=== PATIENT | male | born 1940 | race Caucasian/White ===

== ENCOUNTER 2017-07-07 14:40 | Emergency (ER) | payer OTHER ==
[~2017-07-07 14:40] MED LIST: CHOL50006; FENO54TA PO; HYDR12.57 PO; LOVA40TA PO; METO100T PO; MULT1TAB84 PO; NOVO7030P2 SQ; PROBCAP11; RAMI10CA PO; SITA50 PO; SPIR25TA PO; WARF4TAB51 PO; ZINC50TA PO
[2017-07-07 14:55] VITALS: BP 124/62; PULSE 75; RESP 20; TEMP 99.6; O2SAT 97
[2017-07-07] MEDS ORDERED: ACETAMINOPHEN 325 MG TAB PO ONE (15:00)
[2017-07-07] MEDS ORDERED: METF500T PO (15:15)
[2017-07-07] MEDS ORDERED: GABA100C4 PO (15:15)
[2017-07-07] MEDS ORDERED: HYDR-3288 PO (15:15)
--- NOTE | 2017-07-07 15:24 | PD ---
HPI Chief Complaint: Fall Time Seen by Provider: 14:42 Travel History International Travel<30 days: No Contact w/Intl Traveler<30days: No Traveled to known affect area: No History of Present Illness HPI Patient is a 77 year old male who comes in after a fall today. He says he was sitting in a rolling chair when he fell asleep and woke up on the floor. He called the fire department to help him up and refused transport at that time. He says he started to have pain to his knee, hip and head, so he called again. He denies chest pain or SOB. He says he fell asleep and denies passing out. He has history of chronic pain issues. Severity is mild to moderate. PFSH Past Medical History Hx Anticoagulant Therapy: Yes Arthritis: Yes Blood Disorders: No Heart Rhythm Problems: Yes (AFIB) Cancer: No Cardiac Catheterization: Yes Cardiovascular Problems: Yes High Cholesterol: Yes Chemotherapy: No Chest Pain: No Congestive Heart Failure: No Coronary Artery Disease: Yes Diabetes: Yes Patient Takes Glucophage: Yes Diminished Hearing: No Endocrine: Yes Genitourinary: Yes Hepatitis: No Hiatal Hernia: No Hypertension: Yes Immune Disorder: No Implanted Vascular Access Dvce: Yes Musculoskeletal: Yes Neurologic: No Psychiatric: No Reproductive: No Respiratory: No Radiation Therapy: No Thyroid Disease: No Tetanus Vaccination: < 5 Years Influenza Vaccination: Yes Past Surgical History AICD: No Arteriovenous Shunt: No Body Medical Devices: CERVICAL SPINE INSTRUMENTATION Cardiac Surgery: Yes (quad by-pass 2001) Eye Surgery: Yes (pauline cataracts) Insulin Pump: No Joint Replacement: Yes (RIGHT KNEE) Neurologic Surgery: Yes (CERVICAL SPINE FUSION 10/14/13, L3-L5 02/03/14) Pacemaker: No Other Surgery: Yes Social History Alcohol Use: No Tobacco Use: Yes (2 PPD) Substance Use: No Allergies-Medications (Allergen,Severity, Reaction): Coded Allergies: penicillin G (Unverified Allergy, Severe, Rash, 10/03/16) PT STATES UNKNOWN REACTION insulin detemir (Unverified Allergy, Intermediate, LIPS AND THROAT SWELLS , 10/03/16) insulin glargine (Unverified Allergy, Intermediate, LIPS AND THROAT SWELLS , 10/03/16) *MDRO Multi-Drug Resistant Organism (Unverified Allergy, Unknown, 05/09/16) C.diff 09/2013 Uncoded Allergies: CITRUS (Adverse Reaction, Intermediate, SEVERE UPSET STOMACH, 01/22/14) Reported Meds & Prescriptions Reported Meds & Active Scripts Active Reported [place] (Hydrocodone-Acetaminophen) 7.5-325 mg Tab 1 Tab PO Q6H PRN Gabapentin 100 Mg Cap 100 Mg PO TID Metformin (Metformin HCl) 500 Mg Tab 500 Mg PO DAILY With a meal Probiotic (Probiotic Product) 1 Cap Cap Lovastatin 40 Mg Tab 40 Mg PO DAILY Fenofibrate 54 Mg Tab 54 Mg PO DAILY Warfarin 2 Mg Tab 2 Mg PO DAILY Vitamin D (Cholecalciferol) 5,000 Unit Tab Zinc 50 Mg Tab 50 Mg PO DAILY Spironolactone 25 Mg Tab 25 Mg PO DAILY Metoprolol Tartrate 100 Mg Tab 100 Mg PO BID Ramipril 10 Mg Cap 10 Mg PO BID Novolin 70-30 Inj (Insulin Human Isoph/Insulin Regular) 1,000 Unit/10 Ml Vial 20 Units SQ BID Review of Systems Except as stated in HPI: all other systems reviewed are Neg General / Constitutional: No: Fever, Chills HENT: Positive: Headaches, No: Lightheadedness Cardiovascular: No: Chest Pain or Discomfort Respiratory: No: Shortness of Breath Musculoskeletal: Positive: Pain, No: Edema Skin: No Rash, No Change in Pigmentation Neurologic: No: Weakness, Dizziness, Syncope Physical Exam Narrative GENERAL: Awake and alert, in no acute distress. SKIN: Focused skin assessment warm/dry. Legs are bandaged and wrapped by wound care. HEAD: Atraumatic. Normocephalic. EYES: Pupils equal and round. No scleral icterus. EOMI. ENT: No nasal bleeding or discharge. Mucous membranes pink and moist. NECK: Trachea midline. No JVD. No cervical spine tenderness. CARDIOVASCULAR: Regular rate and rhythm. No murmur appreciated. RESPIRATORY: No accessory muscle use. Clear to auscultation. Breath sounds equal bilaterally. GASTROINTESTINAL: Abdomen soft, non-tender, nondistended. MUSCULOSKELETAL: No obvious deformities. No clubbing. No cyanosis. No edema. Tender to palpation of the right knee, pain with movement of the right knee. Tender to palpation of the right hip. NEUROLOGICAL: Awake and alert. No obvious cranial nerve deficits. Motor grossly within normal limits. Normal speech. PSYCHIATRIC: Appropriate mood and affect; insight and judgment normal. Data Data Last Documented VS Vital Signs Date Time Temp Pulse Resp B/P (MAP) Pulse Ox O2 Delivery O2 Flow Rate FiO2 07/07/17 14:55 99.6 75 20 124/62 (82) 97 Orders Orders Iv Access Insert/Monitor (07/07/17 14:54) Complete Blood Count With Diff (07/07/17 14:54) Comprehensive Metabolic Panel (07/07/17 14:54) Creatine Kinase (Cpk) (07/07/17 14:54) Hip, Uni(Ap&Lat) W Ap Pelvis (07/07/17 ) Knee, Complete (4vws) (07/07/17 ) Foot, Complete (Ero0ucx) (07/07/17 ) Ct Brain W/O Iv Contrast(Rout) (07/07/17 ) Ct Facial Bones W/O Iv Cont (07/07/17 ) Ct Cerv Spine W/O Contrast (07/07/17 ) Acetaminophen (Tylenol) (07/07/17 15:00) Act Partial Throm Time (Ptt) (07/07/17 16:31) Prothrombin Time / Inr (Pt) (07/07/17 16:31) Labs Laboratory Tests Test 07/07/17 16:15 07/07/17 16:50 White Blood Count 12.9 TH/MM3 Red Blood Count 3.52 MIL/MM3 Hemoglobin 11.7 GM/DL Hematocrit 33.9 % Mean Corpuscular Volume 96.2 FL Mean Corpuscular Hemoglobin 33.2 PG Mean Corpuscular Hemoglobin Concent 34.5 % Red Cell Distribution Width 14.0 % Platelet Count 209 TH/MM3 Mean Platelet Volume 9.3 FL Neutrophils (%) (Auto) 74.5 % Lymphocytes (%) (Auto) 12.7 % Monocytes (%) (Auto) 10.9 % Eosinophils (%) (Auto) 0.2 % Basophils (%) (Auto) 1.7 % Neutrophils # (Auto) 9.7 TH/MM3 Lymphocytes # (Auto) 1.6 TH/MM3 Monocytes # (Auto) 1.4 TH/MM3 Eosinophils # (Auto) 0.0 TH/MM3 Basophils # (Auto) 0.2 TH/MM3 CBC Comment DIFF FINAL Differential Comment Blood Urea Nitrogen 28 MG/DL Creatinine 1.40 MG/DL Random Glucose 269 MG/DL Total Protein 7.0 GM/DL Albumin 3.0 GM/DL Calcium Level 9.2 MG/DL Alkaline Phosphatase 56 U/L Aspartate Amino Transf (AST/SGOT) 33 U/L Alanine Aminotransferase (ALT/SGPT) 19 U/L Total Bilirubin 1.0 MG/DL Sodium Level 134 MEQ/L Potassium Level 4.4 MEQ/L Chloride Level 104 MEQ/L Carbon Dioxide Level 22.7 MEQ/L Anion Gap 7 MEQ/L Estimat Glomerular Filtration Rate 49 ML/MIN Total Creatine Kinase 260 U/L Prothrombin Time 18.3 SEC Prothromb Time International Ratio 1.8 RATIO Activated Partial Thromboplast Time 33.1 SEC [place] Medical Decision Making Medical Screen Exam Complete: Yes Emergency Medical Condition: Yes Medical Record Reviewed: Yes Differential Diagnosis Knee fracture versus knee sprain versus hip fracture versus heal fracture versus electrolyte abnormality Narrative Course Patient is a 77-year-old male who comes in after he fell out of a chair today. He has pain to his right knee, heel, hip. X-rays performed of the knee, heel, hip show no acute abnormalities. CT head, facial bones, C-spine performed show no acute abnormalities. Last [address] 07/07/17 0000 Signed Impressions: Service Date/Time: Friday, July 07, 2017 15:34 - CONCLUSION: 1. No acute facial fracture. 2. Minimal bilateral maxillary sinus mucosal disease. Francisco Tran MD Knee X-Ray 07/07/17 0000 Signed Impressions: Service Date/Time: Friday, July 07, 2017 15:00 - CONCLUSION: 1. Right knee arthroplasty without acute fracture or hardware failure. 2. Moderate suprapatellar joint effusion. Francisco Tran MD Hip and Pelvis X-Ray 07/07/17 0000 Signed Impressions: Service Date/Time: Friday, July 07, 2017 15:00 - CONCLUSION: 1. No acute fracture or dislocation. Francisco Tran MD Head CT 07/07/17 0000 Signed Impressions: Service Date/Time: Friday, July 07, 2017 15:34 - CONCLUSION: 1. No acute intracranial abnormality. 2. 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 Francisco Tran MD Foot X-Ray 07/07/17 0000 Signed Impressions: Service Date/Time: Friday, July 07, 2017 15:00 - CONCLUSION: 1. No acute fracture or dislocation. Francisco Tran MD Cervical Spine CT 07/07/17 0000 Signed Impressions: Service Date/Time: Friday, July 07, 2017 15:34 - CONCLUSION: 1. No acute fracture. 2. Minimal anterolisthesis of C3 on C4 likely due to the degenerative facet arthrosis. May obtain flexion and extension views if there is clinical concern regarding ligamentous instability. 3. Post surgical features of anterior plate and interdiscal fusion at C5-6. 4. Advanced multilevel degenerative spondylosis of the cervical spine. Francisco Tran MD Labs show no acute abnormalities. Patient asked to take his gabapentin from home. He will be discharged home to follow-up with his doctors. Advised return as needed for any worsening symptoms. Diagnosis Primary Impression: Fall Qualified Codes: W19.XXXA - Unspecified fall, initial encounter Patient Instructions: Fall Prevention (ED), General Instructions Additional Instructions: Take your medications as prescribed. Follow-up with your doctors. Return to the ED as needed for any worsening symptoms. Disposition: 01 DISCHARGE HOME Condition: Stable Altagracia Ha MD July 07, 2017 15:24
--- NOTE | 2017-07-07 15:46 | RADRPT ---
EXAM DATE/TIME: 07/07/2017 15:00 [facility] COMPARISON: No previous studies available for comparison. INDICATIONS : Pain due to fall. MEDICAL HISTORY : Diabetes mellitus type II. Hypertension Hypercholesterolemia. A-fib SURGICAL HISTORY : CABG. Total knee replacement, right. Lumbar fusion. Cervical fusion. ENCOUNTER: Initial ACUITY: 1 day PAIN SCORE: 6/10 LOCATION: Right knee FINDINGS: There is a total knee arthroplasty in place. Hardware appears intact. Osseous structures are intact w ithout acute bony fracture. There is a suprapatellar joint effusion. Extensive absence chronic calcif ications of the femoral and popliteal arteries. Soft tissues are otherwise unremarkable. CONCLUSION: 1. Right knee arthroplasty without acute fracture or hardware failure. 2. Moderate suprapatellar joint effusion. Francisco Tran MD on July 07, 2017 at 15:43 Board Certified Radiologist. This report was verified electronically.
--- NOTE | 2017-07-07 15:48 | RADRPT ---
EXAM DATE/TIME: 07/07/2017 15:00 [facility] COMPARISON: No previous studies available for comparison. INDICATIONS : Pain due to fall. MEDICAL HISTORY : Hypertension. Hypercholesterolemia. A-fib. Diabetes type 2. SURGICAL HISTORY : CABG. Total knee replacement, right. Lumbar fusion. Cervical fusion. ENCOUNTER: Initial ACUITY: 1 day PAIN SCORE: 6/10 LOCATION: Right pelvis hip, anterior and lateral. FINDINGS: Examination of the right hip was performed with AP Pelvis. The primary and secondary trabecular trish chel[place] of the femoral neck is intact. 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 Ext ensive vascular calcifications. The acetabulum is grossly intact. Fusion hardware in the lower lumbar spine at L4-S1. CONCLUSION: 1. No acute fracture or dislocation. Francisco Tran MD on July 07, 2017 at 15:45 Board Certified Radiologist. This report was verified electronically.
--- NOTE | 2017-07-07 15:48 | RADRPT ---
EXAM DATE/TIME: 07/07/2017 15:00 [facility] COMPARISON: No previous studies available for comparison. INDICATIONS : Pain due to fall. MEDICAL HISTORY : Hypertension. Hypercholesterolemia. A-fib. Diabetes type 2. SURGICAL HISTORY : CABG. Total knee replacement, right. Lumbar fusion. Cervical fusion. ENCOUNTER: Initial ACUITY: 1 day PAIN SCORE: 5/10 LOCATION: Right foot, heel FINDINGS: Three view examination of the right foot demonstrates no soft tissue swelling, dislocation, or fractu re. The tarsal bones appear intact. The interphalangeal and metatarsophalangeal joints are intact. The calcaneus is intact. CONCLUSION: 1. No acute fracture or dislocation. Francisco Trna MD on July 07, 2017 at 15:46 Board Certified Radiologist. This report was verified electronically.
--- NOTE | 2017-07-07 16:25 | RADRPT ---
EXAM DATE/TIME: 07/07/2017 15:34 [facility] COMPARISON: CT BRAIN W/O CONTRAST, February 13, 2014, 16:24. INDICATIONS : Trauma, fall from chair today. RADIATION DOSE: 64.65 CTDIvol (mGy) MEDICAL HISTORY : Hypertension. SURGICAL HISTORY : Fusion, cervical. CABG ENCOUNTER: Initial ACUITY: 1 day PAIN SCALE: 5/10 LOCATION: Bilateral head TECHNIQUE: Multiple contiguous axial images were obtained of the head. Using automated exposure control and adj ustment of the mA and/or kV according to patient size, radiation dose was kept as low as reasonably a chievable to obtain optimal diagnostic quality images. DICOM format image data is available electro nically for review and comparison. FINDINGS: CEREBRUM: Moderate diffuse cerebral volume loss. Encephalomalacic defect in the right posterior temporal occipi alisia lobe convexities. The ventricles are normal for age. No evidence of midline shift, mass lesion, hemorrhage or acute infarction. No extra-axial fluid collections are seen. POSTERIOR FOSSA: The cerebellum and brainstem are intact. The 4th ventricle is midline. The cerebellopontine angle i s unremarkable. EXTRACRANIAL: The visualized portion of the orbits is intact. Minimal mucoperiosteal thickening in the inferior max illary sinuses. SKULL: The calvaria is intact. No evidence of skull fracture. CONCLUSION: 1. No acute intracranial abnormality. 2. 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 Francisco Tran MD on July 07, 2017 at 16:17 Board Certified Radiologist. This report was verified electronically.
[2017-07-07 16:27] LABS: AUTOMATED NEUTROPHIL # 9.7 TH/MM3 (1.8-7.7); BASOPHIL # 0.2 TH/MM3 (0-0.2); BASOPHIL % 1.7 % (0.0-2.0); EOSINOPHIL % 0.2 % (0.0-4.0); HEMATOCRIT 33.9 % (39.0-51.0); HEMOGLOBIN 11.7 GM/DL (13.0-17.0); LYMPH % 12.7 % (9.0-44.0); LYMPHOCYTE # 1.6 TH/MM3 (1.0-4.8); MEAN CELL VOLUME 96.2 FL (80.0-100.0); MEAN CORPUSCULAR HEMOGLOBIN 33.2 PG (27.0-34.0); MEAN CORPUSCULAR HGB CONC 34.5 % (32.0-36.0); MEAN PLATELET VOLUME 9.3 FL (7.0-11.0); MONO % 10.9 % (0.0-8.0); MONOCYTE # 1.4 TH/MM3 (0-0.9); NEUT % 74.5 % (16.0-70.0); PLATELET COUNT 209 TH/MM3 (150-450); RED BLOOD COUNT 3.52 MIL/MM3 (4.50-5.90); WHITE BLOOD COUNT 12.9 TH/MM3 (4.0-11.0)
--- NOTE | 2017-07-07 16:32 | RADRPT ---
EXAM DATE/TIME: 07/07/2017 15:34 [facility] COMPARISON: No previous studies available for comparison. INDICATIONS : Trauma, fall from chair today. RADIATION DOSE: 25.84 CTDIvol (mGy) MEDICAL HISTORY : Hypertension. SURGICAL HISTORY : Fusion, cervical. CABG ENCOUNTER: Initial ACUITY: 1 day PAIN SCORE: 4/10 LOCATION: Bilateral facial TECHNIQUE: Volumetric scanning of the facial bones was performed. Using automated exposure control and adjustme nt of the mA and/or kV according to patient size, radiation dose was kept as low as reasonably achiev able to obtain optimal diagnostic quality images. DICOM format image data is available electronicall y for review and comparison. FINDINGS: ORBITS: The orbital and infraorbital osseous structures are intact. The retroconal structures have a normal configuration. No radiopaque foreign bodies are seen. NASAL BONE: The nasal bone and maxillary spine are intact ZYGOMATIC ARCHES: Symmetric without evidence of fracture. SINUSES: Minimal mucoperiosteal thickening of the inferior maxillary sinuses bilaterally. The maxillary, ethmo id and frontal sinuses are intact. No air-fluid levels seen. NASAL CAVITY: The nasal septum is intact and midline. The lacrimal ducts are intact. SOFT TISSUES: No radiopaque foreign bodies seen. No soft-tissue swelling is seen. INTRACRANIAL: No intracranial air seen. CRIBIFORM PLATE: Grossly intact. CONCLUSION: 1. No acute facial fracture. 2. Minimal bilateral maxillary sinus mucosal disease. Francisco Tran MD on July 07, 2017 at 16:28 Board Certified Radiologist. This report was verified electronically.
[2017-07-07 16:36] LABS: CHLORIDE 104 MEQ/L (98-107); SODIUM (NA) 134 MEQ/L (136-145)
--- NOTE | 2017-07-07 16:38 | RADRPT ---
EXAM DATE/TIME: 07/07/2017 15:34 [facility] COMPARISON: No previous studies available for comparison. INDICATIONS : Trauma, fall from chair today. RADIATION DOSE: 26.22 CTDIvol (mGy) MEDICAL HISTORY : Hypertension. SURGICAL HISTORY : CABG Fusion, cervical. ENCOUNTER: Initial ACUITY: 1 day PAIN SCALE: 7/10 LOCATION: Bilateral neck TECHNIQUE: Volumetric scanning of the cervical spine was performed. Multiplanar reconstructions in the sagittal, coronal and oblique axial planes were performed. Using automated exposure control and adjustment o f the mA and/or kV according to patient size, radiation dose was kept as low as reasonably achievable to obtain optimal diagnostic quality images. DICOM format image data is available electronically f or review and comparison. FINDINGS: Postsurgical features of anterior plate and screw and intradiscal fusion at C5-6. Advanced multilevel degenerative spondylosis with significant disc space narrowing and osteophyte formation most promine ntly at C3-4, C6-7 and C7-T1. Prominent multilevel facet arthropathy. Minimal, 2 mm, anterolisthesis of C3 on C4. Sagittal images otherwise maintained. Vertebral body heights are maintained. Osseous str uctures are intact without evidence for acute bony fracture. Dens is intact. There is a normal C1-2 r elationship. Facets are normally aligned. There is no significant prevertebral soft tissue hematoma. No significant cervical adenopathy or gross mass. The thyroid appears unremarkable. Visualized lung a pices are clear without pneumothorax. CONCLUSION: 1. No acute fracture. 2. Minimal anterolisthesis of C3 on C4 likely due to the degenerative facet arthrosis. May obtain fle xion and extension views if there is clinical concern regarding ligamentous instability. 3. Post surgical features of anterior plate and interdiscal fusion at C5-6. 4. Advanced multilevel degenerative spondylosis of the cervical spine. Francisco Tran MD on July 07, 2017 at 16:33 Board Certified Radiologist. This report was verified electronically.
[2017-07-07 16:40] LABS: BICARBONATE 22.7 MEQ/L (21.0-32.0); BLOOD UREA NITROGEN 28 MG/DL (7-18); CALCIUM 9.2 MG/DL (8.5-10.1); GLUCOSE,RANDOM 269 MG/DL (74-106)
[2017-07-07 16:43] LABS: ALT (GPT) 19 U/L (12-78); AST (GOT) 33 U/L (15-37); GLOMERULAR FILTRATION RATE 49 ML/MIN (>89)
[2017-07-07 16:46] LABS: ALKALINE PHOSPHATASE 56 U/L (45-117)
[2017-07-07 17:17] LABS: INTERNATIONAL NORMALIZED RATIO 1.8 RATIO; PROTHROMBIN TIME - PATIENT 18.3 SEC (9.8-11.6)
== END 2017-07-07 18:05 | disposition home or self-care (01) ==
LOC: PHED 14:40
DX: M25.551 Pain in right hip (principal); M25.561 Pain in right knee; E78.00 Pure hypercholesterolemia, unspecified; I10 Essential (primary) hypertension; E11.9 Type 2 diabetes mellitus without complications
CPT/HCPCS: 70450; 70486; 72125; 73502; 73564; 73630; 80053; 82550; 85025; 85610; 85730

== ENCOUNTER 2017-07-08 11:19 | Inpatient (IN) | payer OTHER, MEDICARE ==
[2017-07-08] VITALS (8 sets, daily range): BP systolic 118–158; BP diastolic 66–95; PULSE 92–105; RESP 18–22; TEMP 97.4–99.6; O2SAT 95–97
[~2017-07-08] VITALS: Ht 180.3 cm; Wt 106.5 kg
[~2017-07-08 11:19] MED LIST changes: +GABA100C4 PO; +HYDR-3288 PO; -HYDR12.57 PO; +METF500T PO; -MULT1TAB84 PO; -SITA50 PO
--- NOTE | 2017-07-08 11:47 | PD ---
HPI Chief Complaint: Fall Time Seen by Provider: 11:23 Travel History International Travel<30 days: No Contact w/Intl Traveler<30days: No Traveled to known affect area: No History of Present Illness HPI Patient is a 77-year-old male who presents the emergency room for evaluation of gait instability with right-sided knee pain.. Patient was seen in the emergency room last night after he fell face forward out of a swivel chair and landed on his right knee. Patient reports that this is his second fall in the past week as he accidently fell earlier in the week from his swivel chair, he thinks that he may have fallen asleep in his chair and fell forward in his sleep. patient had full workup including laboratory studies, INR was 1.8 as he is on Coumadin for history of atrial fibrillation. Patient had a CAT scan of his head, neck, x-rays of his foot, right knee as well as right hip with pelvis -studies were only significant for effusion to the right knee. Patient was sent home via [facility] last night, reports that he was placed back into a swivel chair and has been unable to ambulate or care for himself or even take himself out of the swivel chair since last night. Patient reports that he was concerned as his right knee continues to hurt him. 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 Patient reports that at baseline, he does ambulate with a walker, reports that pain is so severe to his right knee, he is unable to ambulate. Reports that his PCP is working on getting him a walker with a seat on it, but at this time, he can't even help himself to the restroom because "if it go to defecate, I won't be able to get up." Reports that he had been using his swivel chair to get around his home last night and slept in the swivel chair overnight. PFSH Past Medical History Hx Anticoagulant Therapy: Yes Arthritis: Yes Blood Disorders: No Heart Rhythm Problems: Yes (AFIB) Cancer: No Cardiac Catheterization: Yes Cardiovascular Problems: Yes High Cholesterol: Yes Chemotherapy: No Chest Pain: No Congestive Heart Failure: No Coronary Artery Disease: Yes Diabetes: Yes Patient Takes Glucophage: Yes Diminished Hearing: No Endocrine: Yes Genitourinary: Yes Hepatitis: No Hiatal Hernia: No Hypertension: Yes Immune Disorder: No Implanted Vascular Access Dvce: Yes Musculoskeletal: Yes Neurologic: No Psychiatric: No Reproductive: No Respiratory: No Radiation Therapy: No Thyroid Disease: No Influenza Vaccination: No ?: Not Past Surgical History AICD: No Arteriovenous Shunt: No Body Medical Devices: CERVICAL SPINE INSTRUMENTATION Cardiac Surgery: Yes (quad by-pass 2001) Eye Surgery: Yes (pauline cataracts) Insulin Pump: No Joint Replacement: Yes (RIGHT KNEE) Neurologic Surgery: Yes (CERVICAL SPINE FUSION 10/14/13, L3-L5 02/03/14) Pacemaker: No Other Surgery: Yes Social History Alcohol Use: No Tobacco Use: Yes (02/20 PPD) Substance Use: No Allergies-Medications (Allergen,Severity, Reaction): Coded Allergies: penicillin G (Verified Allergy, Severe, Rash, 07/08/17) PT STATES UNKNOWN REACTION insulin detemir (Verified Allergy, Intermediate, LIPS AND THROAT SWELLS, ) insulin glargine (Verified Allergy, Intermediate, LIPS AND THROAT SWELLS, 07/08/17) *MDRO Multi-Drug Resistant Organism (Verified Allergy, Unknown, 07/08/17) C.diff 09/2013 Uncoded Allergies: CITRUS (Adverse Reaction, Intermediate, SEVERE UPSET STOMACH, 01/22/14) Reported Meds & Prescriptions Reported Meds & Active Scripts Active Reported [place] (Hydrocodone-Acetaminophen) 7.5-325 mg Tab 1 Tab PO Q6H PRN Gabapentin 100 Mg Cap 100 Mg PO TID Metformin (Metformin HCl) 500 Mg Tab 500 Mg PO DAILY With a meal Lovastatin 40 Mg Tab 40 Mg PO DAILY Fenofibrate 54 Mg Tab 54 Mg PO DAILY Warfarin 2 Mg Tab 2 Mg PO DAILY Spironolactone 25 Mg Tab 25 Mg PO DAILY Metoprolol Tartrate 100 Mg Tab 100 Mg PO BID Ramipril 10 Mg Cap 10 Mg PO BID Novolin 70-30 Inj (Insulin Human Isoph/Insulin Regular) 1,000 Unit/10 Ml Vial 20 Units SQ BID Review of Systems General / Constitutional: No: Fever Eyes: No: Visual changes HENT: No: Headaches Cardiovascular: No: Chest Pain or Discomfort Respiratory: No: Shortness of Breath Gastrointestinal: No: Abdominal Pain Genitourinary: No: Dysuria Musculoskeletal: Positive: Limited ROM (Right knee), Pain (Right knee) Skin: No Rash Neurologic: No: Weakness Psychiatric: No: Depression Endocrine: No: Polydipsia Hematologic/Lymphatic: No: Easy Bruising Physical Exam Narrative GENERAL: Moderate distress SKIN: Focused skin assessment warm/dry. HEAD: Atraumatic. Normocephalic. EYES: Pupils equal and round. No scleral icterus. No injection or drainage. ENT: No nasal bleeding or discharge. Mucous membranes pink and moist. NECK: Trachea midline. No JVD. CARDIOVASCULAR: Regular rate and rhythm. No murmur appreciated. RESPIRATORY: No accessory muscle use. Clear to auscultation. Breath sounds equal bilaterally. GASTROINTESTINAL: Abdomen soft, non-tender, nondistended. Hepatic and splenic margins not palpable. MUSCULOSKELETAL: No obvious deformities. No clubbing. No cyanosis. Right lower extremity: Patient with bruising and edema surrounding right knee, patient with pain with slight passive range of motion of knee, patient is unable to actively range of motion his right knee. There is no obvious fractures, pulses intact NEUROLOGICAL: Awake and alert. No obvious cranial nerve deficits. Motor grossly within normal limits. Normal speech. PSYCHIATRIC: Appropriate mood and affect; insight and judgment normal. Data Data Last Documented VS Vital Signs Date Time Temp Pulse Resp B/P (MAP) Pulse Ox O2 Delivery O2 Flow Rate FiO2 07/08/17 13:00 100 18 141/75 (97) 95 Room Air 07/08/17 11:30 99.6 Orders Orders Knee, Complete (4vws) (07/08/17 ) Basic Metabolic Panel (Bmp) (07/08/17 11:49) Complete Blood Count With Diff (07/08/17 11:49) Prothrombin Time / Inr (Pt) (07/08/17 11:49) Act Partial Throm Time (Ptt) (07/08/17 11:49) Iv Access Insert/Monitor (07/08/17 11:49) Ecg Monitoring (07/08/17 11:49) Sodium Chloride 0.9% Flush (Ns Flush) (07/08/17 12:00) Consult Pt Eval & Treat (07/08/17 12:11) Labs Laboratory Tests Test 07/08/17 12:35 White Blood Count 13.2 TH/MM3 Red Blood Count 3.77 MIL/MM3 Hemoglobin 12.1 GM/DL Hematocrit 36.3 % Mean Corpuscular Volume 96.4 FL Mean Corpuscular Hemoglobin 32.0 PG Mean Corpuscular Hemoglobin Concent 33.2 % Red Cell Distribution Width 13.4 % Platelet Count 194 TH/MM3 Mean Platelet Volume 9.1 FL Neutrophils (%) (Auto) 72.5 % Lymphocytes (%) (Auto) 12.1 % Monocytes (%) (Auto) 12.1 % Eosinophils (%) (Auto) 0.1 % Basophils (%) (Auto) 3.2 % Neutrophils # (Auto) 9.6 TH/MM3 Lymphocytes # (Auto) 1.6 TH/MM3 Monocytes # (Auto) 1.6 TH/MM3 Eosinophils # (Auto) 0.0 TH/MM3 Basophils # (Auto) 0.4 TH/MM3 CBC Comment DIFF FINAL Differential Comment Prothrombin Time 14.8 SEC Prothromb Time International Ratio 1.5 RATIO Activated Partial Thromboplast Time 38.5 SEC Calcium Level 9.1 MG/DL Sodium Level 131 MEQ/L Potassium Level 4.1 MEQ/L Chloride Level 100 MEQ/L Carbon Dioxide Level 20.7 MEQ/L Anion Gap 10 MEQ/L MDM Medical Decision Making Medical Screen Exam Complete: Yes Emergency Medical Condition: Yes Medical Record Reviewed: Yes Interpretation(s) Vital Signs Date Time Temp Pulse Resp B/P (MAP) Pulse Ox O2 Delivery O2 Flow Rate FiO2 07/08/17 11:39 95 Room Air 07/08/17 11:30 99.6 97 18 143/95 (111) 95 Differential Diagnosis Gait instability, knee effusion Narrative Course Patient is a 77 year old male who presents to the ER with c/o of gait instability. Patient is unable to ambulate or care for himself at home. He is a fall risk and does not have family or friends to care for himself. Patient currently ambulates with a walker, patient is able to ambulate with a walker at this time due to severe pain and swelling to his right knee Case management was called to help with patient's case for a safe disposition of patient. During the course of the patients emergency department visit, the patients history, examination, and differential diagnosis were reviewed with the patient. The patient was placed on a marine services technician with oximetry and frequent blood pressure monitoring. The patient had an IV access obtained and blood work sent for analysis. Case reviewed with case management, patient is an unsafe discharge, request that patient be placed in observation status at this time for PT eval. PT consult was placed Case reviewed with Dr. Munguia who accepts patient to service Diagnosis Primary Impression: Gait instability Additional Impression: Knee effusion, right Gloria Pool DO July 08, 2017 11:47
[2017-07-08] MEDS ORDERED: SODIUM CHLORIDE 0.9% FLUSH 10 ML FLUSH IV FLUSH PRN ×2 (12:00→13:15)
[2017-07-08 12:44] LABS: AUTOMATED NEUTROPHIL # 9.6 TH/MM3 (1.8-7.7); BASOPHIL # 0.4 TH/MM3 (0-0.2); BASOPHIL % 3.2 % (0.0-2.0); EOSINOPHIL % 0.1 % (0.0-4.0); HEMATOCRIT 36.3 % (39.0-51.0); HEMOGLOBIN 12.1 GM/DL (13.0-17.0); LYMPH % 12.1 % (9.0-44.0); LYMPHOCYTE # 1.6 TH/MM3 (1.0-4.8); MEAN CELL VOLUME 96.4 FL (80.0-100.0); MEAN CORPUSCULAR HGB CONC 33.2 % (32.0-36.0); MEAN PLATELET VOLUME 9.1 FL (7.0-11.0); MONO % 12.1 % (0.0-8.0); MONOCYTE # 1.6 TH/MM3 (0-0.9); NEUT % 72.5 % (16.0-70.0); PLATELET COUNT 194 TH/MM3 (150-450); RED BLOOD COUNT 3.77 MIL/MM3 (4.50-5.90); RED CELL DISTRIBUTION WIDTH 13.4 % (11.6-17.2); WHITE BLOOD COUNT 13.2 TH/MM3 (4.0-11.0)
[2017-07-08 12:55] LABS: CALCIUM 9.1 MG/DL (8.5-10.1)
[2017-07-08 12:56] LABS: BICARBONATE 20.7 MEQ/L (21.0-32.0)
[2017-07-08 12:59] LABS: INTERNATIONAL NORMALIZED RATIO 1.5 RATIO; PROTHROMBIN TIME - PATIENT 14.8 SEC (9.8-11.6)
--- NOTE | 2017-07-08 13:05 | RADRPT ---
EXAM DATE/TIME: 07/08/2017 12:39 [facility] COMPARISON: KNEE RIGHT COMPLETE (4VWS), July 07, 2017, 15:00. INDICATIONS : Right knee pain due from fall MEDICAL HISTORY : Diabetes mellitus type II. Hypertension Hypercholesterolemia. a fib SURGICAL HISTORY : CABG. Total knee replacement, right. ENCOUNTER: Initial ACUITY: 2 weeks PAIN SCORE: 7/10 LOCATION: Right knee FINDINGS: Total knee arthroplasty with stable alignment and intact hardware. No fracture seen. There is diste ntion of the suprapatellar bursa, more prominent than on yesterday's examination, now measuring up to 3.6 cm in AP dimension (previously measured 2.4 cm). Prominent vascular calcification from the dist al thigh to calf. CONCLUSION: 1. No fracture seen. Intact hardware. 2. Increasing size joint effusion when compared to yesterday's exam. Alvin Boland MD on July 08, 2017 at 13:01 Board Certified Radiologist. This report was verified electronically.
[2017-07-08] MEDS ORDERED: LACTATED RINGER'S 1000 ML INJ 1,000 ML IV SCH (13:07)
[2017-07-08] MEDS ORDERED: ONDANSETRON ODT 4 MG TAB SL PRN (13:15)
[2017-07-08] MEDS ORDERED: NALOXONE HCL 0.4 MG/ML AMP IV PUSH PRN (13:15)
[2017-07-08] MEDS ORDERED: ONDANSETRON HCL 4 MG/2 ML VIAL IVP PRN (13:15)
[2017-07-08] MEDS ORDERED: ACETAMINOPHEN 325 MG TAB PO PRN (13:15)
[2017-07-08 13:31] LABS: CREATININE 1.6 MG/DL (0.60-1.30)
--- NOTE | 2017-07-08 13:42 | HHI.HP ---
[facility] Non-Staff Admission Diagnosis Gait instability Diagnoses: Chief Complaint: Fall Travel History International Travel<30 Days: No Contact w/Intl Traveler <30 Da: No Traveled to Known Affected Are: No History of Present Illness Patient seen in follow-up for recurrent falls with increased joint pain in the right knee. 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 Normally lives independently but does use a walker or durable medical assistive device for ambulation. He has had trouble getting around especially since the rain started this past couple weeks as his knee has become more swollen and painful. He has a significant effusion on his right knee. Patient does take warfarin for atrial fibrillation however his INR is only 1.5. Patient says the pain is not controlled with gabapentin which he takes at home. He does not take pain medication because of his fear of interaction with his multiple medications. Patient also has chronic kidney disease does not take anti-inflammatories. Patient denies any chest pain or shortness of breath. He has not been dizzy or lightheaded unless his sugar becomes abnormal and this is infrequent. Patient follows up with his primary care doctor regularly and follows up with his ski top trimmer at the [facility]. This time the patient has significant effusion with elevated blood sugar and elevated white cell count. The knee does not appear to be grossly inflamed however the infusion according to images and documented ER encounters over the last 48 hours appears to have gotten worse. Patient will warrant for further evaluation by orthopedics as he cannot ambulate and the pain is severe. Review of Systems Constitutional: DENIES: Diaphoretic episodes, Fatigue, Fever, Weight gain, Weight loss, Chills, Dizziness, Change in appetite, Night Sweats Endocrine: DENIES: Heat/cold intolerance, Polydipsia, Polyuria, Polyphagia Eyes: DENIES: Blurred vision, Diplopia, Eye inflammation, Eye pain, Vision loss , Photosensitivity, Double Vision Ears, nose, mouth, throat: DENIES: Tinnitus, Hearing loss, Vertigo, Nasal discharge, Oral lesions, Throat pain, Hoarseness, Ear Pain, Running Nose, Epistaxis, Sinus Pain, Toothache, Odynophagia Respiratory: DENIES: Apneas, Cough, Snoring, Wheezing, Hemoptysis, Sputum production, Shortness of breath Cardiovascular: DENIES: Chest pain, Palpitations, Syncope, Dyspnea on Exertion , PND, Lower Extremity Edema, Orthopnea, Claudication Gastrointestinal: DENIES: Abdominal pain, Black stools, Bloody stools, Constipation, Diarrhea, Nausea, Vomiting, Difficulty Swallowing, Anorexia Genitourinary: DENIES: Sexual dysfunction, Urinary frequency, Urinary incontinence, Urgency, Hematuria, Dysuria, Nocturia, Penile Discharge, Testicular Pain, Testicular Swelling Musculoskeletal: COMPLAINS OF: Joint pain, Joint Swelling, Back pain, DENIES: Muscle aches, Stiffness, Neck pain Integumentary: DENIES: Abnormal pigmentation, Nail changes, Pruritus, Rash Hematologic/lymphatic: DENIES: Bruising, Lymphadenopathy Immunologic/allergic: DENIES: Eczema, Urticaria Neurologic: DENIES: Abnormal gait, Headache, Localized weakness, Paresthesias, Seizures, Speech Problems, Tremor, Poor Balance Psychiatric: DENIES: Anxiety, Confusion, Mood changes, Depression, Hallucinations, Agitation, Suicidal Ideation, Homicidal Ideation, Delusions Except as stated in HPI: all other systems reviewed are Neg Past Family Social History Past Medical History Diabetes mellitus Hypertension Chronic arthritis and degenerative joint disease Tobacco dependency Atrial fibrillation on warfarin Hyperlipidemia Past Surgical History Cervical spine surgery Quadruple bypass Cataracts Right knee previous surgery Reported Medications Reviewed in the EMR Allergies: Coded Allergies: penicillin G (Verified Allergy, Severe, Rash, 07/08/17) PT STATES UNKNOWN REACTION insulin detemir (Verified Allergy, Intermediate, LIPS AND THROAT SWELLS, ) insulin glargine (Verified Allergy, Intermediate, LIPS AND THROAT SWELLS, 07/08/17) *MDRO Multi-Drug Resistant Organism (Verified Allergy, Unknown, 07/08/17) C.diff 09/2013 Uncoded Allergies: CITRUS (Adverse Reaction, Intermediate, SEVERE UPSET STOMACH, 01/22/14) Active Ordered Medications Reviewed in the EMR Family History Mother at 88 from cardiac disease, father at 44 from cardiac disease Social History Patient still smokes at least a pack a day for the last 50 years Denies alcohol and lives independently Physical Exam Vital Signs Vital Signs Date Time Temp Pulse Resp B/P (MAP) Pulse Ox O2 Delivery O2 Flow Rate FiO2 07/08/17 13:00 100 18 141/75 (97) 95 Room Air 07/08/17 11:39 95 Room Air 07/08/17 11:30 99.6 97 18 143/95 (111) 95 Physical Exam GENERAL: This is a elderly gentleman who is alert and complaining of knee and hip pain SKIN: No rashes, ecchymoses or lower extremity abrasions and skin lesions which are in various stages of healing. Cool and dry. HEAD: Atraumatic. Normocephalic. No temporal or scalp tenderness. EYES: Pupils equal round and reactive. Extraocular motions intact. No scleral icterus. No injection or drainage. ENT: Nose without bleeding, purulent drainage or septal hematoma. Throat without erythema, tonsillar hypertrophy or exudate. Uvula midline. Airway patent. NECK: Trachea midline. No JVD or lymphadenopathy. Supple, nontender, no meningeal signs. CARDIOVASCULAR: Atrial fibrillation with regular rate RESPIRATORY: Clear to auscultation. Breath sounds equal bilaterally. No wheezes , rales, or rhonchi. GASTROINTESTINAL: Abdomen soft, non-tender, nondistended. No hepato-splenomegaly , or palpable masses. No guarding. MUSCULOSKELETAL: Right knee has a significant effusion and is tender and edematous with decreased range of motion and decreased extension and flexion of the knee. Bilateral lower extremities have significant wounds which are dressed , hip is tender to palpation but full extension and relatively good range of motion. Other extremities without clubbing, cyanosis, or edema. No joint tenderness, effusion, or edema noted. No calf tenderness. Negative Homans sign bilaterally. NEUROLOGICAL: Awake and alert. Cranial nerves II through XII intact. Motor and sensory grossly within normal limits. Five out of 5 muscle strength in all muscle groups. Normal speech. Laboratory Laboratory Tests Test 07/08/17 12:35 White Blood Count 13.2 Red Blood Count 3.77 Hemoglobin 12.1 Hematocrit 36.3 Mean Corpuscular Volume 96.4 Mean Corpuscular Hemoglobin 32.0 Mean Corpuscular Hemoglobin Concent 33.2 Red Cell Distribution Width 13.4 Platelet Count 194 Mean Platelet Volume 9.1 Neutrophils (%) (Auto) 72.5 Lymphocytes (%) (Auto) 12.1 Monocytes (%) (Auto) 12.1 Eosinophils (%) (Auto) 0.1 Basophils (%) (Auto) 3.2 Neutrophils # (Auto) 9.6 Lymphocytes # (Auto) 1.6 Monocytes # (Auto) 1.6 Eosinophils # (Auto) 0.0 Basophils # (Auto) 0.4 CBC Comment DIFF FINAL Differential Comment Prothrombin Time 14.8 Prothromb Time International Ratio 1.5 Activated Partial Thromboplast Time 38.5 Blood Urea Nitrogen 30 Creatinine 1.60 Random Glucose 437 Calcium Level 9.1 Sodium Level 131 Potassium Level 4.1 Chloride Level 100 Carbon Dioxide Level 20.7 Anion Gap 10 Estimat Glomerular Filtration Rate 42 Result Diagram: 07/08/17 1235 07/08/17 1235 Imaging X-ray right knee has significantly increased joint effusion Septic Shock Reassessment Septic shock perfusion: reassessment completed Caprini VTE Risk Assessment Caprini VTE Risk Assessment: Mod/High Risk (score >= 2) VTE Pharm Contraindication: Coagulopathy,INR elevated Caprini Risk Assessment Model Point Value = 1 Point Value = 2 Point Value = 3 Point Value = 5 Age 41-60 Minor surgery BMI > 25 kg/m2 Swollen legs Varicose veins or History of unexplained or recurrent spontaneous Oral contraceptives or hormone replacement Sepsis (< 1 month) Serious lung disease, including pneumonia (< 1 month) Abnormal pulmonary function Acute myocardial infarction Congestive heart failure (< 1 month) History of inflammatory bowel disease Medical patient at bed rest Age 61-74 Arthroscopic surgery Major open surgery (> 45 min) Laparoscopic surgery (> 45 min) Malignancy Confined to bed (> 72 hours) Immobilizing plaster cast Central venous access Age >= 75 History of VTE Family history of VTE Factor V Leiden Prothrombin [id number] Lupus anticoagulant Anticardiolipin antibodies Elevated serum homocysteine Heparin-induced thrombocytopenia Other congenital or acquired thrombophilia Stroke (< 1 month) Elective arthroplasty Hip, pelvis, or leg fracture Acute spinal cord injury (< 1 month) Prophylaxis Regimen Total Risk Factor Score Risk Level Prophylaxis Regimen 0-1 Low Early ambulation 2 Moderate Order ONE of the following: *Sequential Compression Device (SCD) *Heparin 5000 units SQ BID 3-4 Higher Order ONE of the following medications: *Heparin 5000 units SQ TID *Enoxaparin/Lovenox 40 mg SQ daily (WT < 150 kg, CrCl > 30 mL/min) *Enoxaparin/Lovenox 30 mg SQ daily (WT < 150 kg, CrCl > 10-29 mL/min) *Enoxaparin/Lovenox 30 mg SQ BID (WT < 150 kg, CrCl > 30 mL/min) AND/OR *Sequential Compression Device (SCD) 5 or more Highest Order ONE of the following medications: *Heparin 5000 units SQ TID (Preferred with Epidurals) *Enoxaparin/Lovenox 40 mg SQ daily (WT < 150 kg, CrCl > 30 mL/min) *Enoxaparin/Lovenox 30 mg SQ daily (WT < 150 kg, CrCl > 10-29 mL/min) *Enoxaparin/Lovenox 30 mg SQ BID (WT < 150 kg, CrCl > 30 mL/min) AND *Sequential Compression Device (SCD) Assessment and Plan Problem List: (1) Skin abnormality ICD Code: L98.9 - Disorder of the skin and subcutaneous tissue, unspecified Plan: Patient with home wound care and history of venous stasis with lymphedema Continue with wound care and management Resume home healthcare services when appropriate (2) Knee effusion, right ICD Code: M25.461 - Effusion, right knee Status: Acute Plan: Continue Tylenol as needed, avoid anti-inflammatories as patient has chronic kidney disease We will try Ultram p.o. Patient is on Coumadin but his INR is 1.5. We will hold his warfarin for now ( diagnosis A. fib) Orthotic consult for possible further evaluation of a joint effusion Patient has mild leukocytosis with no evidence of cellulitis or inflammation related to infection on the joint. This appears to be a severe nonseptic joint effusion but we will need further evaluation (3) Gait instability ICD Code: R26.81 - Unsteadiness on feet Status: Acute Plan: Likely due to joint pain and right knee effusion Patient will benefit from further orthopedic evaluation Continue rehab efforts as tolerated (4) Diabetes mellitus ICD Code: E11.9 - Diabetes mellitus Status: Acute Plan: Continue with diabetic management with home insulin regimen Accu-Cheks and sliding scale ADA diet (5) Atrial fibrillation ICD Code: I48.91 - Atrial fibrillation Status: Acute Plan: rate controlled, on warfarin which is held for possible aspiration telemetry (6) Hyponatremia ICD Code: E87.1 - Hypo-osmolality and hyponatremia Plan: Patient is significantly hyperglycemic with a blood sugar 437 We will continue to correct his blood sugar and follow-up his electrolytes Avoid fluid overload and follow clinically (7) Anemia ICD Code: D64.9 - Anemia, unspecified (8) CKD (chronic kidney disease) ICD Code: N18.9 - Chronic kidney disease, unspecified Plan: Avoid nephrotoxins Follow-up blood sugar closely to avoid hypoglycemia Code Status full code Discussed Condition With Patient, ER MD Castro,Carolyn Molina MD July 08, 2017 13:42
[2017-07-08] MEDS ORDERED: ACETAMINOPHEN 500 MG CPLT PO ONE (13:45)
[2017-07-08] MEDS ORDERED: GLUCAGON 1 MG/ML VIAL OTHER PRN (14:00)
[2017-07-08] MEDS ORDERED: DEXTROSE 50% IN WATER 50 ML VIAL(D50) IV PUSH PRN (14:00)
[2017-07-08] MEDS: SODIUM CHLOR 0.9% 1000 ML INJ 1,000 ML IV SCH (15:21)
[2017-07-08] MEDS: traMADol HCL 50 MG TAB PO PRN (15:28)
--- NOTE | 2017-07-08 15:44 | RADRPT ---
EXAM DATE/TIME: 07/08/2017 15:00 [facility] COMPARISON: No previous studies available for comparison. INDICATIONS : Right knee pain. RADIATION DOSE: 14.90 CTDIvol (mGy) MEDICAL HISTORY : Cardiovascular disease. Hypertension. Renal disease. SURGICAL HISTORY : CABG Right knee surgery. ENCOUNTER: Initial ACUITY: 1 day PAIN SCALE: 6/10 LOCATION: Right knee TECHNIQUE: Volumetric scanning of the knee was performed. Using automated exposure control and adjustment of th e mA and/or kV according to patient size, radiation dose was kept as low as reasonably achievable to obtain optimal diagnostic quality images. DICOM format image data is available electronically for re view and comparison. FINDINGS: BONES: There is a total right knee arthroplasty in place. Hardware appears grossly intact. Beam hardening ar tifact significantly limits evaluation of the osseous structures. No evidence of fracture. Patella is intact. Alignment is within normal limits. JOINTS: Moderate-sized intermediate density suprapatellar joint effusion. SOFT TISSUES: Muscles, tendons and neurovascular structures are grossly unremarkable. Prominent vascular calcificat ions. No evidence of mass, organized fluid collection, or foreign body. CONCLUSION: 1. Right total knee arthroplasty in place which limits overall evaluation for subtle fractures. 2. No evidence for acute bony fracture. 3. Moderate size suprapatellar joint effusion. Francisco Tran MD on July 08, 2017 at 15:34 Board Certified Radiologist. This report was verified electronically.
[2017-07-08] MEDS: INSULIN ASPART SUPPLEMENTAL SCALE SQ SCH ×2 (16:57→20:40)
[2017-07-08] MEDS: GABAPENTIN 100 MG CAP PO SCH (16:58)
[2017-07-08] MEDS: INSULIN HUMAN NPH/R 70/30 1,000 UNITS/10 ML VIAL SQ SCH (17:56)
[2017-07-08] MEDS: SODIUM CHLORIDE 0.9% FLUSH 10 ML FLUSH IV FLUSH SCH (20:40)
[2017-07-08] MEDS: RAMIPRIL 5 MG CAP PO SCH (20:43)
[2017-07-08] MEDS: METOPROLOL TARTRATE 100 MG TAB PO SCH (20:44)
[2017-07-08] MEDS ORDERED: INSULIN HUMAN NPH/R 70/30 1,000 UNITS/10 ML VIAL SQ SCH (21:00)
[2017-07-09] VITALS (8 sets, daily range): BP systolic 133–153; BP diastolic 62–91; PULSE 81–93; RESP 20–22; TEMP 97.5–98.8; O2SAT 96–97
[2017-07-09] MEDS: traMADol HCL 50 MG TAB PO PRN ×3 (02:32→21:30)
[2017-07-09] MEDS: SODIUM CHLOR 0.9% 1000 ML INJ 1,000 ML IV SCH ×2 (06:33→22:45)
[2017-07-09 06:43] LABS: AUTOMATED NEUTROPHIL # 8.4 TH/MM3 (1.8-7.7); BASOPHIL % 0.3 % (0.0-2.0); EOSINOPHIL % 0.4 % (0.0-4.0); HEMATOCRIT 33.1 % (39.0-51.0); HEMOGLOBIN 11.1 GM/DL (13.0-17.0); LYMPH % 15.8 % (9.0-44.0); LYMPHOCYTE # 1.8 TH/MM3 (1.0-4.8); MEAN CELL VOLUME 95.4 FL (80.0-100.0); MEAN CORPUSCULAR HEMOGLOBIN 31.8 PG (27.0-34.0); MEAN CORPUSCULAR HGB CONC 33.4 % (32.0-36.0); MONO % 10.9 % (0.0-8.0); MONOCYTE # 1.2 TH/MM3 (0-0.9); NEUT % 72.6 % (16.0-70.0); PLATELET COUNT 189 TH/MM3 (150-450); RED BLOOD COUNT 3.47 MIL/MM3 (4.50-5.90); RED CELL DISTRIBUTION WIDTH 13.3 % (11.6-17.2); WHITE BLOOD COUNT 11.4 TH/MM3 (4.0-11.0)
[2017-07-09 06:58] LABS: CALCIUM 8.5 MG/DL (8.5-10.1)
[2017-07-09 06:59] LABS: INTERNATIONAL NORMALIZED RATIO 1.3 RATIO; PROTHROMBIN TIME - PATIENT 13.2 SEC (9.8-11.6)
[2017-07-09 07:20] LABS: CREATININE 1.2 MG/DL (0.60-1.30)
[2017-07-09] MEDS: INSULIN ASPART SUPPLEMENTAL SCALE SQ SCH ×4 (08:55→21:29)
[2017-07-09] MEDS: SPIRONOLACTONE 25 MG TAB PO SCH (09:00)
[2017-07-09] MEDS: GABAPENTIN 100 MG CAP PO SCH ×3 (09:27→16:57)
[2017-07-09] MEDS: RAMIPRIL 5 MG CAP PO SCH ×2 (09:27→21:25)
[2017-07-09] MEDS: FENOFIBRATE 48 MG TAB PO SCH (09:27)
[2017-07-09] MEDS: INSULIN HUMAN NPH/R 70/30 1,000 UNITS/10 ML VIAL SQ SCH ×2 (09:27→21:29)
[2017-07-09] MEDS: METOPROLOL TARTRATE 100 MG TAB PO SCH ×2 (09:27→21:25)
[2017-07-09] MEDS: PRAVASTATIN SOD 40 MG TAB PO SCH (09:27)
[2017-07-09] MEDS: SODIUM CHLORIDE 0.9% FLUSH 10 ML FLUSH IV FLUSH SCH ×2 (09:27→21:00)
--- NOTE | 2017-07-09 10:47 | PD.RAD ---
Post Procedure Progress Note Pre Procedure Diagnosis: (1) Knee effusion, right Post Procedure Diagnosis: (1) Knee effusion, right Procedure Date: July 09, 2017 Supervising Radiologist: Mata Schneider Proceduralist/Assist: RT Yunior(R), RT Alexander(R) Anesthesia: Local Plan of Activity Patient to Unit: Nursing Unit Patient Condition: Good See PACS Report for procedural detail/treatment Drainage Procedure Procedure 1 Imaging Guidance: Ultrasound Side: Right Procedure Type: Aspiration (Knee) Procedure: Placement [place]: 4 (micropuncture) Drainage: Suction Fluid Removal (CCs): 85 Fluid Description: Cloudy, Yellow Mata Schneider MD July 09, 2017 10:47
--- NOTE | 2017-07-09 11:27 | HHI.PR ---
Subjective Remarks Patient seen and evaluated today in follow-up for generalized weakness with right knee effusion. Status post arthrocentesis of 85 mL. Fluid sent for culture Objective Vitals Vital Signs Date Time Temp Pulse Resp B/P (MAP) Pulse Ox O2 Delivery O2 Flow Rate FiO2 07/09/17 08:04 97.9 93 20 133/75 (94) 96 07/09/17 04:00 98.8 88 20 142/65 (90) 96 07/09/17 00:00 97.6 88 22 144/62 (89) 97 07/08/17 20:00 97.4 92 22 149/66 (93) 96 07/08/17 20:00 96 07/08/17 17:19 18 07/08/17 16:50 19 07/08/17 16:47 97.9 105 20 158/83 (108) 97 07/08/17 16:24 97 07/08/17 15:04 07/08/17 14:15 103 18 118/83 (95) 96 Room Air 07/08/17 13:00 100 18 141/75 (97) 95 Room Air 07/08/17 11:39 95 Room Air 07/08/17 11:30 99.6 97 18 143/95 (111) 95 I/O 07/08/17 07/08/17 07/08/17 07/09/17 07/09/17 07/09/17 07:00 15:00 23:00 07:00 15:00 23:00 Intake Total 600 ml 900 ml Output Total 400 ml 500 ml Balance 200 ml 400 ml Intake Oral 600 ml IV Total 900 ml Output Urine Total 400 ml 500 ml # Voids 1 3 # Bowel Movements 0 Result Diagram: 07/09/17 0538 07/09/17 0538 Other Results Last Impressions Lower Extremity CT 07/08/17 0000 Signed Impressions: Service Date/Time: Saturday, July 08, 2017 15:00 - CONCLUSION: 1. Right total knee arthroplasty in place which limits overall evaluation for subtle fractures. 2. No evidence for acute bony fracture. 3. Moderate size suprapatellar joint effusion. Francisco Tran MD Knee X-Ray 07/08/17 0000 Signed Impressions: Service Date/Time: Saturday, July 08, 2017 12:39 - CONCLUSION: 1. No fracture seen. Intact hardware. 2. Increasing size joint effusion when compared to yesterday's exam. Alvin Boland MD Imaging Last Impressions Lower Extremity CT 07/08/17 0000 Signed Impressions: Service Date/Time: Saturday, July 08, 2017 15:00 - CONCLUSION: 1. Right total knee arthroplasty in place which limits overall evaluation for subtle fractures. 2. No evidence for acute bony fracture. 3. Moderate size suprapatellar joint effusion. Francisco Tran MD Knee X-Ray 07/08/17 0000 Signed Impressions: Service Date/Time: Saturday, July 08, 2017 12:39 - CONCLUSION: 1. No fracture seen. Intact hardware. 2. Increasing size joint effusion when compared to yesterday's exam. Alvin Boland MD Objective Remarks GENERAL: This is a well-nourished, well-developed patient, in no apparent distress. CARDIOVASCULAR: Regular rate and rhythm without murmurs, gallops, or rubs. RESPIRATORY: Clear to auscultation. Breath sounds equal bilaterally. No wheezes , rales, or rhonchi. GASTROINTESTINAL: Abdomen soft, non-tender, nondistended. Normal active bowel sounds MUSCULOSKELETAL: Right knee swollen with effusion prior to procedure n extremities without clubbing, cyanosis, or edema. NEURO: Alert & Oriented x4 to person, place, time, situation. Moves all ext x4 but is extremely weak Procedures Right knee arthrocentesis, 85 mL A/P Problem List: (1) Skin abnormality ICD Code: L98.9 - Disorder of the skin and subcutaneous tissue, unspecified Plan: Patient with home wound care and history of venous stasis with lymphedema Continue with wound care and management Resume home healthcare services when appropriate (2) Knee effusion, right ICD Code: M25.461 - Effusion, right knee Status: Acute Plan: Status post arthrocentesis per IR Continue Tylenol as needed, avoid anti-inflammatories as patient has chronic kidney disease We will try Ultram p.o. Patient is on Coumadin but his INR is 1.3. Resume warfarin (diagnosis A. fib) (3) Gait instability ICD Code: R26.81 - Unsteadiness on feet Status: Acute Plan: Likely due to joint pain and right knee effusion Patient Continue rehab efforts as tolerated (4) Diabetes mellitus ICD Code: E11.9 - Diabetes mellitus Status: Acute Plan: Continue with diabetic management with home insulin regimen Accu-Cheks and sliding scale ADA diet (5) Atrial fibrillation ICD Code: I48.91 - Atrial fibrillation Status: Acute Plan: rate controlled, resume warfarin, rate controlled (6) Hyponatremia ICD Code: E87.1 - Hypo-osmolality and hyponatremia Plan: Resolved with blood sugar correction (7) CKD (chronic kidney disease) ICD Code: N18.9 - Chronic kidney disease, unspecified Plan: Avoid nephrotoxins Acute kidney injury is improved Discharge Planning Evaluate for rehab Carolyn Castro MD July 09, 2017 11:26
--- NOTE | 2017-07-09 12:29 | RADRPT ---
EXAM DATE/TIME: 07/09/2017 10:16 [facility] COMPARISON: No previous studies available for comparison. INDICATIONS : Patient with right knee effusion in need of aspiration. MEDICAL HISTORY : HTN, HLD, A-fib, Diabetes, Chronic arthritis and degenerative joint disease, C-Diff, CAD, GERD SURGICAL HISTORY : Cervical spine surgery, Quadruple bypass, Right knee replacement ENCOUNTER: Initial ACUITY: 1 month PAIN SCORE: 9/10 LOCATION: Right Knee FLUORO TIME: IMAGE SERIES: 3 DEVICE(S): 21 gauge needle was placed into the right knee joint. RESPONSE: Pre procedure pain level was 9/10 Post procedure pain level was 7/10 FLUID: Total volume of 85 cc of cloudy yellow fluid was removed. Fluid specimen was submitted to the lab for evaluation. PROCEDURE : 1. Fluoroscopically guided right knee aspiration. The risks, benefits and alternatives to the procedure were explained and verbal and written consent w as obtained. The site was prepped in sterile fashion. Full sterile technique was used, including ca p, mask, sterile gloves and gown and a large sterile sheet. Hand hygiene and 2% chlorhexidine and/or betadine/alcohol prep was utilized per protocol for cutaneous antisepsis. The skin and subcutaneous tissues were infiltrated with local anesthetic solution. Under direct sonographic visualization, a 21 gauge micropuncture needle was advanced into the suprapa tellar fossa. The 018 wire was advanced through the needle. Over the wire, a 3-4 dilator was placed. The 4 Irish dilator was advanced off of the wire and into the suprapatellar fluid collection. Aspira tion was then performed as detailed above. The patient tolerated the procedure well and there were no complications. CONCLUSION: Uncomplicated aspiration as above. Mata Schneider MD on July 09, 2017 at 12:25 Board Certified Radiologist. This report was verified electronically.
--- NOTE | 2017-07-09 14:44 | PD.WCN.NOT ---
Wound Consult Description: Received consult from Doctor Castro for Bilateral legs and feet. Communicated with: FRED Muro KEL and Doctor Castro Recommendation: 1.Please cleanse BLE with soap and water and pat dry. Apply lotion to bilateral lower legs and feet With gauze wrap changes as needed. Wrap with rolled gauze and secure with tape and stockinette per patient's request. 2. Please cleanse partial thickness wounds to dorsal aspect of R great toe, R second toe, R third toe, and wound to plantar aspect of L second toe with wound cleanser and pat dry. 3. Apply oil emulsion gauze in single layer just over open wounds and secure gauze and tape. Change every other day or as needed for saturation and dislodgement. 4. Please order heel raiser boots or float bilateral heels off mattress for offloading of pressure heels. Additional Information: Patient seen on [facility] third floor medical / surgical unit for evaluation of wound management of bilateral legs and feet. Patient reports having home health care [facility], FRED Hernandez, who comes out and changes dressings on his legs twice a week. Removed dressings in place to reveal intact skin to bilateral lower legs. Skin to bilateral lower legs presents with scales and hemosiderin staining. Shallow closing wounds are noted to the dorsal aspect of R great toe, R second toe, R third toe, and plantar aspect of L second toe . Largest of these wounds measures ~1.5cm x ~1cm x ~<0.1. All present with 100% pink tissue. Cleansed Bilateral lower legs with soap and water and pat dry. Lotion was then applied. Cleansed wounds on toes with wound cleanser and pat dry. Applied oil emulsion gauze over shallow partial thickness wounds to dorsal toe wounds on R foot, secured with rolled gauze and tape. Small adhesive bandage was applied to L second toe wound. Dressing was not disturbed on R knee. Doctor Schneider wrote nursing orders for wound care with R knee. Romy Ann [facility] July 09, 2017 14:44
[2017-07-09 15:04] LABS: WBC, SYNOVIAL FLUID 96000 /MM3 (0-200)
[2017-07-09 15:48] LABS: HEMOGLOBIN A1C 8.8 % (4.3-6.0)
[2017-07-09] MEDS ORDERED: WARFARIN SOD 2 MG TAB PO SCH (16:00)
[2017-07-10] VITALS (8 sets, daily range): BP systolic 108–176; BP diastolic 59–90; PULSE 77–90; RESP 18–20; TEMP 96.8–99.7; O2SAT 93–97
[2017-07-10] MEDS: traMADol HCL 50 MG TAB PO PRN ×3 (05:46→17:18)
[2017-07-10] MEDS: INSULIN ASPART SUPPLEMENTAL SCALE SQ SCH ×4 (08:00→21:00)
[2017-07-10] MEDS: RAMIPRIL 5 MG CAP PO SCH ×2 (08:59→23:00)
[2017-07-10] MEDS: METOPROLOL TARTRATE 100 MG TAB PO SCH ×2 (08:59→23:01)
[2017-07-10] MEDS: FENOFIBRATE 48 MG TAB PO SCH (08:59)
[2017-07-10] MEDS: GABAPENTIN 100 MG CAP PO SCH ×3 (08:59→17:18)
[2017-07-10] MEDS: SODIUM CHLORIDE 0.9% FLUSH 10 ML FLUSH IV FLUSH SCH ×2 (08:59→21:00)
[2017-07-10] MEDS: PRAVASTATIN SOD 40 MG TAB PO SCH (08:59)
[2017-07-10] MEDS: SPIRONOLACTONE 25 MG TAB PO SCH (08:59)
[2017-07-10] MEDS: INSULIN HUMAN NPH/R 70/30 1,000 UNITS/10 ML VIAL SQ SCH ×2 (08:59→21:00)
[2017-07-10 10:47] LABS: INTERNATIONAL NORMALIZED RATIO 1.3 RATIO
[2017-07-10] MEDS ORDERED: DOXYCYCLINE HYCLATE 100 MG TAB PO SCH (11:45)
--- NOTE | 2017-07-10 11:49 | HHI.PR ---
Subjective Remarks Patient seen today in follow-up for right knee septic joint. Antibiotic started. Patient says he is better and swelling is better however cultures are pending and there is quite a bit leukocytosis in this patient's synovial fluid. Surgical consult appreciated likely for surgical intervention in a.m. Objective Vitals Vital Signs Date Time Temp Pulse Resp B/P (MAP) Pulse Ox O2 Delivery O2 Flow Rate FiO2 07/10/17 08:00 99.1 90 18 174/88 (116) 96 07/10/17 07:11 78 07/10/17 04:17 96.8 77 18 154/88 (110) 93 07/10/17 00:34 99.5 78 20 108/59 (75) 97 07/09/17 20:35 98.3 88 20 153/91 (111) 96 07/09/17 20:10 81 07/09/17 15:54 97.5 91 20 140/78 (98) 97 I/O 07/09/17 07/09/17 07/09/17 07/10/17 07/10/17 07/10/17 07:00 15:00 23:00 07:00 15:00 23:00 Intake Total 900 ml 1680 ml 489 ml Output Total 500 ml 700 ml 300 ml Balance 400 ml 980 ml 189 ml Intake Oral 680 ml IV Total 900 ml 1000 ml 489 ml Output Urine Total 500 ml 700 ml 300 ml # Voids 3 # Bowel Movements 0 Result Diagram: 07/09/17 0538 07/09/17 0538 Objective Remarks GENERAL: This is a well-nourished, well-developed patient, in no apparent distress. CARDIOVASCULAR: Regular rate and rhythm without murmurs, gallops, or rubs. RESPIRATORY: Clear to auscultation. Breath sounds equal bilaterally. No wheezes , rales, or rhonchi. GASTROINTESTINAL: Abdomen soft, non-tender, nondistended. Normal active bowel sounds MUSCULOSKELETAL: Right knee swollen with effusion prior to procedure n extremities without clubbing, cyanosis, or edema. NEURO: Alert & Oriented x4 to person, place, time, situation. Moves all ext x4 but is extremely weak Procedures Right knee arthrocentesis, 85 mL A/P Problem List: (1) Skin abnormality ICD Code: L98.9 - Disorder of the skin and subcutaneous tissue, unspecified Plan: Patient with home wound care and history of venous stasis patient with lower extremity intact skin with some evidence of hemosiderin. Shallow healing wounds on the dorsal side of the right and left feet Continue with wound care and management Resume home healthcare services when appropriate (2) Knee effusion, right ICD Code: M25.461 - Effusion, right knee Status: Acute Plan: Status post arthrocentesis per IR, 85 mL with 96,000 white blood cells, likely septic joint Continue azithromycin and doxycycline (pcn allergy) blood cultures pending ID consult pending Continue Tylenol as needed, avoid anti-inflammatories as patient has chronic kidney disease Ultram as needed Patient is on Coumadin but his INR is 1.3. Held due to surgical plans in am (3) Gait instability ICD Code: R26.81 - Unsteadiness on feet Status: Acute Plan: Likely due to joint pain and right knee effusion Patient Continue rehab efforts as tolerated post surgical (4) Diabetes mellitus ICD Code: E11.9 - Diabetes mellitus Status: Acute Plan: Continue with diabetic management with home insulin regimen Accu-Cheks and sliding scale ADA diet (5) Atrial fibrillation ICD Code: I48.91 - Atrial fibrillation Status: Acute Plan: rate controlled, warfarin held perioperatively (6) Hyponatremia ICD Code: E87.1 - Hypo-osmolality and hyponatremia Plan: Resolved with blood sugar correction (7) CKD (chronic kidney disease) ICD Code: N18.9 - Chronic kidney disease, unspecified Plan: Avoid nephrotoxins Acute kidney injury is improved Discharge Planning Evaluate for inpatient rehab post surgical Carolyn Castro MD July 10, 2017 11:49
[2017-07-10] MEDS ORDERED: AZTREONAM INJ 1,000 MG in SODIUM CHLORIDE 0.9% INJ 100 ML IV SCH (12:00)
--- NOTE | 2017-07-10 15:04 | PD.CONS ---
History of Present Illness Service Infectious disease Consult Requested By Dr Johnny Cerrato Reason for Consult Evaluate patient with infected right total knee arthroplasty Primary Care Physician Non-Staff Diagnoses: History of Present Illness Patient seen and examined. Records reviewed. Patient is a 77-year-old male, presented to the hospital for evaluation of pain and swelling in his right knee. He apparently has had the swelling for at least 4 weeks. Has been progressively worsening, with increasing pain, that he was having difficulty with ambulation. He had fallen a couple times at home. He lives alone at home, and normally uses a walker to ambulate. He denies any fever or chills. Denies any respiratory complaints, GI or any urinary complaints. Patient states that due to his diabetes, he gets wounds in his lower extremity and gets scrapes very easily. He denies any previous history of skin infection. He denies any syncopal episode. On presentation, he had an elevated WBC. Evaluation of the knee shows evidence of effusion. Arthrocentesis of the right knee joint was done, and he has significantly elevated WBC, and culture is currently growing staph aureus. He has had some low-grade temps here in the hospital. Orthopedic has seen the patient, and plans to do surgery in the morning. Patient denies having any problem with his knee postoperatively. Infectious disease consultation has been requested to evaluate patient. Review of Systems Constitutional: DENIES: Fever, Chills, Night Sweats Eyes: DENIES: Eye pain Ears, nose, mouth, throat: DENIES: Nasal discharge, Oral lesions, Throat pain, Ear Pain, Running Nose Respiratory: DENIES: Cough, Shortness of breath Cardiovascular: DENIES: Chest pain, Palpitations, Syncope, Lower Extremity Edema Gastrointestinal: DENIES: Abdominal pain, Diarrhea, Nausea, Vomiting, Difficulty Swallowing Genitourinary: DENIES: Dysuria Musculoskeletal: COMPLAINS OF: Joint pain, Joint Swelling Integumentary: DENIES: Pruritus, Rash Hematologic/lymphatic: DENIES: Lymphadenopathy Neurologic: DENIES: Localized weakness Psychiatric: DENIES: Hallucinations Past Family Social History Allergies: Coded Allergies: penicillin G (Verified Allergy, Severe, Rash, 07/08/17) PT STATES UNKNOWN REACTION insulin detemir (Verified Allergy, Intermediate, LIPS AND THROAT SWELLS, ) insulin glargine (Verified Allergy, Intermediate, LIPS AND THROAT SWELLS, 07/08/17) *MDRO Multi-Drug Resistant Organism (Verified Allergy, Unknown, 07/08/17) C.diff 09/2013 Uncoded Allergies: CITRUS (Adverse Reaction, Intermediate, SEVERE UPSET STOMACH, 01/22/14) Past Medical History Diabetes mellitus Hypertension Chronic arthritis and degenerative joint disease Tobacco dependency Atrial fibrillation on warfarin Hyperlipidemia Past Surgical History Cervical spine surgery Lumbar spine surgery Quadruple bypass Cataracts Right knee previous surgery Active Ordered Medications Current Medications Medications (Trade) Dose Ordered Sig/Jake Route Start Time Stop Time Status Last Admin (NS Flush) 2 ml UNSCH PRN IV FLUSH 07/08/17 13:15 (NS Flush) 2 ml BID IV FLUSH 07/08/17 21:00 07/10/17 08:59 (Tylenol) 650 mg Q4H PRN PO 07/08/17 13:15 (Narcan Inj) 0.4 mg UNSCH PRN IV PUSH 07/08/17 13:15 (Zofran Odt) 4 mg Q6H PRN SL 07/08/17 13:15 (Neurontin) 100 mg TID PO 07/08/17 18:00 07/10/17 12:08 (Pravachol) 40 mg DAILY PO 07/09/17 09:00 07/10/17 08:59 (Lopressor) 100 mg BID PO 07/08/17 21:00 07/10/17 08:59 (Aldactone) 25 mg DAILY PO 07/09/17 09:00 07/10/17 08:59 (Tricor) 48 mg DAILY PO 07/09/17 09:00 07/10/17 08:59 (Altace) 10 mg BID PO 07/08/17 21:00 07/10/17 08:59 (D50w (Vial) Inj) 50 ml UNSCH PRN IV PUSH 07/08/17 14:00 (Glucagon Inj) 1 mg UNSCH PRN OTHER 07/08/17 14:00 (NovoLOG SUPPLEMENTAL SCALE) 1 ACHS SLIDING SCALE SQ 07/08/17 17:00 07/10/17 12:06 Sodium Chloride 1,000 ml @ 60 mls/hr [id number] IV 07/08/17 15:15 07/10/17 15:14 07/09/17 22:45 (NovoLIN 70/30 INJ) 20 units BID SQ 07/08/17 18:00 07/10/17 08:59 (Ultram) 50 mg Q6H PRN PO 07/10/17 11:45 07/10/17 12:07 Aztreonam 1000 mg/ Sodium Chloride 100 ml @ 200 mls/hr Q12H IV 07/10/17 12:00 07/10/17 12:08 (Vibratab) 100 mg BID PO 07/10/17 11:45 07/10/17 12:07 (Tylenol) 650 mg HS PO 07/10/17 21:00 Family History Not contributory Social History Patient still smokes at least a pack a day for the last 50 years Denies alcohol No illicit drug use and lives independently Physical Exam Vital Signs Vital Signs Date Time Temp Pulse Resp B/P (MAP) Pulse Ox O2 Delivery O2 Flow Rate FiO2 07/10/17 12:00 99.7 83 18 176/90 (118) 96 07/10/17 08:00 99.1 90 18 174/88 (116) 96 07/10/17 07:11 78 07/10/17 04:17 96.8 77 18 154/88 (110) 93 07/10/17 00:34 99.5 78 20 108/59 (75) 97 07/09/17 20:35 98.3 88 20 153/91 (111) 96 07/09/17 20:10 81 07/09/17 15:54 97.5 91 20 140/78 (98) 97 Physical Exam GENERAL: Patient is a well-nourished, well-developed male, awake and alert, not in respiratory distress. SKIN: Warm and dry. No generalized rash, no ecchymoses and no evidence of embolic lesions. HEAD: Atraumatic. Normocephalic. No temporal wasting, or tenderness. EYES: [place] conjunctiva. No petechia or hemorrhage. Pupils equal, round and reactive to light. Extraocular movements full and intact. No scleral icterus. No injection or drainage. EARS, NOSE AND THROAT: Nose without bleeding or purulent nasal discharge. No sinus tenderness. Dry oral mucosa. No oral lesions noted. NECK: Trachea midline. Supple and not tender, no meningeal signs CARDIOVASCULAR: Regular rate and rhythm. No murmurs, rubs or gallops heard RESPIRATORY: Clear to auscultation. Breath sounds equal bilaterally. No rales , wheezing or rhonchi ABDOMEN: Soft, non-tender, nondistended. Bowel sounds present and normoactive. No guarding. No rebound. No organomegaly. EXTREMITIES: No clubbing, cyanosis. R knee: swelling of knee, with decreased ROM. Multiple superficial wounds R foot and one on L foot, no evidence of infection. No calf tenderness. Well perfused and warm. NEUROLOGICAL: Awake and alert. Cranial nerves grossly intact. Motor grossly within normal limits. PSYCHIATRIC: Normal affect, calm and cooperative. LINE: No evidence of infection Laboratory Laboratory Tests Test 07/10/17 10:00 Prothrombin Time 13.0 Prothromb Time International Ratio 1.3 Date/Time Source Procedure Growth Status 07/10/17 13:10 Blood Peripheral Aerobic Blood Culture Pending Received 07/10/17 13:10 Blood Peripheral Anaerobic Blood Culture Pending Received 07/09/17 10:37 Fluid Synovial Fluid Gram Stain - Final Resulted 07/09/17 10:37 Body Fluid Culture - Preliminary Staphylococcus Aureus Resulted Result Diagram: 07/09/17 0538 07/09/17 0538 Imaging RADIOLOGY STUDIES/FILMS REVIEWED Last Impressions Aspiration 07/09/17 0000 Signed Impressions: Service Date/Time: Sunday, July 09, 2017 10:16 - CONCLUSION: Uncomplicated aspiration as above. Mata Schneider MD Lower Extremity CT 07/08/17 0000 Signed Impressions: Service Date/Time: Saturday, July 08, 2017 15:00 - CONCLUSION: 1. Right total knee arthroplasty in place which limits overall evaluation for subtle fractures. 2. No evidence for acute bony fracture. 3. Moderate size suprapatellar joint effusion. Francisco Tran MD Knee X-Ray 07/08/17 0000 Signed Impressions: Service Date/Time: Saturday, July 08, 2017 12:39 - CONCLUSION: 1. No fracture seen. Intact hardware. 2. Increasing size joint effusion when compared to yesterday's exam. Alivn Boland MD Assessment and Plan Assessment and Plan IMPRESSION Infection RTKA, C/S Staph aureus Renal insufficiency Allergy to PCN - rash, has tolerated Cephalosporins in the past RECOMMENDATION Get baseline ESR, CRP and LFT IV Ancef IV vanco If not MRSA, stop Vanco Follow C/S OR plans per orthopedic tomorrow Monitor progress I will follow along with you Thank you for this consultation Dimayuga,Piper G MD July 10, 2017 15:04
[2017-07-10 15:54] LABS: ALBUMIN 2.2 GM/DL (3.4-5.0); C-REACTIVE PROTEIN 17.9 MG/DL (0.00-0.30); DIRECT BILIRUBIN ADULT 1.4 MG/DL (0.0-0.2); INDIRECT BILIRUBIN 0.5 MG/DL (0.0-0.8); TOTAL BILIRUBIN ADULT 1.9 MG/DL (0.2-1.0); TOTAL PROTEIN 6.4 GM/DL (6.4-8.2)
[2017-07-10] MEDS: ceFAZolin 2 GM PREMIX 50 ML IV SCH ×2 (16:15→23:00)
[2017-07-10] MEDS ORDERED: VANCOMYCIN INJ 1,500 MG in SODIUM CHLORID 0.9% 500 ML INJ 500 ML IV ONE (17:00)
--- NOTE | 2017-07-10 19:56 | MB ---
cc: Maurice Cerrato MD DATE: 07/10/2017 HISTORY OF PRESENT ILLNESS: Anson Hsieh is a 77-year-old insulin-dependent diabetic male who is admitted for right knee pain, swelling and instability. Mr. Hsieh complains of worsening pain in his right knee over several months, but became more unstable and swollen over the last several weeks. He complained of multiple falls. He presented to [facility] on 07/08/2017. The patient has a history of being on Coumadin and was originally thought that he probably had a hemarthrosis on his knee. Patient was found to have an elevated white blood cell count on admission of 13,000. His Coumadin was placed on hold and his INR went down from 1.5 to 1.3 and a knee aspirate was performed on 07/09/2017 by the interventional radiologist and this showed a marked purulent aspirate of approximately 80 mL, which showed a 960,000 white blood cells. The culture is now growing out Staph aureus with sensitivities pending. He is on appropriate antibiotics. He has specifically denied fevers, chills or systemic signs of infection, although he does state that he is feeling somewhat better that his knee was drained. PAST MEDICAL HISTORY: Rather complex. He has a history of insulin-dependent diabetes, hypertension, coronary artery disease, degenerative disc disease, atrial fibrillation for which he is on Coumadin, hyperlipidemia. He uses tobacco. PAST SURGICAL HISTORY: Significant for right total knee replacement 06/2012 (5 years ago). He has had prior cardiac quadruple bypass, he has had cataract surgery, cervical spine surgery. MEDICATIONS: His current and his home medications are reviewed. ALLERGIES: THE PATIENT REPORTS ALLERGY TO PENICILLIN AND INSULIN DETEMIR AND INSULIN GLARGINE AND HE HAS A HISTORY OF CLOSTRIDIUM DIFFICILE COLITIS. SOCIAL HISTORY: He smokes. He denies alcohol or drug use. He is from his who lives out of town. PHYSICAL EXAMINATION: NEUROLOGIC, MUSCULOSKELETAL: The patient is alert, oriented, appropriate, has a good understanding of his condition. He has some generalized muscle wasting noted in his hands. He has mild to moderate effusion of the right knee and any movement of the knee causes discomfort. There is no erythema. There is some mild increased warmth. His calves are soft. His Antonio's sign is negative for pain in the calf, but he does have discomfort in his feet when he moves his feet. He has dressings in place from his mid leg, covering his feet on both legs. Wound care nurse notes are reviewed and he has small healing wounds with good granulation tissues on multiple toes on his right foot and one toe on his left foot. He has good capillary refill on his toes. IMAGING: X-ray of the knee is reviewed, which shows well fixated total knee replacement. CT scan of the knee is reviewed from 07/08, no evidence of fracture. Large effusion noted. Total knee replacement in place. Extensor mechanism appears to be intact. 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 MEDICAL DECISION MAKING: His condition was discussed. The options of treatment were discussed. The generally accepted recommendation for this given situation is irrigation, debridement, removal of the knee prosthesis and placement of antibiotic spacer prosthesis, with the tentative plan of performing a reimplantation revision total knee arthroplasty in the future. There is the theoretical option of suppressive antibiotics and this is rarely used, but only when the patient is very sick otherwise or in hospice type situations. He has been seen by infectious disease, who is in agreement with the plan as just outlined above. I discussed at length with the patient the recommendation and he is in agreement that he needs this, but he also feels that he needs some time to psychologically prepare himself and also he wants to make multiple phone calls to his loved ones, including his and other friends and family before undergoing the surgery because he knows he has multiple medical problems and he takes this very seriously. He appears to be stabilizing and his white blood cell has actually gone down and as long as he is on the antibiotics to wait a day or 2 is reasonable. I explained to him the surgical technique and the tentative plan of reimplantation in the future and how we do a frozen section and that is not a guarantee that we will be able to eradicate the infection and that we cannot always do a reimplantation in the future and he understands that. He understands with any surgery there is a risk of further infection, nerve damage, blood vessel damage, fracture, failure of the planned surgery and need for revision surgery, possibility of anesthetic complications, medical complications and unforeseen possible complications. All of his questions were answered. He wished to press on with surgery. Informed consent was obtained. I explained to him also that I have an advance registered nurse practitioner who works with me as well and that nurse practitioner will be helping me with taking care of him and making appropriate decisions in his care and helping to round on him periodically in the hospital and on followup visits. All of his questions were answered. MD RUBY Strickland/DAV , 06:35 PM , 07:54 PM
[2017-07-10] MEDS: ACETAMINOPHEN 325 MG TAB PO SCH (23:00)
[2017-07-11] VITALS (11 sets, daily range): BP systolic 142–174; BP diastolic 76–86; PULSE 68–100; RESP 17–18; TEMP 97.4–98.5; O2SAT 95–97
[2017-07-11] MEDS ORDERED: SODIUM CHLORID 0.9% 500 ML IV PRN (05:30)
[2017-07-11] MEDS ORDERED: CHLORHEXIDINE GLUCONATE 2 % 1 PACK (2 CLOTHS) TOPICAL PRN (05:30)
[2017-07-11] MEDS ORDERED: POVIDONE IODINE 5% (ANTISEPSIS KIT) 4 APPLICATIONS EACH NARE PRN (05:30)
[2017-07-11] MEDS ORDERED: LACTATED RINGER'S 1000 ML IV PRN (05:30)
[2017-07-11 07:46] LABS: AUTOMATED NEUTROPHIL # 6.8 TH/MM3 (1.8-7.7); BASOPHIL % 0.4 % (0.0-2.0); EOSINOPHIL % 0.4 % (0.0-4.0); HEMATOCRIT 33.7 % (39.0-51.0); HEMOGLOBIN 11.3 GM/DL (13.0-17.0); LYMPH % 16.6 % (9.0-44.0); LYMPHOCYTE # 1.6 TH/MM3 (1.0-4.8); MEAN CELL VOLUME 97.7 FL (80.0-100.0); MEAN CORPUSCULAR HEMOGLOBIN 32.6 PG (27.0-34.0); MEAN CORPUSCULAR HGB CONC 33.4 % (32.0-36.0); MEAN PLATELET VOLUME 9.1 FL (7.0-11.0); MONO % 13.8 % (0.0-8.0); MONOCYTE # 1.4 TH/MM3 (0-0.9); NEUT % 68.8 % (16.0-70.0); PLATELET COUNT 225 TH/MM3 (150-450); RED BLOOD COUNT 3.45 MIL/MM3 (4.50-5.90); RED CELL DISTRIBUTION WIDTH 13.7 % (11.6-17.2); WHITE BLOOD COUNT 9.9 TH/MM3 (4.0-11.0)
[2017-07-11] MEDS: ceFAZolin 2 GM PREMIX 50 ML IV SCH ×2 (08:00→17:13)
[2017-07-11] MEDS: INSULIN ASPART SUPPLEMENTAL SCALE SQ SCH ×4 (08:00→21:00)
[2017-07-11 08:17] LABS: BICARBONATE 20.3 MEQ/L (21.0-32.0); CALCIUM 8.1 MG/DL (8.5-10.1); CREATININE 1.15 MG/DL (0.60-1.30)
--- NOTE | 2017-07-11 08:29 | HHI.PR ---
Subjective Remarks in no acute distress. has moderate pain to the right knee. no fever. complaining of left shoulder pain. awaiting surgical intervention today. Objective Vitals Vital Signs Date Time Temp Pulse Resp B/P (MAP) Pulse Ox O2 Delivery O2 Flow Rate FiO2 07/11/17 04:07 74 07/11/17 04:00 97.4 80 18 147/76 (99) 95 07/11/17 00:45 73 07/11/17 00:00 Room Air 07/11/17 00:00 98.5 90 17 174/85 (114) 97 07/10/17 21:00 Room Air 07/10/17 20:53 84 07/10/17 20:00 98.4 82 18 163/84 (110) 94 07/10/17 18:18 18 07/10/17 16:00 99.1 90 18 165/84 (111) 95 07/10/17 12:00 99.7 83 18 176/90 (118) 96 I/O 07/10/17 07/10/17 07/10/17 07/11/17 07/11/17 07/11/17 07:00 15:00 23:00 07:00 15:00 23:00 Intake Total 489 ml 100 ml 1751 ml 240 ml Output Total 300 ml 600 ml 150 ml Balance 189 ml 100 ml 1151 ml 90 ml Intake Oral 940 ml 240 ml IV Total 489 ml 100 ml 811 ml Output Urine Total 300 ml 600 ml 150 ml # Voids 4 # Bowel Movements 2 1 Result Diagram: 07/11/17 0430 07/11/17 0430 Imaging Last Impressions Aspiration 07/09/17 0000 Signed Impressions: Service Date/Time: Sunday, July 09, 2017 10:16 - CONCLUSION: Uncomplicated aspiration as above. Mata Schneider MD Lower Extremity CT 07/08/17 0000 Signed Impressions: Service Date/Time: Saturday, July 08, 2017 15:00 - CONCLUSION: 1. Right total knee arthroplasty in place which limits overall evaluation for subtle fractures. 2. No evidence for acute bony fracture. 3. Moderate size suprapatellar joint effusion. Francisco Tran MD Knee X-Ray 07/08/17 0000 Signed Impressions: Service Date/Time: Saturday, July 08, 2017 12:39 - CONCLUSION: 1. No fracture seen. Intact hardware. 2. Increasing size joint effusion when compared to yesterday's exam. Alvin Boland MD Objective Remarks GENERAL: This is a well-nourished, well-developed patient, in no apparent distress. CARDIOVASCULAR: Regular rate and regular rhythm without murmurs, gallops, or rubs. RESPIRATORY: Clear to auscultation. Breath sounds equal bilaterally. No wheezes , rales, or rhonchi. GASTROINTESTINAL: Abdomen soft, non-tender, nondistended. Normal, active bowel sounds MUSCULOSKELETAL: right knee covered with clean dressing. NEURO: Alert & Oriented x4 to person, place, time, situation. Moves all ext x4 Procedures Right knee arthrocentesis, 85 mL Medications and IVs Inpatient Medications Acetaminophen (Tylenol) 650 mg HS PO Last administered on 07/10/17at 23:00; Start 07/10/17 at 21:00 Aztreonam 1000 mg/ Sodium Chloride 100 ml @ 200 mls/hr Q12H IV Last administered on 07/10/17at 12:08; Start 07/10/17 at 12:00; Stop 07/10/17 at 15:31 ; Status DC Cefazolin Sodium/ Dextrose 50 ml @ 100 mls/hr Q8H IV Last administered on 07/10at 23:00; Start 07/10/17 at 16:00 Chlorhexidine Gluconate (Chlorhexidine 2% Cloth) 3 pack SORTER LAUNDRY ARTICLES PRN TOPICAL SEE LABEL COMMENTS; Start 07/11/17 at 05:30; Stop 07/14/17 at 05:29 Dextrose (D50w (Vial) Inj) 50 ml UNSCH PRN IV PUSH HYPOGLYCEMIA-SEE COMMENTS; Start 07/08/17 at 14:00 Doxycycline Hyclate (Vibratab) 100 mg BID PO Last administered on 07/10/17at 12: 07; Start 07/10/17 at 11:45; Stop 07/10/17 at 15:31; Status DC Fenofibrate (Tricor) 48 mg DAILY PO Last administered on 07/10/17at 08:59; Start 07/09/17 at 09:00 Gabapentin (Neurontin) 100 mg TID PO Last administered on 07/10/17at 17:18; Start 07/08/17 at 18:00 Glucagon (Glucagon Inj) 1 mg UNSCH PRN OTHER HYPOGLYCEMIA-SEE COMMENTS; Start 07/08/17 at 14:00 Insulin Aspart (NovoLOG SUPPLEMENTAL SCALE) 1 ACHS SLIDING SCALE SQ Last administered on 07/10/17at 21:00; Start 07/08/17 at 17:00 Insulin Human Isoph/Insulin Regular (NovoLIN 70/30 INJ) 20 units BID SQ Last administered on 07/10/17at 21:00; Start 07/08/17 at 18:00 Lactated Ringer's 1,000 ml @ 30 mls/hr Q24H PRN IV SEE LABEL COMMENTS; Start at 05:30; Stop 07/14/17 at 05:29 Metoprolol Tartrate (Lopressor) 100 mg BID PO Last administered on 07/10/17at 23 :01; Start 07/08/17 at 21:00 Naloxone HCl (Narcan Inj) 0.4 mg UNSCH PRN IV PUSH SEE LABEL COMMENTS; Start at 13:15 Ondansetron HCl (Zofran Odt) 4 mg Q6H PRN SL NAUSEA OR VOMITING; Start at 13:15 Povidone Iodine (Betadine 5% Antisepsis Kit) 1 applic SORTER LAUNDRY ARTICLES PRN EACH NARE SEE LABEL COMMENTS; Start 07/11/17 at 05:30; Stop 07/14/17 at 05:29 Pravastatin Sodium (Pravachol) 40 mg DAILY PO Last administered on 07/10/17at 08 :59; Start 07/09/17 at 09:00 Ramipril (Altace) 10 mg BID PO Last administered on 07/10/17at 23:00; Start at 21:00 Sodium Chloride 500 ml @ 30 mls/hr [id number] PRN IV SEE LABEL COMMENTS; Start at 05:30; Stop 07/14/17 at 05:29 Sodium Chloride (NS Flush) 2 ml BID IV FLUSH Last administered on 07/10/17at 21: 00; Start 07/08/17 at 21:00 Spironolactone (Aldactone) 25 mg DAILY PO Last administered on 07/10/17at 08:59 ; Start 07/09/17 at 09:00 Tramadol HCl (Ultram) 50 mg Q6H PRN PO knee pain 1-10 Last administered on 07/10at 17:18; Start 07/10/17 at 11:45 Vancomycin HCl 1500 mg/Sodium Chloride 515 ml @ 257.5 mls/ hr ONCE ONCE IV Last administered on 07/10/17at 17:12; Start 07/10/17 at 17:00; Stop 07/10/17 at 18:59; Status DC Warfarin Sodium (Coumadin) 2 mg DAILY@1600 PO ; Start 07/09/17 at 16:00; Stop at 16:00; Status DC A/P Problem List: (1) Skin abnormality ICD Code: L98.9 - Disorder of the skin and subcutaneous tissue, unspecified (2) Knee effusion, right ICD Code: M25.461 - Effusion, right knee Status: Acute (3) Gait instability ICD Code: R26.81 - Unsteadiness on feet Status: Acute (4) Diabetes mellitus ICD Code: E11.9 - Diabetes mellitus Status: Acute (5) Atrial fibrillation ICD Code: I48.91 - Atrial fibrillation Status: Acute (6) Hyponatremia ICD Code: E87.1 - Hypo-osmolality and hyponatremia (7) CKD (chronic kidney disease) ICD Code: N18.9 - Chronic kidney disease, unspecified Assessment and Plan A/P Knee effusion, right Status post arthrocentesis per IR, 85 mL with 96,000 white blood cells, likely septic joint Continue Ancef plan for I/D of the right knee today. continue with pain control ID and ortho following. Skin abnormality Patient with home wound care and history of venous stasis patient with lower extremity intact skin with some evidence of hemosiderin. Shallow healing wounds on the dorsal side of the right and left feet Continue with wound care and management Resume home healthcare services when appropriate Gait instability Likely due to joint pain and right knee effusion Patient Continue rehab efforts as tolerated post surgical Diabetes mellitus Continue with diabetic management with home insulin regimen Accu-Cheks and sliding scale ADA diet Atrial fibrillation rate controlled, warfarin held perioperatively Hyponatremia Resolved with blood sugar correction CKD (chronic kidney disease) Avoid nephrotoxins Acute kidney injury is improved left shoulder pain; check XR Discharge Planning for surgical intervention today. Contreras Mccauley MD July 11, 2017 08:29
[2017-07-11] MEDS: SODIUM CHLORIDE 0.9% FLUSH 10 ML FLUSH IV FLUSH SCH (09:00)
[2017-07-11] MEDS: METOPROLOL TARTRATE 100 MG TAB PO SCH (09:29)
[2017-07-11] MEDS: SPIRONOLACTONE 25 MG TAB PO SCH (09:29)
[2017-07-11] MEDS: RAMIPRIL 5 MG CAP PO SCH (09:29)
[2017-07-11] MEDS: FENOFIBRATE 48 MG TAB PO SCH (09:30)
[2017-07-11] MEDS: PRAVASTATIN SOD 40 MG TAB PO SCH (09:30)
[2017-07-11] MEDS: GABAPENTIN 100 MG CAP PO SCH ×3 (09:30→17:13)
--- NOTE | 2017-07-11 11:05 | HHI.IDPN ---
Subjective Subjective Remarks Patient is a 77-year-old male, presented to the hospital for evaluation of pain and swelling in his right knee. He apparently has had the swelling for at least 4 weeks. Has been progressively worsening, with increasing pain, that he was having difficulty with ambulation. He had fallen a couple times at home. He lives alone at home, and normally uses a walker to ambulate. He denies any fever or chills. Denies any respiratory complaints, GI or any urinary complaints. Patient states that due to his diabetes, he gets wounds in his lower extremity and gets scrapes very easily. He denies any previous history of skin infection. He denies any syncopal episode. On presentation, he had an elevated WBC. Evaluation of the knee shows evidence of effusion. Arthrocentesis of the right knee joint was done, and he has significantly elevated WBC, and culture is currently growing staph aureus. He has had some low-grade temps here in the hospital. Orthopedic has seen the patient, and plans to do surgery in the morning. Patient denies having any problem with his knee postoperatively. Infectious disease consultation has been requested to evaluate patient. Notes reviewed Temps ok OR plans for today ESR 80 CRP 17 LFT elevated No rash or itching D/W RN Antibiotics Ancef Current Medications Medications (Trade) Dose Ordered Sig/Jake Route Start Time Stop Time Status Last Admin (NS Flush) 2 ml UNSCH PRN IV FLUSH 07/08/17 13:15 (NS Flush) 2 ml BID IV FLUSH 07/08/17 21:00 07/11/17 09:00 (Tylenol) 650 mg Q4H PRN PO 07/08/17 13:15 (Narcan Inj) 0.4 mg UNSCH PRN IV PUSH 07/08/17 13:15 (Zofran Odt) 4 mg Q6H PRN SL 07/08/17 13:15 (Neurontin) 100 mg TID PO 07/08/17 18:00 07/11/17 09:30 (Pravachol) 40 mg DAILY PO 07/09/17 09:00 07/11/17 09:30 (Lopressor) 100 mg BID PO 07/08/17 21:00 07/11/17 09:29 (Aldactone) 25 mg DAILY PO 07/09/17 09:00 07/11/17 09:29 (Tricor) 48 mg DAILY PO 07/09/17 09:00 07/11/17 09:30 (Altace) 10 mg BID PO 07/08/17 21:00 07/11/17 09:29 (D50w (Vial) Inj) 50 ml UNSCH PRN IV PUSH 07/08/17 14:00 (Glucagon Inj) 1 mg UNSCH PRN OTHER 07/08/17 14:00 (NovoLOG SUPPLEMENTAL SCALE) 1 ACHS SLIDING SCALE SQ 07/08/17 17:00 07/10/17 21:00 (NovoLIN 70/30 INJ) 20 units BID SQ 07/08/17 18:00 Future Hold 07/10/17 21:00 (Ultram) 50 mg Q6H PRN PO 07/10/17 11:45 07/10/17 17:18 (Tylenol) 650 mg HS PO 07/10/17 21:00 07/10/17 23:00 Cefazolin Sodium/ Dextrose 50 ml @ 100 mls/hr Q8H IV 07/10/17 16:00 07/11/17 08:00 Lactated Ringer's 1,000 ml @ 30 mls/hr Q24H PRN IV 07/11/17 05:30 07/14/17 05:29 Sodium Chloride 500 ml @ 30 mls/hr [id number] PRN IV 07/11/17 05:30 07/14/17 05:29 (Betadine 5% Antisepsis Kit) 1 applic [employer] PRN EACH NARE 07/11/17 05:30 07/14/17 05:29 (Chlorhexidine 2% Cloth) 3 pack [employer] PRN TOPICAL 07/11/17 05:30 07/14/17 05:29 Lines No evidence of infection Past Medical History Diabetes mellitus Hypertension Chronic arthritis and degenerative joint disease Tobacco dependency Atrial fibrillation on warfarin Hyperlipidemia Past Surgical History Cervical spine surgery Lumbar spine surgery Quadruple bypass Cataracts Right knee previous surgery Allergies: Coded Allergies: penicillin G (Verified Allergy, Severe, Rash, 07/08/17) PT STATES UNKNOWN REACTION insulin detemir (Verified Allergy, Intermediate, LIPS AND THROAT SWELLS, ) insulin glargine (Verified Allergy, Intermediate, LIPS AND THROAT SWELLS, 07/08/17) *MDRO Multi-Drug Resistant Organism (Verified Allergy, Unknown, 07/08/17) C.diff 09/2013 Uncoded Allergies: CITRUS (Adverse Reaction, Intermediate, SEVERE UPSET STOMACH, 01/22/14) Objective . Vital Signs Date Time Temp Pulse Resp B/P (MAP) Pulse Ox O2 Delivery O2 Flow Rate FiO2 07/11/17 08:04 98.0 72 18 155/82 (106) 96 07/11/17 04:07 74 07/11/17 04:00 97.4 80 18 147/76 (99) 95 07/11/17 00:45 73 07/11/17 00:00 Room Air 07/11/17 00:00 98.5 90 17 174/85 (114) 97 07/10/17 21:00 Room Air 07/10/17 20:53 84 07/10/17 20:00 98.4 82 18 163/84 (110) 94 07/10/17 18:18 18 07/10/17 16:00 99.1 90 18 165/84 (111) 95 07/10/17 12:00 99.7 83 18 176/90 (118) 96 . Laboratory Tests Test 07/10/17 13:10 07/11/17 04:30 Erythrocyte Sedimentation Rate 80 mm/hr White Blood Count 9.9 TH/MM3 Red Blood Count 3.45 MIL/MM3 Hemoglobin 11.3 GM/DL Hematocrit 33.7 % Mean Corpuscular Volume 97.7 FL Mean Corpuscular Hemoglobin 32.6 PG Mean Corpuscular Hemoglobin Concent 33.4 % Red Cell Distribution Width 13.7 % Platelet Count 225 TH/MM3 Mean Platelet Volume 9.1 FL Neutrophils (%) (Auto) 68.8 % Lymphocytes (%) (Auto) 16.6 % Monocytes (%) (Auto) 13.8 % Eosinophils (%) (Auto) 0.4 % Basophils (%) (Auto) 0.4 % Neutrophils # (Auto) 6.8 TH/MM3 Lymphocytes # (Auto) 1.6 TH/MM3 Monocytes # (Auto) 1.4 TH/MM3 Eosinophils # (Auto) 0.0 TH/MM3 Basophils # (Auto) 0.0 TH/MM3 CBC Comment DIFF FINAL Differential Comment Laboratory Tests Test 07/10/17 13:10 07/11/17 04:30 Total Bilirubin 1.9 MG/DL Direct Bilirubin 1.4 MG/DL Indirect Bilirubin 0.5 MG/DL Aspartate Amino Transf (AST/SGOT) 145 U/L Alanine Aminotransferase (ALT/SGPT) 98 U/L Alkaline Phosphatase 128 U/L C-Reactive Protein 17.90 MG/DL Total Protein 6.4 GM/DL Albumin 2.2 GM/DL Blood Urea Nitrogen 25 MG/DL Creatinine 1.15 MG/DL Random Glucose 150 MG/DL Calcium Level 8.1 MG/DL Sodium Level 138 MEQ/L Potassium Level 3.6 MEQ/L Chloride Level 105 MEQ/L Carbon Dioxide Level 20.3 MEQ/L Anion Gap 13 MEQ/L Estimat Glomerular Filtration Rate 62 ML/MIN Microbiology Date/Time Source Procedure Growth Status 07/10/17 13:10 Blood Peripheral Aerobic Blood Culture Pending Received 07/10/17 13:10 Blood Peripheral Anaerobic Blood Culture Pending Received 07/10/17 13:00 Blood Peripheral Aerobic Blood Culture Pending Received 07/10/17 13:00 Blood Peripheral Anaerobic Blood Culture Pending Received 07/09/17 10:37 Fluid Synovial Fluid Gram Stain - Final Complete 07/09/17 10:37 Body Fluid Culture - Final Staphylococcus Aureus Complete Imaging Last Impressions Aspiration 07/09/17 0000 Signed Impressions: Service Date/Time: Sunday, July 09, 2017 10:16 - CONCLUSION: Uncomplicated aspiration as above. Mata Schneider MD Lower Extremity CT 07/08/17 0000 Signed Impressions: Service Date/Time: Saturday, July 08, 2017 15:00 - CONCLUSION: 1. Right total knee arthroplasty in place which limits overall evaluation for subtle fractures. 2. No evidence for acute bony fracture. 3. Moderate size suprapatellar joint effusion. Francisco Tran MD Knee X-Ray 07/08/17 0000 Signed Impressions: Service Date/Time: Saturday, July 08, 2017 12:39 - CONCLUSION: 1. No fracture seen. Intact hardware. 2. Increasing size joint effusion when compared to yesterday's exam. Alvin Boland MD Physical Exam GENERAL: awake and alert, not in respiratory distress. SKIN: Warm and dry. No generalized rash, no ecchymoses and no evidence of embolic lesions. HEAD: Atraumatic. Normocephalic. No temporal wasting, or tenderness. EYES: [place] conjunctiva. No petechia or hemorrhage. Pupils equal, round and reactive to light. Extraocular movements full and intact. No scleral icterus. No injection or drainage. EARS, NOSE AND THROAT: Nose without bleeding or purulent nasal discharge. No sinus tenderness. Dry oral mucosa. No oral lesions noted. NECK: Trachea midline. Supple and not tender, no meningeal signs CARDIOVASCULAR: Regular rate and rhythm. No murmurs, rubs or gallops heard RESPIRATORY: Clear to auscultation. Breath sounds equal bilaterally. No rales , wheezing or rhonchi ABDOMEN: Soft, non-tender, nondistended. Bowel sounds present and normoactive. No guarding. No rebound. No organomegaly. EXTREMITIES: No clubbing, cyanosis. R knee: swelling of knee, with decreased ROM. Multiple superficial wounds R foot and one on L foot, no evidence of infection. No calf tenderness. Well perfused and warm. NEUROLOGICAL: Awake and alert. Cranial nerves grossly intact. Motor grossly within normal limits. PSYCHIATRIC: Normal affect, calm and cooperative. LINE: No evidence of infection Assessment & Plan Remarks IMPRESSION Infection RTKA, C/S Staph aureus, MSSA Renal insufficiency Allergy to PCN - rash, has tolerated Cephalosporins in the past RECOMMENDATION Continue IV Ancef No need for further Vanco dosing Follow C/S OR plans per orthopedic today Monitor progress D/W Piper Garcia MD July 11, 2017 11:05
[2017-07-11] MEDS ORDERED: PHENYLEPH/NS 1000 MCG/10 ML SYR IV ONE (12:00)
[2017-07-11] MEDS ORDERED: NEOSTIGMINE 5 MG/5 ML SYRINGE IV PUSH ONE (12:00)
[2017-07-11] MEDS ORDERED: LIDOCAINE HCL 1% PF 5 ML SYRINGE OTHER ONE (12:00)
[2017-07-11] MEDS ORDERED: DEXAMETHASONE SOD PHOS 4 MG/ML VIAL IV ONE (12:00)
[2017-07-11] MEDS ORDERED: GLYCOPYRROLATE 1 MG/5 ML SYRINGE IV PUSH ONE (12:00)
[2017-07-11] MEDS ORDERED: ROCURONIUM INJ 50 MG/5 ML SYRINGE IV PUSH ONE (12:00)
[2017-07-11] MEDS ORDERED: ONDANSETRON HCL 4 MG/2 ML VIAL IV PUSH ONE (12:00)
[2017-07-11] MEDS ORDERED: PROPOFOL 200 MG/20 ML AMP IV ONE (12:00)
[2017-07-11] MEDS: traMADol HCL 50 MG TAB PO PRN (13:33)
--- NOTE | 2017-07-11 15:51 | RADRPT ---
EXAM DATE: 07/11/2017 3:46 PM EDT AGE/SEX: 77 years / Male INDICATIONS: Left shoulder pain with no known injury. CLINICAL DATA: This is the patient's initial encounter. Patient reports that signs and symptoms have been present for 4 - 6 days and indicates a pain score of 8/10. MEDICAL/SURGICAL HISTORY: None. None. COMPARISON: No prior [facility] exams available for comparison. FINDINGS: Bony structures are intact and in normal alignment. Joints are intact without dislocation or signifi cant arthropathy. There are mild degenerative changes at the AC joint. Osseous density is normal. S oft tissues are unremarkable. No radiopaque foreign bodies seen. CONCLUSION: Unremarkable exam for patient's age. Electronically signed by: Dharmesh Dixon MD 07/11/2017 3:49 PM EDT
[2017-07-11] MEDS ORDERED: ACETAMINOPHEN 1000 MG/100 ML 0 ML IV ONE (19:50)
[2017-07-11] MEDS ORDERED: GENTAMICIN SULFATE 80 MG/2 ML VIAL ONE (19:58)
[2017-07-11] MEDS ORDERED: LACTULOSE SYRUP 20 GM/30 ML CUP PO PRN (20:45)
[2017-07-11] MEDS ORDERED: Post-op Orders (for Pharmacy) XX ONE (20:45)
[2017-07-11] MEDS ORDERED: oxyCODONE/ACETAMINOPHEN 5 MG/325 MG TAB PO PRN (20:45)
[2017-07-11] MEDS ORDERED: MORPHINE SULFATE 30 MG/30 ML PCA IV SCH (20:45)
[2017-07-11] MEDS ORDERED: BISACODYL 10 MG SUPP RECTAL PRN (20:45)
[2017-07-11] MEDS ORDERED: diphenhydrAMINE HCL 25 MG CAP PO PRN (20:45)
[2017-07-11] MEDS ORDERED: SENNOSIDES 8.6 MG TAB PO PRN (20:45)
[2017-07-11] MEDS ORDERED: MAGNESIUM HYDROXIDE SUSP 30 ML CUP PO PRN (20:45)
[2017-07-11] MEDS ORDERED: NALOXONE HCL 0.4 MG/ML AMP IV PUSH PRN (20:45)
[2017-07-11] MEDS: DOCUSATE SODIUM 50 MG/SENNA 8.6 MG TAB PO SCH (21:00)
[2017-07-11] MEDS ORDERED: VANCOMYCIN HCL 1000 MG VIAL ONE ×3 (21:35→22:10)
[2017-07-11] MEDS ORDERED: SUGAMMADEX SODIUM 200 MG/2 ML VIAL IV PUSH ONE (22:45)
[2017-07-11 22:53] LABS: AUTOMATED NEUTROPHIL # 7.4 TH/MM3 (1.8-7.7); BASOPHIL % 0.3 % (0.0-2.0); EOSINOPHIL % 0.3 % (0.0-4.0); HEMATOCRIT 32.8 % (39.0-51.0); HEMOGLOBIN 10.9 GM/DL (13.0-17.0); LYMPH % 19.5 % (9.0-44.0); LYMPHOCYTE # 2.1 TH/MM3 (1.0-4.8); MEAN CELL VOLUME 97.2 FL (80.0-100.0); MEAN CORPUSCULAR HEMOGLOBIN 32.3 PG (27.0-34.0); MEAN CORPUSCULAR HGB CONC 33.2 % (32.0-36.0); MEAN PLATELET VOLUME 8.5 FL (7.0-11.0); MONO % 12.4 % (0.0-8.0); MONOCYTE # 1.3 TH/MM3 (0-0.9); NEUT % 67.5 % (16.0-70.0); PLATELET COUNT 263 TH/MM3 (150-450); RED BLOOD COUNT 3.37 MIL/MM3 (4.50-5.90); RED CELL DISTRIBUTION WIDTH 13.8 % (11.6-17.2); WHITE BLOOD COUNT 10.9 TH/MM3 (4.0-11.0)
[2017-07-11] MEDS ORDERED: DO NOT ADM ANY ANTICOAGULANT DRUGS PRN (23:00)
[2017-07-11] MEDS ORDERED: MORPHINE SULFATE 4 MG/ML INJ ONE (23:04)
--- NOTE | 2017-07-11 23:47 | MP ---
cc: Maurice Cerraot MD DATE OF OPERATION: 07/11/2017 DATE OF PROCEDURE: 07/11/2017 . PREOPERATIVE DIAGNOSIS: Infected right total knee arthroplasty. POSTOPERATIVE DIAGNOSIS: Infected right total knee arthroplasty. PROCEDURE PERFORMED: Right knee irrigation, debridement and removal of right total knee arthroplasty, including femoral, tibial and patellar component and placement of antibiotic prosthesis ANESTHESIA: General. SURGEON: Maurice Cerrato MD. RN FLOAT: First assistants supplied by the hospital. SPECIMEN: Total knee arthroplasty discarded. Routine culture sent. IMPLANTS: Remedy antibiotic, large tibial and femoral components with antibiotic bone cement. DRAINS: None. COMPLICATIONS: NONE KNOWN. INDICATIONS FOR PROCEDURE: Anson Hsieh is a 77-year-old male who underwent a right total knee arthroplasty in June 2012. He had a well functioning knee until recently, when he began having symptoms and then he began having giving-way episodes. Also, his history is that he is diabetic and he has had some sores on both of his feet. The patient was on Coumadin and admitted to the hospital with an effusion and it was initially thought that this may represent a hemarthrosis and aspiration of the knee did reveal an infectious process and this grew out Staphylococcus aureus. The current recommendation is to proceed with removal of total knee arthroplasty and placement of antibiotic spacer prosthesis. The risks, benefits and alternatives were thoroughly discussed in detail. Informed consent was obtained. DESCRIPTION OF PROCEDURE: The patient was brought to the operating room and placed under general anesthetic. The right lower extremity was prepped and draped in the usual sterile fashion. IV antibiotics. He has already been on a regimen of antibiotics. The timeout was completed. The limb was elevated and exsanguinated to the high calf and then the tourniquet inflated to 300 and we proceeded through the original anterior knee incision and then proceeded with a medial parapatellar approach. We addressed the patella with delaminating the polyethylene from its bone cement and then we used the oscillating saw to remove the bone cement and then we used drills to remove the peg holes and the bone cement from there and then we thoroughly irrigated, inspected and all the bone cement had been removed from the patella. Attention was then drawn to the femur and proceeded with the use of flexible osteotomes and loosened the component and then used the slap hammer and a bone tamp and we were able to remove the prosthesis with very good bone preservation. We proceeded with antibiotic irrigation throughout the femur and removed all the residual cement, including the prior peg holes and these were drilled out and all bone cement was obtained and removed. Also, there was soft tissue, hypertrophic scar tissue and synovium which was excised in the suprapatellar pouch, medial and lateral gutter and posterior aspect of the knee. We then proceeded with delaminating the bone cement from the tibial component and then using a bone tamp to remove this. Then, attention was drawn to making a finishing cut below the bone cement and then sequentially removing all of the bone cement from within the canal. We thoroughly irrigated out copious amounts of irrigation. We then trialed with the Remedy antibiotic prosthesis and it was a large size and we were able to have good range of motion with this in place and we thoroughly irrigated this out once again. We mixed our bone cement. We actually had a bone cement batch that set up very quickly and we had to discard that batch and we had a second batch, it was 2 batches of cement. This was antibiotic cement and we also added vancomycin to it. A total of 2 grams of vancomycin for each pack of cement. A total of 4 grams of vancomycin and we probably used about 2/3 of the cement, and then, at the edge of the prosthesis, ultimately we probably use about 60% of the cement, so probably just over 2 grams of vancomycin into the bone cement that we used. So, we placed in the Remedy prosthesis and glued it into place and this allowed for the knee to have good range of motion and reasonable ligamentous stability. We let down the tourniquet at 1 hour and we had good hemostasis. We then proceeded to close with antibiotic sutures and then ultimately sandra on the skin. Xeroform applied, sterile dressing applied. Knee immobilizer applied. The patient was wrapped from the foot to the thigh. The patient was awoken and returned to the recovery room in stable condition. MD RUBY Strickland/DAV , 10:54 PM , 11:46 PM RAI
[2017-07-12] VITALS (9 sets, daily range): BP systolic 105–144; BP diastolic 58–69; PULSE 68–85; RESP 18–20; TEMP 97.8–98.5; O2SAT 94–97
[2017-07-12] MEDS: ceFAZolin 2 GM PREMIX 50 ML IV SCH ×3 (00:40→17:17)
[2017-07-12] MEDS: ACETAMINOPHEN 325 MG TAB PO SCH ×2 (00:48→22:15)
[2017-07-12] MEDS: SODIUM CHLORIDE 0.9% FLUSH 10 ML FLUSH IV FLUSH SCH ×3 (00:48→22:17)
[2017-07-12] MEDS: METOPROLOL TARTRATE 100 MG TAB PO SCH ×3 (00:48→22:16)
[2017-07-12] MEDS: RAMIPRIL 5 MG CAP PO SCH ×3 (00:48→22:16)
[2017-07-12] MEDS: INSULIN HUMAN NPH/R 70/30 1,000 UNITS/10 ML VIAL SQ SCH ×3 (01:04→22:35)
[2017-07-12] MEDS: PCA - TOTAL MG MORPHINE DELIVERED PER SHIFT SCH ×3 (06:00→22:19)
--- NOTE | 2017-07-12 07:44 | PD.ORT.PN ---
Subjective Subjective Remarks Patient comfortable Objective Vitals Vital Signs Date Time Temp Pulse Resp B/P (MAP) Pulse Ox O2 Delivery O2 Flow Rate FiO2 07/12/17 04:00 98.1 81 20 142/69 (93) 97 07/12/17 00:00 98.1 84 20 144/68 (93) 94 07/11/17 23:30 Nasal Cannula 2.00 07/11/17 23:30 98.1 86 21 129/62 (84) 94 Nasal Cannula 2 07/11/17 23:15 83 18 127/60 (82) 95 Nasal Cannula 3 07/11/17 23:00 98.1 83 22 136/59 (84) 96 Nasal Cannula 3 07/11/17 21:07 12 07/11/17 20:00 98.4 90 18 161/86 (111) 96 07/11/17 18:13 98.1 77 18 169/84 (112) 97 07/11/17 16:00 98 07/11/17 14:33 18 07/11/17 12:04 98.0 79 18 142/86 (104) 95 07/11/17 12:00 100 07/11/17 08:04 98.0 72 18 155/82 (106) 96 07/11/17 08:00 Room Air 07/11/17 08:00 68 I/O 07/11/17 07/11/17 07/11/17 07/12/17 07/12/17 07/12/17 07:00 15:00 23:00 07:00 15:00 23:00 Intake Total 240 ml 1500 ml 240 ml Output Total 150 ml 400 ml 0 ml Balance 90 ml 1100 ml 240 ml Intake Oral 240 ml 240 ml Other 1500 ml Output Urine Total 150 ml 0 ml Estimated Blood Loss 400 ml # Voids 4 # Bowel Movements 1 3 Result Diagram: 07/11/170 07/11/17 0430 Objective Remarks Right knee dressing in place knee immobilizer in place able to flex/ ext ankle/toes healing small wounds on multiple toes negative Antonio's Assessment & Plan Problem List: (1) Infection of total right knee replacement ICD Codes: T84.53XA - Infection and inflammatory reaction due to internal right knee prosthesis, initial encounter Status: Acute Qualifiers: Qualified Codes: T84.53XD - Infection and inflammatory reaction due to internal right knee prosthesis, subsequent encounter Plan: Status post Removal Total Knee Arthroplasty POD #1 Resume Coumadin IV antibiotics per ID OK to use ultram while on BOX STAPLER D/C BOX STAPLER Sunday Physical therapy - Weight bearing as tolerated with knee brace He will nee PICC line He probably will need to go to SNF next week Monitor Maurice Cerrato MD July 12, 2017 07:44
--- NOTE | 2017-07-12 08:47 | HHI.IDPN ---
Subjective Subjective Remarks Patient is a 77-year-old male, presented to the hospital for evaluation of pain and swelling in his right knee. He apparently has had the swelling for at least 4 weeks. Has been progressively worsening, with increasing pain, that he was having difficulty with ambulation. He had fallen a couple times at home. He lives alone at home, and normally uses a walker to ambulate. He denies any fever or chills. Denies any respiratory complaints, GI or any urinary complaints. Patient states that due to his diabetes, he gets wounds in his lower extremity and gets scrapes very easily. He denies any previous history of skin infection. He denies any syncopal episode. On presentation, he had an elevated WBC. Evaluation of the knee shows evidence of effusion. Arthrocentesis of the right knee joint was done, and he has significantly elevated WBC, and culture is currently growing staph aureus. He has had some low-grade temps here in the hospital. Orthopedic has seen the patient, and plans to do surgery in the morning. Patient denies having any problem with his knee postoperatively. Infectious disease consultation has been requested to evaluate patient. Notes reviewed Temps ok Pain under control S/P removal RTKA Has one BC (+) GPC ESR 80 CRP 17 LFT elevated No rash or itching Antibiotics Ancef Current Medications Medications (Trade) Dose Ordered Sig/Jake Route Start Time Stop Time Status Last Admin (NS Flush) 2 ml UNSCH PRN IV FLUSH 07/08/17 13:15 (NS Flush) 2 ml BID IV FLUSH 07/08/17 21:00 07/12/17 00:48 (Tylenol) 650 mg Q4H PRN PO 07/08/17 13:15 (Narcan Inj) 0.4 mg UNSCH PRN IV PUSH 07/08/17 13:15 (Zofran Odt) 4 mg Q6H PRN SL 07/08/17 13:15 (Neurontin) 100 mg TID PO 07/08/17 18:00 07/11/17 17:13 (Pravachol) 40 mg DAILY PO 07/09/17 09:00 07/11/17 09:30 (Lopressor) 100 mg BID PO 07/08/17 21:00 07/12/17 00:48 (Aldactone) 25 mg DAILY PO 07/09/17 09:00 07/11/17 09:29 (Tricor) 48 mg DAILY PO 07/09/17 09:00 07/11/17 09:30 (Altace) 10 mg BID PO 07/08/17 21:00 07/12/17 00:48 (D50w (Vial) Inj) 50 ml UNSCH PRN IV PUSH 07/08/17 14:00 (Glucagon Inj) 1 mg UNSCH PRN OTHER 07/08/17 14:00 (NovoLOG SUPPLEMENTAL SCALE) 1 ACHS SLIDING SCALE SQ 07/08/17 17:00 07/10/17 21:00 (NovoLIN 70/30 INJ) 20 units BID SQ 07/08/17 18:00 Future hold 07/12/17 01:04 (Ultram) 50 mg Q6H PRN PO 07/10/17 11:45 07/11/17 13:33 (Tylenol) 650 mg HS PO 07/10/17 21:00 07/12/17 00:48 Cefazolin Sodium/ Dextrose 50 ml @ 100 mls/hr Q8H IV 07/10/17 16:00 07/12/17 00:40 Lactated Ringer's 1,000 ml @ 30 mls/hr Q24H PRN IV 07/11/17 05:30 07/14/17 05:29 Sodium Chloride 500 ml @ 30 mls/hr [id number] PRN IV 07/11/17 05:30 07/14/17 05:29 (Betadine 5% Antisepsis Kit) 1 applic CATEGORY ANALYST PRN EACH NARE 07/11/17 05:30 07/14/17 05:29 (Chlorhexidine 2% Cloth) 3 pack CATEGORY ANALYST PRN TOPICAL 07/11/17 05:30 07/14/17 05:29 (Percocet 5-325 Mg) 1 tab Q4H PRN PO 07/11/17 20:45 (Benadryl) 25 mg Q6H PRN PO 07/11/17 20:45 (Lulu-Colace) 1 tab BID PO 07/11/17 21:00 (Milk Of Magnesia Liq) 30 ml Q12H PRN PO 07/11/17 20:45 (Senokot) 17.2 mg Q12H PRN PO 07/11/17 20:45 (Dulcolax Supp) 10 mg DAILY PRN RECTAL 5/23/18 20:45 (Lactulose Liq) 30 ml DAILY PRN PO 07/11/17 20:45 (Narcan Inj) 0.4 mg UNSCH PRN IV PUSH 07/11/17 20:45 (Morphine 1 Mg/ ml FURNACE OPERATOR AND TENDER) 30 mg UNSCH IV 07/11/17 20:45 07/11/17 21:07 FURNACE OPERATOR AND TENDER Dosage Infused (Pha) 1 Q8HR .XX 07/11/17 22:00 ([facility] Nursing Information) ALL NURSING DEPARTME... UNSCH PRN .XX 07/11/17 23:00 07/12/17 22:59 Lines No evidence of infection Past Medical History Diabetes mellitus Hypertension Chronic arthritis and degenerative joint disease Tobacco dependency Atrial fibrillation on warfarin Hyperlipidemia Past Surgical History Cervical spine surgery Lumbar spine surgery Quadruple bypass Cataracts Right knee previous surgery Allergies: Coded Allergies: penicillin G (Verified Allergy, Severe, Rash, 07/08/17) PT STATES UNKNOWN REACTION insulin detemir (Verified Allergy, Intermediate, LIPS AND THROAT SWELLS, ) insulin glargine (Verified Allergy, Intermediate, LIPS AND THROAT SWELLS, 07/08/17) *MDRO Multi-Drug Resistant Organism (Verified Allergy, Unknown, 07/08/17) C.diff 09/2013 Uncoded Allergies: CITRUS (Adverse Reaction, Intermediate, SEVERE UPSET STOMACH, 01/22/14) Objective . Vital Signs Date Time Temp Pulse Resp B/P (MAP) Pulse Ox O2 Delivery O2 Flow Rate FiO2 07/12/17 04:00 98.1 81 20 142/69 (93) 97 07/12/17 00:00 98.1 84 20 144/68 (93) 94 07/11/17 23:30 Nasal Cannula 2.00 07/11/17 23:30 98.1 86 21 129/62 (84) 94 Nasal Cannula 2 07/11/17 23:15 83 18 127/60 (82) 95 Nasal Cannula 3 07/11/17 23:00 98.1 83 22 136/59 (84) 96 Nasal Cannula 3 07/11/17 21:07 12 07/11/17 20:00 98.4 90 18 161/86 (111) 96 07/11/17 18:13 98.1 77 18 169/84 (112) 97 07/11/17 16:00 98 07/11/17 14:33 18 07/11/17 12:04 98.0 79 18 142/86 (104) 95 07/11/17 12:00 100 . Laboratory Tests Test 07/10/17 13:10 07/11/17 04:30 07/11/17 22:30 Erythrocyte Sedimentation Rate 80 mm/hr White Blood Count 9.9 TH/MM3 10.9 TH/MM3 Red Blood Count 3.45 MIL/MM3 3.37 MIL/MM3 Hemoglobin 11.3 GM/DL 10.9 GM/DL Hematocrit 33.7 % 32.8 % Mean Corpuscular Volume 97.7 FL 97.2 FL Mean Corpuscular Hemoglobin 32.6 PG 32.3 PG Mean Corpuscular Hemoglobin Concent 33.4 % 33.2 % Red Cell Distribution Width 13.7 % 13.8 % Platelet Count 225 TH/MM3 263 TH/MM3 Mean Platelet Volume 9.1 FL 8.5 FL Neutrophils (%) (Auto) 68.8 % 67.5 % Lymphocytes (%) (Auto) 16.6 % 19.5 % Monocytes (%) (Auto) 13.8 % 12.4 % Eosinophils (%) (Auto) 0.4 % 0.3 % Basophils (%) (Auto) 0.4 % 0.3 % Neutrophils # (Auto) 6.8 TH/MM3 7.4 TH/MM3 Lymphocytes # (Auto) 1.6 TH/MM3 2.1 TH/MM3 Monocytes # (Auto) 1.4 TH/MM3 1.3 TH/MM3 Eosinophils # (Auto) 0.0 TH/MM3 0.0 TH/MM3 Basophils # (Auto) 0.0 TH/MM3 0.0 TH/MM3 CBC Comment DIFF FINAL DIFF FINAL Differential Comment Laboratory Tests Test 07/10/17 13:10 07/11/17 04:30 Total Bilirubin 1.9 MG/DL Direct Bilirubin 1.4 MG/DL Indirect Bilirubin 0.5 MG/DL Aspartate Amino Transf (AST/SGOT) 145 U/L Alanine Aminotransferase (ALT/SGPT) 98 U/L Alkaline Phosphatase 128 U/L C-Reactive Protein 17.90 MG/DL Total Protein 6.4 GM/DL Albumin 2.2 GM/DL Blood Urea Nitrogen 25 MG/DL Creatinine 1.15 MG/DL Random Glucose 150 MG/DL Calcium Level 8.1 MG/DL Sodium Level 138 MEQ/L Potassium Level 3.6 MEQ/L Chloride Level 105 MEQ/L Carbon Dioxide Level 20.3 MEQ/L Anion Gap 13 MEQ/L Estimat Glomerular Filtration Rate 62 ML/MIN Microbiology Date/Time Source Procedure Growth Status 07/10/17 13:10 Blood Peripheral Aerobic Blood Culture - Preliminary Gram Positive Cocci Resulted 07/10/17 13:10 Blood Peripheral Anaerobic Blood Culture - Preliminary NO GROWTH IN 1 DAY Resulted 07/10/17 13:00 Blood Peripheral Aerobic Blood Culture - Preliminary NO GROWTH IN 1 DAY Resulted 07/10/17 13:00 Blood Peripheral Anaerobic Blood Culture - Preliminary NO GROWTH IN 1 DAY Resulted 07/09/17 10:37 Fluid Synovial Fluid Gram Stain - Final Complete 07/09/17 10:37 Body Fluid Culture - Final Staphylococcus Aureus Complete 07/11/17 21:05 Wound Knee Gram Stain Pending Received 07/11/17 21:05 Wound Knee Wound Culture Pending Received Imaging Last Impressions Aspiration 07/09/17 0000 Signed Impressions: Service Date/Time: Sunday, July 09, 2017 10:16 - CONCLUSION: Uncomplicated aspiration as above. Mata Schneider MD Lower Extremity CT 07/08/17 0000 Signed Impressions: Service Date/Time: Saturday, July 08, 2017 15:00 - CONCLUSION: 1. Right total knee arthroplasty in place which limits overall evaluation for subtle fractures. 2. No evidence for acute bony fracture. 3. Moderate size suprapatellar joint effusion. Francisco Tran MD Knee X-Ray 07/08/17 0000 Signed Impressions: Service Date/Time: Saturday, July 08, 2017 12:39 - CONCLUSION: 1. No fracture seen. Intact hardware. 2. Increasing size joint effusion when compared to yesterday's exam. Alvin Boland MD Physical Exam GENERAL: awake and alert, not in respiratory distress. SKIN: Warm and dry. No generalized rash, no ecchymoses and no evidence of embolic lesions. HEAD: Atraumatic. Normocephalic. No temporal wasting, or tenderness. EYES: [place] conjunctiva. No petechia or hemorrhage. Pupils equal, round and reactive to light. Extraocular movements full and intact. No scleral icterus. No injection or drainage. EARS, NOSE AND THROAT: Nose without bleeding or purulent nasal discharge. No sinus tenderness. Dry oral mucosa. No oral lesions noted. NECK: Trachea midline. Supple and not tender, no meningeal signs CARDIOVASCULAR: Regular rate and rhythm. No murmurs, rubs or gallops heard RESPIRATORY: Clear to auscultation. Breath sounds equal bilaterally. No rales , wheezing or rhonchi ABDOMEN: Soft, non-tender, nondistended. Bowel sounds present and normoactive. No guarding. No rebound. No organomegaly. EXTREMITIES: No clubbing, cyanosis. Has dry dressing RLE, has immobilizer. Multiple superficial wounds R foot and one on L foot, no evidence of infection. No calf tenderness. Well perfused and warm. NEUROLOGICAL: Non-focal PSYCHIATRIC: Normal affect, calm and cooperative. LINE: No evidence of infection Assessment & Plan Remarks IMPRESSION Infection RTKA, C/S Staph aureus, MSSA Renal insufficiency Allergy to PCN - rash, has tolerated Cephalosporins in the past One (+) BC GPC RECOMMENDATION Continue IV Ancef Follow C/S Monitor progress Will need at least 6 weeks IV Abx He seems receptive to rehab placement Explained plan to patient Piper Dacosta MD July 12, 2017 08:47
[2017-07-12] MEDS: FENOFIBRATE 48 MG TAB PO SCH (09:00)
[2017-07-12] MEDS: SPIRONOLACTONE 25 MG TAB PO SCH (10:08)
[2017-07-12] MEDS: GABAPENTIN 100 MG CAP PO SCH ×3 (10:08→17:17)
[2017-07-12] MEDS: PRAVASTATIN SOD 40 MG TAB PO SCH (10:08)
[2017-07-12] MEDS: INSULIN ASPART SUPPLEMENTAL SCALE SQ SCH ×4 (10:08→22:18)
[2017-07-12] MEDS: DOCUSATE SODIUM 50 MG/SENNA 8.6 MG TAB PO SCH ×2 (10:08→21:00)
--- NOTE | 2017-07-12 11:58 | HHI.PR ---
Subjective Remarks in no acute distress. pain seems to be fairly controlled- afebrile. Objective Vitals Vital Signs Date Time Temp Pulse Resp B/P (MAP) Pulse Ox O2 Delivery O2 Flow Rate FiO2 07/12/17 08:01 97.8 79 18 134/63 (86) 96 07/12/17 08:00 78 07/12/17 06:00 18 07/12/17 04:00 98.1 81 20 142/69 (93) 97 07/12/17 00:00 98.1 84 20 144/68 (93) 94 07/11/17 23:30 Nasal Cannula 2.00 07/11/17 23:30 98.1 86 21 129/62 (84) 94 Nasal Cannula 2 07/11/17 23:15 83 18 127/60 (82) 95 Nasal Cannula 3 07/11/17 23:00 98.1 83 22 136/59 (84) 96 Nasal Cannula 3 07/11/17 21:07 12 07/11/17 20:00 98.4 90 18 161/86 (111) 96 07/11/17 18:13 98.1 77 18 169/84 (112) 97 07/11/17 16:00 98 07/11/17 14:33 18 07/11/17 12:04 98.0 79 18 142/86 (104) 95 07/11/17 12:00 100 I/O 07/11/17 07/11/17 07/11/17 07/12/17 07/12/17 07/12/17 07:00 15:00 23:00 07:00 15:00 23:00 Intake Total 240 ml 1500 ml 240 ml Output Total 150 ml 400 ml 0 ml Balance 90 ml 1100 ml 240 ml Intake Oral 240 ml 240 ml Other 1500 ml Output Urine Total 150 ml 0 ml Estimated Blood Loss 400 ml # Voids 4 # Bowel Movements 1 3 Result Diagram: 07/11/17 2230 07/11/17 0430 Imaging Last Impressions Shoulder X-Ray 07/11/17 0000 Signed Impressions: CONCLUSION: Unremarkable exam for patient's age. Aspiration 07/09/17 0000 Signed Impressions: Service Date/Time: Sunday, July 09, 2017 10:16 - CONCLUSION: Uncomplicated aspiration as above. Mata Schneider MD Lower Extremity CT 07/08/17 0000 Signed Impressions: Service Date/Time: Saturday, July 08, 2017 15:00 - CONCLUSION: 1. Right total knee arthroplasty in place which limits overall evaluation for subtle fractures. 2. No evidence for acute bony fracture. 3. Moderate size suprapatellar joint effusion. Francisco Tran MD Knee X-Ray 07/08/17 0000 Signed Impressions: Service Date/Time: Saturday, July 08, 2017 12:39 - CONCLUSION: 1. No fracture seen. Intact hardware. 2. Increasing size joint effusion when compared to yesterday's exam. Alvin Boland MD Objective Remarks GENERAL: This is a well-nourished, well-developed patient, in no apparent distress. CARDIOVASCULAR: Regular rate and regular rhythm without murmurs, gallops, or rubs. RESPIRATORY: Clear to auscultation. Breath sounds equal bilaterally. No wheezes , rales, or rhonchi. GASTROINTESTINAL: Abdomen soft, non-tender, nondistended. Normal, active bowel sounds MUSCULOSKELETAL: right knee covered with clean dressing. NEURO: Alert & Oriented x4 to person, place, time, situation. Moves all ext x4 Procedures Right knee arthrocentesis, 85 mL Medications and IVs Inpatient Medications Acetaminophen (Tylenol) 650 mg HS PO Last administered on 07/12/17at 00:48; Start 07/10/17 at 21:00 Aztreonam 1000 mg/ Sodium Chloride 100 ml @ 200 mls/hr Q12H IV Last administered on 07/10/17at 12:08; Start 07/10/17 at 12:00; Stop 07/10/17 at 15:31 ; Status DC Bisacodyl (Dulcolax Supp) 10 mg DAILY PRN RECTAL SEVERE CONSITIPATION; Start at 20:45 Cefazolin Sodium/ Dextrose 50 ml @ 100 mls/hr Q8H IV Last administered on 07/12at 10:07; Start 07/10/17 at 16:00 Chlorhexidine Gluconate (Chlorhexidine 2% Cloth) 3 pack SPEECH LANGUAGE PATHOLOGIST TRAVEL PRN TOPICAL SEE LABEL COMMENTS; Start 07/11/17 at 05:30; Stop 07/14/17 at 05:29 Dextrose (D50w (Vial) Inj) 50 ml UNSCH PRN IV PUSH HYPOGLYCEMIA-SEE COMMENTS; Start 07/08/17 at 14:00 Diphenhydramine HCl (Benadryl) 25 mg Q6H PRN PO ITCHING; Start 07/11/17 at 20: 45 Doxycycline Hyclate (Vibratab) 100 mg BID PO Last administered on 07/10/17at 12: 07; Start 07/10/17 at 11:45; Stop 07/10/17 at 15:31; Status DC Fenofibrate (Tricor) 48 mg DAILY PO Last administered on 07/11/17at 09:30; Start 07/09/17 at 09:00 Gabapentin (Neurontin) 100 mg TID PO Last administered on 07/12/17at 10:08; Start 07/08/17 at 18:00 Glucagon (Glucagon Inj) 1 mg UNSCH PRN OTHER HYPOGLYCEMIA-SEE COMMENTS; Start 07/08/17 at 14:00 Insulin Aspart (NovoLOG SUPPLEMENTAL SCALE) 1 ACHS SLIDING SCALE SQ Last administered on 07/12/17at 10:08; Start 07/08/17 at 17:00 Insulin Human Isoph/Insulin Regular (NovoLIN 70/30 INJ) 20 units BID SQ Last administered on 07/12/17at 10:09; Start 07/08/17 at 18:00; Status Future hold Lactated Ringer's 1,000 ml @ 30 mls/hr Q24H PRN IV SEE LABEL COMMENTS; Start at 05:30; Stop 07/14/17 at 05:29 Lactulose (Lactulose Liq) 30 ml DAILY PRN PO SEVERE CONSITIPATION; Start at 20:45 Magnesium Hydroxide (Milk Of Magnesia Liq) 30 ml Q12H PRN PO Mild constipation ; Start 07/11/17 at 20:45 Metoprolol Tartrate (Lopressor) 100 mg BID PO Last administered on 07/12/17at 10 :08; Start 07/08/17 at 21:00 Miscellaneous Information ([facility] Nursing Information) ALL NURSING DEPARTME... UNSCH PRN .XX SEE LABEL COMMENTS; Start 07/11/17 at 23:00; Stop 07/12/17 at 22: 59 Miscellaneous Information ([facility] Post-op Orders (for Pharmacy)) STAT ONCE XX ; Start 07/11/17 at 20:45; Stop 07/11/17 at 21:02; Status DC Morphine Sulfate (Morphine 1 Mg/ ml BPM ANALYST) 30 mg UNSCH IV Last administered on at 21:07; Start 07/11/17 at 20:45 Naloxone HCl (Narcan Inj) 0.4 mg UNSCH PRN IV PUSH RESPIRATORY RATE LESS THAN 10; Start 07/11/17 at 20:45 Ondansetron HCl (Zofran Odt) 4 mg Q6H PRN SL NAUSEA OR VOMITING; Start at 13:15 Oxycodone/ Acetaminophen (Percocet 5-325 Mg) 1 tab Q4H PRN PO PAIN LESS THAN 5 ON SCALE; Start 07/11/17 at 20:45 Patient Medication Teaching (Coumadin Booklet) 1 ONCE ONCE XX ; Start 07/11/17 at 16:00; Stop 07/11/17 at 21:02; Status DC BPM ANALYST Dosage Infused (Pha) 1 Q8HR .XX Last administered on 07/12/17at 06:00; Start 07/11/17 at 22:00 Povidone Iodine (Betadine 5% Antisepsis Kit) 1 applic SPEECH LANGUAGE PATHOLOGIST TRAVEL PRN EACH NARE SEE LABEL COMMENTS; Start 07/11/17 at 05:30; Stop 07/14/17 at 05:29 Pravastatin Sodium (Pravachol) 40 mg DAILY PO Last administered on 07/12/17at 10 :08; Start 07/09/17 at 09:00 Ramipril (Altace) 10 mg BID PO Last administered on 07/12/17at 10:08; Start at 21:00 Senna/Docusate Sodium (Lulu-Colace) 1 tab BID PO Last administered on at 10:08; Start 07/11/17 at 21:00 Sennosides (Senokot) 17.2 mg Q12H PRN PO Moderate constipation; Start 07/11/17 at 20:45 Sodium Chloride 500 ml @ 30 mls/hr [id number] PRN IV SEE LABEL COMMENTS; Start at 05:30; Stop 07/14/17 at 05:29 Sodium Chloride (NS Flush) 2 ml BID IV FLUSH Last administered on 07/12/17at 10: 09; Start 07/08/17 at 21:00 Spironolactone (Aldactone) 25 mg DAILY PO Last administered on 07/12/17at 10:08 ; Start 07/09/17 at 09:00 Tramadol HCl (Ultram) 50 mg Q6H PRN PO knee pain 1-10 Last administered on 07/11at 13:33; Start 07/10/17 at 11:45 Vancomycin HCl 1500 mg/Sodium Chloride 515 ml @ 257.5 mls/ hr ONCE ONCE IV Last administered on 07/10/17at 17:12; Start 07/10/17 at 17:00; Stop 07/10/17 at 18:59; Status DC Warfarin Sodium (Coumadin) 2 mg DAILY@1600 PO ; Start 07/09/17 at 16:00; Stop at 16:00; Status DC A/P Problem List: (1) Skin abnormality ICD Code: L98.9 - Disorder of the skin and subcutaneous tissue, unspecified (2) Knee effusion, right ICD Code: M25.461 - Effusion, right knee Status: Acute (3) Gait instability ICD Code: R26.81 - Unsteadiness on feet Status: Acute (4) Diabetes mellitus ICD Code: E11.9 - Diabetes mellitus Status: Acute (5) Atrial fibrillation ICD Code: I48.91 - Atrial fibrillation Status: Acute (6) Hyponatremia ICD Code: E87.1 - Hypo-osmolality and hyponatremia (7) CKD (chronic kidney disease) ICD Code: N18.9 - Chronic kidney disease, unspecified Assessment and Plan A/P Knee effusion, right Status post arthrocentesis per IR, 85 mL with 96,000 white blood cells, likely septic joint s/p Right knee irrigation, debridement and removal of right total knee / arthroplasty, including femoral, tibial and patellar component and placement of antibiotic prosthesis Continue Ancef continue with pain control ID and ortho following. Skin abnormality Patient with home wound care and history of venous stasis patient with lower extremity intact skin with some evidence of hemosiderin. Shallow healing wounds on the dorsal side of the right and left feet Continue with wound care and management Resume home healthcare services when appropriate Gait instability Likely due to joint pain and right knee effusion Patient Continue rehab efforts as tolerated post surgical Diabetes mellitus Continue with diabetic management with home insulin regimen Accu-Cheks and sliding scale ADA diet Atrial fibrillation rate controlled, warfarin will be resumed- will consult pharmacy for coumadin dosing. Hyponatremia Resolved with blood sugar correction CKD (chronic kidney disease) Avoid nephrotoxins Acute kidney injury is improved left shoulder pain; XR with no fracture; continue pain control. DVT prophylaxis; resumed coumadin. Discharge Planning for surgical intervention today. Contreras Mccauley MD July 12, 2017 11:58
[2017-07-12] MEDS: traMADol HCL 50 MG TAB PO PRN (17:20)
[2017-07-13] VITALS (10 sets, daily range): BP systolic 100–157; BP diastolic 67–88; PULSE 74–97; RESP 18–20; TEMP 97.5–98.3; O2SAT 95–99
[2017-07-13] MEDS: ceFAZolin 2 GM PREMIX 50 ML IV SCH ×4 (00:41→23:45)
[2017-07-13] MEDS: traMADol HCL 50 MG TAB PO PRN ×3 (00:42→21:42)
[2017-07-13] MEDS: PCA - TOTAL MG MORPHINE DELIVERED PER SHIFT SCH ×3 (05:08→22:00)
--- NOTE | 2017-07-13 07:04 | PD.ORT.PN ---
Subjective Subjective Remarks Patient comfortable Objective Vitals Vital Signs Date Time Temp Pulse Resp B/P (MAP) Pulse Ox O2 Delivery O2 Flow Rate FiO2 07/13/17 05:08 18 07/13/17 04:00 98.0 74 20 134/71 (92) 97 07/13/17 00:00 83 07/13/17 00:00 97.5 79 20 122/68 (86) 96 07/12/17 22:19 18 07/12/17 20:00 79 07/12/17 20:00 Room Air 07/12/17 20:00 98.5 77 20 128/60 (82) 97 07/12/17 16:08 98.3 81 18 105/58 (74) 96 07/12/17 16:00 68 07/12/17 14:45 24 07/12/17 12:01 97.8 82 18 112/58 (76) 96 07/12/17 12:00 85 07/12/17 08:01 97.8 79 18 134/63 (86) 96 07/12/17 08:00 78 I/O 07/12/17 07/12/17 07/12/17 07/13/17 07/13/17 07/13/17 07:00 15:00 23:00 07:00 15:00 23:00 Intake Total 290 ml 720 ml 50 ml Output Total 0 ml 200 ml 225 ml Balance 290 ml 520 ml -175 ml Intake Oral 240 ml 720 ml IV Total 50 ml 50 ml Output Urine Total 0 ml 200 ml 225 ml # Bowel Movements 3 1 Result Diagram: 07/11/17 2230 07/11/17 0430 Objective Remarks Right knee dressing in place knee immobilizer in place able to flex/ ext ankle/toes healing small wounds on multiple toes negative Antonio's Assessment & Plan Problem List: (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 Ok to begin knee range of motion Daily dressing changes He will need PICC line He probably will need to go to SNF when arrangements made Monitor Maurice Cerrato MD July 13, 2017 07:04
[2017-07-13] MEDS: INSULIN ASPART SUPPLEMENTAL SCALE SQ SCH ×4 (08:00→22:36)
--- NOTE | 2017-07-13 08:18 | HHI.PR ---
Subjective Remarks in no acute distress. pain is controlled. no fever. no new complaints. Objective Vitals Vital Signs Date Time Temp Pulse Resp B/P (MAP) Pulse Ox O2 Delivery O2 Flow Rate FiO2 07/13/17 05:08 18 07/13/17 04:00 98.0 74 20 134/71 (92) 97 07/13/17 00:00 83 07/13/17 00:00 97.5 79 20 122/68 (86) 96 07/12/17 22:19 18 07/12/17 20:00 79 07/12/17 20:00 Room Air 07/12/17 20:00 98.5 77 20 128/60 (82) 97 07/12/17 16:08 98.3 81 18 105/58 (74) 96 07/12/17 16:00 68 07/12/17 14:45 24 07/12/17 12:01 97.8 82 18 112/58 (76) 96 07/12/17 12:00 85 I/O 07/12/17 07/12/17 07/12/17 07/13/17 07/13/17 07/13/17 07:00 15:00 23:00 07:00 15:00 23:00 Intake Total 290 ml 720 ml 50 ml Output Total 0 ml 200 ml 225 ml Balance 290 ml 520 ml -175 ml Intake Oral 240 ml 720 ml IV Total 50 ml 50 ml Output Urine Total 0 ml 200 ml 225 ml # Bowel Movements 3 1 Result Diagram: 07/11/17 2230 07/11/17 0430 Imaging Last Impressions Shoulder X-Ray 07/11/17 0000 Signed Impressions: CONCLUSION: Unremarkable exam for patient's age. Aspiration 07/09/17 0000 Signed Impressions: Service Date/Time: Sunday, July 09, 2017 10:16 - CONCLUSION: Uncomplicated aspiration as above. Mata Schneider MD Lower Extremity CT 07/08/17 0000 Signed Impressions: Service Date/Time: Saturday, July 08, 2017 15:00 - CONCLUSION: 1. Right total knee arthroplasty in place which limits overall evaluation for subtle fractures. 2. No evidence for acute bony fracture. 3. Moderate size suprapatellar joint effusion. Francisco Tran MD Knee X-Ray 07/08/17 0000 Signed Impressions: Service Date/Time: Saturday, July 08, 2017 12:39 - CONCLUSION: 1. No fracture seen. Intact hardware. 2. Increasing size joint effusion when compared to yesterday's exam. Alvin Boland MD Objective Remarks GENERAL: This is a well-nourished, well-developed patient, in no apparent distress. CARDIOVASCULAR: Regular rate and regular rhythm without murmurs, gallops, or rubs. RESPIRATORY: Clear to auscultation. Breath sounds equal bilaterally. No wheezes , rales, or rhonchi. GASTROINTESTINAL: Abdomen soft, non-tender, nondistended. Normal, active bowel sounds MUSCULOSKELETAL: right knee covered with clean dressing. NEURO: Alert & Oriented x4 to person, place, time, situation. Moves all ext x4 Procedures Right knee arthrocentesis, 85 mL Medications and IVs Inpatient Medications Acetaminophen (Tylenol) 650 mg HS PO Last administered on 07/12/17at 22:15; Start 07/10/17 at 21:00 Aztreonam 1000 mg/ Sodium Chloride 100 ml @ 200 mls/hr Q12H IV Last administered on 07/10/17at 12:08; Start 07/10/17 at 12:00; Stop 07/10/17 at 15:31 ; Status DC Bisacodyl (Dulcolax Supp) 10 mg DAILY PRN RECTAL SEVERE CONSITIPATION; Start at 20:45 Cefazolin Sodium/ Dextrose 50 ml @ 100 mls/hr Q8H IV Last administered on 07/13at 00:41; Start 07/10/17 at 16:00 Chlorhexidine Gluconate (Chlorhexidine 2% Cloth) [address] RECORDING MONITOR PRN TOPICAL SEE LABEL COMMENTS; Start 07/11/17 at 05:30; Stop 07/14/17 at 05:29 Dextrose (D50w (Vial) Inj) 50 ml UNSCH PRN IV PUSH HYPOGLYCEMIA-SEE COMMENTS; Start 07/08/17 at 14:00 Diphenhydramine HCl (Benadryl) 25 mg Q6H PRN PO ITCHING; Start 07/11/17 at 20: 45 Doxycycline Hyclate (Vibratab) 100 mg BID PO Last administered on 07/10/17at 12: 07; Start 07/10/17 at 11:45; Stop 07/10/17 at 15:31; Status DC Fenofibrate (Tricor) 48 mg DAILY PO Last administered on 07/12/17at 09:00; Start 07/09/17 at 09:00 Gabapentin (Neurontin) 100 mg TID PO Last administered on 07/12/17at 17:17; Start 07/08/17 at 18:00 Glucagon (Glucagon Inj) 1 mg UNSCH PRN OTHER HYPOGLYCEMIA-SEE COMMENTS; Start 07/08/17 at 14:00 Insulin Aspart (NovoLOG SUPPLEMENTAL SCALE) 1 ACHS SLIDING SCALE SQ Last administered on 07/12/17at 22:18; Start 07/08/17 at 17:00 Insulin Human Isoph/Insulin Regular (NovoLIN 70/30 INJ) 20 units BID SQ Last administered on 07/12/17at 22:35; Start 07/08/17 at 18:00; Status Future hold Lactated Ringer's 1,000 ml @ 30 mls/hr Q24H PRN IV SEE LABEL COMMENTS; Start at 05:30; Stop 07/14/17 at 05:29 Lactulose (Lactulose Liq) 30 ml DAILY PRN PO SEVERE CONSITIPATION; Start at 20:45 Magnesium Hydroxide (Milk Of Magnesia Liq) 30 ml Q12H PRN PO Mild constipation ; Start 07/11/17 at 20:45 Metoprolol Tartrate (Lopressor) 100 mg BID PO Last administered on 07/12/17at 22 :16; Start 07/08/17 at 21:00 Miscellaneous Information ([facility] Nursing Information) ALL NURSING DEPARTME... UNSCH PRN .XX SEE LABEL COMMENTS; Start 07/11/17 at 23:00; Stop 07/12/17 at 22: 59; Status DC Miscellaneous Information ([facility] Post-op Orders (for Pharmacy)) STAT ONCE XX ; Start 07/11/17 at 20:45; Stop 07/11/17 at 21:02; Status DC Morphine Sulfate (Morphine 1 Mg/ ml FIELD COIL WINDER) 30 mg UNSCH IV Last administered on at 21:07; Start 07/11/17 at 20:45 Naloxone HCl (Narcan Inj) 0.4 mg UNSCH PRN IV PUSH RESPIRATORY RATE LESS THAN 10; Start 07/11/17 at 20:45 Ondansetron HCl (Zofran Odt) 4 mg Q6H PRN SL NAUSEA OR VOMITING; Start at 13:15 Oxycodone/ Acetaminophen (Percocet 5-325 Mg) 1 tab Q4H PRN PO PAIN LESS THAN 5 ON SCALE; Start 07/11/17 at 20:45 Patient Medication Teaching (Coumadin Booklet) 1 ONCE ONCE XX ; Start 07/11/17 at 16:00; Stop 07/11/17 at 21:02; Status DC FIELD COIL WINDER Dosage Infused (Pha) 1 Q8HR .XX Last administered on 07/12/17at 22:19; Start 07/11/17 at 22:00 Pharmacy Profile Note 0 ml @ 0 mls/hr UNSCH OTHER ; Start 07/12/17 at 12:00 Povidone Iodine (Betadine 5% Antisepsis Kit) [address] RECORDING MONITOR PRN EACH NARE SEE LABEL COMMENTS; Start 07/11/17 at 05:30; Stop 07/14/17 at 05:29 Pravastatin Sodium (Pravachol) 40 mg DAILY PO Last administered on 07/12/17at 10 :08; Start 07/09/17 at 09:00 Ramipril (Altace) 10 mg BID PO Last administered on 07/12/17at 22:16; Start at 21:00 Senna/Docusate Sodium (Lulu-Colace) 1 tab BID PO Last administered on at 10:08; Start 07/11/17 at 21:00 Sennosides (Senokot) 17.2 mg Q12H PRN PO Moderate constipation; Start 07/11/17 at 20:45 Sodium Chloride 500 ml @ 30 mls/hr [id number] PRN IV SEE LABEL COMMENTS; Start at 05:30; Stop 07/14/17 at 05:29 Sodium Chloride (NS Flush) 2 ml BID IV FLUSH Last administered on 07/12/17at 22: 17; Start 07/08/17 at 21:00 Spironolactone (Aldactone) 25 mg DAILY PO Last administered on 07/12/17at 10:08 ; Start 07/09/17 at 09:00 Tramadol HCl (Ultram) 50 mg Q6H PRN PO knee pain 1-10 Last administered on 07/13at 00:42; Start 07/10/17 at 11:45 Vancomycin HCl 1500 mg/Sodium Chloride 515 ml @ 257.5 mls/ hr ONCE ONCE IV Last administered on 07/10/17at 17:12; Start 07/10/17 at 17:00; Stop 07/10/17 at 18:59; Status DC Warfarin Sodium (Coumadin) 2 mg DAILY@1600 PO ; Start 07/09/17 at 16:00; Stop at 16:00; Status DC A/P Problem List: (1) Skin abnormality ICD Code: L98.9 - Disorder of the skin and subcutaneous tissue, unspecified (2) Knee effusion, right ICD Code: M25.461 - Effusion, right knee Status: Acute (3) Gait instability ICD Code: R26.81 - Unsteadiness on feet Status: Acute (4) Diabetes mellitus ICD Code: E11.9 - Diabetes mellitus Status: Acute (5) Atrial fibrillation ICD Code: I48.91 - Atrial fibrillation Status: Acute (6) Hyponatremia ICD Code: E87.1 - Hypo-osmolality and hyponatremia (7) CKD (chronic kidney disease) ICD Code: N18.9 - Chronic kidney disease, unspecified Assessment and Plan A/P right knee septic arthritis Status post arthrocentesis per IR, 85 mL with 96,000 white blood cells, likely septic joint s/p Right knee irrigation, debridement and removal of right total knee / arthroplasty, including femoral, tibial and patellar component and placement of antibiotic prosthesis fluid culture with MSSA and one bottle of BC with staph aureus Continue Ancef continue with pain control ID and ortho following. Skin abnormality Patient with home wound care and history of venous stasis patient with lower extremity intact skin with some evidence of hemosiderin. Shallow healing wounds on the dorsal side of the right and left feet Continue with wound care and management Resume home healthcare services when appropriate Gait instability Likely due to joint pain and right knee effusion Patient Continue rehab efforts as tolerated post surgical Diabetes mellitus Continue with diabetic management with home insulin regimen Accu-Cheks and sliding scale ADA diet Atrial fibrillation rate controlled, warfarin will be resumed- consulted pharmacy for coumadin dosing. Hyponatremia Resolved with blood sugar correction CKD (chronic kidney disease) Avoid nephrotoxins Acute kidney injury is improved left shoulder pain; XR with no fracture; continue pain control. DVT prophylaxis; resumed coumadin. Discharge Planning dc planning to SNF- likely next week- when cleared by ID and ortho. Contreras Mccauley MD July 13, 2017 08:18
[2017-07-13] MEDS: SODIUM CHLORIDE 0.9% FLUSH 10 ML FLUSH IV FLUSH SCH ×2 (09:00→21:42)
[2017-07-13] MEDS: METOPROLOL TARTRATE 100 MG TAB PO SCH ×2 (09:49→21:41)
[2017-07-13] MEDS: FENOFIBRATE 48 MG TAB PO SCH (09:49)
[2017-07-13] MEDS: SPIRONOLACTONE 25 MG TAB PO SCH (09:49)
[2017-07-13] MEDS: PRAVASTATIN SOD 40 MG TAB PO SCH (09:49)
[2017-07-13] MEDS: GABAPENTIN 100 MG CAP PO SCH ×3 (09:49→17:02)
[2017-07-13] MEDS: RAMIPRIL 5 MG CAP PO SCH ×2 (09:49→21:41)
[2017-07-13] MEDS: DOCUSATE SODIUM 50 MG/SENNA 8.6 MG TAB PO SCH ×2 (09:49→21:41)
[2017-07-13] MEDS: INSULIN HUMAN NPH/R 70/30 1,000 UNITS/10 ML VIAL SQ SCH ×2 (09:51→21:43)
[2017-07-13 10:08] LABS: AUTOMATED NEUTROPHIL # 8.3 TH/MM3 (1.8-7.7); BASOPHIL % 0.2 % (0.0-2.0); EOSINOPHIL # 0.1 TH/MM3 (0-0.4); EOSINOPHIL % 0.5 % (0.0-4.0); HEMATOCRIT 32.2 % (39.0-51.0); HEMOGLOBIN 10.5 GM/DL (13.0-17.0); LYMPH % 18.3 % (9.0-44.0); LYMPHOCYTE # 2.2 TH/MM3 (1.0-4.8); MEAN CELL VOLUME 97.5 FL (80.0-100.0); MEAN CORPUSCULAR HEMOGLOBIN 31.8 PG (27.0-34.0); MEAN CORPUSCULAR HGB CONC 32.6 % (32.0-36.0); MEAN PLATELET VOLUME 8.5 FL (7.0-11.0); MONO % 12.4 % (0.0-8.0); MONOCYTE # 1.5 TH/MM3 (0-0.9); NEUT % 68.6 % (16.0-70.0); PLATELET COUNT 335 TH/MM3 (150-450); RED BLOOD COUNT 3.31 MIL/MM3 (4.50-5.90); WHITE BLOOD COUNT 12.2 TH/MM3 (4.0-11.0)
[2017-07-13 10:14] LABS: INTERNATIONAL NORMALIZED RATIO 1.2 RATIO; PROTHROMBIN TIME - PATIENT 12.2 SEC (9.8-11.6)
[2017-07-13 10:45] LABS: ALBUMIN 1.8 GM/DL (3.4-5.0); ALKALINE PHOSPHATASE 108 U/L (45-117); ALT (GPT) 45 U/L (12-78); AST (GOT) 141 U/L (15-37); BICARBONATE 21.2 MEQ/L (21.0-32.0); BLOOD UREA NITROGEN 50 MG/DL (7-18); CALCIUM 8.4 MG/DL (8.5-10.1); CHLORIDE 107 MEQ/L (98-107); GLOMERULAR FILTRATION RATE 49 ML/MIN (>89); GLUCOSE,RANDOM 68 MG/DL (74-106); SODIUM (NA) 140 MEQ/L (136-145); TOTAL BILIRUBIN ADULT 0.8 MG/DL (0.2-1.0)
--- NOTE | 2017-07-13 11:00 | HHI.IDPN ---
Subjective Subjective Remarks Patient is a 77-year-old male, presented to the hospital for evaluation of pain and swelling in his right knee. He apparently has had the swelling for at least 4 weeks. Has been progressively worsening, with increasing pain, that he was having difficulty with ambulation. He had fallen a couple times at home. He lives alone at home, and normally uses a walker to ambulate. He denies any fever or chills. Denies any respiratory complaints, GI or any urinary complaints. Patient states that due to his diabetes, he gets wounds in his lower extremity and gets scrapes very easily. He denies any previous history of skin infection. He denies any syncopal episode. On presentation, he had an elevated WBC. Evaluation of the knee shows evidence of effusion. Arthrocentesis of the right knee joint was done, and he has significantly elevated WBC, and culture is currently growing staph aureus. He has had some low-grade temps here in the hospital. Orthopedic has seen the patient, and plans to do surgery in the morning. Patient denies having any problem with his knee postoperatively. Infectious disease consultation has been requested to evaluate patient. Notes reviewed Temps ok Pain under control S/P removal RTKA Has one BC (+) MSSA ESR 80 CRP 17 LFT elevated No rash or itching Antibiotics Ancef Current Medications Medications (Trade) Dose Ordered Sig/Jake Route Start Time Stop Time Status Last Admin (NS Flush) 2 ml UNSCH PRN IV FLUSH 07/08/17 13:15 (NS Flush) 2 ml BID IV FLUSH 07/08/17 21:00 07/13/17 09:00 (Tylenol) 650 mg Q4H PRN PO 07/08/17 13:15 (Narcan Inj) 0.4 mg UNSCH PRN IV PUSH 07/08/17 13:15 (Zofran Odt) 4 mg Q6H PRN SL 07/08/17 13:15 (Neurontin) 100 mg TID PO 07/08/17 18:00 07/13/17 09:49 (Pravachol) 40 mg DAILY PO 07/09/17 09:00 07/13/17 09:49 (Lopressor) 100 mg BID PO 07/08/17 21:00 07/13/17 09:49 (Aldactone) 25 mg DAILY PO 5/21/18 09:00 07/13/17 09:49 (Tricor) 48 mg DAILY PO 07/09/17 09:00 07/13/17 09:49 (Altace) 10 mg BID PO 07/08/17 21:00 07/13/17 09:49 (D50w (Vial) Inj) 50 ml UNSCH PRN IV PUSH 07/08/17 14:00 (Glucagon Inj) 1 mg UNSCH PRN OTHER 07/08/17 14:00 (NovoLOG SUPPLEMENTAL SCALE) 1 ACHS SLIDING SCALE SQ 07/08/17 17:00 07/12/17 22:18 (NovoLIN 70/30 INJ) 20 units BID SQ 07/08/17 18:00 Future hold 07/13/17 09:51 (Ultram) 50 mg Q6H PRN PO 07/10/17 11:45 07/13/17 00:42 (Tylenol) 650 mg HS PO 07/10/17 21:00 07/12/17 22:15 Cefazolin Sodium/ Dextrose 50 ml @ 100 mls/hr Q8H IV 07/10/17 16:00 07/13/17 08:00 Lactated Ringer's 1,000 ml @ 30 mls/hr Q24H PRN IV 07/11/17 05:30 07/14/17 05:29 Sodium Chloride 500 ml @ 30 mls/hr [id number] PRN IV 07/11/17 05:30 07/14/17 05:29 (Betadine 5% Antisepsis Kit) 1 applic BOX NAILER PRN EACH NARE 07/11/17 05:30 07/14/17 05:29 (Chlorhexidine 2% Cloth) 3 pack BOX NAILER PRN TOPICAL 07/11/17 05:30 07/14/17 05:29 (Percocet 5-325 Mg) 1 tab Q4H PRN PO 07/11/17 20:45 (Benadryl) 25 mg Q6H PRN PO 07/11/17 20:45 (Lulu-Colace) 1 tab BID PO 07/11/17 21:00 07/13/17 09:49 (Milk Of Magnesia Liq) 30 ml Q12H PRN PO 07/11/17 20:45 (Senokot) 17.2 mg Q12H PRN PO 07/11/17 20:45 (Dulcolax Supp) 10 mg DAILY PRN RECTAL 07/11/17 20:45 (Lactulose Liq) 30 ml DAILY PRN PO 07/11/17 20:45 (Narcan Inj) 0.4 mg UNSCH PRN IV PUSH 07/11/17 20:45 (Morphine 1 Mg/ ml TWISTING OPERATOR) 30 mg UNSCH IV 07/11/17 20:45 07/11/17 21:07 TWISTING OPERATOR Dosage Infused (Pha) 1 Q8HR .XX 07/11/17 22:00 07/12/17 22:19 Pharmacy Profile Note 0 ml @ 0 mls/hr UNSCH OTHER 07/12/17 12:00 (Coumadin) 5 mg DAILY@1600 PO 07/13/17 16:00 Lines No evidence of infection Past Medical History Diabetes mellitus Hypertension Chronic arthritis and degenerative joint disease Tobacco dependency Atrial fibrillation on warfarin Hyperlipidemia Past Surgical History Cervical spine surgery Lumbar spine surgery Quadruple bypass Cataracts Right knee previous surgery Allergies: Coded Allergies: penicillin G (Verified Allergy, Severe, Rash, 07/08/17) PT STATES UNKNOWN REACTION insulin detemir (Verified Allergy, Intermediate, LIPS AND THROAT SWELLS, ) insulin glargine (Verified Allergy, Intermediate, LIPS AND THROAT SWELLS, 07/08/17) *MDRO Multi-Drug Resistant Organism (Verified Allergy, Unknown, 07/08/17) C.diff 09/2013 Uncoded Allergies: CITRUS (Adverse Reaction, Intermediate, SEVERE UPSET STOMACH, 01/22/14) Objective . Vital Signs Date Time Temp Pulse Resp B/P (MAP) Pulse Ox O2 Delivery O2 Flow Rate FiO2 07/13/17 08:01 98.1 75 18 134/67 (89) 98 07/13/17 05:08 18 07/13/17 04:00 98.0 74 20 134/71 (92) 97 07/13/17 00:00 83 07/13/17 00:00 97.5 79 20 122/68 (86) 96 07/12/17 22:19 18 07/12/17 20:00 79 07/12/17 20:00 Room Air 07/12/17 20:00 98.5 77 20 128/60 (82) 97 07/12/17 16:08 98.3 81 18 105/58 (74) 96 07/12/17 16:00 68 07/12/17 14:45 24 07/12/17 12:01 97.8 82 18 112/58 (76) 96 07/12/17 12:00 85 . Laboratory Tests Test 07/11/17 22:30 07/13/17 08:20 White Blood Count 10.9 TH/MM3 12.2 TH/MM3 Red Blood Count 3.37 MIL/MM3 3.31 MIL/MM3 Hemoglobin 10.9 GM/DL 10.5 GM/DL Hematocrit 32.8 % 32.2 % Mean Corpuscular Volume 97.2 FL 97.5 FL Mean Corpuscular Hemoglobin 32.3 PG 31.8 PG Mean Corpuscular Hemoglobin Concent 33.2 % 32.6 % Red Cell Distribution Width 13.8 % 14.0 % Platelet Count 263 TH/MM3 335 TH/MM3 Mean Platelet Volume 8.5 FL 8.5 FL Neutrophils (%) (Auto) 67.5 % 68.6 % Lymphocytes (%) (Auto) 19.5 % 18.3 % Monocytes (%) (Auto) 12.4 % 12.4 % Eosinophils (%) (Auto) 0.3 % 0.5 % Basophils (%) (Auto) 0.3 % 0.2 % Neutrophils # (Auto) 7.4 TH/MM3 8.3 TH/MM3 Lymphocytes # (Auto) 2.1 TH/MM3 2.2 TH/MM3 Monocytes # (Auto) 1.3 TH/MM3 1.5 TH/MM3 Eosinophils # (Auto) 0.0 TH/MM3 0.1 TH/MM3 Basophils # (Auto) 0.0 TH/MM3 0.0 TH/MM3 CBC Comment DIFF FINAL DIFF FINAL Differential Comment Laboratory Tests Test 07/13/17 08:20 Blood Urea Nitrogen 50 MG/DL Creatinine 1.40 MG/DL Random Glucose 68 MG/DL Total Protein 6.0 GM/DL Albumin 1.8 GM/DL Calcium Level 8.4 MG/DL Alkaline Phosphatase 108 U/L Aspartate Amino Transf (AST/SGOT) 141 U/L Alanine Aminotransferase (ALT/SGPT) 45 U/L Total Bilirubin 0.8 MG/DL Sodium Level 140 MEQ/L Potassium Level 3.5 MEQ/L Chloride Level 107 MEQ/L Carbon Dioxide Level 21.2 MEQ/L Anion Gap 12 MEQ/L Estimat Glomerular Filtration Rate 49 ML/MIN Microbiology Date/Time Source Procedure Growth Status 07/10/17 13:10 Blood Peripheral Aerobic Blood Culture - Final Staphylococcus Aureus Resulted 07/10/17 13:10 Blood Peripheral Anaerobic Blood Culture - Preliminary NO GROWTH IN 2 DAYS Resulted 07/10/17 13:00 Blood Peripheral Aerobic Blood Culture - Preliminary NO GROWTH IN 2 DAYS Resulted 07/10/17 13:00 Blood Peripheral Anaerobic Blood Culture - Preliminary NO GROWTH IN 2 DAYS Resulted 07/11/17 21:05 Wound Knee Gram Stain - Final Resulted 07/11/17 21:05 Wound Knee Wound Culture - Preliminary No growth. Resulted Imaging Last Impressions Aspiration 07/09/17 0000 Signed Impressions: Service Date/Time: Sunday, July 09, 2017 10:16 - CONCLUSION: Uncomplicated aspiration as above. Mata Schneider MD Lower Extremity CT 07/08/17 0000 Signed Impressions: Service Date/Time: Saturday, July 08, 2017 15:00 - CONCLUSION: 1. Right total knee arthroplasty in place which limits overall evaluation for subtle fractures. 2. No evidence for acute bony fracture. 3. Moderate size suprapatellar joint effusion. Francisco Tran MD Knee X-Ray 07/08/17 0000 Signed Impressions: Service Date/Time: Saturday, July 08, 2017 12:39 - CONCLUSION: 1. No fracture seen. Intact hardware. 2. Increasing size joint effusion when compared to yesterday's exam. Alvin Boland MD Physical Exam GENERAL: awake and alert, not in respiratory distress. SKIN: Warm and dry. No generalized rash, no ecchymoses and no evidence of embolic lesions. HEAD: Atraumatic. Normocephalic. No temporal wasting, or tenderness. EYES: [place] conjunctiva. No petechia or hemorrhage. Pupils equal, round and reactive to light. Extraocular movements full and intact. No scleral icterus. No injection or drainage. EARS, NOSE AND THROAT: Nose without bleeding or purulent nasal discharge. No sinus tenderness. Dry oral mucosa. No oral lesions noted. NECK: Trachea midline. Supple and not tender, no meningeal signs CARDIOVASCULAR: Regular rate and rhythm. No murmurs, rubs or gallops heard RESPIRATORY: Clear to auscultation. Breath sounds equal bilaterally. No rales , wheezing or rhonchi ABDOMEN: Soft, non-tender, nondistended. Bowel sounds present and normoactive. No guarding. No rebound. No organomegaly. EXTREMITIES: No clubbing, cyanosis. Has dry dressing RLE, has immobilizer. Multiple superficial wounds R foot and one on L foot, no evidence of infection. No calf tenderness. Well perfused and warm. NEUROLOGICAL: Non-focal PSYCHIATRIC: Normal affect, calm and cooperative. LINE: No evidence of infection Assessment & Plan Remarks IMPRESSION Infection RTKA, C/S Staph aureus, MSSA MSSA bacteremia due to knee infection Renal insufficiency, improving Allergy to PCN - rash, has tolerated Cephalosporins in the past One (+) BC GPC RECOMMENDATION Continue IV Ancef Follow C/S Monitor progress Will need at least 6 weeks IV Abx SNF placement When close to D/C, will order PICC Piper Dacosta MD July 13, 2017 11:00
[2017-07-13] MEDS: WARFARIN SOD 5 MG TAB PO SCH (16:00)
[2017-07-13] MEDS: ACETAMINOPHEN 325 MG TAB PO SCH (21:43)
[2017-07-14] VITALS (7 sets, daily range): BP systolic 124–157; BP diastolic 76–91; PULSE 71–89; RESP 17–22; TEMP 97.8–98.4; O2SAT 95–98
[2017-07-14] MEDS: PCA - TOTAL MG MORPHINE DELIVERED PER SHIFT SCH ×3 (06:00→21:03)
[2017-07-14 07:49] LABS: INTERNATIONAL NORMALIZED RATIO 1.3 RATIO
[2017-07-14] MEDS: INSULIN ASPART SUPPLEMENTAL SCALE SQ SCH ×4 (08:00→21:03)
--- NOTE | 2017-07-14 08:34 | PD.ORT.PN ---
Subjective Subjective Remarks complaining of left shoulder pain, stiffness and weakness for 10-14 days, patient states Dr. Cerrato looked at his x-rays of shoulder and recommends non- operative care, patient has no complaints of right knee pain Objective Vitals Vital Signs Date Time Temp Pulse Resp B/P (MAP) Pulse Ox O2 Delivery O2 Flow Rate FiO2 07/14/17 04:00 98.4 79 20 149/76 (100) 97 07/14/17 04:00 71 07/14/17 04:00 Room Air 07/14/17 01:08 97.8 73 22 157/77 (103) 98 07/14/17 00:00 Room Air 07/14/17 00:00 80 07/13/17 21:30 Room Air 07/13/17 21:08 98.3 88 20 157/88 (111) 97 07/13/17 20:00 85 07/13/17 16:01 97.8 83 18 129/68 (88) 99 07/13/17 16:00 80 07/13/17 12:12 97.7 97 18 100/71 (81) 95 07/13/17 12:00 90 I/O 07/13/17 07/13/17 07/13/17 07/14/17 07/14/17 07/14/17 07:00 15:00 23:00 07:00 15:00 23:00 Intake Total 50 ml 480 ml Output Total 225 ml 150 ml Balance -175 ml 330 ml Intake Oral 480 ml IV Total 50 ml Output Urine Total 225 ml 150 ml # Bowel Movements 0 Result Diagram: 07/13/17 0820 07/13/17 0820 Other Results Laboratory Tests Test 07/14/17 07:00 Prothromb Time International Ratio 1.3 RATIO Prothrombin Time 13.0 SEC (9.8-11.6) Objective Remarks Right knee dressing in place knee immobilizer in place able to flex/ ext ankle/toes healing small wounds on multiple toes negative Antonio's Left shoulder, restricted ROM Assessment & Plan Problem List: (1) Infection of total right knee replacement ICD Codes: T84.53XA - Infection and inflammatory reaction due to internal right knee prosthesis, initial encounter Status: Acute Qualifiers: Qualified Codes: T84.53XD - Infection and inflammatory reaction due to internal right knee prosthesis, subsequent encounter Plan: Status post Removal Total Knee Arthroplasty POD #3 Resume Coumadin IV antibiotics per ID OK to use ultram Physical therapy - Weight bearing as tolerated with knee brace. Ok to begin knee range of motion Daily dressing changes He will need PICC line He probably will need to go to SNF when arrangements made orthopedically stable Tawanda Mendez MD July 14, 2017 08:34
[2017-07-14] MEDS: SODIUM CHLORIDE 0.9% FLUSH 10 ML FLUSH IV FLUSH SCH ×2 (09:00→20:16)
--- NOTE | 2017-07-14 09:02 | HHI.PR ---
Subjective Remarks in no acute distress. pain is fairly controlled. no fever. had a BM this morning. Objective Vitals Vital Signs Date Time Temp Pulse Resp B/P (MAP) Pulse Ox O2 Delivery O2 Flow Rate FiO2 07/14/17 04:00 98.4 79 20 149/76 (100) 97 07/14/17 04:00 71 07/14/17 04:00 Room Air 07/14/17 01:08 97.8 73 22 157/77 (103) 98 07/14/17 00:00 Room Air 07/14/17 00:00 80 07/13/17 21:30 Room Air 07/13/17 21:08 98.3 88 20 157/88 (111) 97 07/13/17 20:00 85 07/13/17 16:01 97.8 83 18 129/68 (88) 99 07/13/17 16:00 80 07/13/17 12:12 97.7 97 18 100/71 (81) 95 07/13/17 12:00 90 I/O 07/13/17 07/13/17 07/13/17 07/14/17 07/14/17 07/14/17 07:00 15:00 23:00 07:00 15:00 23:00 Intake Total 50 ml 480 ml Output Total 225 ml 150 ml Balance -175 ml 330 ml Intake Oral 480 ml IV Total 50 ml Output Urine Total 225 ml 150 ml # Bowel Movements 0 Result Diagram: 07/13/17 0820 07/13/17 0820 Imaging Last Impressions Shoulder X-Ray 07/11/17 0000 Signed Impressions: CONCLUSION: Unremarkable exam for patient's age. Aspiration 07/09/17 0000 Signed Impressions: Service Date/Time: Sunday, July 09, 2017 10:16 - CONCLUSION: Uncomplicated aspiration as above. Mata Schneider MD Lower Extremity CT 07/08/17 0000 Signed Impressions: Service Date/Time: Saturday, July 08, 2017 15:00 - CONCLUSION: 1. Right total knee arthroplasty in place which limits overall evaluation for subtle fractures. 2. No evidence for acute bony fracture. 3. Moderate size suprapatellar joint effusion. Francisco Tran MD Knee X-Ray 07/08/17 0000 Signed Impressions: Service Date/Time: Saturday, July 08, 2017 12:39 - CONCLUSION: 1. No fracture seen. Intact hardware. 2. Increasing size joint effusion when compared to yesterday's exam. Alvin Boland MD Objective Remarks GENERAL: This is a well-nourished, well-developed patient, in no apparent distress. CARDIOVASCULAR: Regular rate and regular rhythm without murmurs, gallops, or rubs. RESPIRATORY: Clear to auscultation. Breath sounds equal bilaterally. No wheezes , rales, or rhonchi. GASTROINTESTINAL: Abdomen soft, non-tender, nondistended. Normal, active bowel sounds MUSCULOSKELETAL: right knee covered with clean dressing. NEURO: Alert & Oriented x4 to person, place, time, situation. Moves all ext x4 Procedures Right knee arthrocentesis, 85 mL Medications and IVs Inpatient Medications Acetaminophen (Tylenol) 650 mg HS PO Last administered on 07/13/17at 21:43; Start 07/10/17 at 21:00 Aztreonam 1000 mg/ Sodium Chloride 100 ml @ 200 mls/hr Q12H IV Last administered on 07/10/17at 12:08; Start 07/10/17 at 12:00; Stop 07/10/17 at 15:31 ; Status DC Bisacodyl (Dulcolax Supp) 10 mg DAILY PRN RECTAL SEVERE CONSITIPATION; Start at 20:45 Cefazolin Sodium/ Dextrose 50 ml @ 100 mls/hr Q8H IV Last administered on 07/13at 23:45; Start 07/10/17 at 16:00 Chlorhexidine Gluconate (Chlorhexidine 2% Cloth) 3 pack GASOLINE CATALYST OPERATOR PRN TOPICAL SEE LABEL COMMENTS; Start 07/11/17 at 05:30; Stop 07/14/17 at 05:29; Status DC Dextrose (D50w (Vial) Inj) 50 ml UNSCH PRN IV PUSH HYPOGLYCEMIA-SEE COMMENTS; Start 07/08/17 at 14:00 Diphenhydramine HCl (Benadryl) 25 mg Q6H PRN PO ITCHING; Start 07/11/17 at 20: 45 Doxycycline Hyclate (Vibratab) 100 mg BID PO Last administered on 07/10/17at 12: 07; Start 07/10/17 at 11:45; Stop 07/10/17 at 15:31; Status DC Fenofibrate (Tricor) 48 mg DAILY PO Last administered on 07/13/17at 09:49; Start 07/09/17 at 09:00 Gabapentin (Neurontin) 100 mg TID PO Last administered on 07/13/17at 17:02; Start 07/08/17 at 18:00 Glucagon (Glucagon Inj) 1 mg UNSCH PRN OTHER HYPOGLYCEMIA-SEE COMMENTS; Start 07/08/17 at 14:00 Insulin Aspart (NovoLOG SUPPLEMENTAL SCALE) 1 ACHS SLIDING SCALE SQ Last administered on 07/13/17at 22:36; Start 07/08/17 at 17:00 Insulin Human Isoph/Insulin Regular (NovoLIN 70/30 INJ) 20 units BID SQ Last administered on 07/13/17at 21:43; Start 07/08/17 at 18:00; Status Future hold Lactated Ringer's 1,000 ml @ 30 mls/hr Q24H PRN IV SEE LABEL COMMENTS; Start at 05:30; Stop 07/14/17 at 05:29; Status DC Lactulose (Lactulose Liq) 30 ml DAILY PRN PO SEVERE CONSITIPATION; Start at 20:45 Magnesium Hydroxide (Milk Of Magnesia Liq) 30 ml Q12H PRN PO Mild constipation ; Start 07/11/17 at 20:45 Metoprolol Tartrate (Lopressor) 100 mg BID PO Last administered on 07/13/17at 21 :41; Start 07/08/17 at 21:00 Miscellaneous Information ([facility] Nursing Information) ALL NURSING DEPARTME... UNSCH PRN .XX SEE LABEL COMMENTS; Start 07/11/17 at 23:00; Stop 07/12/17 at 22: 59; Status DC Miscellaneous Information ([facility] Post-op Orders (for Pharmacy)) STAT ONCE XX ; Start 07/11/17 at 20:45; Stop 07/11/17 at 21:02; Status DC Morphine Sulfate (Morphine 1 Mg/ ml MOBILITY MANAGER) 30 mg UNSCH IV Last administered on at 21:07; Start 07/11/17 at 20:45 Naloxone HCl (Narcan Inj) 0.4 mg UNSCH PRN IV PUSH RESPIRATORY RATE LESS THAN 10; Start 07/11/17 at 20:45 Ondansetron HCl (Zofran Odt) 4 mg Q6H PRN SL NAUSEA OR VOMITING; Start at 13:15 Oxycodone/ Acetaminophen (Percocet 5-325 Mg) 1 tab Q4H PRN PO PAIN LESS THAN 5 ON SCALE; Start 07/11/17 at 20:45 Patient Medication Teaching (Coumadin Booklet) 1 ONCE ONCE XX ; Start 07/11/17 at 16:00; Stop 07/11/17 at 21:02; Status DC MOBILITY MANAGER Dosage Infused (Pha) 1 Q8HR .XX Last administered on 07/12/17at 22:19; Start 07/11/17 at 22:00 Pharmacy Profile Note 0 ml @ 0 mls/hr UNSCH OTHER ; Start 07/12/17 at 12:00 Povidone Iodine (Betadine 5% Antisepsis Kit) 1 applic GASOLINE CATALYST OPERATOR PRN EACH NARE SEE LABEL COMMENTS; Start 07/11/17 at 05:30; Stop 07/14/17 at 05:29; Status DC Pravastatin Sodium (Pravachol) 40 mg DAILY PO Last administered on 07/13/17at 09 :49; Start 07/09/17 at 09:00 Ramipril (Altace) 10 mg BID PO Last administered on 07/13/17 21:41; Start at 21:00 Senna/Docusate Sodium (Lulu-Colace) 1 tab BID PO Last administered on at 21:41; Start 07/11/17 at 21:00 Sennosides (Senokot) 17.2 mg Q12H PRN PO Moderate constipation; Start 07/11/17 at 20:45 Sodium Chloride 500 ml @ 30 mls/hr [id number] PRN IV SEE LABEL COMMENTS; Start at 05:30; Stop 07/14/17 at 05:29; Status DC Sodium Chloride (NS Flush) 2 ml BID IV FLUSH Last administered on 07/13/17at 21: 42; Start 07/08/17 at 21:00 Spironolactone (Aldactone) 25 mg DAILY PO Last administered on 07/13/17 09:49 ; Start 07/09/17 at 09:00 Tramadol HCl (Ultram) 50 mg Q6H PRN PO knee pain 1-10 Last administered on 5/25 /18at 21:42; Start 07/10/17 at 11:45 Vancomycin HCl 1500 mg/Sodium Chloride 515 ml @ 257.5 mls/ hr ONCE ONCE IV Last administered on 07/10/17at 17:12; Start 07/10/17 at 17:00; Stop 07/10/17 at 18:59; Status DC Warfarin Sodium (Coumadin) 5 mg DAILY@1600 PO Last administered on 07/13/17at 16 :00; Start 07/13/17 at 16:00 A/P Problem List: (1) Skin abnormality ICD Code: L98.9 - Disorder of the skin and subcutaneous tissue, unspecified (2) Knee effusion, right ICD Code: M25.461 - Effusion, right knee Status: Acute (3) Gait instability ICD Code: R26.81 - Unsteadiness on feet Status: Acute (4) Diabetes mellitus ICD Code: E11.9 - Diabetes mellitus Status: Acute (5) Atrial fibrillation ICD Code: I48.91 - Atrial fibrillation Status: Acute (6) Hyponatremia ICD Code: E87.1 - Hypo-osmolality and hyponatremia (7) CKD (chronic kidney disease) ICD Code: N18.9 - Chronic kidney disease, unspecified Assessment and Plan A/P right knee septic arthritis Status post arthrocentesis per IR, 85 mL with 96,000 white blood cells, likely septic joint s/p Right knee irrigation, debridement and removal of right total knee / arthroplasty, including femoral, tibial and patellar component and placement of antibiotic prosthesis fluid culture with MSSA and one bottle of BC with staph aureus Continue Ancef continue with pain control ID and ortho following. Skin abnormality Patient with home wound care and history of venous stasis patient with lower extremity intact skin with some evidence of hemosiderin. Shallow healing wounds on the dorsal side of the right and left feet Continue with wound care and management Resume home healthcare services when appropriate Gait instability Likely due to joint pain and right knee effusion Patient Continue rehab efforts as tolerated post surgical Diabetes mellitus Continue with diabetic management with home insulin regimen Accu-Cheks and sliding scale ADA diet Atrial fibrillation rate controlled, warfarin resumed- consulted pharmacy for coumadin dosing. Hyponatremia Resolved with blood sugar correction CKD (chronic kidney disease) Avoid nephrotoxins Acute kidney injury is improved left shoulder pain; XR with no fracture; continue pain control. DVT prophylaxis; resumed coumadin. Discharge Planning dc planning to SNF- likely early this week- when cleared by ID and ortho. Contreras Mccauley MD July 14, 2017 09:02
[2017-07-14] MEDS: ceFAZolin 2 GM PREMIX 50 ML IV SCH ×2 (10:03→17:08)
[2017-07-14] MEDS: RAMIPRIL 5 MG CAP PO SCH ×2 (10:04→21:01)
[2017-07-14] MEDS: traMADol HCL 50 MG TAB PO PRN ×2 (10:04→21:01)
[2017-07-14] MEDS: DOCUSATE SODIUM 50 MG/SENNA 8.6 MG TAB PO SCH ×2 (10:05→20:02)
[2017-07-14] MEDS: SPIRONOLACTONE 25 MG TAB PO SCH (10:05)
[2017-07-14] MEDS: METOPROLOL TARTRATE 100 MG TAB PO SCH ×2 (10:05→20:01)
[2017-07-14] MEDS: GABAPENTIN 100 MG CAP PO SCH ×3 (10:05→17:07)
[2017-07-14] MEDS: PRAVASTATIN SOD 40 MG TAB PO SCH (10:05)
[2017-07-14] MEDS: INSULIN HUMAN NPH/R 70/30 1,000 UNITS/10 ML VIAL SQ SCH ×2 (10:49→21:02)
[2017-07-14] MEDS: FENOFIBRATE 48 MG TAB PO SCH (11:57)
[2017-07-14] MEDS: WARFARIN SOD 5 MG TAB PO SCH (17:07)
[2017-07-14] MEDS: ACETAMINOPHEN 325 MG TAB PO SCH (20:01)
[2017-07-15] VITALS (8 sets, daily range): BP systolic 148–178; BP diastolic 84–91; PULSE 73–94; RESP 17–18; TEMP 97.6–98.9; O2SAT 95–99
[2017-07-15] MEDS: PCA - TOTAL MG MORPHINE DELIVERED PER SHIFT SCH ×3 (03:38→22:00)
[2017-07-15] MEDS: ceFAZolin 2 GM PREMIX 50 ML IV SCH ×3 (07:37→17:05)
[2017-07-15] MEDS: SPIRONOLACTONE 25 MG TAB PO SCH (07:37)
[2017-07-15] MEDS: METOPROLOL TARTRATE 100 MG TAB PO SCH ×2 (07:38→20:08)
[2017-07-15] MEDS: DOCUSATE SODIUM 50 MG/SENNA 8.6 MG TAB PO SCH ×2 (07:38→20:08)
[2017-07-15] MEDS: PRAVASTATIN SOD 40 MG TAB PO SCH (07:38)
[2017-07-15] MEDS: FENOFIBRATE 48 MG TAB PO SCH (07:38)
[2017-07-15] MEDS: SODIUM CHLORIDE 0.9% FLUSH 10 ML FLUSH IV FLUSH SCH ×2 (07:38→20:08)
[2017-07-15] MEDS: RAMIPRIL 5 MG CAP PO SCH ×2 (07:38→20:08)
[2017-07-15] MEDS: GABAPENTIN 100 MG CAP PO SCH ×3 (07:38→17:06)
[2017-07-15 07:52] LABS: INTERNATIONAL NORMALIZED RATIO 1.9 RATIO; PROTHROMBIN TIME - PATIENT 19.1 SEC (9.8-11.6)
[2017-07-15] MEDS: INSULIN ASPART SUPPLEMENTAL SCALE SQ SCH ×4 (08:00→20:09)
[2017-07-15] MEDS: traMADol HCL 50 MG TAB PO PRN ×2 (08:17→16:47)
--- NOTE | 2017-07-15 09:01 | HHI.PR ---
Subjective Remarks in no acute distress. pain is fairly controlled. no fever. complaining of dysuria. Objective Vitals Vital Signs Date Time Temp Pulse Resp B/P (MAP) Pulse Ox O2 Delivery O2 Flow Rate FiO2 07/15/17 08:43 98.0 80 18 178/84 (115) 98 07/15/17 04:00 73 07/15/17 04:00 97.6 82 17 149/91 (110) 96 07/15/17 03:29 Room Air 07/15/17 00:08 Room Air 07/15/17 00:00 73 07/15/17 00:00 98.9 89 18 148/89 (108) 95 07/14/17 20:00 77 07/14/17 20:00 97.8 88 17 156/83 (107) 97 07/14/17 16:00 98.4 86 17 147/91 (109) 96 07/14/17 16:00 83 07/14/17 12:00 79 07/14/17 12:00 97.8 89 17 124/77 (93) 95 I/O 07/14/17 07/14/17 07/14/17 07/15/17 07/15/17 07/15/17 07:00 15:00 23:00 07:00 15:00 23:00 Intake Total 1500 ml 720 ml Output Total 1350 ml Balance 1500 ml -630 ml Intake Oral 1500 ml 720 ml Output Urine Total 1350 ml # Bowel Movements 1 Result Diagram: 07/13/17 0820 07/13/17 0820 Imaging Last Impressions Shoulder X-Ray 07/11/17 0000 Signed Impressions: CONCLUSION: Unremarkable exam for patient's age. Aspiration 07/09/17 0000 Signed Impressions: Service Date/Time: Sunday, July 09, 2017 10:16 - CONCLUSION: Uncomplicated aspiration as above. Mata Schneider MD Lower Extremity CT 07/08/17 0000 Signed Impressions: Service Date/Time: Saturday, July 08, 2017 15:00 - CONCLUSION: 1. Right total knee arthroplasty in place which limits overall evaluation for subtle fractures. 2. No evidence for acute bony fracture. 3. Moderate size suprapatellar joint effusion. Francisco Tran MD Knee X-Ray 07/08/17 0000 Signed Impressions: Service Date/Time: Saturday, July 08, 2017 12:39 - CONCLUSION: 1. No fracture seen. Intact hardware. 2. Increasing size joint effusion when compared to yesterday's exam. Alvin Boland MD Objective Remarks GENERAL: This is a well-nourished, well-developed patient, in no apparent distress. CARDIOVASCULAR: Regular rate and regular rhythm without murmurs, gallops, or rubs. RESPIRATORY: Clear to auscultation. Breath sounds equal bilaterally. No wheezes , rales, or rhonchi. GASTROINTESTINAL: Abdomen soft, non-tender, nondistended. Normal, active bowel sounds MUSCULOSKELETAL: right knee covered with clean dressing. NEURO: Alert & Oriented x4 to person, place, time, situation. Moves all ext x4 Procedures Right knee arthrocentesis, 85 mL Medications and IVs Inpatient Medications Acetaminophen (Tylenol) 650 mg HS PO Last administered on 07/14/17at 20:01; Start 07/10/17 at 21:00 Aztreonam 1000 mg/ Sodium Chloride 100 ml @ 200 mls/hr Q12H IV Last administered on 07/10/17at 12:08; Start 07/10/17 at 12:00; Stop 07/10/17 at 15:31 ; Status DC Bisacodyl (Dulcolax Supp) 10 mg DAILY PRN RECTAL SEVERE CONSITIPATION; Start at 20:45 Cefazolin Sodium/ Dextrose 50 ml @ 100 mls/hr Q8H IV Last administered on 07/15at 07:37; Start 07/10/17 at 16:00 Chlorhexidine Gluconate (Chlorhexidine 2% Cloth) 3 pack CONE TRUCKER PRN TOPICAL SEE LABEL COMMENTS; Start 07/11/17 at 05:30; Stop 07/14/17 at 05:29; Status DC Dextrose (D50w (Vial) Inj) 50 ml UNSCH PRN IV PUSH HYPOGLYCEMIA-SEE COMMENTS; Start 07/08/17 at 14:00 Diphenhydramine HCl (Benadryl) 25 mg Q6H PRN PO ITCHING; Start 07/11/17 at 20: 45 Doxycycline Hyclate (Vibratab) 100 mg BID PO Last administered on 07/10/17at 12: 07; Start 07/10/17 at 11:45; Stop 07/10/17 at 15:31; Status DC Fenofibrate (Tricor) 48 mg DAILY PO Last administered on 07/15/17at 07:38; Start 07/09/17 at 09:00 Gabapentin (Neurontin) 100 mg TID PO Last administered on 07/15/17at 07:38; Start 07/08/17 at 18:00 Glucagon (Glucagon Inj) 1 mg UNSCH PRN OTHER HYPOGLYCEMIA-SEE COMMENTS; Start 07/08/17 at 14:00 Insulin Aspart (NovoLOG SUPPLEMENTAL SCALE) 1 ACHS SLIDING SCALE SQ Last administered on 07/14/17at 21:03; Start 07/08/17 at 17:00 Insulin Human Isoph/Insulin Regular (NovoLIN 70/30 INJ) 20 units BID SQ Last administered on 07/14/17at 21:02; Start 07/08/17 at 18:00; Status Future hold Lactated Ringer's 1,000 ml @ 30 mls/hr Q24H PRN IV SEE LABEL COMMENTS; Start at 05:30; Stop 07/14/17 at 05:29; Status DC Lactulose (Lactulose Liq) 30 ml DAILY PRN PO SEVERE CONSITIPATION; Start at 20:45 Magnesium Hydroxide (Milk Of Magnesia Liq) 30 ml Q12H PRN PO Mild constipation ; Start 07/11/17 at 20:45 Metoprolol Tartrate (Lopressor) 100 mg BID PO Last administered on 07/15/17at 07 :38; Start 07/08/17 at 21:00 Miscellaneous Information ([facility] Nursing Information) ALL NURSING DEPARTME... UNSCH PRN .XX SEE LABEL COMMENTS; Start 07/11/17 at 23:00; Stop 07/12/17 at 22: 59; Status DC Miscellaneous Information ([facility] Post-op Orders (for Pharmacy)) STAT ONCE XX ; Start 07/11/17 at 20:45; Stop 07/11/17 at 21:02; Status DC Morphine Sulfate (Morphine 1 Mg/ ml TIMBER MANAGEMENT PROFESSOR) 30 mg UNSCH IV Last administered on at 21:07; Start 07/11/17 at 20:45 Naloxone HCl (Narcan Inj) 0.4 mg UNSCH PRN IV PUSH RESPIRATORY RATE LESS THAN 10; Start 07/11/17 at 20:45 Ondansetron HCl (Zofran Odt) 4 mg Q6H PRN SL NAUSEA OR VOMITING; Start at 13:15 Oxycodone/ Acetaminophen (Percocet 5-325 Mg) 1 tab Q4H PRN PO PAIN LESS THAN 5 ON SCALE; Start 07/11/17 at 20:45 Patient Medication Teaching (Coumadin Booklet) 1 ONCE ONCE XX ; Start 07/11/17 at 16:00; Stop 07/11/17 at 21:02; Status DC TIMBER MANAGEMENT PROFESSOR Dosage Infused (Pha) 1 Q8HR .XX Last administered on 07/12/17at 22:19; Start 07/11/17 at 22:00 Pharmacy Profile Note 0 ml @ 0 mls/hr UNSCH OTHER ; Start 07/12/17 at 12:00 Povidone Iodine (Betadine 5% Antisepsis Kit) 1 applic CONE TRUCKER PRN EACH NARE SEE LABEL COMMENTS; Start 07/11/17 at 05:30; Stop 07/14/17 at 05:29; Status DC Pravastatin Sodium (Pravachol) 40 mg DAILY PO Last administered on 07/15/17 07 :38; Start 07/09/17 at 09:00 Ramipril (Altace) 10 mg BID PO Last administered on 07/15/17at 07:38; Start at 21:00 Senna/Docusate Sodium (Lulu-Colace) 1 tab BID PO Last administered on at 07:38; Start 07/11/17 at 21:00 Sennosides (Senokot) 17.2 mg Q12H PRN PO Moderate constipation; Start 07/11/17 at 20:45 Sodium Chloride 500 ml @ 30 mls/hr [id number] PRN IV SEE LABEL COMMENTS; Start at 05:30; Stop 07/14/17 at 05:29; Status DC Sodium Chloride (NS Flush) 2 ml BID IV FLUSH Last administered on 07/15/17at 07: 38; Start 07/08/17 at 21:00 Spironolactone (Aldactone) 25 mg DAILY PO Last administered on 07/15/17at 07:37 ; Start 07/09/17 at 09:00 Tramadol HCl (Ultram) 50 mg Q6H PRN PO knee pain 1-10 Last administered on 5/27 /18at 08:17; Start 07/10/17 at 11:45 Vancomycin HCl 1500 mg/Sodium Chloride 515 ml @ 257.5 mls/ hr ONCE ONCE IV Last administered on 07/10/17at 17:12; Start 07/10/17 at 17:00; Stop 07/10/17 at 18:59; Status DC Warfarin Sodium (Coumadin) 5 mg DAILY@1600 PO Last administered on 07/14/17at 17 :07; Start 07/13/17 at 16:00 A/P Problem List: (1) Skin abnormality ICD Code: L98.9 - Disorder of the skin and subcutaneous tissue, unspecified (2) Knee effusion, right ICD Code: M25.461 - Effusion, right knee Status: Acute (3) Gait instability ICD Code: R26.81 - Unsteadiness on feet Status: Acute (4) Diabetes mellitus ICD Code: E11.9 - Diabetes mellitus Status: Acute (5) Atrial fibrillation ICD Code: I48.91 - Atrial fibrillation Status: Acute (6) Hyponatremia ICD Code: E87.1 - Hypo-osmolality and hyponatremia (7) CKD (chronic kidney disease) ICD Code: N18.9 - Chronic kidney disease, unspecified Assessment and Plan A/P right knee septic arthritis Status post arthrocentesis per IR, 85 mL with 96,000 white blood cells, likely septic joint s/p Right knee irrigation, debridement and removal of right total knee / arthroplasty, including femoral, tibial and patellar component and placement of antibiotic prosthesis fluid culture with MSSA and one bottle of BC with staph aureus Continue Ancef continue with pain control ID and ortho following. Skin abnormality Patient with home wound care and history of venous stasis patient with lower extremity intact skin with some evidence of hemosiderin. Shallow healing wounds on the dorsal side of the right and left feet Continue with wound care and management Resume home healthcare services when appropriate Gait instability Likely due to joint pain and right knee effusion Patient Continue rehab efforts as tolerated post surgical Diabetes mellitus Continue with diabetic management with home insulin regimen Accu-Cheks and sliding scale ADA diet Atrial fibrillation rate controlled, warfarin resumed- consulted pharmacy for coumadin dosing. Hyponatremia Resolved with blood sugar correction CKD (chronic kidney disease) Avoid nephrotoxins Acute kidney injury is improved left shoulder pain; XR with no fracture; continue pain control. dysuria- check UA DVT prophylaxis; resumed coumadin. Discharge Planning dc planning to SNF- likely early this week- when cleared by ID and ortho. Contreras Mccauley MD July 15, 2017 09:01
[2017-07-15] MEDS: INSULIN HUMAN NPH/R 70/30 1,000 UNITS/10 ML VIAL SQ SCH ×2 (10:35→23:00)
[2017-07-15] MEDS ORDERED: WARFARIN SOD 2.5 MG TAB PO ONE (16:00)
[2017-07-15] MEDS: ACETAMINOPHEN 325 MG TAB PO SCH (20:08)
[2017-07-16] VITALS (7 sets, daily range): BP systolic 128–177; BP diastolic 70–96; PULSE 70–85; RESP 16–18; TEMP 97.2–97.8; O2SAT 92–100
[2017-07-16] MEDS: PCA - TOTAL MG MORPHINE DELIVERED PER SHIFT SCH ×2 (04:24→13:05)
[2017-07-16 07:09] LABS: BILIRUBIN, URINE NEG (NEG); BLOOD, URINE TRACE (NEG); GLUCOSE,URINE NEG (NEG); KETONE, URINE NEG (NEG); NITRITE,URINE NEG (NEG); PH, URINE 5.5 (5.0-8.5); URINE COLOR YELLOW (YELLW/STRAW); URINE LEUKOCYTE ESTERASE TRACE (NEG)
[2017-07-16] MEDS: GABAPENTIN 100 MG CAP PO SCH ×3 (08:02→16:44)
[2017-07-16] MEDS: ceFAZolin 2 GM PREMIX 50 ML IV SCH ×3 (08:02→15:52)
[2017-07-16] MEDS: DOCUSATE SODIUM 50 MG/SENNA 8.6 MG TAB PO SCH (08:03)
[2017-07-16] MEDS: FENOFIBRATE 48 MG TAB PO SCH (08:03)
[2017-07-16] MEDS: PRAVASTATIN SOD 40 MG TAB PO SCH (08:03)
[2017-07-16] MEDS: RAMIPRIL 5 MG CAP PO SCH (08:04)
[2017-07-16] MEDS: SPIRONOLACTONE 25 MG TAB PO SCH (08:04)
[2017-07-16] MEDS: METOPROLOL TARTRATE 100 MG TAB PO SCH (08:04)
[2017-07-16] MEDS: SODIUM CHLORIDE 0.9% FLUSH 10 ML FLUSH IV FLUSH SCH (08:05)
[2017-07-16] MEDS: INSULIN HUMAN NPH/R 70/30 1,000 UNITS/10 ML VIAL SQ SCH (08:05)
[2017-07-16] MEDS: INSULIN ASPART SUPPLEMENTAL SCALE SQ SCH ×3 (08:05→16:46)
[2017-07-16 09:11] LABS: INTERNATIONAL NORMALIZED RATIO 2.5 RATIO; PROTHROMBIN TIME - PATIENT 25.2 SEC (9.8-11.6)
--- NOTE | 2017-07-16 10:12 | HHI.IDPN ---
Subjective Subjective Remarks Patient is a 77-year-old male, presented to the hospital for evaluation of pain and swelling in his right knee. He apparently has had the swelling for at least 4 weeks. Has been progressively worsening, with increasing pain, that he was having difficulty with ambulation. He had fallen a couple times at home. He lives alone at home, and normally uses a walker to ambulate. He denies any fever or chills. Denies any respiratory complaints, GI or any urinary complaints. Patient states that due to his diabetes, he gets wounds in his lower extremity and gets scrapes very easily. He denies any previous history of skin infection. He denies any syncopal episode. On presentation, he had an elevated WBC. Evaluation of the knee shows evidence of effusion. Arthrocentesis of the right knee joint was done, and he has significantly elevated WBC, and culture is currently growing staph aureus. He has had some low-grade temps here in the hospital. Orthopedic has seen the patient, and plans to do surgery in the morning. Patient denies having any problem with his knee postoperatively. Infectious disease consultation has been requested to evaluate patient. Notes reviewed Temps ok Pain under control S/P removal RTKA Has one BC (+) MSSA ESR 80 CRP 17 LFT improving No rash or itching No diarrhea Antibiotics Ancef Current Medications Medications (Trade) Dose Ordered Sig/Jake Route Start Time Stop Time Status Last Admin (NS Flush) 2 ml UNSCH PRN IV FLUSH 07/08/17 13:15 (NS Flush) 2 ml BID IV FLUSH 07/08/17 21:00 07/16/17 08:05 (Tylenol) 650 mg Q4H PRN PO 07/08/17 13:15 (Narcan Inj) 0.4 mg UNSCH PRN IV PUSH 07/08/17 13:15 (Zofran Odt) 4 mg Q6H PRN SL 07/08/17 13:15 (Neurontin) 100 mg TID PO 07/08/17 18:00 07/16/17 08:02 (Pravachol) 40 mg DAILY PO 07/09/17 09:00 07/16/17 08:03 (Lopressor) 100 mg BID PO 07/08/17 21:00 07/16/17 08:04 (Aldactone) 25 mg DAILY PO 07/09/17 09:00 07/16/17 08:04 (Tricor) 48 mg DAILY PO 07/09/17 09:00 07/16/17 08:03 (Altace) 10 mg BID PO 07/08/17 21:00 07/16/17 08:04 (D50w (Vial) Inj) 50 ml UNSCH PRN IV PUSH 07/08/17 14:00 (Glucagon Inj) 1 mg UNSCH PRN OTHER 07/08/17 14:00 (NovoLOG SUPPLEMENTAL SCALE) 1 ACHS SLIDING SCALE SQ 07/08/17 17:00 07/16/17 08:05 (NovoLIN 70/30 INJ) 20 units BID SQ 07/08/17 18:00 Future hold 07/16/17 08:05 (Ultram) 50 mg Q6H PRN PO 07/10/17 11:45 07/15/17 16:47 (Tylenol) 650 mg HS PO 07/10/17 21:00 07/15/17 20:08 Cefazolin Sodium/ Dextrose 50 ml @ 100 mls/hr Q8H IV 07/10/17 16:00 07/16/17 08:02 (Percocet 5-325 Mg) 1 tab Q4H PRN PO 07/11/17 20:45 (Benadryl) 25 mg Q6H PRN PO 07/11/17 20:45 (Lulu-Colace) 1 tab BID PO 07/11/17 21:00 07/16/17 08:03 (Milk Of Magnesia Liq) 30 ml Q12H PRN PO 07/11/17 20:45 (Senokot) 17.2 mg Q12H PRN PO 07/11/17 20:45 (Dulcolax Supp) 10 mg DAILY PRN RECTAL 07/11/17 20:45 (Lactulose Liq) 30 ml DAILY PRN PO 07/11/17 20:45 (Narcan Inj) 0.4 mg UNSCH PRN IV PUSH 07/11/17 20:45 (Morphine 1 Mg/ ml WASHER ENGINEER HELPER) 30 mg UNSCH IV 07/11/17 20:45 07/11/17 21:07 WASHER ENGINEER HELPER Dosage Infused (Pha) 1 Q8HR .XX 07/11/17 22:00 07/12/17 22:19 Pharmacy Profile Note 0 ml @ 0 mls/hr UNSCH OTHER 07/12/17 12:00 Lines No evidence of infection Past Medical History Diabetes mellitus Hypertension Chronic arthritis and degenerative joint disease Tobacco dependency Atrial fibrillation on warfarin Hyperlipidemia Past Surgical History Cervical spine surgery Lumbar spine surgery Quadruple bypass Cataracts Right knee previous surgery Allergies: Coded Allergies: insulin detemir (Verified Allergy, Intermediate, LIPS AND THROAT SWELLS, ) insulin glargine (Verified Allergy, Intermediate, LIPS AND THROAT SWELLS, 07/08/17) *MDRO Multi-Drug Resistant Organism (Verified Allergy, Unknown, 07/08/17) C.diff 09/2013 penicillin G (Verified Allergy, Unknown, Rash, 07/16/17) PT STATES UNKNOWN REACTION Uncoded Allergies: CITRUS (Adverse Reaction, Intermediate, SEVERE UPSET STOMACH, 01/22/14) Objective . Vital Signs Date Time Temp Pulse Resp B/P (MAP) Pulse Ox O2 Delivery O2 Flow Rate FiO2 07/16/17 09:41 Room Air 07/16/17 05:59 76 07/16/17 04:59 97.6 80 18 142/77 (98) 92 07/16/17 00:13 97.2 70 16 128/70 (89) 07/16/17 00:00 70 07/15/17 16:54 98.2 80 18 173/90 (117) 99 07/15/17 16:00 94 07/15/17 13:00 98.2 79 18 150/86 (107) 98 07/15/17 12:00 74 Imaging Last Impressions Aspiration 07/09/17 0000 Signed Impressions: Service Date/Time: Sunday, July 09, 2017 10:16 - CONCLUSION: Uncomplicated aspiration as above. Mata Schneider MD Lower Extremity CT 07/08/17 0000 Signed Impressions: Service Date/Time: Saturday, July 08, 2017 15:00 - CONCLUSION: 1. Right total knee arthroplasty in place which limits overall evaluation for subtle fractures. 2. No evidence for acute bony fracture. 3. Moderate size suprapatellar joint effusion. Francisco Tran MD Knee X-Ray 07/08/17 0000 Signed Impressions: Service Date/Time: Saturday, July 08, 2017 12:39 - CONCLUSION: 1. No fracture seen. Intact hardware. 2. Increasing size joint effusion when compared to yesterday's exam. Alvin Boland MD Physical Exam GENERAL: awake and alert, not in respiratory distress. SKIN: Warm and dry. No generalized rash, no ecchymoses and no evidence of embolic lesions. HEAD: Atraumatic. Normocephalic. No temporal wasting, or tenderness. EYES: [place] conjunctiva. No petechia or hemorrhage. Pupils equal, round and reactive to light. Extraocular movements full and intact. No scleral icterus. No injection or drainage. EARS, NOSE AND THROAT: Nose without bleeding or purulent nasal discharge. No sinus tenderness. Dry oral mucosa. No oral lesions noted. NECK: Trachea midline. Supple and not tender, no meningeal signs CARDIOVASCULAR: Regular rate and rhythm. No murmurs, rubs or gallops heard RESPIRATORY: Clear to auscultation. Breath sounds equal bilaterally. No rales , wheezing or rhonchi ABDOMEN: Soft, non-tender, nondistended. Bowel sounds present and normoactive. No guarding. No rebound. No organomegaly. EXTREMITIES: No clubbing, cyanosis. Has dry dressing RLE, has immobilizer. Multiple superficial wounds R foot and one on L foot, no evidence of infection. No calf tenderness. Well perfused and warm. NEUROLOGICAL: Non-focal PSYCHIATRIC: Normal affect, calm and cooperative. LINE: No evidence of infection Assessment & Plan Remarks IMPRESSION Infection RTKA, C/S Staph aureus, MSSA MSSA bacteremia due to knee infection Renal insufficiency, improving Allergy to PCN - rash, has tolerated Cephalosporins in the past One (+) BC GPC RECOMMENDATION Continue IV Ancef Will need at least 6 weeks IV Abx - anticipate end date August 21 Labs weekly while on IV Abx: CBC, creat, LFT SNF placement Abx infusion form filled out PICC OK to D/C once arrangements made with SNF Explained plan to the patient Piper Dacosta MD July 16, 2017 10:12
--- NOTE | 2017-07-16 10:15 | HHI.FF ---
cc: Elaina Grove MD Infusion Therapy Location of Infusion Therapy: [facility] Infusion Therapy Order Patient Information Patient Weight 106.5 kg Diagnosis: Diagnosis MSSA infection RTKA Coded Allergies: insulin detemir (Verified Allergy, Intermediate, LIPS AND THROAT SWELLS, ) insulin glargine (Verified Allergy, Intermediate, LIPS AND THROAT SWELLS, 07/08/17) *MDRO Multi-Drug Resistant Organism (Verified Allergy, Unknown, 07/08/17) C.diff 09/2013 penicillin G (Verified Allergy, Unknown, Rash, 07/16/17) PT STATES UNKNOWN REACTION Uncoded Allergies: CITRUS (Adverse Reaction, Intermediate, SEVERE UPSET STOMACH, 01/22/14) Administer Medication Cefazolin 2 grams IV q 8 hours Stop Treatment: Aug 21, 2017 Additional Information Venous access: PICC Line Additional Instructions [x] Peripheral flush and dressing changes per protocol [x] Implanted port and central railway traction line worker: * Implanted port: 10 ml Normal Saline followed by 5 ml Heparin 100 units/ml Heparin flush after each use and monthly to maintain. [] May leave port accessed during therapy. [] May leave peripheral site accessed for duration of therapy. [x] If patient has SOB or respiratory distress, check oxygen saturation. If less than 90% or clinical signs of respiratory distress, administer oxygen at 2 L/min. via nasal cannula and notify physician. [x] Anaphylaxis/Reaction orders: * Stop infusion. * Keep IV line open with saline flush. * Notify physician. * Monitor vital signs every 15 minutes until symptoms resolve. * Check Oxygen saturation; Oxygen at 2 L/min. via nasal cannula if less than 90% or clinical signs of respiratory distress. * Administer diphenhydramine (Benadryl) 25 mg IV STAT, (unless patient has received as pre-med). May repeat once, if necessary. * Solu-Cortef 250 mg IVP over 30-60 seconds, use 100 mg vials for each dissolution. * Epinephrine (1mg/1 ml) 0.3 mg subcutaneously or IVP now with any signs of respiratory distress. * Check with physician for new additional pre-med orders if patient is re- challenged or re-treated. [x] May remove PICC line when treatment complete, after confirming with Physician. [x] If the patient is admitted to the hospital, the ED, or transferred via [facility] , complete transfer form including medication reconciliation order sheet. Laboratory Tests Weekly Labs: CBC w/diff, Creatinine, LFT's (Hepatic function test) (Labs every Sunday - copy to nh, and to Dr Elaina Grove) Additional Information Please have patient follow-up with Dr Elaina Grove (Infectious Disease) in 3 weeks Piper Dacosta MD July 16, 2017 10:15
--- NOTE | 2017-07-16 11:00 | HHI.PR ---
Subjective Remarks in no distress. pain is controlled. no fever. no new complaints. Objective Vitals Vital Signs Date Time Temp Pulse Resp B/P (MAP) Pulse Ox O2 Delivery O2 Flow Rate FiO2 07/16/17 09:41 Room Air 07/16/17 05:59 76 07/16/17 04:59 97.6 80 18 142/77 (98) 92 07/16/17 00:13 97.2 70 16 128/70 (89) 07/16/17 00:00 70 07/15/17 16:54 98.2 80 18 173/90 (117) 99 07/15/17 16:00 94 07/15/17 13:00 98.2 79 18 150/86 (107) 98 07/15/17 12:00 74 I/O 07/15/17 07/15/17 07/15/17 07/16/17 07/16/17 07/16/17 07:00 15:00 23:00 07:00 15:00 23:00 Intake Total 720 ml 480 ml Output Total 1350 ml 500 ml 400 ml Balance -630 ml -20 ml -400 ml Intake Oral 720 ml 480 ml Output Urine Total 1350 ml 500 ml 400 ml # Bowel Movements 2 Result Diagram: 07/13/17 0820 07/13/17 0820 Imaging Last Impressions Shoulder X-Ray 07/11/17 0000 Signed Impressions: CONCLUSION: Unremarkable exam for patient's age. Aspiration 07/09/17 0000 Signed Impressions: Service Date/Time: Sunday, July 09, 2017 10:16 - CONCLUSION: Uncomplicated aspiration as above. Mata Schneider MD Lower Extremity CT 07/08/17 0000 Signed Impressions: Service Date/Time: Saturday, July 08, 2017 15:00 - CONCLUSION: 1. Right total knee arthroplasty in place which limits overall evaluation for subtle fractures. 2. No evidence for acute bony fracture. 3. Moderate size suprapatellar joint effusion. Francisco Tran MD Knee X-Ray 07/08/17 0000 Signed Impressions: Service Date/Time: Saturday, July 08, 2017 12:39 - CONCLUSION: 1. No fracture seen. Intact hardware. 2. Increasing size joint effusion when compared to yesterday's exam. Alvin Boland MD Objective Remarks GENERAL: This is a well-nourished, well-developed patient, in no apparent distress. CARDIOVASCULAR: Regular rate and regular rhythm without murmurs, gallops, or rubs. RESPIRATORY: Clear to auscultation. Breath sounds equal bilaterally. No wheezes , rales, or rhonchi. GASTROINTESTINAL: Abdomen soft, non-tender, nondistended. Normal, active bowel sounds MUSCULOSKELETAL: right knee covered with clean dressing. NEURO: Alert & Oriented x4 to person, place, time, situation. Moves all ext x4 Procedures Right knee arthrocentesis, 85 mL Medications and IVs Inpatient Medications Acetaminophen (Tylenol) 650 mg HS PO Last administered on 07/15/17at 20:08; Start 07/10/17 at 21:00 Aztreonam 1000 mg/ Sodium Chloride 100 ml @ 200 mls/hr Q12H IV Last administered on 07/10/17at 12:08; Start 07/10/17 at 12:00; Stop 07/10/17 at 15:31 ; Status DC Bisacodyl (Dulcolax Supp) 10 mg DAILY PRN RECTAL SEVERE CONSITIPATION; Start at 20:45 Cefazolin Sodium/ Dextrose 50 ml @ 100 mls/hr Q8H IV Last administered on 07/16at 08:02; Start 07/10/17 at 16:00 Chlorhexidine Gluconate (Chlorhexidine 2% Cloth) 3 pack EXCELSIOR MACHINE OPERATOR PRN TOPICAL SEE LABEL COMMENTS; Start 07/11/17 at 05:30; Stop 07/14/17 at 05:29; Status DC Dextrose (D50w (Vial) Inj) 50 ml UNSCH PRN IV PUSH HYPOGLYCEMIA-SEE COMMENTS; Start 07/08/17 at 14:00 Diphenhydramine HCl (Benadryl) 25 mg Q6H PRN PO ITCHING; Start 07/11/17 at 20: 45 Doxycycline Hyclate (Vibratab) 100 mg BID PO Last administered on 07/10/17at 12: 07; Start 07/10/17 at 11:45; Stop 07/10/17 at 15:31; Status DC Fenofibrate (Tricor) 48 mg DAILY PO Last administered on 07/16/17at 08:03; Start 07/09/17 at 09:00 Gabapentin (Neurontin) 100 mg TID PO Last administered on 07/16/17at 08:02; Start 07/08/17 at 18:00 Glucagon (Glucagon Inj) 1 mg UNSCH PRN OTHER HYPOGLYCEMIA-SEE COMMENTS; Start 07/08/17 at 14:00 Insulin Aspart (NovoLOG SUPPLEMENTAL SCALE) 1 ACHS SLIDING SCALE SQ Last administered on 07/16/17at 08:05; Start 07/08/17 at 17:00 Insulin Human Isoph/Insulin Regular (NovoLIN 70/30 INJ) 20 units BID SQ Last administered on 07/16/17at 08:05; Start 07/08/17 at 18:00; Status Future hold Lactated Ringer's 1,000 ml @ 30 mls/hr Q24H PRN IV SEE LABEL COMMENTS; Start at 05:30; Stop 07/14/17 at 05:29; Status DC Lactulose (Lactulose Liq) 30 ml DAILY PRN PO SEVERE CONSITIPATION; Start at 20:45 Magnesium Hydroxide (Milk Of Magnesia Liq) 30 ml Q12H PRN PO Mild constipation ; Start 07/11/17 at 20:45 Metoprolol Tartrate (Lopressor) 100 mg BID PO Last administered on 07/16/17at 08 :04; Start 07/08/17 at 21:00 Miscellaneous Information ([facility] [place] Nursing Information) ALL NURSING DEPARTME... UNSCH PRN .XX SEE LABEL COMMENTS; Start 07/11/17 at 23:00; Stop 07/12/17 at 22: 59; Status DC Miscellaneous Information ([facility] [place] Post-op Orders (for Pharmacy)) STAT ONCE XX ; Start 07/11/17 at 20:45; Stop 07/11/17 at 21:02; Status DC Morphine Sulfate (Morphine 1 Mg/ ml AUDIO VIDEO REPAIRER) 30 mg UNSCH IV Last administered on at 21:07; Start 07/11/17 at 20:45 Naloxone HCl (Narcan Inj) 0.4 mg UNSCH PRN IV PUSH RESPIRATORY RATE LESS THAN 10; Start 07/11/17 at 20:45 Ondansetron HCl (Zofran Odt) 4 mg Q6H PRN SL NAUSEA OR VOMITING; Start at 13:15 Oxycodone/ Acetaminophen (Percocet 5-325 Mg) 1 tab Q4H PRN PO PAIN LESS THAN 5 ON SCALE; Start 07/11/17 at 20:45 Patient Medication Teaching (Coumadin Booklet) 1 ONCE ONCE XX ; Start 07/11/17 at 16:00; Stop 07/11/17 at 21:02; Status DC AUDIO VIDEO REPAIRER Dosage Infused (Pha) 1 Q8HR .XX Last administered on 07/12/17at 22:19; Start 07/11/17 at 22:00 Pharmacy Profile Note 0 ml @ 0 mls/hr UNSCH OTHER ; Start 07/12/17 at 12:00 Povidone Iodine (Betadine 5% Antisepsis Kit) 1 applic EXCELSIOR MACHINE OPERATOR PRN EACH NARE SEE LABEL COMMENTS; Start 07/11/17 at 05:30; Stop 07/14/17 at 05:29; Status DC Pravastatin Sodium (Pravachol) 40 mg DAILY PO Last administered on 07/16/17at 08 :03; Start 07/09/17 at 09:00 Ramipril (Altace) 10 mg BID PO Last administered on 07/16/17at 08:04; Start at 21:00 Senna/Docusate Sodium (Lulu-Colace) 1 tab BID PO Last administered on at 08:03; Start 07/11/17 at 21:00 Sennosides (Senokot) 17.2 mg Q12H PRN PO Moderate constipation; Start 07/11/17 at 20:45 Sodium Chloride 500 ml @ 30 mls/hr [id number] PRN IV SEE LABEL COMMENTS; Start at 05:30; Stop 07/14/17 at 05:29; Status DC Sodium Chloride (NS Flush) 2 ml BID IV FLUSH Last administered on 07/16/17at 08: 05; Start 07/08/17 at 21:00 Spironolactone (Aldactone) 25 mg DAILY PO Last administered on 07/16/17at 08:04 ; Start 07/09/17 at 09:00 Tramadol HCl (Ultram) 50 mg Q6H PRN PO knee pain 1-10 Last administered on 07/15at 16:47; Start 07/10/17 at 11:45 Vancomycin HCl 1500 mg/Sodium Chloride 515 ml @ 257.5 mls/ hr ONCE ONCE IV Last administered on 07/10/17at 17:12; Start 07/10/17 at 17:00; Stop 07/10/17 at 18:59; Status DC Warfarin Sodium (Coumadin) 2.5 mg ONCE ONCE PO Last administered on 07/15/17at 17:06; Start 07/15/17 at 16:00; Stop 07/15/17 at 16:01; Status DC A/P Problem List: (1) Skin abnormality ICD Code: L98.9 - Disorder of the skin and subcutaneous tissue, unspecified (2) Knee effusion, right ICD Code: M25.461 - Effusion, right knee Status: Acute (3) Gait instability ICD Code: R26.81 - Unsteadiness on feet Status: Acute (4) Diabetes mellitus ICD Code: E11.9 - Diabetes mellitus Status: Acute (5) Atrial fibrillation ICD Code: I48.91 - Atrial fibrillation Status: Acute (6) Hyponatremia ICD Code: E87.1 - Hypo-osmolality and hyponatremia (7) CKD (chronic kidney disease) ICD Code: N18.9 - Chronic kidney disease, unspecified Assessment and Plan A/P right knee septic arthritis Status post arthrocentesis per IR, 85 mL with 96,000 white blood cells, likely septic joint s/p Right knee irrigation, debridement and removal of right total knee / arthroplasty, including femoral, tibial and patellar component and placement of antibiotic prosthesis fluid culture with MSSA and one bottle of BC with MSSA Continue Ancef continue with pain control ID and ortho following. Skin abnormality Patient with home wound care and history of venous stasis patient with lower extremity intact skin with some evidence of hemosiderin. Shallow healing wounds on the dorsal side of the right and left feet Continue with wound care and management Resume home healthcare services when appropriate Gait instability Likely due to joint pain and right knee effusion Patient Continue rehab efforts as tolerated post surgical Diabetes mellitus Continue with diabetic management with home insulin regimen Accu-Cheks and sliding scale ADA diet Atrial fibrillation rate controlled, warfarin resumed- INR is therapeutic- consulted pharmacy for coumadin dosing. Hyponatremia Resolved with blood sugar correction CKD (chronic kidney disease) Avoid nephrotoxins Acute kidney injury is improved elevated LFT's- improved- will hold statin for now. left shoulder pain; XR with no fracture; continue pain control. dysuria- resolved- UA not impressive. DVT prophylaxis; resumed coumadin. Discharge Planning dc planning to SNF within the next 24 hrs- if cleared by ortho -and PICC line is in place. see med list. f/u; pcp and ortho. d/w the patient and the RN. time spent 35 min. Contreras Mccauley MD July 16, 2017 11:00
[2017-07-16] MEDS ORDERED: HYDR-3288 PO (11:01)
--- NOTE | 2017-07-16 11:03 | HHI.DS ---
Discharge Summary Admission Date July 10, 2017 at 11:40 Discharge Date: July 16, 2017 Admitting Diagnosis Gait instability (1) Skin abnormality ICD Code: L98.9 - Disorder of the skin and subcutaneous tissue, unspecified Diagnosis: Secondary (2) Knee effusion, right ICD Code: M25.461 - Effusion, right knee Diagnosis: Principal Status: Acute (3) Gait instability ICD Code: R26.81 - Unsteadiness on feet Diagnosis: Principal Status: Acute (4) Diabetes mellitus ICD Code: E11.9 - Diabetes mellitus Diagnosis: Secondary Status: Acute (5) Atrial fibrillation ICD Code: I48.91 - Atrial fibrillation Diagnosis: Secondary Status: Acute (6) CKD (chronic kidney disease) ICD Code: N18.9 - Chronic kidney disease, unspecified Diagnosis: Secondary Procedures Right knee arthrocentesis, 85 mL Brief History - From Admission Patient seen in follow-up for recurrent falls with increased joint pain in the right knee. 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 Normally lives independently but does use a walker or durable medical assistive device for ambulation. He has had trouble getting around especially since the rain started this past couple weeks as his knee has become more swollen and painful. He has a significant effusion on his right knee. Patient does take warfarin for atrial fibrillation however his INR is only 1.5. Patient says the pain is not controlled with gabapentin which he takes at home. He does not take pain medication because of his fear of interaction with his multiple medications. Patient also has chronic kidney disease does not take anti-inflammatories. Patient denies any chest pain or shortness of breath. He has not been dizzy or lightheaded unless his sugar becomes abnormal and this is infrequent. Patient follows up with his primary care doctor regularly and follows up with his brick handler at the [facility]. This time the patient has significant effusion with elevated blood sugar and elevated white cell count. The knee does not appear to be grossly inflamed however the infusion according to images and documented ER encounters over the last 48 hours appears to have gotten worse. Patient will warrant for further evaluation by orthopedics as he cannot ambulate and the pain is severe. CBC/BMP: 07/13/17 0820 07/13/17 0820 Significant Findings Laboratory Tests Test 07/14/17 07:00 07/15/17 06:45 07/16/17 06:00 07/16/17 08:47 Prothrombin Time 13.0 SEC (9.8-11.6) 19.1 SEC (9.8-11.6) 25.2 SEC (9.8-11.6) Urine Occult Blood TRACE (NEG) Urine Leukocyte Esterase TRACE (NEG) Urine RBC 4 /hpf (0-3) Imaging Last Impressions Shoulder X-Ray 07/11/17 0000 Signed Impressions: CONCLUSION: Unremarkable exam for patient's age. Aspiration 07/09/17 0000 Signed Impressions: Service Date/Time: Sunday, July 09, 2017 10:16 - CONCLUSION: Uncomplicated aspiration as above. Mata Schneider MD Lower Extremity CT 07/08/17 0000 Signed Impressions: Service Date/Time: Saturday, July 08, 2017 15:00 - CONCLUSION: 1. Right total knee arthroplasty in place which limits overall evaluation for subtle fractures. 2. No evidence for acute bony fracture. 3. Moderate size suprapatellar joint effusion. Francisco Tran MD Knee X-Ray 07/08/17 0000 Signed Impressions: Service Date/Time: Saturday, July 08, 2017 12:39 - CONCLUSION: 1. No fracture seen. Intact hardware. 2. Increasing size joint effusion when compared to yesterday's exam. Alvin Boland MD PE at Discharge GENERAL: This is a well-nourished, well-developed patient, in no apparent distress. CARDIOVASCULAR: Regular rate and regular rhythm without murmurs, gallops, or rubs. RESPIRATORY: Clear to auscultation. Breath sounds equal bilaterally. No wheezes , rales, or rhonchi. GASTROINTESTINAL: Abdomen soft, non-tender, nondistended. Normal, active bowel sounds MUSCULOSKELETAL: right knee covered with clean dressing. NEURO: Alert & Oriented x4 to person, place, time, situation. Moves all ext x4 Hospital Course right knee septic arthritis Status post arthrocentesis per IR, 85 mL with 96,000 white blood cells, likely septic joint s/p Right knee irrigation, debridement and removal of right total knee / arthroplasty, including femoral, tibial and patellar component and placement of antibiotic prosthesis fluid culture with MSSA and one bottle of BC with MSSA Continue Ancef continue with pain control ID and ortho following. Skin abnormality Patient with home wound care and history of venous stasis patient with lower extremity intact skin with some evidence of hemosiderin. Shallow healing wounds on the dorsal side of the right and left feet Continue with wound care and management Resume home healthcare services when appropriate Gait instability Likely due to joint pain and right knee effusion Patient Continue rehab efforts as tolerated post surgical Diabetes mellitus Continue with diabetic management with home insulin regimen Accu-Cheks and sliding scale ADA diet Atrial fibrillation rate controlled, warfarin resumed- INR is therapeutic- consulted pharmacy for coumadin dosing. Hyponatremia Resolved with blood sugar correction CKD (chronic kidney disease) Avoid nephrotoxins Acute kidney injury is improved elevated LFT's- improved- will hold statin for now. left shoulder pain; XR with no fracture; continue pain control. dysuria- resolved- UA not impressive. Pt Condition on Discharge: Stable Discharge Disposition: Discharge to SNF Discharge Time: > 30 minutes Discharge Instructions DIET: Follow Instructions for: Heart Healthy Diet, Diabetic Diet Activities you can perform: Weight Bearing as Contreras Zaragoza MD July 16, 2017 11:02
[2017-07-16] MEDS ORDERED: SODIUM CHLORIDE 0.9% FLUSH 10 ML FLUSH IV FLUSH PRN (13:00)
--- NOTE | 2017-07-16 13:13 | RADRPT ---
EXAM DATE: 07/16/2017 1:10 PM EDT AGE/SEX: 77 years / Male INDICATIONS: PICC line insertion. CLINICAL DATA: This is the patient's initial encounter. Patient reports that signs and symptoms have been present for 1 day and indicates a pain score of 0/10. MEDICAL/SURGICAL HISTORY: Cardiovascular disease. Hypertension. Renal disease. CABG. COMPARISON: No prior [place] exams available for comparison. FINDINGS: A single AP view of the chest demonstrates the lungs to be symmetrically aerated without evidence of mass, infiltrate or effusion. Status post CABG. The cardiomediastinal contours are unremarkable. Oss eous structures are intact. CONCLUSION: No acute cardiopulmonary disease Electronically signed by: Asif Suarez MD 07/16/2017 1:12 PM EDT
[2017-07-17] MEDS ORDERED: SODIUM CHLORIDE 0.9% FLUSH 10 ML FLUSH IV FLUSH SCH (09:00)
== END 2017-07-16 18:19 | DRG 464 ==
LOC: PHED 11:19 → PHEDA 13:13 → PH3B 15:13 → OBSVTOIN 07-10 11:40 → N04B 07-10 19:15
PROVIDERS: ADMIT Internal Medicine; ATTEND Internal Medicine
PROC: 0S9C3ZX Drainage of Right Knee Joint, Percutaneous Approach, Diagnostic (ICD-10-PCS; 2017-07-09)
PROC: 0SHC08Z Insertion of Spacer into Right Knee Joint, Open Approach (ICD-10-PCS; 2017-07-11)
PROC: 0SPC0JZ Removal of Synthetic Substitute from Right Knee Joint, Open Approach (ICD-10-PCS; principal; 2017-07-11 20:24)
PROC: 02HV33Z Insertion of Infusion Device into Superior Vena Cava, Percutaneous Approach (ICD-10-PCS; 2017-07-16)
DX: T84.53XA Infection and inflammatory reaction due to internal right knee prosthesis, initial encounter (principal); E87.1 Hypo-osmolality and hyponatremia; N17.9 Acute kidney failure, unspecified; M00.9 Pyogenic arthritis, unspecified; R78.81 Bacteremia; E11.22 Type 2 diabetes mellitus with diabetic chronic kidney disease; B95.61 Methicillin susceptible Staphylococcus aureus infection as the cause of diseases classified elsewhere; E11.65 Type 2 diabetes mellitus with hyperglycemia; I48.91 Unspecified atrial fibrillation; R26.81 Unsteadiness on feet; Y83.1 Surgical operation with implant of artificial internal device as the cause of abnormal reaction of the patient, or of later complication, without mention of misadventure at the time of the procedure; G89.29 Other chronic pain; M25.551 Pain in right hip; R29.6 Repeated falls; D64.9 Anemia, unspecified; E78.5 Hyperlipidemia, unspecified; F17.210 Nicotine dependence, cigarettes, uncomplicated; I12.9 Hypertensive chronic kidney disease with stage 1 through stage 4 chronic kidney disease, or unspecified chronic kidney disease; I25.10 Atherosclerotic heart disease of native coronary artery without angina pectoris; I87.8 Other specified disorders of veins; N18.9 Chronic kidney disease, unspecified; M19.90 Unspecified osteoarthritis, unspecified site; M25.461 Effusion, right knee; M25.512 Pain in left shoulder; R30.0 Dysuria; R79.89 Other specified abnormal findings of blood chemistry; Z95.1 Presence of aortocoronary bypass graft; Z79.01 Long term (current) use of anticoagulants; Z91.81 History of falling; Z79.4 Long term (current) use of insulin; Z88.0 Allergy status to penicillin
CPT/HCPCS: 20610; 36569; 71045; 73030; 73564; 73700; 76937; 77002; 80048; 80053; 80076; 80202; 81001; 82947; 82948; 83036; 85025; 85610; 85652; 85730; 86140; 86403; 87040; 87070; 87147; 87186; 87205; 89051; C1713; C1776; G8987-GO; G8987-GP; G8988-GO; G8988-GP; J0131; J0690; J1100; J1580; J1815; J2270; J2370; J2405; J2710; J3010; J3370; J7030; J7040; J7120; L1830

== ENCOUNTER 2017-07-18 18:32 | Inpatient (IN) | payer OTHER, MEDICARE ==
[~2017-07-18 18:32] MED LIST changes: -CHOL50006; -LOVA40TA PO; -PROBCAP11; -ZINC50TA PO
[2017-07-18 18:41] VITALS: BP 104/61; PULSE 78; RESP 16; TEMP 98.1; O2SAT 95
[2017-07-18] MEDS ORDERED: SODIUM CHLOR 0.9% 1000 ML INJ 1,000 ML IV SCH (18:45)
--- NOTE | 2017-07-18 18:55 | PD ---
HPI Chief Complaint: Altered Mental Status Time Seen by Provider: 18:36 Travel History International Travel<30 days: No Contact w/Intl Traveler<30days: No Traveled to known affect area: No History of Present Illness HPI This 77-year-old male was transferred from [facility] because of altered mental status. He has a history of diabetes. He was recently admitted to the hospital with swelling in his knee. He was found to have sepsis and a right knee arthroplasty. On July 11 he had removal of the arthroplasty. He has been at a fdc receiving intravenous antibiotics. Apparently tonight he became confused. He is unable to give much history. He denies pain. He is talking. PFSH Past Medical History Hx Anticoagulant Therapy: Yes Arthritis: Yes Blood Disorders: No Heart Rhythm Problems: Yes (AFIB) Cancer: No Cardiac Catheterization: Yes Cardiovascular Problems: Yes High Cholesterol: Yes Chemotherapy: No Chest Pain: No Congestive Heart Failure: No Coronary Artery Disease: Yes Diabetes: Yes Diminished Hearing: No Endocrine: Yes Genitourinary: Yes Hepatitis: No Hiatal Hernia: No Hypertension: Yes Immune Disorder: No Implanted Vascular Access Dvce: Yes Musculoskeletal: Yes Neurologic: No Psychiatric: No Reproductive: No Respiratory: No Radiation Therapy: No Thyroid Disease: No ?: Not Past Surgical History AICD: No Arteriovenous Shunt: No Body Medical Devices: CERVICAL SPINE INSTRUMENTATION Cardiac Surgery: Yes (quad by-pass 2001) Eye Surgery: Yes (pauline cataracts) Insulin Pump: No Joint Replacement: Yes (RIGHT KNEE) Neurologic Surgery: Yes (CERVICAL SPINE FUSION 10/14/13, L3-L5 02/03/14) Pacemaker: No Other Surgery: Yes Social History Alcohol Use: No Tobacco Use: Yes (2 PPD) Substance Use: No Allergies-Medications (Allergen,Severity, Reaction): Coded Allergies: insulin detemir (Verified Allergy, Intermediate, LIPS AND THROAT SWELLS, ) insulin glargine (Verified Allergy, Intermediate, LIPS AND THROAT SWELLS, 07/08/17) *MDRO Multi-Drug Resistant Organism (Verified Allergy, Unknown, 07/08/17) C.diff 09/2013 penicillin G (Verified Allergy, Unknown, Rash, 07/16/17) PT STATES UNKNOWN REACTION Uncoded Allergies: CITRUS (Adverse Reaction, Intermediate, SEVERE UPSET STOMACH, 01/22/14) Reported Meds & Prescriptions Reported Meds & Active Scripts Active [place] (Hydrocodone-Acetaminophen) 7.5-325 mg Tab 1 Tab PO Q6H PRN Reported Cefazolin Inj (Cefazolin Sodium/Dextrose) 1 Gm/50 Ml Bagp 1 Gm IV Q8H Gabapentin 100 Mg Cap 100 Mg PO TID Metformin (Metformin HCl) 500 Mg Tab 500 Mg PO DAILY With a meal Fenofibrate 54 Mg Tab 54 Mg PO DAILY Warfarin 2 Mg Tab 2 Mg PO DAILY Spironolactone 25 Mg Tab 25 Mg PO DAILY Metoprolol Tartrate 100 Mg Tab 100 Mg PO BID Ramipril 10 Mg Cap 10 Mg PO BID Novolin 70-30 Inj (Insulin Human Isoph/Insulin Regular) 1,000 Unit/10 Ml Vial 20 Units SQ BID Review of Systems ROS Limitations: Altered Mental Status Physical Exam Narrative GENERAL: Well-developed male. Blood pressure is 104/60 SKIN: Focused skin assessment warm/dry. HEAD: Atraumatic. Normocephalic. EYES: Pupils equal and round. No scleral icterus. No injection or drainage. ENT: No nasal bleeding or discharge. Mucous membranes pink and moist. NECK: Trachea midline. No JVD. CARDIOVASCULAR: Regular rate and rhythm. No murmur appreciated. RESPIRATORY: No accessory muscle use. Clear to auscultation. Breath sounds equal bilaterally. GASTROINTESTINAL: Abdomen soft, there is a lower abdominal fullness which may be a distended bladder MUSCULOSKELETAL: No obvious deformities. No clubbing. No cyanosis. No edema. The surgical wound over the right knee. The wound appears clear without evidence of infection. There is cyanosis of both distal feet NEUROLOGICAL: Patient is awake. He does not answer questions appropriately. His speech is clear. He is not oriented. He does follow some commands. His global marketing specialist are equal. He does not move either leg. Data Data Last Documented VS Vital Signs Date Time Temp Pulse Resp B/P (MAP) Pulse Ox O2 Delivery O2 Flow Rate FiO2 07/18/17 19:46 63 16 121/63 (82) 100 Room Air 07/18/17 18:41 98.1 Orders Orders Electrocardiogram (07/18/17 18:39) Complete Blood Count With Diff (07/18/17 18:39) Comprehensive Metabolic Panel (07/18/17 18:39) Prothrombin Time / Inr (Pt) (07/18/17 18:39) Act Partial Throm Time (Ptt) (07/18/17 18:39) Blood Culture (07/18/17 18:39) Urinalysis - C+S If Indicated (07/18/17 18:39) Magnesium (Mg) (07/18/17 18:39) Chest, Single Ap (07/18/17 18:39) Ct Brain W/O Iv Contrast(Rout) (07/18/17 18:39) Urinary Catheter Insert/Apply (07/18/17 18:39) Sodium Chlor 0.9% 1000 Ml Inj (Ns 1000 M (07/18/17 18:45) Sodium Chlor 0.9% 1000 Ml Inj (Ns 1000 M (07/18/17 19:00) Admit Order (Ed Use Only) (07/18/17 ) Vital Signs (Adult) Q4H (07/18/17 20:25) Activity Bed Rest (07/18/17 20:25) Notify Dr: Other (07/18/17 20:25) Labs Laboratory Tests Test 07/18/17 19:00 07/18/17 19:44 White Blood Count 11.7 TH/MM3 Red Blood Count 3.18 MIL/MM3 Hemoglobin 9.9 GM/DL Hematocrit 30.8 % Mean Corpuscular Volume 96.7 FL Mean Corpuscular Hemoglobin 31.2 PG Mean Corpuscular Hemoglobin Concent 32.2 % Red Cell Distribution Width 13.9 % Platelet Count 492 TH/MM3 Mean Platelet Volume 7.6 FL Neutrophils (%) (Auto) 71.3 % Lymphocytes (%) (Auto) 20.2 % Monocytes (%) (Auto) 7.4 % Eosinophils (%) (Auto) 0.8 % Basophils (%) (Auto) 0.3 % Neutrophils # (Auto) 8.3 TH/MM3 Lymphocytes # (Auto) 2.4 TH/MM3 Monocytes # (Auto) 0.9 TH/MM3 Eosinophils # (Auto) 0.1 TH/MM3 Basophils # (Auto) 0.0 TH/MM3 CBC Comment DIFF FINAL Differential Comment Prothrombin Time 22.0 SEC Prothromb Time International Ratio 2.2 RATIO Activated Partial Thromboplast Time 35.6 SEC Blood Urea Nitrogen 57 MG/DL Creatinine 1.80 MG/DL Random Glucose 188 MG/DL Total Protein 6.0 GM/DL Albumin 1.9 GM/DL Calcium Level 8.1 MG/DL Magnesium Level 1.7 MG/DL Alkaline Phosphatase 109 U/L Aspartate Amino Transf (AST/SGOT) 35 U/L Alanine Aminotransferase (ALT/SGPT) 15 U/L Total Bilirubin 0.3 MG/DL Sodium Level 138 MEQ/L Potassium Level 3.9 MEQ/L Chloride Level 106 MEQ/L Carbon Dioxide Level 22.0 MEQ/L Anion Gap 10 MEQ/L Estimat Glomerular Filtration Rate 37 ML/MIN Urine Color YELLOW Urine Turbidity CLEAR Urine pH 5.5 Urine Specific [place] 1.015 Urine Protein NEG mg/dL Urine Glucose (UA) NEG mg/dL Urine Ketones NEG mg/dL Urine Occult Blood NEG Urine Nitrite NEG Urine Bilirubin NEG Urine Urobilinogen 0.2 MG/DL Urine Leukocyte Esterase TRACE Urine RBC 0-3 /hpf Urine WBC 3-5 /hpf Urine Bacteria NONE /hpf Urine Hyaline Casts 0-2 /lpf Microscopic Urinalysis Comment CULT NOT INDICATED MDM Medical Decision Making Medical Screen Exam Complete: Yes Emergency Medical Condition: Yes Medical Record Reviewed: Yes Differential Diagnosis Differential includes sepsis, electrolyte imbalance, CVA Narrative Course Patient is on Coumadin. He has had recent major surgery. He has a history of diabetes and chronic renal insufficiency. He has multiple comorbidities and the symptoms are certainly not typical of a stroke. Workup has been ordered Diagnosis Primary Impression: Altered mental status Admitting Information Admitting Physician Requests: Admit Mani Moore MD July 18, 2017 18:55
[2017-07-18] MEDS ORDERED: SODIUM CHLOR 0.9% 1000 ML INJ 1,000 ML IV ONE (19:00)
[2017-07-18 19:23] LABS: AUTOMATED NEUTROPHIL # 8.3 TH/MM3 (1.8-7.7); BASOPHIL % 0.3 % (0.0-2.0); EOSINOPHIL # 0.1 TH/MM3 (0-0.4); EOSINOPHIL % 0.8 % (0.0-4.0); HEMATOCRIT 30.8 % (39.0-51.0); HEMOGLOBIN 9.9 GM/DL (13.0-17.0); LYMPH % 20.2 % (9.0-44.0); LYMPHOCYTE # 2.4 TH/MM3 (1.0-4.8); MEAN CELL VOLUME 96.7 FL (80.0-100.0); MEAN CORPUSCULAR HEMOGLOBIN 31.2 PG (27.0-34.0); MEAN CORPUSCULAR HGB CONC 32.2 % (32.0-36.0); MEAN PLATELET VOLUME 7.6 FL (7.0-11.0); MONO % 7.4 % (0.0-8.0); MONOCYTE # 0.9 TH/MM3 (0-0.9); NEUT % 71.3 % (16.0-70.0); PLATELET COUNT 492 TH/MM3 (150-450); RED BLOOD COUNT 3.18 MIL/MM3 (4.50-5.90); RED CELL DISTRIBUTION WIDTH 13.9 % (11.6-17.2); WHITE BLOOD COUNT 11.7 TH/MM3 (4.0-11.0)
[2017-07-18 19:32] LABS: CHLORIDE 106 MEQ/L (98-107); SODIUM (NA) 138 MEQ/L (136-145)
--- NOTE | 2017-07-18 19:34 | RADRPT ---
EXAM DATE: 07/18/2017 7:30 PM EDT AGE/SEX: 77 years / Male INDICATIONS: Cough for 24 hours CLINICAL DATA: This is the patient's initial encounter. Patient reports that signs and symptoms have been present for 1 day and indicates a pain score of Nonresponsive. MEDICAL/SURGICAL HISTORY: . Cardiovascular disease. Hypertension. Renal disease CABG. COMPARISON: [facility], CHEST SINGLE AP, 07/16/2017. . FINDINGS: Stable right PICC line. No new focal pleural or parenchymal opacities. Postsurgical features of prior median sternotomy. Cardiomediastinal contours are stable. Remainder of the exam is unchanged. CONCLUSION: 1. No acute abnormality or significant interval change. Electronically signed by: Francisco Tran MD 07/18/2017 7:32 PM EDT
[2017-07-18 19:35] LABS: ALBUMIN 1.9 GM/DL (3.4-5.0); BLOOD UREA NITROGEN 57 MG/DL (7-18); CALCIUM 8.1 MG/DL (8.5-10.1); GLUCOSE,RANDOM 188 MG/DL (74-106); MAGNESIUM 1.7 MG/DL (1.5-2.5)
[2017-07-18 19:37] LABS: INTERNATIONAL NORMALIZED RATIO 2.2 RATIO
[2017-07-18 19:38] LABS: ALT (GPT) 15 U/L (12-78); AST (GOT) 35 U/L (15-37); GLOMERULAR FILTRATION RATE 37 ML/MIN (>89)
[2017-07-18 19:40] LABS: TOTAL BILIRUBIN ADULT 0.3 MG/DL (0.2-1.0)
--- NOTE | 2017-07-18 19:40 | RADRPT ---
EXAM DATE: 07/18/2017 7:28 PM EDT AGE/SEX: 77 years / Male INDICATIONS: Altered mental status, confusion, slurred speech. CLINICAL DATA: This is the patient's initial encounter. Patient reports that signs and symptoms have been present for 1 day and indicates a pain score of 0/10. MEDICAL/SURGICAL HISTORY: Hypertension. None. RADIATION DOSE: 58.38 CTDI (mGy) COMPARISON: [facility], CT BRAIN W/O CONTRAST, 07/07/2017. . TECHNIQUE: CT of the head without contrast. Using automated exposure control and adjustment of the mA and/or kV according to patient size, radiation dose was kept as low as reasonably achievable to ob tain optimal diagnostic quality images. FINDINGS: Cerebrum: The ventricles are normal for age. There is stable bilateral cortical atrophy. 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 No evidence of midline shift, mass lesi on, hemorrhage or acute infarction. No extraaxial fluid collections are seen. Posterior Fossa: The cerebellum and brainstem are intact. The 4th ventricle is midline. The cerebe llopontine angle is unremarkable. Extracranial: The visualized portion of the orbits is intact. Skull: The calvaria is intact. No evidence of skull fracture. No significant changes compared to the recent prior study. CONCLUSION: 1. No acute intracranial hemorrhage. 2. 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 3. Stable bilateral cortical atrophy. Electronically signed by: Dharmesh Dixon MD 07/18/2017 7:39 PM EDT
[2017-07-18 19:41] LABS: ALKALINE PHOSPHATASE 109 U/L (45-117)
[2017-07-18 19:46] VITALS: BP 121/63; PULSE 63; RESP 16; O2SAT 100
[2017-07-18 19:51] LABS: BILIRUBIN, URINE NEG (NEG); BLOOD, URINE NEG (NEG); GLUCOSE,URINE NEG (NEG); KETONE, URINE NEG (NEG); NITRITE,URINE NEG (NEG); PH, URINE 5.5 (5.0-8.5); URINE COLOR YELLOW (YELLW/STRAW); URINE LEUKOCYTE ESTERASE TRACE (NEG)
[2017-07-18 19:58] LABS: HYALINE CAST, URINE 0-2 /lpf (RARE); RBC, URINE 0-3 /hpf (0-3)
--- NOTE | 2017-07-18 20:14 | PD ---
Physical Exam Date Seen by Provider: July 18, 2017 Narrative Care was assumed at 7 PM. This patient was initially seen by Dr. Ring because of acute mental status changes. This patient's pertinent recent history is that he was hospitalized from 07/10-07/16 with a septic prosthetic right knee. The prosthesis has been removed. Cultures were positive for MSSA sensitive to cephalosporins. He is currently being treated with Ancef. He was living independently prior to his admission on 07/10. He was discharged on 07/16 to a group home facility. They noticed altered mental status this afternoon and sent him to the emergency department for further evaluation. 1 of the nurses here is familiar with the patient from his recent admission. She reports that the patient's mental status is markedly different today than previously. The patient is unable to provide any meaningful history. Data Data Last Documented VS Vital Signs Date Time Temp Pulse Resp B/P (MAP) Pulse Ox O2 Delivery O2 Flow Rate FiO2 07/18/17 19:46 63 16 121/63 (82) 100 Room Air 07/18/17 18:41 98.1 Orders Orders Electrocardiogram (07/18/17 18:39) Complete Blood Count With Diff (07/18/17 18:39) Comprehensive Metabolic Panel (07/18/17 18:39) Prothrombin Time / Inr (Pt) (07/18/17 18:39) Act Partial Throm Time (Ptt) (07/18/17 18:39) Blood Culture (07/18/17 18:39) Urinalysis - C+S If Indicated (07/18/17 18:39) Magnesium (Mg) (07/18/17 18:39) Chest, Single Ap (07/18/17 18:39) Ct Brain W/O Iv Contrast(Rout) (07/18/17 18:39) Urinary Catheter Insert/Apply (07/18/17 18:39) Sodium Chlor 0.9% 1000 Ml Inj (Ns 1000 M (07/18/17 18:45) Sodium Chlor 0.9% 1000 Ml Inj (Ns 1000 M (07/18/17 19:00) Admit Order (Ed Use Only) (07/18/17 ) Vital Signs (Adult) Q4H (07/18/17 20:25) Diet Heart Healthy (07/19/17 Breakfast) Activity Bed Rest (07/18/17 20:25) Notify Dr: Other (07/18/17 20:25) Labs Laboratory Tests Test 07/18/17 19:00 07/18/17 19:44 White Blood Count 11.7 TH/MM3 Red Blood Count 3.18 MIL/MM3 Hemoglobin 9.9 GM/DL Hematocrit 30.8 % Mean Corpuscular Volume 96.7 FL Mean Corpuscular Hemoglobin 31.2 PG Mean Corpuscular Hemoglobin Concent 32.2 % Red Cell Distribution Width 13.9 % Platelet Count 492 TH/MM3 Mean Platelet Volume 7.6 FL Neutrophils (%) (Auto) 71.3 % Lymphocytes (%) (Auto) 20.2 % Monocytes (%) (Auto) 7.4 % Eosinophils (%) (Auto) 0.8 % Basophils (%) (Auto) 0.3 % Neutrophils # (Auto) 8.3 TH/MM3 Lymphocytes # (Auto) 2.4 TH/MM3 Monocytes # (Auto) 0.9 TH/MM3 Eosinophils # (Auto) 0.1 TH/MM3 Basophils # (Auto) 0.0 TH/MM3 CBC Comment DIFF FINAL Differential Comment Prothrombin Time 22.0 SEC Prothromb Time International Ratio 2.2 RATIO Activated Partial Thromboplast Time 35.6 SEC Blood Urea Nitrogen 57 MG/DL Creatinine 1.80 MG/DL Random Glucose 188 MG/DL Total Protein 6.0 GM/DL Albumin 1.9 GM/DL Calcium Level 8.1 MG/DL Magnesium Level 1.7 MG/DL Alkaline Phosphatase 109 U/L Aspartate Amino Transf (AST/SGOT) 35 U/L Alanine Aminotransferase (ALT/SGPT) 15 U/L Total Bilirubin 0.3 MG/DL Sodium Level 138 MEQ/L Potassium Level 3.9 MEQ/L Chloride Level 106 MEQ/L Carbon Dioxide Level 22.0 MEQ/L Anion Gap 10 MEQ/L Estimat Glomerular Filtration Rate 37 ML/MIN Urine Color YELLOW Urine Turbidity CLEAR Urine pH 5.5 Urine Specific [place] 1.015 Urine Protein NEG mg/dL Urine Glucose (UA) NEG mg/dL Urine Ketones NEG mg/dL Urine Occult Blood NEG Urine Nitrite NEG Urine Bilirubin NEG Urine Urobilinogen 0.2 MG/DL Urine Leukocyte Esterase TRACE Urine RBC 0-3 /hpf Urine WBC 3-5 /hpf Urine Bacteria NONE /hpf Urine Hyaline Casts 0-2 /lpf Microscopic Urinalysis Comment CULT NOT INDICATED [facility] Medical Record Reviewed: Yes (PMH of DM, HTN, CAD s/p CABG, AF on Coumadin, venous stasis changes of BLE and, most recently, septic prosthetic R knee s/p removal of hardware and now on IV Ancef.) Supervised Visit with [facility]: No Interpretation(s) EKG shows atrial fibrillation with a controlled rate of 65. He also has a right bundle branch block. These EKG findings are chronic. Narrative Course Septic workup along with a CT of the brain was ordered by Dr. Ring and have been completed. CBC & BMP Diagram 07/18/17 19:00 Total Protein 6.0 L, Albumin 1.9 L, Calcium Level 8.1 L, Magnesium Level 1.7, Alkaline Phosphatase 109, Aspartate Amino Transf (AST/SGOT) 35, Alanine Aminotransferase (ALT/SGPT) 15, Total Bilirubin 0.3 His renal function is a bit worse than recently. His best creatinine during his admission was 1.15. His H&H and white blood count are stable. He is on Coumadin because of atrial fibrillation. His INR tonight is 2.3. A Govea catheter was placed. He has drained more than a liter of urine. However, his urine is not infected. Physician Communication Physician Communication Evita for Dr. Ceja. Patient will be placed in OBS. Diagnosis Primary Impression: Altered mental status Qualified Codes: R41.0 - Disorientation, unspecified Additional Impressions: Acute on chronic renal failure Qualified Codes: N17.9 - Acute kidney failure, unspecified; N18.2 - Chronic kidney disease, stage 2 (mild) Acute urinary retention Admitting Information Admitting Physician Requests: Observation Condition: Stable Johana Reyes MD July 18, 2017 20:14
[2017-07-18 20:27] VITALS: BP 133/69; PULSE 74; RESP 15; O2SAT 100
[2017-07-18] MEDS ORDERED: NALOXONE HCL 0.4 MG/ML AMP IV PUSH PRN (20:30)
[2017-07-18] MEDS ORDERED: DEXTROSE 50% IN WATER 50 ML VIAL(D50) IV PUSH PRN (20:30)
[2017-07-18] MEDS ORDERED: ONDANSETRON HCL 4 MG/2 ML VIAL IVP PRN (20:30)
[2017-07-18] MEDS ORDERED: GLUCAGON 1 MG/ML VIAL OTHER PRN (20:30)
[2017-07-18] MEDS ORDERED: CEFA1SOL IV (20:39)
[2017-07-18 21:00] VITALS: PULSE 75
[2017-07-18] MEDS: INSULIN ASPART SUPPLEMENTAL SCALE SQ SCH (21:00)
[2017-07-18 21:12] VITALS: BP 158/75; PULSE 79; RESP 20; TEMP 96; O2SAT 97
[2017-07-18] MEDS: SODIUM CHLOR 0.9% 1000 ML INJ 1,000 ML IV SCH (23:41)
[2017-07-18] MEDS: ceFAZolin 2 GM PREMIX 50 ML IV SCH (23:41)
[2017-07-18] MEDS: SODIUM CHLORIDE 0.9% FLUSH 10 ML FLUSH IV FLUSH SCH (23:42)
[2017-07-19] VITALS: BP 152/65; PULSE 77; RESP 20; TEMP 96; O2SAT 97
[2017-07-19 04:00] VITALS: BP 139/75; PULSE 85; RESP 20; TEMP 96.9; O2SAT 99
[2017-07-19] MEDS: ceFAZolin 2 GM PREMIX 50 ML IV SCH ×3 (05:45→21:47)
[2017-07-19 06:59] LABS: AUTOMATED NEUTROPHIL # 7.5 TH/MM3 (1.8-7.7); BASOPHIL % 0.1 % (0.0-2.0); EOSINOPHIL # 0.1 TH/MM3 (0-0.4); EOSINOPHIL % 0.7 % (0.0-4.0); HEMATOCRIT 25.8 % (39.0-51.0); LYMPHOCYTE # 2.2 TH/MM3 (1.0-4.8); MEAN CELL VOLUME 96.8 FL (80.0-100.0); MEAN CORPUSCULAR HEMOGLOBIN 33.6 PG (27.0-34.0); MEAN CORPUSCULAR HGB CONC 34.8 % (32.0-36.0); MEAN PLATELET VOLUME 7.9 FL (7.0-11.0); MONOCYTE # 0.8 TH/MM3 (0-0.9); NEUT % 70.2 % (16.0-70.0); PLATELET COUNT 440 TH/MM3 (150-450); RED BLOOD COUNT 2.67 MIL/MM3 (4.50-5.90); RED CELL DISTRIBUTION WIDTH 14.2 % (11.6-17.2); WHITE BLOOD COUNT 10.6 TH/MM3 (4.0-11.0)
[2017-07-19 07:02] LABS: CALCIUM 7.8 MG/DL (8.5-10.1)
[2017-07-19 07:09] LABS: CREATININE 1.3 MG/DL (0.60-1.30)
[2017-07-19 08:00] VITALS: BP 111/54; PULSE 61; RESP 20; TEMP 97.2; O2SAT 98
[2017-07-19] MEDS: FENOFIBRATE 48 MG TAB PO SCH (09:00)
[2017-07-19] MEDS: METOPROLOL TARTRATE 100 MG TAB PO SCH ×2 (09:10→21:47)
[2017-07-19] MEDS: GABAPENTIN 100 MG CAP PO SCH ×3 (09:10→16:41)
[2017-07-19] MEDS: SPIRONOLACTONE 25 MG TAB PO SCH (09:10)
[2017-07-19] MEDS: INSULIN ASPART SUPPLEMENTAL SCALE SQ SCH ×4 (09:11→21:00)
[2017-07-19] MEDS: RAMIPRIL 5 MG CAP PO SCH ×2 (09:11→21:48)
[2017-07-19] MEDS: SODIUM CHLORIDE 0.9% FLUSH 10 ML FLUSH IV FLUSH SCH ×2 (09:11→19:49)
[2017-07-19] MEDS: SODIUM CHLOR 0.9% 1000 ML INJ 1,000 ML IV SCH ×2 (09:17→17:00)
--- NOTE | 2017-07-19 09:18 | RADRPT ---
EXAM DATE: 07/19/2017 9:14 AM EDT AGE/SEX: 77 years / Male INDICATIONS: Transient ischemic attack. CLINICAL DATA: This is the patient's initial encounter. Patient reports that signs and symptoms have been present for > 1 year and indicates a pain score of 1/10. MEDICAL/SURGICAL HISTORY: Hypercholesterolemia. Hypertension. Dentures. Coronary artery diseas e. Anticoagulant therapy. Atrial fibrillation. C-diff. Arthritis. Renal disease. Diabetes. CABG. Marlon ateral cataract surgery. Cervical spine fusion. Cardiac catheterization. Right knee replacement. COMPARISON: No prior [facility] exams available for comparison. [facility], CTA CAROTID A RTERIES 2009-12-22 [facility], CTA CAROTID ARTERIES, 07/03/2014. VELOCITY PARAMETERS: ICA/CCA Ratio: Right 1.9 , Left 1.4 ICA: Right 99.7 cm/sec, Left 113.5 cm/sec CCA: Right 51.6 cm/sec, Left 80.1 cm/sec ECA: Right 270.6 cm/sec, Left 75.8 cm/sec Vertebral: Right 70.7 cm/sec antegrade, Left 70.7 cm/sec antegrade FINDINGS: Right Carotid: No significant stenosis is visualized. Moderate amount of plaque. The waveforms are w ithin normal limits. Left Carotid: No significant stenosis is visualized. Moderate amount of plaque. The waveforms are wi thin normal limits. Other: None. CONCLUSION: 1. Right Internal Carotid Artery: Approximate 40-50% stenosis. 2. Left Internal Carotid Artery: No hemodynamic significant stenosis. Electronically signed by: Asif Suarez MD 07/19/2017 9:16 AM EDT
--- NOTE | 2017-07-19 09:23 | HHI.HP ---
[facility] Non-Staff Admission Diagnosis AMS Diagnoses: (1) Altered mental status Chief Complaint: Altered mental status Travel History International Travel<30 Days: No Contact w/Intl Traveler <30 Da: No Traveled to Known Affected Are: No History of Present Illness Written by Altagracia Lewis, acting as scribe for Dr. Lieberman on 07/19/17 at 09:22. This is a 77-year-old male patient with a known medical history of atrial fibrillation on anticoagulation, hyperlipidemia, diabetes, CAD and hypertension who presented to the ED with altered mental status. He was recently admitted on July 10, 2017 to the hospital for septic knee, underwent right knee irrigation, debridement and removal of right total knee arthroplasty with placement of antibiotic prosthesis. He was discharged to SNF and placed on IV antibiotics Ceftin with projected end date for August 21, 2017. Supposedly patient became quite confused last evening which is abnormal from his baseline. At the time of assessment patient is unable to provide any history. Speech is garbled and expressive aphasia is noted, not making sense of his words. Patient is able to follow all commands with no unilateral weakness in upper or lower extremities. No facial droop noted on exam. A head CT was done and negative for any acute finding. A stat MRI/MRA was ordered, neuro checks, and neurology consulted to rule out CVA. Leukocytosis improved overnight. UA negative. Blood cultures pending. Review of Systems ROS Limitations: Clinical Condition, Altered Mental Status, Poor Historian Except as stated in HPI: all other systems reviewed are Neg Past Family Social History Past Medical History Atrial fibrillation on Coumadin Arthritis History of CAD Hyperlipidemia Diabetes Hypertension Past Surgical History Bilateral cataracts Right knee replacement Cervical spinal fusion 2013 CABG with quadruple bypass 2001 Reported Medications Active [place] (Hydrocodone-Acetaminophen) 7.5-325 mg Tab 1 Tab PO Q6H PRN Reported Cefazolin Inj (Cefazolin Sodium/Dextrose) 1 Gm/50 Ml Bagp 1 Gm IV Q8H Gabapentin 100 Mg Cap 100 Mg PO TID Metformin (Metformin HCl) 500 Mg Tab 500 Mg PO DAILY With a meal Fenofibrate 54 Mg Tab 54 Mg PO DAILY Warfarin 2 Mg Tab 2 Mg PO DAILY Spironolactone 25 Mg Tab 25 Mg PO DAILY Metoprolol Tartrate 100 Mg Tab 100 Mg PO BID Ramipril 10 Mg Cap 10 Mg PO BID Novolin 70-30 Inj (Insulin Human Isoph/Insulin Regular) 1,000 Unit/10 Ml Vial 20 Units SQ BID Allergies: Coded Allergies: insulin detemir (Verified Allergy, Intermediate, LIPS AND THROAT SWELLS, ) insulin glargine (Verified Allergy, Intermediate, LIPS AND THROAT SWELLS, 07/08/17) *MDRO Multi-Drug Resistant Organism (Verified Allergy, Unknown, 07/08/17) C.diff 09/2013 penicillin G (Verified Allergy, Unknown, Rash, 07/16/17) PT STATES UNKNOWN REACTION Uncoded Allergies: CITRUS (Adverse Reaction, Intermediate, SEVERE UPSET STOMACH, 01/22/14) Active Ordered Medications Current Medications Medications (Trade) Dose Ordered Sig/Jake Route Start Time Stop Time Status Last Admin Cefazolin Sodium/ Dextrose 50 ml @ 100 mls/hr Q8H IV 07/18/17 21:00 07/19/17 05:45 Sodium Chloride 1,000 ml @ 100 mls/hr Q10H IV 07/18/17 21:00 07/19/17 09:17 (NS Flush) 2 ml UNSCH PRN IV FLUSH 07/18/17 20:30 (NS Flush) 2 ml BID IV FLUSH 07/18/17 21:00 07/19/17 09:11 (Zofran Inj) 4 mg Q6H PRN IVP 07/18/17 20:30 (Narcan Inj) 0.4 mg UNSCH PRN IV PUSH 07/18/17 20:30 (D50w (Vial) Inj) 50 ml UNSCH PRN IV PUSH 07/18/17 20:30 (Glucagon Inj) 1 mg UNSCH PRN OTHER 07/18/17 20:30 (NovoLOG SUPPLEMENTAL SCALE) 1 ACHS SLIDING SCALE SQ 07/18/17 21:00 07/19/17 09:11 (Neurontin) 100 mg TID PO 07/19/17 09:00 07/19/17 09:10 (Lopressor) 100 mg BID PO 07/19/17 09:00 07/19/17 09:10 (Aldactone) 25 mg DAILY PO 07/19/17 09:00 07/19/17 09:10 (Coumadin) 2 mg DAILY@1600 PO 07/19/17 16:00 (Tricor) 48 mg DAILY PO 07/19/17 09:00 (Altace) 10 mg BID PO 07/19/17 09:00 07/19/17 09:11 Family History Mother at 88 from cardiac disease, father at 44 from cardiac disease Social History Unable to obtain. Physical Exam Vital Signs Vital Signs Date Time Temp Pulse Resp B/P (MAP) Pulse Ox O2 Delivery O2 Flow Rate FiO2 07/19/17 08:00 97.2 61 20 111/54 (73) 98 07/19/17 04:00 96.9 85 20 139/75 (96) 99 07/19/17 00:00 96.0 77 20 152/65 (94) 97 07/18/17 21:25 07/18/17 21:12 96.0 79 20 158/75 (102) 97 07/18/17 21:00 75 07/18/17 20:27 74 15 133/69 (90) 100 Room Air 07/18/17 19:46 63 16 121/63 (82) 100 Room Air 07/18/17 18:41 98.1 78 16 104/61 (75) 95 Physical Exam GENERAL: Well-developed, well-nourished patient confused, garbled speech, expressive aphasic. SKIN: Warm and dry. No rash. HEAD: Normocephalic. Atraumatic. No facial droop. EYES: Pupils equal and round. No scleral icterus. No injection or drainage. ENT: No nasal bleeding or discharge. Mucous membranes pink and moist. NECK: Supple. Trachea midline. CARDIOVASCULAR: Regular rate and rhythm. S1, S2 noted. No murmur appreciated. RESPIRATORY: No accessory muscle use. Clear to auscultation. Breath sounds equal bilaterally. GASTROINTESTINAL: Abdomen soft, non-tender, nondistended. Normoactive bowel sounds x4. MUSCULOSKELETAL: No obvious deformities. Extremities without edema. Bilateral lower extremity with hemosiderin. Skin intact. Right knee surgical incision with sandra present, no erythema, no swelling. Bandage intact and clean. Right leg brace in place. NEUROLOGICAL: Awake and alert, confused. No obvious cranial nerve deficits. Motor grossly within normal limits. 5/5 muscle strength in bilateral upper and lower extremities. No weakness noted. Laboratory Laboratory Tests Test 07/18/17 19:00 07/18/17 19:44 07/19/17 05:50 07/19/17 05:55 White Blood Count 11.7 10.6 Red Blood Count 3.18 2.67 Hemoglobin 9.9 9.0 Hematocrit 30.8 25.8 Mean Corpuscular Volume 96.7 96.8 Mean Corpuscular Hemoglobin 31.2 33.6 Mean Corpuscular Hemoglobin Concent 32.2 34.8 Red Cell Distribution Width 13.9 14.2 Platelet Count 492 440 Mean Platelet Volume 7.6 7.9 Neutrophils (%) (Auto) 71.3 70.2 Lymphocytes (%) (Auto) 20.2 21.0 Monocytes (%) (Auto) 7.4 8.0 Eosinophils (%) (Auto) 0.8 0.7 Basophils (%) (Auto) 0.3 0.1 Neutrophils # (Auto) 8.3 7.5 Lymphocytes # (Auto) 2.4 2.2 Monocytes # (Auto) 0.9 0.8 Eosinophils # (Auto) 0.1 0.1 Basophils # (Auto) 0.0 0.0 CBC Comment DIFF FINAL DIFF FINAL Differential Comment Prothrombin Time 22.0 Prothromb Time International Ratio 2.2 Activated Partial Thromboplast Time 35.6 Blood Urea Nitrogen 57 46 Creatinine 1.80 1.30 Random Glucose 188 151 Total Protein 6.0 Albumin 1.9 Calcium Level 8.1 7.8 Magnesium Level 1.7 Alkaline Phosphatase 109 Aspartate Amino Transf (AST/SGOT) 35 Alanine Aminotransferase (ALT/SGPT) 15 Total Bilirubin 0.3 Sodium Level 138 141 Potassium Level 3.9 3.8 Chloride Level 106 110 Carbon Dioxide Level 22.0 23.0 Anion Gap 10 8 Estimat Glomerular Filtration Rate 37 53 Urine Color YELLOW Urine Turbidity CLEAR Urine pH 5.5 Urine Specific [place] 1.015 Urine Protein NEG Urine Glucose (UA) NEG Urine Ketones NEG Urine Occult Blood NEG Urine Nitrite NEG Urine Bilirubin NEG Urine Urobilinogen 0.2 Urine Leukocyte Esterase TRACE Urine RBC 0-3 Urine WBC 3-5 Urine Bacteria NONE Urine Hyaline Casts 0-2 Microscopic Urinalysis Comment CULT NOT INDICATED Thyroid Stimulating Hormone 3rd Gen 1.260 Date/Time Source Procedure Growth Status 07/18/17 19:05 Blood Peripheral Aerobic Blood Culture Pending Received 07/18/17 19:05 Blood Peripheral Anaerobic Blood Culture Pending Received Result Diagram: 07/19/17 0550 07/19/17 0550 Imaging Last Impressions Carotid Artery Ultrasound 07/19/17 0000 Signed Impressions: CONCLUSION: 1. Right Internal Carotid Artery: Approximate 40-50% stenosis. 2. Left Internal Carotid Artery: No hemodynamic significant stenosis. Head CT 07/18/171838 Signed Impressions: CONCLUSION: 1. No acute intracranial hemorrhage. 2. 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 3. Stable bilateral cortical atrophy. Chest X-Ray 07/18/171838 Signed Impressions: CONCLUSION: 1. No acute abnormality or significant interval change. Septic Shock Reassessment Septic shock perfusion: reassessment completed Caprini VTE Risk Assessment Caprini VTE Risk Assessment: Mod/High Risk (score >= 2) Caprini Risk Assessment Model Point Value = 1 Point Value = 2 Point Value = 3 Point Value = 5 Age 41-60 Minor surgery BMI > 25 kg/m2 Swollen legs Varicose veins or History of unexplained or recurrent spontaneous Oral contraceptives or hormone replacement Sepsis (< 1 month) Serious lung disease, including pneumonia (< 1 month) Abnormal pulmonary function Acute myocardial infarction Congestive heart failure (< 1 month) History of inflammatory bowel disease Medical patient at bed rest Age 61-74 Arthroscopic surgery Major open surgery (> 45 min) Laparoscopic surgery (> 45 min) Malignancy Confined to bed (> 72 hours) Immobilizing plaster cast Central venous access Age >= 75 History of VTE Family history of VTE Factor V Leiden Prothrombin [id number] Lupus anticoagulant Anticardiolipin antibodies Elevated serum homocysteine Heparin-induced thrombocytopenia Other congenital or acquired thrombophilia Stroke (< 1 month) Elective arthroplasty Hip, pelvis, or leg fracture Acute spinal cord injury (< 1 month) Prophylaxis Regimen Total Risk Factor Score Risk Level Prophylaxis Regimen 0-1 Low Early ambulation 2 Moderate Order ONE of the following: *Sequential Compression Device (SCD) *Heparin 5000 units SQ BID 3-4 Higher Order ONE of the following medications: *Heparin 5000 units SQ TID *Enoxaparin/Lovenox 40 mg SQ daily (WT < 150 kg, CrCl > 30 mL/min) *Enoxaparin/Lovenox 30 mg SQ daily (WT < 150 kg, CrCl > 10-29 mL/min) *Enoxaparin/Lovenox 30 mg SQ BID (WT < 150 kg, CrCl > 30 mL/min) AND/OR *Sequential Compression Device (SCD) 5 or more Highest Order ONE of the following medications: *Heparin 5000 units SQ TID (Preferred with Epidurals) *Enoxaparin/Lovenox 40 mg SQ daily (WT < 150 kg, CrCl > 30 mL/min) *Enoxaparin/Lovenox 30 mg SQ daily (WT < 150 kg, CrCl > 10-29 mL/min) *Enoxaparin/Lovenox 30 mg SQ BID (WT < 150 kg, CrCl > 30 mL/min) AND *Sequential Compression Device (SCD) Assessment and Plan Assessment and Plan This is a 77-year-old male patient with a known medical history of atrial fibrillation on anticoagulation, hyperlipidemia, diabetes, CAD and hypertension who presented to the ED with altered mental status. He was recently admitted on July 10, 2017 to the hospital for septic knee, underwent right knee irrigation, debridement and removal of right total knee arthroplasty with placement of antibiotic prosthesis. He was discharged to SNF and placed on IV antibiotics Ceftin with projected end date for August 21, 2017. TIA/CVA rule out with presence of altered mental status and expressive aphasia - Head CT was negative for any acute findings. No hemorrhage. Showing previous infarct. - Carotid ultrasound obtained showing right internal carotid artery stenosis 40- 50%. Left carotid with no stenosis found. - Echocardiogram ordered and pending. Follow. - TSH, folate and thiamine pending. - PT, OT and speech consulted and awaiting recommendations. - Continue neuro checks. - Patient is high risk for fall, room close to nurses station. Bed alarm. Status post right knee irrigation, debridement and removal of right total knee / arthroplasty and placement of antibiotic prosthesis secondary to right knee septic arthritis on 07/11/2017. - At the time found to have MSSA and anaerobic bottle as well as wound culture. Synovial fluid. - Patient was seen by infectious disease during last admission was placed on Ancef IV with projected end date for August 21, 2017. Will continue. -Monitor for infection. Type II diabetes mellitus - Accu-Cheks before meals at bedtime, sliding scale, cover as needed. History of atrial fibrillation on Coumadin - Rate controlled, continue Coumadin. INR therapeutic. Continue to monitor. - Consulted pharmacy for Coumadin dosing. Acute on chronic kidney disease - Creatinine 1.8 on presentation. Improved to 1.3 overnight. - Ensure hydration, gently hydrate. - Avoid nephrotoxins DVT prophylaxis: SCDs. This note was transcribed by jacob Lewis. I, Dr. Asif Lieberman personally performed the history, physical exam, and medical decision making; and confirmed the accuracy of the information in the transcribed note. Authenticated by Dr. Asif Lieberman on 07/19/17 at 09:22. Code Status Full code Problem Qualifiers (1) Altered mental status: Qualified Codes: R41.0 - Disorientation, unspecified Altagracia Lewis July 19, 2017 09:23 Asif Lieberman MD July 19, 2017 09:24
[2017-07-19 10:40] LABS: FOLATE 19.3 NG/ML (3.1-17.5)
--- NOTE | 2017-07-19 11:50 | RADRPT ---
EXAM DATE: 07/19/2017 11:02 AM EDT AGE/SEX: 77 years / Male INDICATIONS: CVA. CLINICAL DATA: This is the patient's initial encounter. Patient reports that signs and symptoms have been present for 1 day and indicates a pain score of 0/10. MEDICAL/SURGICAL HISTORY: . Unknown. CABG. COMPARISON: [facility], MRI BRAIN W/O CONTRAST, 07/19/2017. . TECHNIQUE: 3D [id number] MRA was performed. Source images, multiplanar STS MIP, and 3D volum e MIP reconstructions were reviewed. FINDINGS: The examination is of limited diagnostic quality due to motion artifact. This patient has known acute cortical infarct on the left and old infarct on the right. Both distal internal carotid arteries are patent. The visualized portion of anterior and middle cerebral circulation is patent bilaterally. I do not se e evidence of a large or central vessel occlusion. The distal branches are simply not well visualized . The right vertebral is diminutive in size. The left vertebral is patent. The basilar is patent. The p osterior cerebrals are patent. CONCLUSION: 1. The exam is limited due to motion artifact. 2. The patient has known cortical infarct. No large or central vessel occlusion is evident. 3. 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 Electronically signed by: Karthikeyan Gao MD 07/19/2017 11:49 AM EDT
[2017-07-19 12:00] VITALS: BP 130/63; PULSE 71; RESP 19; TEMP 98.9; O2SAT 97
--- NOTE | 2017-07-19 12:51 | RADRPT ---
EXAM DATE: 07/19/2017 11:04 AM EDT AGE/SEX: 77 years / Male INDICATIONS: CVA. CLINICAL DATA: This is the patient's initial encounter. Patient reports that signs and symptoms have been present for 1 day and indicates a pain score of 0/10. MEDICAL/SURGICAL HISTORY: . Unknown. CABG. COMPARISON: No prior exams available for comparison. TECHNIQUE: Multiplanar, multisequence examination of the brain was performed without contrast. FINDINGS: There is an infarct centered in the left parietal lobe measuring up to 8.5 cm in diameter. Infarct ex tends into the insular cortex and indicates temporal and occipital region. No acute right hemispheric infarct. There is a remote infarct in the medial right occipital lobe. On the gradient echo images t here is some subtle low signal in the area of infarct probably representing some minimal petechial he morrhage. There are some underlying mild white matter ischemic changes. Mucosal thickening in the mastoid air c ells. CONCLUSION: 1. 8.5 cm acute infarct in the posterior aspect of the left hemisphere probably with associated mini mal petechial hemorrhage as above. There is some localized sulcal effacement. No midline shift. 2. Remote infarct right occipital lobe. Electronically signed by: Dominik De Jesus MD 07/19/2017 12:49 PM EDT
--- NOTE | 2017-07-19 14:24 | RADRPT ---
EXAM DATE: 07/19/2017 2:17 PM EDT AGE/SEX: 77 years / Male INDICATIONS: Left shoulder pain, no known injury. CLINICAL DATA: This is the patient's subsequent encounter. Patient reports that signs and symptoms h ave been present for 4 - 6 days and indicates a pain score of 9/10. MEDICAL/SURGICAL HISTORY: . Cardiovascular disease. Hypertension. Renal disease CABG. COMPARISON: No prior [facility] exams available for comparison. FINDINGS: Views of left breast obtained. Prominent degenerative changes. No fracture or dislocation. Soft tissu es are intact. CONCLUSION: Degenerative changes without fracture Electronically signed by: Asif Suarez MD 07/19/2017 2:23 PM EDT
--- NOTE | 2017-07-19 14:53 | EKG ---
Date Performed: 07/18/2017 Time Performed: 19:45:04 PTAGE: 77 years EKG: ATRIAL FIBRILLATION RIGHT BUNDLE BRANCH BLOCK ST DEPRESSION, CONSIDER SUBENDOCARDIAL INJURY ABNORMAL ECG Since the PREVIOUS TRACING , no significant change noted PREVIOUS TRACIN02/03/2014 06.42 DOCTOR: Rodolfo Tierney Interpretating Date/Time 07/19/2017 14:48:36
[2017-07-19 15:59] VITALS: BP 147/67; PULSE 68; RESP 19; TEMP 98.1; O2SAT 99
[2017-07-19] MEDS ORDERED: WARFARIN SOD 2 MG TAB PO SCH (16:00)
[2017-07-19 18:53] LABS: CHOLESTEROL/ HDL RATIO 3.68 RATIO; HDL CHOLESTEROL 20.9 MG/DL (40.0-60.0)
[2017-07-19 20:00] VITALS: BP 134/63; PULSE 75; RESP 22; TEMP 97.6; O2SAT 99
[2017-07-20] VITALS (8 sets, daily range): BP systolic 121–150; BP diastolic 57–97; PULSE 66–87; RESP 16–22; TEMP 96.7–98.4; O2SAT 98–100
[2017-07-20] MEDS: ceFAZolin 2 GM PREMIX 50 ML IV SCH ×3 (04:54→20:54)
[2017-07-20] MEDS ORDERED: SODIUM CHLORIDE 0.9% FLUSH 10 ML FLUSH IV FLUSH PRN (07:45)
[2017-07-20] MEDS ORDERED: DEXTROSE 50% IN WATER 50 ML VIAL(D50) IV PUSH PRN (07:45)
[2017-07-20] MEDS ORDERED: GLUCAGON 1 MG/ML VIAL OTHER PRN (07:45)
[2017-07-20 07:58] LABS: INTERNATIONAL NORMALIZED RATIO 2.6 RATIO; PROTHROMBIN TIME - PATIENT 26.7 SEC (9.8-11.6)
--- NOTE | 2017-07-20 08:08 | MB ---
cc: Maurice August MD, PhD DATE: 07/20/2017 REASON FOR CONSULTATION: Alteration in mental status, possible CVA. HISTORY OF PRESENT ILLNESS: Mr. Hsieh is a pleasant 77-year-old man who has atrial fibrillation, hyperlipidemia, diabetes, coronary artery disease, and hypertension, who came to the ED with acute alteration in mental status. The patient became confused the evening before admission. This came on acutely and this is definitely an abnormality from baseline. He was found to have an expressive type of aphasia, not making sense with his speech. He had no focal motor deficits. No facial droop. PAST MEDICAL AND SURGICAL HISTORY: The patient has a history of atrial fibrillation. He has been on Coumadin. He has arthritis, coronary artery disease, hyperlipidemia, diabetes, hypertension, cataract surgery, right knee replacement, cervical spine fusion in 2013, CABG in 2001. MEDICATIONS AT HOME: [place] as needed for pain, gabapentin, metformin, fenofibrate, Coumadin 2 mg daily, spironolactone 25 mg daily, metoprolol 100 mg b.i.d., ramipril 10 mg b.i.d., Novolin insulin. ALLERGIES: INSULIN DETEMIR, INSULIN GLARGINE, PENICILLIN. NEUROLOGIC EXAMINATION: VITAL SIGNS: Blood pressure 128/69, pulse is 83, respiratory rate is 22, temperature 98.4 degrees Fahrenheit. HIGHER CORTICAL FUNCTION: The patient is alert. His speech is fluent, but he makes numerous paraphasic errors. He is unable to name simple objects. He cannot follow commands except the most simple commands such as closing the eyes, which are midline commands. When I ask him to point to the window with his left arm, he is unable to comprehend that. He cannot repeat simple phrases. There is no neglect. CRANIAL NERVES: Intact. There is no facial asymmetry. Pupils reactive and equal. Extraocular movements are intact. MOTOR EXAM: Because of his comprehension deficit somewhat difficult to fully evaluate, but I do not detect any gross motor or focal motor abnormalities. He does relate pain in the left arm, which makes cooperation with the exam there difficult. Reflexes 2+ symmetric. Babinski's equivocal bilaterally. IMAGING STUDIES: CT brain: Stable old infarct right occipital lobe, bilateral cortical atrophy. MRI brain shows an area of acute infarction in the left posterior parietal area with minimal petechial hemorrhage as well as an old right occipital lobe stroke. Carotid ultrasound: 40-50% stenosis of the right internal carotid artery. No significant stenosis on the left. MRA brain: There is some motion artifact. No large vessel occlusion identified. LABORATORY DATA: White count 10,600; hemoglobin is 9; hematocrit 25.8%; platelet count 440,000. Sodium is 141, potassium 3.8, chloride 110, CO2 of 23, BUN is 46, creatinine 1.3, GFR is 53, glucose 151, calcium 7.8. Triglycerides 132, cholesterol 77, LDL is 30, HDL is 20.9. INR yesterday 2.2, PT 22, APTT 35.6. Urinalysis: pH is 5.5, specific gravity 1.015. EKG shows atrial fibrillation with a right bundle branch block, ST depression. IMPRESSION: The patient has evidence of a Wernicke aphasia on his examination, which correlates exactly with the MRI finding of a left posterior parietal distribution stroke. RECOMMENDATION: Agree with holding Coumadin because of the small petechial hemorrhage and the stroke. Would recommend repeating brain CT tomorrow. If there is no evidence of gross hemorrhage on the brain CT tomorrow, I would recommend restarting his Coumadin at his previous dose to maintain his INR. Also, would add low-dose aspirin 81 mg daily. Would recommend also echocardiogram. I also recommended physical therapy and speech therapy consultation. Maurice August MD, PhD AKI/SANJEEV , 07:43 AM , 08:07 AM
[2017-07-20] MEDS: FENOFIBRATE 48 MG TAB PO SCH (08:30)
[2017-07-20] MEDS: SPIRONOLACTONE 25 MG TAB PO SCH (08:31)
[2017-07-20] MEDS: RAMIPRIL 5 MG CAP PO SCH ×2 (08:31→20:54)
[2017-07-20] MEDS: GABAPENTIN 100 MG CAP PO SCH ×3 (08:31→17:00)
[2017-07-20] MEDS: INSULIN ASPART SUPPLEMENTAL SCALE SQ SCH ×4 (08:34→20:57)
[2017-07-20] MEDS: SODIUM CHLORIDE 0.9% FLUSH 10 ML FLUSH IV FLUSH SCH ×2 (08:35→20:54)
[2017-07-20] MEDS ORDERED: SODIUM CHLORIDE 0.9% FLUSH 10 ML FLUSH IV FLUSH SCH (09:00)
--- NOTE | 2017-07-20 09:41 | HHI.PR ---
Subjective Remarks Follow-up left posterior parietal CVA July 20, 2017 -patient seen and examined, positive for expressive aphasia. Vitals stable. Patient was seen by neurology this morning. Objective Vitals Vital Signs Date Time Temp Pulse Resp B/P (MAP) Pulse Ox O2 Delivery O2 Flow Rate FiO2 07/20/17 08:00 97.2 82 16 121/57 (78) 98 07/20/17 04:00 98.4 83 22 128/69 (88) 98 07/20/17 00:00 96.7 66 22 150/90 (110) 99 07/19/17 20:00 97.6 75 22 134/63 (86) 99 07/19/17 20:00 75 07/19/17 15:59 98.1 68 19 147/67 (93) 99 07/19/17 12:00 98.9 71 19 130/63 (85) 97 I/O 07/19/17 07/19/17 07/19/17 07/20/17 07/20/17 07/20/17 07:00 15:00 23:00 07:00 15:00 23:00 Intake Total 700 ml 0 ml 650 ml 1957 ml Output Total 800 ml 500 ml Balance 700 ml -800 ml 150 ml 1957 ml Intake Oral 0 ml 600 ml IV Total 700 ml 50 ml 1957 ml Output Urine Total 800 ml 500 ml # Voids 2 2 # Bowel Movements 0 0 Result Diagram: 07/19/17 0550 07/19/17 0550 Imaging Last Impressions Shoulder X-Ray 07/19/17 0000 Signed Impressions: CONCLUSION: Degenerative changes without fracture Head Magnetic Resonance Angiography 07/19/17 0000 Signed Impressions: CONCLUSION: 1. The exam is limited due to motion artifact. 2. The patient has known cortical infarct. No large or central vessel occlusio n is evident. 3. 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 Carotid Artery Ultrasound 07/19/17 Signed Impressions: CONCLUSION: 1. Right Internal Carotid Artery: Approximate 40-50% stenosis. 2. Left Internal Carotid Artery: No hemodynamic significant stenosis. Brain MRI 07/19/17 Signed Impressions: CONCLUSION: 1. 8.5 cm acute infarct in the posterior aspect of the left hemisphere probabl y with associated minimal petechial hemorrhage as above. There is some localize d sulcal effacement. No midline shift. 2. Remote infarct right occipital lobe. Head CT 07/18/171838 Signed Impressions: CONCLUSION: 1. No acute intracranial hemorrhage. 2. 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 3. Stable bilateral cortical atrophy. Chest X-Ray 07/18/171838 Signed Impressions: CONCLUSION: 1. No acute abnormality or significant interval change. Objective Remarks GENERAL: NAD with aphasia SKIN: Warm and dry. HEAD: Normocephalic. EYES: No scleral icterus. No injection or drainage. NECK: Supple, trachea midline. No JVD or lymphadenopathy. CARDIOVASCULAR: Regular rate and rhythm without murmurs, gallops, or rubs. RESPIRATORY: Breath sounds equal bilaterally. No accessory muscle use. GASTROINTESTINAL: Abdomen soft, non-tender, nondistended. MUSCULOSKELETAL: No cyanosis, or edema. Brace on RLE; frozen Left shoulder BACK: Nontender without obvious deformity. No CVA tenderness. A/P Problem List: (1) CVA (cerebral vascular accident) ICD Code: I63.9 - Cerebral infarction, unspecified (2) Petechial hemorrhage ICD Code: R23.3 - Spontaneous ecchymoses (3) Altered mental status ICD Code: R41.82 - Altered mental status, unspecified Status: Acute Assessment and Plan 77-year-old man with CVA/left hemisphere stroke - Head CT was negative for any acute findings. No hemorrhage. Showing previous infarct. - Carotid ultrasound obtained showing right internal carotid artery stenosis 40- 50%. Left carotid with no stenosis found. - Echocardiogram ordered and pending. Follow. -Brain MRI with evidence of left hemispheric stroke -Appreciate input from neurology -Repeat brain MRI July 21, 2017 and if no petechia, can restart patient Coumadin - PT, OT and speech to treat and eval - Continue aspirin, neuro checks. -Continue with permissive hypertension Status post right knee irrigation, debridement and removal of right total knee / arthroplasty and placement of antibiotic prosthesis secondary to right knee septic arthritis on 07/11/2017. - At the time found to have MSSA and anaerobic bottle as well as wound culture. Synovial fluid. - Patient was seen by infectious disease during last admission was placed on Ancef IV with projected end date for August 21, 2017. Continue. -Monitor for infection. Type II diabetes mellitus - Accu-Cheks before meals at bedtime, sliding scale, cover as needed. History of atrial fibrillation on Coumadin - Rate controlled -Coumadin currently on hold until repeat brain MRI obtained July 22, 2027 Acute on chronic kidney disease -Renal indices improving with gentle IV fluid hydration - Avoid nephrotoxins DVT prophylaxis: SCDs. Coumadin on hold. Problem Qualifiers (1) Altered mental status: Qualified Codes: R41.0 - Disorientation, unspecified Asif Lieberman MD Jul 20, 2017 09:41
[2017-07-20] MEDS: SODIUM CHLOR 0.9% 1000 ML INJ 1,000 ML IV SCH ×2 (11:50)
--- NOTE | 2017-07-20 12:14 | ECHRPT ---
Indication: CVA/TIA CONCLUSIONS Normal left ventricular size. Mild concentric left ventricular hypertrophy. The left ventricular systolic function is grossly normal on limited imaging. The left atrial size is gozn-bw-pvrswltsqd dilated. The right atrial size is saot-bg-jjlpffjnff dilated. Knqav-cs-brnp mitral valve regurgitation. Mild mitral annular calcification. Aortic valve sclerosis is present. There is trace tricuspid valve regurgitation. The estimated pulmonary arterial pressure is 46 mmHg. The left ventricular systolic function is normal with an estimated ejection fraction in the range of 55-60%. BP: 128 / 69 HR: 83 Rhythm: Sinus MEASUREMENTS (Male / Female) Normal Values Technical Quality:Very technically difficult study 2D ECHO LV Diastolic Diameter PLAX 5.4 cm 4.2 - 5.9 / 3.9 - 5.3 cm LV Systolic Diameter PLAX 3.6 cm IVS Diastolic Thickness 1.1 cm 0.6 - 1.0 / 0.6 - 0.9 cm LVPW Diastolic Thickness 1.1 cm 0.6 - 1.0 / 0.6 - 0.9 cm LV Relative Wall Thickness 0.4 RV Internal Dim ED PLAX 2.8 cm LVOT Diameter 2.4 cm Aortic Root Diameter 3.4 cm LA Systolic Diameter LX 4.9 cm 3.0 - 4.0 / 2.7 - 3.8 cm M-MODE AV Cusp Separation MM 2.0 cm DOPPLER AV Peak Velocity 107.0 cm/s AV Peak Gradient 4.6 mmHg AV Mean Gradient 2.5 mmHg AV Velocity Time Integral 18.8 cm LVOT Peak Velocity 40.1 cm/s LVOT Peak Gradient 0.6 mmHg LVOT Velocity Time Integral 7.5 cm AV Area Cont Eq vti 1.8 cm AV Area Cont Eq pk 1.7 cm Mitral E Point Velocity 62.0 cm/s LV E' Lateral Velocity 15.2 cm/s Mitral E to LV E' Lateral Ratio 4.1 LV E' Septal Velocity 5.9 cm/s Mitral E to LV E' Septal Ratio 10.4 TR Peak Velocity 300.0 cm/s TR Peak Gradient 36.0 mmHg Right Atrial Pressure 10.0 mmHg Pulmonary Artery Systolic Pressu 46.0 mmHg Right Ventricular Systolic Press 46.0 mmHg PV Peak Velocity 66.7 cm/s PV Peak Gradient 1.8 mmHg FINDINGS LEFT VENTRICLE Normal left ventricular size. Mild concentric left ventricular hypertrophy. The left ventricular systolic function is grossly normal on limited imaging. The left ventricular systolic function is normal with an estimated ejection fraction in the range of 55-60%. RIGHT VENTRICLE Normal right ventricular size and systolic function. LEFT ATRIUM The left atrial size is irmb-bn-mrstqnachx dilated. RIGHT ATRIUM The right atrial size is ahqj-xw-uuaukaabqz dilated. ATRIAL SEPTUM The interatrial septum not well visualized. AORTA The aortic root and proximal ascending aorta are normal in size on limited imaging. MITRAL VALVE Aearo-gk-xove mitral valve regurgitation. Mild mitral annular calcification. AORTIC VALVE Aortic valve sclerosis is present. TRICUSPID VALVE There is trace tricuspid valve regurgitation. The estimated pulmonary arterial pressure is 46 mmHg. PULMONARY VALVE No pulmonary valve regurgitation or stenosis. VESSELS The inferior vena cava was not well visualized. PERICARDIUM No pericardial effusion. Rudolph Francis MD, FACC (Electronically Signed) Final Date:20 July 2017 12:13
[2017-07-21] VITALS (10 sets, daily range): BP systolic 147–187; BP diastolic 70–87; PULSE 82–102; RESP 19–22; TEMP 97–100.4; O2SAT 95–99
[2017-07-21] MEDS ORDERED: MELATONIN 5 MG TAB PO ONE (00:45)
[2017-07-21] MEDS: ceFAZolin 2 GM PREMIX 50 ML IV SCH ×3 (05:03→20:19)
[2017-07-21 05:43] LABS: CALCIUM 7.7 MG/DL (8.5-10.1); INTERNATIONAL NORMALIZED RATIO 2.2 RATIO; PROTHROMBIN TIME - PATIENT 22.3 SEC (9.8-11.6)
[2017-07-21 05:44] LABS: BICARBONATE 22.4 MEQ/L (21.0-32.0); MAGNESIUM 1.3 MG/DL (1.5-2.5)
[2017-07-21] MEDS: INSULIN ASPART SUPPLEMENTAL SCALE SQ SCH ×4 (08:00→20:20)
[2017-07-21] MEDS: RAMIPRIL 5 MG CAP PO SCH ×2 (08:06→20:19)
[2017-07-21] MEDS: FENOFIBRATE 48 MG TAB PO SCH (08:06)
[2017-07-21] MEDS: SPIRONOLACTONE 25 MG TAB PO SCH (08:07)
[2017-07-21] MEDS: GABAPENTIN 100 MG CAP PO SCH ×3 (08:07→17:13)
[2017-07-21] MEDS: SODIUM CHLORIDE 0.9% FLUSH 10 ML FLUSH IV FLUSH SCH ×2 (08:08→20:20)
--- NOTE | 2017-07-21 10:22 | RADRPT ---
EXAM DATE: 07/21/2017 10:16 AM EDT AGE/SEX: 77 years / Male INDICATIONS: Altered mental status. CLINICAL DATA: This is the patient's initial encounter. Patient reports that signs and symptoms have been present for 1 day and indicates a pain score of Nonresponsive. MEDICAL/SURGICAL HISTORY: Hypertension. Diabetes. CABG. Fusion, cervical. RADIATION DOSE: 62.24 CTDI (mGy) COMPARISON: [facility], CT BRAIN W/O CONTRAST, 07/18/2017. [facility], CT BRAIN W/O CONTRAST, 07/07/2017. [facility] , MRA BRAIN W/O CONTRAST, 07/19/2017. [facility], MRI BRAIN W/O CONTRAST, 07/19/2017. . TECHNIQUE: CT of the head without contrast. Using automated exposure control and adjustment of the mA and/or kV according to patient size, radiation dose was kept as low as reasonably achievable to ob tain optimal diagnostic quality images. FINDINGS: Cerebrum: There is significant motion artifact identified on the exam especially within the posterio r fossa. There is a new large area of wedge shaped decreased attenuation involving the angel and white matter of the left temporal lobe and extending superiorly into the parietal lobe. Findings are consi stent with evolving subacute infarct. There is an area of old encephalomalacia involving the right oc cipital lobe. There is no evidence of midline shift. No intraparenchymal hemorrhage. Posterior Fossa: The cerebellum and brainstem are intact. The 4th ventricle is midline. The cerebe llopontine angle is unremarkable. Extracranial: The visualized portion of the orbits is intact. Skull: The calvaria is intact. No evidence of skull fracture. CONCLUSION: 1. Evolving subacute large infarct involving the left parietal and temporal lobe new from prior exam of July 18, 2017. No evidence of midline shift or significant mass effect. No evidence of hemorrhage. Electronically signed by: Margarita García MD 07/21/2017 10:20 AM EDT
--- NOTE | 2017-07-21 11:58 | HHI.PR ---
Subjective Remarks Patient seen and evaluated in follow-up for acute infarct . Still confused with expressive aphasia. Heart rate in the 100s appears to be sinus tachycardia on telemetry CT today shows an evolving CVA Objective Vitals Vital Signs Date Time Temp Pulse Resp B/P (MAP) Pulse Ox O2 Delivery O2 Flow Rate FiO2 07/21/17 09:00 98.5 100 20 161/86 (111) 98 07/21/17 08:00 88 07/21/17 04:00 97.4 98 22 169/77 (107) 99 07/21/17 00:13 90 07/21/17 00:00 97.0 89 22 150/70 (96) 95 07/20/17 20:02 98 21 07/20/17 20:00 97.1 87 22 148/97 (114) 100 07/20/17 19:45 86 07/20/17 18:00 98.4 76 18 138/64 (88) 99 07/20/17 12:00 98.2 78 18 144/67 (92) 99 I/O 07/20/17 07/20/17 07/20/17 07/21/17 07/21/17 07/21/17 07:00 15:00 23:00 07:00 15:00 23:00 Intake Total 1957 ml 1663 ml 303 ml Balance 1957 ml 1663 ml 303 ml Intake Oral 600 ml IV Total 1957 ml 1063 ml 303 ml # Voids 2 1 2 # Bowel Movements 0 1 Result Diagram: 07/19/17 0550 07/21/17 0505 Imaging Last Impressions Head CT 07/21/17 1000 Signed Impressions: CONCLUSION: 1. Evolving subacute large infarct involving the left parietal and temporal lo be new from prior exam of July 18, 2017. No evidence of midline shift or signifi cant mass effect. No evidence of hemorrhage. Shoulder X-Ray 07/19/17 0000 Signed Impressions: CONCLUSION: Degenerative changes without fracture Head Magnetic Resonance Angiography 07/19/17 0000 Signed Impressions: CONCLUSION: 1. The exam is limited due to motion artifact. 2. The patient has known cortical infarct. No large or central vessel occlusio n is evident. 3. 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 Carotid Artery Ultrasound 07/19/17 0000 Signed Impressions: CONCLUSION: 1. Right Internal Carotid Artery: Approximate 40-50% stenosis. 2. Left Internal Carotid Artery: No hemodynamic significant stenosis. Brain MRI 07/19/17 0000 Signed Impressions: CONCLUSION: 1. 8.5 cm acute infarct in the posterior aspect of the left hemisphere probabl y with associated minimal petechial hemorrhage as above. There is some localize d sulcal effacement. No midline shift. 2. Remote infarct right occipital lobe. Chest X-Ray 07/18/17 1839 Signed Impressions: CONCLUSION: 1. No acute abnormality or significant interval change. Objective Remarks GENERAL: This is a well-nourished, well-developed patient who is encephalopathic CARDIOVASCULAR: Sinus tachycardia without murmurs, gallops, or rubs. RESPIRATORY: Clear to auscultation. Breath sounds equal bilaterally. No wheezes , rales, or rhonchi. GASTROINTESTINAL: Abdomen soft, non-tender, nondistended. Normal active bowel sounds MUSCULOSKELETAL: Brace on RLE, frozen Left shoulder, Extremities without clubbing, cyanosis, or edema. NEURO: Confused A/P Problem List: (1) CVA (cerebral vascular accident) ICD Code: I63.9 - Cerebral infarction, unspecified Plan: telemetry Neuro eval appreciated Repeat CT shows evolution of the infarct without hemorrhage We will resume Coumadin and blood pressure medication Patient with severe receptive and expressive language abnormalities and diet has been modified Patient with PrudenceAmado fib, on Coumadin (INR 2.2 after warfarin held) (2) DM2 (diabetes mellitus, type 2) ICD Code: E11.9 - Type 2 diabetes mellitus without complications Plan: Continue with Accu-Cheks Diabetes diet Insulin 10 units bid (home dose 20 bid) (3) Atrial fibrillation ICD Code: I48.91 - Atrial fibrillation Status: Acute Plan: Currently in sinus tachycardia Patient's Coumadin had been held due to acute infarct (4) Metabolic encephalopathy ICD Code: G93.41 - Metabolic encephalopathy Plan: Likely secondary to stroke Continue with neuro checks Neurology following (5) Infection of total right knee replacement ICD Code: T84.53XA - Infection and inflammatory reaction due to internal right knee prosthesis, initial encounter Status: Acute Plan: Status post right knee irrigation, debridement and removal of right total knee /arthroplasty and placement of antibiotic prosthesis secondary to right knee septic arthritis on 07/11/2017. MSSA treated with Ancef IV with projected end date for August 21, 2017. Discharge Planning Likely to rehab when stable (was at [facility]), evaluate for inpatient rehab Carolyn Castro MD Jul 21, 2017 11:58
[2017-07-21] MEDS: SODIUM CHLOR 0.9% 1000 ML INJ 1,000 ML IV SCH (12:39)
[2017-07-21] MEDS ORDERED: WARFARIN SOD 2 MG TAB PO SCH (16:00)
--- NOTE | 2017-07-21 17:14 | HHI.PR ---
Review/Management Diagnosis Large left posterior MCA stroke Plan because of large size of stroke, recommend holding coumadin for now. continue asa. Re check CT brain Sunday. Diagnosis/Plan: Subjective Subjective Comments No acute events reported language was showing mild improvement earlier today Active Medications Current Medications Medications (Trade) Dose Ordered Sig/Jake Route Start Time Stop Time Status Last Admin Cefazolin Sodium/ Dextrose 50 ml @ 100 mls/hr Q8H IV 07/18/17 21:00 07/21/17 12:38 Sodium Chloride 1,000 ml @ 40 mls/hr Q24H IV 07/18/17 21:00 07/21/17 12:39 (NS Flush) 2 ml UNSCH PRN IV FLUSH 07/18/17 20:30 (NS Flush) 2 ml BID IV FLUSH 07/18/17 21:00 07/21/17 08:08 (Zofran Inj) 4 mg Q6H PRN IVP 07/18/17 20:30 (Narcan Inj) 0.4 mg UNSCH PRN IV PUSH 07/18/17 20:30 (Neurontin) 100 mg TID PO 07/19/17 09:00 07/21/17 12:39 (Lopressor) 100 mg BID PO 07/19/17 09:00 Future Hold 07/19/17 21:47 (Aldactone) 25 mg DAILY PO 07/19/17 09:00 07/21/17 08:07 (Tricor) 48 mg DAILY PO 07/19/17 09:00 07/21/17 08:06 (Altace) 10 mg BID PO 07/19/17 09:00 07/21/17 08:06 (NovoLOG SUPPLEMENTAL SCALE) 1 ACHS SQ 07/20/17 08:00 07/21/17 11:54 (D50w (Vial) Inj) 50 ml UNSCH PRN IV PUSH 07/20/17 07:45 (Glucagon Inj) 1 mg UNSCH PRN OTHER 07/20/17 07:45 (NovoLIN 70/30 INJ) 10 units BID SQ 07/21/17 21:00 (Lipitor) 40 mg HS PO 07/21/17 21:00 (Ecotrin Ec) 81 mg DAILY PO 07/22/17 09:00 (Coumadin) 2 mg DAILY@16 PO 07/21/17 16:00 07/21/17 14:40 Allergies Allergies Coded Allergies insulin detemir (Verified Allergy, Intermediate, LIPS AND THROAT SWELLS, ) insulin glargine (Verified Allergy, Intermediate, LIPS AND THROAT SWELLS, 07/08) *MDRO Multi-Drug Resistant Organism (Verified Allergy, Unknown, 07/08/17) penicillin G (Verified Allergy, Unknown, Rash, 07/16/17) Uncoded Allergies CITRUS ( Adverse Reaction, Intermediate, SEVERE UPSET STOMACH, 01/22/14) Exam I&O / VS 07/21/17 07/21/17 07/22/17 15:00 23:00 07:00 Intake Total 700 ml 570 ml Balance 700 ml 570 ml Intake Oral 700 ml IV Total 570 ml # Voids 4 Vital Signs Date Time Temp Pulse Resp B/P (MAP) Pulse Ox O2 Delivery O2 Flow Rate FiO2 07/21/17 16:08 100.4 93 20 170/75 (106) 99 07/21/17 13:24 100.1 102 19 187/87 (120) 99 07/21/17 09:00 98.5 100 20 161/86 (111) 98 07/21/17 08:00 88 07/21/17 04:00 97.4 98 22 169/77 (107) 99 07/21/17 00:13 90 07/21/17 00:00 97.0 89 22 150/70 (96) 95 07/20/17 20:02 98 21 07/20/17 20:00 97.1 87 22 148/97 (114) 100 07/20/17 19:45 86 07/20/17 18:00 98.4 76 18 138/64 (88) 99 Exam Comments alert, Wernicke aphasia slightly improved. He can follow simple one step commands. Cn intact MOTOR 5/5 BUE , no drift Objective Radiology Results repeat CT brain--large left posterior parietal / temporal cva, no hemorrhage Micro and Labs Laboratory Tests Test 07/21/17 05:05 Prothrombin Time 22.3 Prothromb Time International Ratio 2.2 Blood Urea Nitrogen 25 Creatinine 1.00 Random Glucose 201 Calcium Level 7.7 Magnesium Level 1.3 Sodium Level 142 Potassium Level 3.9 Chloride Level 111 Carbon Dioxide Level 22.4 Anion Gap 9 Estimat Glomerular Filtration Rate 72 Date/Time Source Procedure Growth Status 07/18/17 19:05 Blood Peripheral Aerobic Blood Culture - Preliminary NO GROWTH IN 3 DAYS Resulted 07/18/17 19:05 Blood Peripheral Anaerobic Blood Culture - Preliminary NO GROWTH IN 3 DAYS Resulted Maurice August MD PhD Jul 21, 2017 17:14
[2017-07-21] MEDS: INSULIN HUMAN NPH/R 70/30 1,000 UNITS/10 ML VIAL SQ SCH (20:20)
[2017-07-21] MEDS: ATORVASTATIN 40 MG TAB PO SCH (20:20)
[2017-07-22] VITALS: BP 166/86; PULSE 109; RESP 18; TEMP 99.8; O2SAT 100
[2017-07-22 04:00] VITALS: BP 156/81; PULSE 110; RESP 20; TEMP 98.4; O2SAT 99
[2017-07-22] MEDS: ceFAZolin 2 GM PREMIX 50 ML IV SCH ×3 (05:13→21:43)
[2017-07-22 05:45] LABS: AUTOMATED NEUTROPHIL # 10.6 TH/MM3 (1.8-7.7); BASOPHIL % 0.2 % (0.0-2.0); EOSINOPHIL # 0.1 TH/MM3 (0-0.4); EOSINOPHIL % 0.9 % (0.0-4.0); HEMATOCRIT 28.7 % (39.0-51.0); HEMOGLOBIN 9.1 GM/DL (13.0-17.0); LYMPHOCYTE # 1.7 TH/MM3 (1.0-4.8); MEAN CORPUSCULAR HEMOGLOBIN 30.3 PG (27.0-34.0); MEAN CORPUSCULAR HGB CONC 31.6 % (32.0-36.0); MEAN PLATELET VOLUME 7.3 FL (7.0-11.0); MONO % 7.8 % (0.0-8.0); NEUT % 78.1 % (16.0-70.0); PLATELET COUNT 446 TH/MM3 (150-450); RED BLOOD COUNT 2.99 MIL/MM3 (4.50-5.90); RED CELL DISTRIBUTION WIDTH 13.8 % (11.6-17.2); WHITE BLOOD COUNT 13.4 TH/MM3 (4.0-11.0)
[2017-07-22 05:56] LABS: BICARBONATE 21.8 MEQ/L (21.0-32.0); CALCIUM 7.8 MG/DL (8.5-10.1)
[2017-07-22 06:00] LABS: CREATININE 1.3 MG/DL (0.60-1.30)
[2017-07-22 06:02] LABS: INTERNATIONAL NORMALIZED RATIO 2.2 RATIO; PROTHROMBIN TIME - PATIENT 21.9 SEC (9.8-11.6)
[2017-07-22 08:00] VITALS: BP 149/81; PULSE 121; PULSE 82; RESP 18; TEMP 98.1; O2SAT 95
[2017-07-22] MEDS: GABAPENTIN 100 MG CAP PO SCH ×3 (09:00→16:45)
[2017-07-22] MEDS: RAMIPRIL 5 MG CAP PO SCH ×2 (09:00→21:47)
[2017-07-22] MEDS: SPIRONOLACTONE 25 MG TAB PO SCH (09:00)
[2017-07-22] MEDS: FENOFIBRATE 48 MG TAB PO SCH (09:00)
[2017-07-22] MEDS: SODIUM CHLORIDE 0.9% FLUSH 10 ML FLUSH IV FLUSH SCH ×2 (09:00→21:43)
[2017-07-22] MEDS: ASPIRIN EC 81 MG TABEC PO SCH (09:00)
[2017-07-22] MEDS: INSULIN ASPART SUPPLEMENTAL SCALE SQ SCH ×4 (09:05→21:52)
[2017-07-22] MEDS: INSULIN HUMAN NPH/R 70/30 1,000 UNITS/10 ML VIAL SQ SCH ×2 (09:07→21:48)
--- NOTE | 2017-07-22 09:29 | HHI.PR ---
Subjective Remarks Patient seen and evaluated today in follow-up for acute stroke with expressive aphasia. Appears to be following commands better today. More awake. Discussed with neurology yesterday. Follow-up imaging in a.m. planned Objective Vitals Vital Signs Date Time Temp Pulse Resp B/P (MAP) Pulse Ox O2 Delivery O2 Flow Rate FiO2 07/22/17 08:00 82 07/22/17 04:00 98.4 110 20 156/81 (106) 99 07/22/17 00:00 99.8 109 18 166/86 (112) 100 07/21/17 21:10 95 21 07/21/17 20:25 82 07/21/17 20:00 97.2 100 21 147/83 (104) 99 07/21/17 16:08 100.4 93 20 170/75 (106) 99 07/21/17 13:24 100.1 102 19 187/87 (120) 99 I/O 07/21/17 07/21/17 07/21/17 07/22/17 07/22/17 07/22/17 07:00 15:00 23:00 07:00 15:00 23:00 Intake Total 303 ml 700 ml 1340 ml 170 ml Balance 303 ml 700 ml 1340 ml 170 ml Intake Oral 700 ml 720 ml 120 ml IV Total 303 ml 620 ml 50 ml # Voids 2 4 4 3 # Bowel Movements 1 0 0 Result Diagram: 07/22/17 0515 07/22/17 0515 Objective Remarks GENERAL: This is a well-nourished, well-developed patient who is alert, attempts to follow commands CARDIOVASCULAR: Sinus tachycardia without murmurs, gallops, or rubs. RESPIRATORY: Clear to auscultation. Breath sounds equal bilaterally. No wheezes , rales, or rhonchi. GASTROINTESTINAL: Abdomen soft, non-tender, nondistended. Normal active bowel sounds MUSCULOSKELETAL: Brace on RLE, frozen Left shoulder, Extremities without clubbing, cyanosis, or edema. NEURO: Following commands and communicating needs in an improved manner A/P Problem List: (1) CVA (cerebral vascular accident) ICD Code: I63.9 - Cerebral infarction, unspecified Plan: telemetry Neuro eval appreciated Repeat CT shows evolving infarct without hemorrhage We will continue aspirin and blood pressure medication Patient with severe receptive and expressive language abnormalities and diet has been modified, appears to have some improvement today Patient with Jose Armando tarango, on Coumadin (INR 2.2 after warfarin held) (2) DM2 (diabetes mellitus, type 2) ICD Code: E11.9 - Type 2 diabetes mellitus without complications Plan: Continue with Accu-Cheks Diabetic diet Insulin 10 units bid (home dose 20 bid) (3) Atrial fibrillation ICD Code: I48.91 - Atrial fibrillation Status: Acute Plan: Currently in sinus with rate control on metoprolol twice daily Patient's Coumadin had been held due to acute infarct (4) Metabolic encephalopathy ICD Code: G93.41 - Metabolic encephalopathy Plan: Likely secondary to stroke, appears to be improving Continue with neuro checks Neurology following (5) Infection of total right knee replacement ICD Code: T84.53XA - Infection and inflammatory reaction due to internal right knee prosthesis, initial encounter Status: Acute Plan: Status post right knee irrigation, debridement and removal of right total knee /arthroplasty and placement of antibiotic prosthesis secondary to right knee septic arthritis on 07/11/2017. MSSA treated with Ancef IV with projected end date for August 21, 2017. Discharge Planning Likely to rehab when stable (was at [facility]), evaluate for inpatient rehab Carolyn Castro MD Jul 22, 2017 09:29
[2017-07-22 12:00] VITALS: BP 169/97; PULSE 104; RESP 16; TEMP 97; O2SAT 95
[2017-07-22 16:00] VITALS: BP 150/80; PULSE 100; RESP 16; TEMP 97; O2SAT 95
[2017-07-22 20:00] VITALS: BP 120/75; PULSE 118; PULSE 123; RESP 20; TEMP 98.6; O2SAT 100
[2017-07-22] MEDS: ATORVASTATIN 40 MG TAB PO SCH (21:47)
[2017-07-23] VITALS (7 sets, daily range): BP systolic 116–150; BP diastolic 59–90; PULSE 102–130; RESP 17–20; TEMP 97.8–99.5; O2SAT 95–100
[2017-07-23] MEDS: SODIUM CHLORIDE 0.9% FLUSH 10 ML FLUSH IV FLUSH PRN ×2 (04:20→12:46)
[2017-07-23] MEDS: ceFAZolin 2 GM PREMIX 50 ML IV SCH ×3 (04:20→20:54)
[2017-07-23 05:12] LABS: PROTHROMBIN TIME - PATIENT 20.2 SEC (9.8-11.6)
[2017-07-23] MEDS: INSULIN ASPART SUPPLEMENTAL SCALE SQ SCH ×4 (09:07→20:58)
[2017-07-23] MEDS: SODIUM CHLORIDE 0.9% FLUSH 10 ML FLUSH IV FLUSH SCH ×2 (09:07→20:54)
[2017-07-23] MEDS: SPIRONOLACTONE 25 MG TAB PO SCH (09:08)
[2017-07-23] MEDS: FENOFIBRATE 48 MG TAB PO SCH (09:08)
[2017-07-23] MEDS: ASPIRIN EC 81 MG TABEC PO SCH (09:08)
[2017-07-23] MEDS: RAMIPRIL 5 MG CAP PO SCH ×2 (09:08→20:54)
[2017-07-23] MEDS: INSULIN HUMAN NPH/R 70/30 1,000 UNITS/10 ML VIAL SQ SCH ×2 (09:08→20:55)
[2017-07-23] MEDS: GABAPENTIN 100 MG CAP PO SCH ×3 (09:08→17:46)
--- NOTE | 2017-07-23 11:57 | HHI.PR ---
Subjective Remarks Patient seen today in follow-up for large stroke. Doing better today with his aphasia. Heart rates a bit up and he has been off his metoprolol. Blood pressures improved. INR is 2.0 Objective Vitals Vital Signs Date Time Temp Pulse Resp B/P (MAP) Pulse Ox O2 Delivery O2 Flow Rate FiO2 07/23/17 09:18 98.2 130 18 116/76 (89) 95 07/23/17 04:00 97.8 123 20 146/90 (108) 98 07/23/17 00:00 99.5 124 20 150/90 (110) 97 07/22/17 20:00 98.6 123 20 120/75 (90) 100 07/22/17 20:00 118 07/22/17 16:00 97.0 100 16 150/80 (103) 95 07/22/17 12:00 97.0 104 16 169/97 (121) 95 I/O 07/22/17 07/22/17 07/22/17 07/23/17 07/23/17 07/23/17 06:59 14:59 22:59 06:59 14:59 22:59 Intake Total 170 ml 1220 ml 50 ml Balance 170 ml 1220 ml 50 ml Intake Oral 120 ml 600 ml IV Total 50 ml 620 ml 50 ml # Voids 3 3 # Bowel Movements 0 Result Diagram: 07/22/17 0515 07/22/17 0515 Imaging Last Impressions Head CT 07/21/17 1000 Signed Impressions: CONCLUSION: 1. Evolving subacute large infarct involving the left parietal and temporal lo be new from prior exam of July 18, 2017. No evidence of midline shift or signifi cant mass effect. No evidence of hemorrhage. Shoulder X-Ray 07/19/17 0000 Signed Impressions: CONCLUSION: Degenerative changes without fracture Head Magnetic Resonance Angiography 07/19/17 0000 Signed Impressions: CONCLUSION: 1. The exam is limited due to motion artifact. 2. The patient has known cortical infarct. No large or central vessel occlusio n is evident. 3. 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 Carotid Artery Ultrasound 07/19/17 Signed Impressions: CONCLUSION: 1. Right Internal Carotid Artery: Approximate 40-50% stenosis. 2. Left Internal Carotid Artery: No hemodynamic significant stenosis. Brain MRI 07/19/17 Signed Impressions: CONCLUSION: 1. 8.5 cm acute infarct in the posterior aspect of the left hemisphere probabl y with associated minimal petechial hemorrhage as above. There is some localize d sulcal effacement. No midline shift. 2. Remote infarct right occipital lobe. Chest X-Ray 07/18/17 8194 Signed Impressions: CONCLUSION: 1. No acute abnormality or significant interval change. Objective Remarks GENERAL: This is a well-nourished, well-developed patient who is alert, attempts to follow commands CARDIOVASCULAR: Sinus tachycardia without murmurs, gallops, or rubs. RESPIRATORY: Clear to auscultation. Breath sounds equal bilaterally. No wheezes , rales, or rhonchi. GASTROINTESTINAL: Abdomen soft, non-tender, nondistended. Normal active bowel sounds MUSCULOSKELETAL: Brace on RLE, frozen Left shoulder, Extremities without clubbing, cyanosis, or edema. NEURO: Following commands and communicating needs in an improved manner A/P Problem List: (1) CVA (cerebral vascular accident) ICD Code: I63.9 - Cerebral infarction, unspecified Plan: Telemetry Neuro eval appreciated Repeat CT shows evolving infarct without hemorrhage We will continue aspirin and blood pressure medication Patient with severe receptive and expressive language abnormalities and diet has been modified, appears to have some improvement today Patient with A. fib, on Coumadin (INR 2.0 after warfarin held) (2) DM2 (diabetes mellitus, type 2) ICD Code: E11.9 - Type 2 diabetes mellitus without complications (3) Atrial fibrillation ICD Code: I48.91 - Atrial fibrillation Status: Acute Plan: Currently tachycardia while off of metoprolol We will resume metoprolol Patient's Coumadin had been held due to acute infarct, if his INR is still quite elevated Hematology to follow-up regarding anticoagulation given this patient with high stroke risk (4) Metabolic encephalopathy ICD Code: G93.41 - Metabolic encephalopathy Plan: Likely secondary to stroke, appears to be improving daily Continue with neuro checks Neurology following (5) Infection of total right knee replacement ICD Code: T84.53XA - Infection and inflammatory reaction due to internal right knee prosthesis, initial encounter Status: Acute Plan: Status post right knee irrigation, debridement and removal of right total knee /arthroplasty and placement of antibiotic prosthesis secondary to right knee septic arthritis on 07/11/2017. MSSA treated with Ancef IV with projected end date for August 21, 2017. Remove sandra 06/23 Orthopedic follow as needed FOR RANGE OF MOTION RIGHT KNEE AND WEIGHT BEARING TOLERATED IN CANVAS KNEE SPLINT (6) Coagulopathy ICD Code: D68.9 - Coagulation defect, unspecified Plan: Patient has been off of warfarin for at least 4 days and his INR still therapeutic. He is currently on aspirin alone Patient has atrial fibrillation and I am not sure about his plans for anticoagulation given this new infarct while possibly anticoagulated (patient's Coumadin was held perioperatively) hematology eval pending Discharge Planning Likely to rehab when stable ([facility] evaluate for inpatient rehab Carolyn Castro MD Jul 23, 2017 11:57
--- NOTE | 2017-07-23 15:02 | RADRPT ---
EXAM DATE: 07/23/2017 2:46 PM EDT AGE/SEX: 77 years / Male INDICATIONS: Follow up CVA. CLINICAL DATA: This is the patient's subsequent encounter. Patient reports that signs and symptoms h ave been present for 2 days and indicates a pain score of 0/10. MEDICAL/SURGICAL HISTORY: Hypertension. Diabetes. CABG. Fusion, cervical. RADIATION DOSE: 60.90 CTDI (mGy) ;Tabletop exam COMPARISON: [facility], CT BRAIN W/O CONTRAST, 07/21/2017. . TECHNIQUE: CT of the head without contrast. Using automated exposure control and adjustment of the mA and/or kV according to patient size, radiation dose was kept as low as reasonably achievable to ob tain optimal diagnostic quality images. FINDINGS: Evolving hypodensity in the left parietal region. Stable encephalomalacia in the right occipital eren on. No evidence of hemorrhage. No brain mass. Ventricles are stable. Extracranial structures are birdie sly stable and benign. CONCLUSION: Evolving left parietal stroke. No evidence of macroscopic hemorrhage Electronically signed by: Carlos Alberto Gage MD 07/23/2017 3:01 PM EDT
[2017-07-23] MEDS ORDERED: PHYTONADIONE 5 MG TAB PO ONE (17:00)
[2017-07-23] MEDS ORDERED: PHYTONADIONE 5 MG/SWFI 5 ML ORAL SYR PO ONE (17:00)
--- NOTE | 2017-07-23 17:01 | PD.CONS ---
History of Present Illness Service Hematology/Oncology. Consult Requested By Hospitalist Service. Reason for Consult Persistent elevation in PT and INR levels despite discontinuation of warfarin. Primary Care Physician Non-Staff Diagnoses: History of Present Illness Chief Complaint: Mr. Hsieh has significant expressive and receptive aphasia. He has difficulty verbalizing complaints and also comprehending questions. Much of the history is obtained from the electronic health record. History of Presenting Illness: Mr. Hiseh is a 77-year-old man with a history of diabetes, atrial fibrillation , he had been on therapeutic anticoagulation with warfarin, recent MSSA infection of a right knee prosthesis. He presented to [facility] on 07/18/2017 for further workup of altered mental status. [facility] to receive intravenous antibiotic therapy with cefazolin following I&D and debridement of an infected right knee prosthesis. The patient shortly after presentation developed expressive aphasia and receptive aphasia, imaging studies of the brain performed on 07/19/2017 indicated an ischemic stroke involving the left parieto-occipital lobe, the territory infarct it was quite significant. The patient at that time was evaluated by neurology, recommendation to discontinue anticoagulation was made at that time to help decrease the risk of hemorrhagic conversion, the patient was recommended antiplatelet therapy with aspirin. Last dose of warfarin was delivered on 07/21/2017 (2 mg dose was delivered). The patient's PT/INR have remained elevated; INR earlier today was 2. The patient himself is unable to verbalize any significant complaints, he however denies having pain, he denies difficulty breathing, denies fevers or chills. He admits he has difficulty speaking and understanding. Review of Systems Constitutional: COMPLAINS OF: Fatigue, DENIES: Diaphoretic episodes, Fever, Weight gain, Weight loss, Chills, Dizziness, Change in appetite, Night Sweats Endocrine: DENIES: Heat/cold intolerance, Polydipsia, Polyuria, Polyphagia Eyes: DENIES: Blurred vision, Diplopia, Eye inflammation, Eye pain, Vision loss , Photosensitivity, Double Vision Ears, nose, mouth, throat: DENIES: Tinnitus, Hearing loss, Vertigo, Nasal discharge, Oral lesions, Throat pain, Hoarseness, Ear Pain, Running Nose, Epistaxis, Sinus Pain, Toothache, Odynophagia Respiratory: DENIES: Apneas, Cough, Snoring, Wheezing, Hemoptysis, Sputum production, Shortness of breath Cardiovascular: DENIES: Chest pain, Palpitations, Syncope, Dyspnea on Exertion , PND, Lower Extremity Edema, Orthopnea, Claudication Gastrointestinal: COMPLAINS OF: Difficulty Swallowing, DENIES: Abdominal pain, Black stools, Bloody stools, Constipation, Diarrhea, Nausea, Vomiting, Anorexia Genitourinary: DENIES: Sexual dysfunction, Urinary frequency, Urinary incontinence, Urgency, Hematuria, Dysuria, Nocturia, Penile Discharge, Testicular Pain, Testicular Swelling Musculoskeletal: DENIES: Joint pain, Muscle aches, Stiffness, Joint Swelling, Back pain, Neck pain Integumentary: DENIES: Abnormal pigmentation, Nail changes, Pruritus, Rash Hematologic/lymphatic: DENIES: Bruising, Lymphadenopathy Immunologic/allergic: DENIES: Eczema, Urticaria Neurologic: COMPLAINS OF: Abnormal gait, Localized weakness, Paresthesias, Speech Problems, Poor Balance, DENIES: Headache, Seizures, Tremor Psychiatric: COMPLAINS OF: Confusion, DENIES: Anxiety, Mood changes, Depression , Hallucinations, Agitation, Suicidal Ideation, Homicidal Ideation, Delusions Past Family Social History Allergies: Coded Allergies: insulin detemir (Verified Allergy, Intermediate, LIPS AND THROAT SWELLS, ) insulin glargine (Verified Allergy, Intermediate, LIPS AND THROAT SWELLS, 07/08/17) *MDRO Multi-Drug Resistant Organism (Verified Allergy, Unknown, 07/08/17) C.diff 09/2013 penicillin G (Verified Allergy, Unknown, Rash, 07/16/17) PT STATES UNKNOWN REACTION Uncoded Allergies: CITRUS (Adverse Reaction, Intermediate, SEVERE UPSET STOMACH, 01/22/14) Past Medical History Atrial fibrillation Coronary artery disease Hyperlipidemia Diabetes Hypertension MSSA infection of the right knee prosthesis Left occipital parietal ischemic infarction Past Surgical History Right knee replacement Right knee debridement CABG Cervical spine fusion Active Ordered Medications Cefazolin 2 g IV every 8 hours Aspirin 81 mg once a day Atorvastatin 40 mg p.o. nightly Fenofibrate 48 mg p.o. daily Gabapentin 100 mg p.o. 3 times daily Insulin human sliding scale NPH/regular 70/30 10 units subcu twice daily NovoLog insulin sliding scale before meals and at bedtime Metoprolol 100 mg p.o. twice daily Zofran 4 mg IV every 6 hours as needed for nausea and vomiting Vitamin K 5 mg p.o. 1 Ramipril 10 mg p.o. twice daily Spironolactone 25 mg p.o. daily Family History Unable to obtain. Social History On a bill to obtain a full social history, the patient however reports he is , his is out of town. He is originally from [place]. Physical Exam Vital Signs Vital Signs Date Time Temp Pulse Resp B/P (MAP) Pulse Ox O2 Delivery O2 Flow Rate FiO2 07/23/17 13:58 98.6 110 19 119/59 (79) 98 07/23/17 09:18 98.2 130 18 116/76 (89) 95 07/23/17 08:00 127 07/23/17 04:00 97.8 123 20 146/90 (108) 98 07/23/17 00:00 99.5 124 20 150/90 (110) 97 07/22/17 20:00 98.6 123 20 120/75 (90) 100 07/22/17 20:00 118 Physical Exam GENERAL: Elderly male, laying in bed, he appears to be no acute distress. He has apparent expressive and receptive aphasia. HEAD: Atraumatic. Normocephalic. No temporal or scalp tenderness. EYES: Pupils equal round and reactive. Extraocular motions intact. No scleral icterus. No injection or drainage. ENT: Nose without bleeding, purulent drainage or septal hematoma. Throat without erythema, tonsillar hypertrophy or exudate. Uvula midline. Airway patent. NECK: Trachea midline. No JVD or lymphadenopathy. Supple, nontender, no meningeal signs. CARDIOVASCULAR: Irregular rhythm, S1-S2 no obvious murmurs rubs gallops. RESPIRATORY: Clear to auscultation. Breath sounds equal bilaterally. No wheezes , rales, or rhonchi. GASTROINTESTINAL: Abdomen soft, non-tender, nondistended. No hepato-splenomegaly , or palpable masses. No guarding. MUSCULOSKELETAL: Decreased muscle mass and tone. The left knee has a surgical dressing overlying it, the entire knee is in a removable cast. Extremities: No pretibial edema. NEUROLOGICAL: Awake and alert. Cranial nerves II through XII intact. Upper extremities 4 x 5 strength bilaterally. Left foot with normal strength, right foot appears to be weak.. Has expressive and receptive aphasia. He speaks but at times the words are incomprehensible. He is unable to identify common objects such as a pen, wallet and a cup. Laboratory Laboratory Tests Test 07/23/17 04:15 Prothrombin Time 20.2 Prothromb Time International Ratio 2.0 Date/Time Source Procedure Growth Status 07/18/17 19:05 Blood Peripheral Aerobic Blood Culture - Final NO GROWTH IN 5 DAYS Complete 07/18/17 19:05 Blood Peripheral Anaerobic Blood Culture - Final NO GROWTH IN 5 DAYS Complete Result Diagram: 07/22/17 0515 07/22/17 0515 Imaging MRI of the brain without contrast dated 07/19/2017: Conclusion: 1.8.5 cm acute infarct in the posterior aspect of the left hemisphere probably with associated minimal petechial hemorrhage. Remote infarct in the right occipital lobe. Assessment and Plan Assessment and Plan Mr. Hsieh is a 77-year-old man with multiple medical comorbid conditions including type 2 diabetes, atrial fibrillation, hyperlipidemia, hypertension, coronary artery disease and recent MSSA infection of a right knee prosthesis. He [facility] for further workup and management of altered mental status. Initial CT imaging performed in the emergency department revealed no acute findings. Repeat MRI performed the following day indicated a large territory acute infarct involving the left posterior occipital lobe measuring up to 8.5 cm. Additionally a subacute/ chronic infarcted area was identified within the right occipital lobe. The patient was evaluated by neurology who recommended the patient's anticoagulation with warfarin be discontinued due to the high risk of hemorrhagic conversion, the patient was recommended antiplatelet therapy with aspirin instead. Despite anticoagulation having been discontinued on 07/21/2017 the patient's PT and INR remain elevated. The most recent dose of warfarin was 2 mg p.o on 2017. In my assessment the patient likely has persistent warfarin effect, the warfarin effect is likely slow to reverse due to the patient's ongoing antibiotic therapy which likely has affected his gut bhavya, the gut bhavya is typically responsible for the production of vitamin K. Additionally, typically 3-5 days is what it takes for the warfarin effect to reverse itself in the average individual. I will order a single dose of oral vitamin K to help reverse the warfarin effect. Plan: 1. Elevated PT/INR levels: Single dose of vitamin K 5 mg has been ordered. Repeat PT/INR levels on 07/24/2017. As per recommendations of neurology. At this point I do not suspect a primary coagulopathy. Rylan Valencia MD Jul 23, 2017 17:01
--- NOTE | 2017-07-23 19:31 | HHI.PR ---
Review/Management Diagnosis Large left posterior MCA stroke CT today is stable with no hemorrhage Plan continue to hold coumadin due to large stroke size. Recheck CT brain toward end of week--Sunday and if stable with no hemorrhage, could resume coumadin at that time and allow INR to slowly increase Diagnosis/Plan: Subjective Subjective Comments No acute events reported given vitamin K today for persistently elevated INR Active Medications Current Medications Medications (Trade) Dose Ordered Sig/Jake Route Start Time Stop Time Status Last Admin Cefazolin Sodium/ Dextrose 50 ml @ 100 mls/hr Q8H IV 07/18/17 21:00 07/23/17 12:46 (NS Flush) 2 ml UNSCH PRN IV FLUSH 07/18/17 20:30 07/23/17 12:46 (NS Flush) 2 ml BID IV FLUSH 07/18/17 21:00 07/23/17 09:07 (Zofran Inj) 4 mg Q6H PRN IVP 07/18/17 20:30 (Narcan Inj) 0.4 mg UNSCH PRN IV PUSH 07/18/17 20:30 (Neurontin) 100 mg TID PO 07/19/17 09:00 07/23/17 17:46 (Lopressor) 100 mg BID PO 07/19/17 09:00 Future hold 07/19/17 21:47 (Aldactone) 25 mg DAILY PO 07/19/17 09:00 07/23/17 09:08 (Tricor) 48 mg DAILY PO 07/19/17 09:00 07/23/17 09:08 (Altace) 10 mg BID PO 07/19/17 09:00 07/23/17 09:08 (NovoLOG SUPPLEMENTAL SCALE) 1 ACHS SQ 07/20/17 08:00 07/23/17 17:46 (D50w (Vial) Inj) 50 ml UNSCH PRN IV PUSH 07/20/17 07:45 (Glucagon Inj) 1 mg UNSCH PRN OTHER 07/20/17 07:45 (NovoLIN 70/30 INJ) 10 units BID SQ 07/21/17 21:00 07/23/17 09:08 (Lipitor) 40 mg HS PO 07/21/17 21:00 07/22/17 21:47 (Ecotrin Ec) 81 mg DAILY PO 07/22/17 09:00 07/23/17 09:08 Allergies Allergies Coded Allergies insulin detemir (Verified Allergy, Intermediate, LIPS AND THROAT SWELLS, ) insulin glargine (Verified Allergy, Intermediate, LIPS AND THROAT SWELLS, 07/08) *MDRO Multi-Drug Resistant Organism (Verified Allergy, Unknown, 07/08/17) penicillin G (Verified Allergy, Unknown, Rash, 07/16/17) Uncoded Allergies CITRUS ( Adverse Reaction, Intermediate, SEVERE UPSET STOMACH, 01/22/14) Exam I&O / VS 07/23/17 07/23/17 07/24/17 15:00 23:00 07:00 Intake Total 350 ml 720 ml Balance 350 ml 720 ml Intake Oral 300 ml 720 ml IV Total 50 ml # Voids 4 # Bowel Movements 0 Vital Signs Date Time Temp Pulse Resp B/P (MAP) Pulse Ox O2 Delivery O2 Flow Rate FiO2 07/23/17 16:00 98.1 115 17 117/62 (80) 99 07/23/17 13:58 98.6 110 19 119/59 (79) 98 07/23/17 09:18 98.2 130 18 116/76 (89) 95 07/23/17 08:00 127 07/23/17 04:00 97.8 123 20 146/90 (108) 98 07/23/17 00:00 99.5 124 20 150/90 (110) 97 07/22/17 20:00 98.6 123 20 120/75 (90) 100 07/22/17 20:00 118 Exam Comments alert, Wernicke aphasia slightly improved. He can follow simple one step commands. Cn intact MOTOR 5/5 BUE , no drift Objective Micro and Labs Laboratory Tests Test 07/23/17 04:15 Prothrombin Time 20.2 Prothromb Time International Ratio 2.0 Date/Time Source Procedure Growth Status 07/18/17 19:05 Blood Peripheral Aerobic Blood Culture - Final NO GROWTH IN 5 DAYS Complete 07/18/17 19:05 Blood Peripheral Anaerobic Blood Culture - Final NO GROWTH IN 5 DAYS Complete Maurice August MD PhD Jul 23, 2017 19:31
[2017-07-23] MEDS: METOPROLOL TARTRATE 100 MG TAB PO SCH (20:54)
[2017-07-23] MEDS: ATORVASTATIN 40 MG TAB PO SCH (20:55)
[2017-07-24] VITALS: BP 117/69; PULSE 75; RESP 20; TEMP 97.6; O2SAT 100
[2017-07-24 04:00] VITALS: BP 114/56; PULSE 76; RESP 20; TEMP 96.4; O2SAT 98
[2017-07-24] MEDS: ceFAZolin 2 GM PREMIX 50 ML IV SCH ×3 (04:58→21:58)
[2017-07-24] MEDS: SODIUM CHLORIDE 0.9% FLUSH 10 ML FLUSH IV FLUSH PRN (04:59)
[2017-07-24 06:47] LABS: INTERNATIONAL NORMALIZED RATIO 1.5 RATIO; PROTHROMBIN TIME - PATIENT 15.6 SEC (9.8-11.6)
[2017-07-24 08:00] VITALS: BP 134/62; PULSE 91; RESP 20; TEMP 98.3; O2SAT 98
[2017-07-24] MEDS: RAMIPRIL 5 MG CAP PO SCH ×2 (08:48→21:59)
[2017-07-24] MEDS: GABAPENTIN 100 MG CAP PO SCH ×3 (08:48→17:18)
[2017-07-24] MEDS: SPIRONOLACTONE 25 MG TAB PO SCH (08:48)
[2017-07-24] MEDS: ASPIRIN EC 81 MG TABEC PO SCH (08:48)
[2017-07-24] MEDS: METOPROLOL TARTRATE 100 MG TAB PO SCH ×2 (08:48→21:58)
[2017-07-24] MEDS: SODIUM CHLORIDE 0.9% FLUSH 10 ML FLUSH IV FLUSH SCH ×2 (08:51→21:58)
[2017-07-24] MEDS: INSULIN ASPART SUPPLEMENTAL SCALE SQ SCH ×4 (08:51→22:02)
[2017-07-24] MEDS: FENOFIBRATE 48 MG TAB PO SCH (08:56)
[2017-07-24] MEDS: INSULIN HUMAN NPH/R 70/30 1,000 UNITS/10 ML VIAL SQ SCH ×2 (08:57→22:00)
--- NOTE | 2017-07-24 11:48 | HHI.PR ---
Subjective Remarks Patient is awake. He can follow some commands. Significant aphasia, difficult to understand. Objective Vitals Vital Signs Date Time Temp Pulse Resp B/P (MAP) Pulse Ox O2 Delivery O2 Flow Rate FiO2 07/24/17 08:00 98.3 91 20 134/62 (86) 98 07/24/17 04:00 96.4 76 20 114/56 (75) 98 07/24/17 00:00 97.6 75 20 117/69 (85) 100 07/23/17 20:00 98.2 102 20 147/68 (94) 100 07/23/17 20:00 106 07/23/17 16:00 98.1 115 17 117/62 (80) 99 07/23/17 13:58 98.6 110 19 119/59 (79) 98 I/O 07/23/17 07/23/17 07/23/17 07/24/17 07/24/17 07/24/17 06:59 14:59 22:59 06:59 14:59 22:59 Intake Total 50 ml 350 ml 720 ml 50 ml 60 ml Balance 50 ml 350 ml 720 ml 50 ml 60 ml Intake Oral 300 ml 720 ml 60 ml IV Total 50 ml 50 ml 50 ml # Voids 4 2 # Bowel Movements 0 0 Result Diagram: 07/22/1715 07/22/17 0515 Objective Remarks GENERAL: Elderly male in no acute distress. CARDIOVASCULAR: Normal rate and regular rhythm without murmurs, gallops, or rubs. RESPIRATORY: Good respiratory efforts. Breath sounds equal and clear to auscultation bilaterally. GASTROINTESTINAL: Abdomen soft, non-tender, non-distended. Normal active bowel sounds MUSCULOSKELETAL: Right lower extremity is in a splint. NEURO: Awake and alert to self only. Can follow some commands. Can squeeze fingers bilateral upper extremities. Not moving lower extremities on command. Significant expressive aphasia. Difficult to understand speech. PSYCH: Appropriate mood and affect. A/P Problem List: (1) CVA (cerebral vascular accident) ICD Code: I63.9 - Cerebral infarction, unspecified Plan: Telemetry Neuro eval appreciated Repeat CT shows evolving infarct without hemorrhage We will continue aspirin and blood pressure medication Patient with severe receptive and expressive language abnormalities and diet has been modified, appears to have some improvement today Patient with A. fib, Coumadin has been on hold. Per neurology, plan to repeat CT on and if stable, may resume Coumadin. (2) DM2 (diabetes mellitus, type 2) ICD Code: E11.9 - Type 2 diabetes mellitus without complications (3) Atrial fibrillation ICD Code: I48.91 - Atrial fibrillation Status: Acute Plan: On metoprolol Patient's Coumadin had been held due to acute infarct Hematology following and is status post another dose of vitamin K. INR down to 1.5. (4) Metabolic encephalopathy ICD Code: G93.41 - Metabolic encephalopathy Plan: Likely secondary to stroke, appears to be improving daily Continue with neuro checks Neurology following (5) Infection of total right knee replacement ICD Code: T84.53XA - Infection and inflammatory reaction due to internal right knee prosthesis, initial encounter Status: Acute Plan: Status post right knee irrigation, debridement and removal of right total knee /arthroplasty and placement of antibiotic prosthesis secondary to right knee septic arthritis on 07/11/2017. MSSA treated with Ancef IV with projected end date for August 21, 2017. Remove sandra 06/23 Orthopedic follow as needed FOR RANGE OF MOTION RIGHT KNEE AND WEIGHT BEARING TOLERATED IN CANVAS KNEE SPLINT (6) Coagulopathy ICD Code: D68.9 - Coagulation defect, unspecified Plan: INR improved status post vitamin K. Appreciate input from hematology. He is currently on aspirin alone Discharge Planning Will need SNF placement Lenny Marti MD Jul 24, 2017 11:48
[2017-07-24 11:53] VITALS: BP 128/64; PULSE 88; RESP 20; TEMP 98; O2SAT 98
[2017-07-24 15:47] VITALS: BP 138/66; PULSE 86; RESP 20; TEMP 98.2; O2SAT 98
[2017-07-24 20:00] VITALS: BP 157/79; PULSE 81; RESP 20; TEMP 97.3; O2SAT 99
[2017-07-24] MEDS: ATORVASTATIN 40 MG TAB PO SCH (21:59)
[2017-07-25] VITALS: BP 109/68; PULSE 71; RESP 20; TEMP 96.7; O2SAT 99
[2017-07-25 03:00] VITALS: BP 141/79; PULSE 78; RESP 18; TEMP 96.8; O2SAT 100
[2017-07-25] MEDS: ceFAZolin 2 GM PREMIX 50 ML IV SCH ×3 (05:24→21:17)
[2017-07-25 06:54] LABS: INTERNATIONAL NORMALIZED RATIO 1.3 RATIO; PROTHROMBIN TIME - PATIENT 13.1 SEC (9.8-11.6)
[2017-07-25 07:50] VITALS: BP 113/60; PULSE 77; RESP 18; TEMP 96.8; O2SAT 99
[2017-07-25] MEDS: INSULIN ASPART SUPPLEMENTAL SCALE SQ SCH ×4 (08:00→21:22)
[2017-07-25] MEDS: GABAPENTIN 100 MG CAP PO SCH ×3 (08:06→17:30)
[2017-07-25] MEDS: SPIRONOLACTONE 25 MG TAB PO SCH (08:06)
[2017-07-25] MEDS: FENOFIBRATE 48 MG TAB PO SCH (08:06)
[2017-07-25] MEDS: RAMIPRIL 5 MG CAP PO SCH ×2 (08:06→21:17)
[2017-07-25] MEDS: SODIUM CHLORIDE 0.9% FLUSH 10 ML FLUSH IV FLUSH SCH ×2 (08:07→21:17)
[2017-07-25] MEDS: ASPIRIN EC 81 MG TABEC PO SCH (08:07)
[2017-07-25] MEDS: METOPROLOL TARTRATE 100 MG TAB PO SCH ×2 (08:07→21:17)
[2017-07-25] MEDS: INSULIN HUMAN NPH/R 70/30 1,000 UNITS/10 ML VIAL SQ SCH ×2 (08:08→21:22)
--- NOTE | 2017-07-25 11:37 | HHI.PR ---
Subjective Remarks Patient reports feeling tired today. Still having issues with expressive aphasia but able to answer yes and no. Objective Vitals Vital Signs Date Time Temp Pulse Resp B/P (MAP) Pulse Ox O2 Delivery O2 Flow Rate FiO2 07/25/17 07:50 96.8 77 18 113/60 (77) 99 07/25/17 00:00 96.7 71 20 109/68 (82) 99 07/24/17 20:00 97.3 81 20 157/79 (105) 99 07/24/17 15:47 98.2 86 20 138/66 (90) 98 07/24/17 11:53 98.0 88 20 128/64 (85) 98 I/O 07/24/17 07/24/17 07/24/17 07/25/17 07/25/17 07/25/17 07:00 15:00 23:00 07:00 15:00 23:00 Intake Total 50 ml 60 ml 930 ml 50 ml Balance 50 ml 60 ml 930 ml 50 ml Intake Oral 60 ml 880 ml 0 ml IV Total 50 ml 50 ml 50 ml # Voids 2 4 2 # Bowel Movements 0 1 Result Diagram: 07/22/17 0515 07/22/17 0515 Objective Remarks GENERAL: Elderly male in no acute distress. CARDIOVASCULAR: Normal rate and regular rhythm without murmurs, gallops, or rubs. RESPIRATORY: Good respiratory efforts. Breath sounds equal and clear to auscultation bilaterally. GASTROINTESTINAL: Abdomen soft, non-tender, non-distended. Normal active bowel sounds MUSCULOSKELETAL: Right lower extremity is in a splint. NEURO: Awake and alert to self only. Can follow some commands. Can squeeze fingers bilateral upper extremities. Not moving lower extremities on command. Significant expressive aphasia. Difficult to understand speech. PSYCH: Appropriate mood and affect. A/P Problem List: (1) CVA (cerebral vascular accident) ICD Code: I63.9 - Cerebral infarction, unspecified Plan: Neuro eval appreciated Repeat CT shows evolving infarct without hemorrhage We will continue aspirin and blood pressure medication Patient with severe receptive and expressive language abnormalities and diet has been modified, appears to have some improvement today Patient with A. fib, Coumadin has been on hold. Per neurology, plan to repeat CT on and if stable, may resume Coumadin. (2) DM2 (diabetes mellitus, type 2) ICD Code: E11.9 - Type 2 diabetes mellitus without complications (3) Atrial fibrillation ICD Code: I48.91 - Atrial fibrillation Status: Acute Plan: On metoprolol Patient's Coumadin had been held due to acute infarct Hematology following and is status post another dose of vitamin K. INR down to 1.3. (4) Metabolic encephalopathy ICD Code: G93.41 - Metabolic encephalopathy Plan: Likely secondary to stroke, appears to be improving daily Continue with neuro checks Neurology following (5) Infection of total right knee replacement ICD Code: T84.53XA - Infection and inflammatory reaction due to internal right knee prosthesis, initial encounter Status: Acute Plan: Status post right knee irrigation, debridement and removal of right total knee /arthroplasty and placement of antibiotic prosthesis secondary to right knee septic arthritis on 07/11/2017. MSSA treated with Ancef IV with projected end date for August 21, 2017. Remove sandra / Orthopedic follow as needed FOR RANGE OF MOTION RIGHT KNEE AND WEIGHT BEARING TOLERATED IN CANVAS KNEE SPLINT (6) Coagulopathy ICD Code: D68.9 - Coagulation defect, unspecified Plan: INR improved status post vitamin K. Appreciate input from hematology. He is currently on aspirin alone Discharge Planning Will need SNF placement Lenny Marti MD Jul 25, 2017 11:37
[2017-07-25 11:40] VITALS: BP 124/60; PULSE 72; RESP 18; TEMP 96.2; O2SAT 98
[2017-07-25 20:00] VITALS: BP 137/77; PULSE 68; RESP 20; TEMP 96; O2SAT 96
[2017-07-25] MEDS: ATORVASTATIN 40 MG TAB PO SCH (21:17)
[2017-07-26] VITALS: BP 119/66; PULSE 70; RESP 20; TEMP 96.8; O2SAT 98
[2017-07-26] MEDS: ceFAZolin 2 GM PREMIX 50 ML IV SCH ×3 (05:39→21:23)
[2017-07-26 06:23] LABS: INTERNATIONAL NORMALIZED RATIO 1.3 RATIO; PROTHROMBIN TIME - PATIENT 12.7 SEC (9.8-11.6)
[2017-07-26 08:00] VITALS: BP 98/54; PULSE 80; RESP 18; TEMP 98.4; O2SAT 80; O2SAT 96
[2017-07-26] MEDS: INSULIN ASPART SUPPLEMENTAL SCALE SQ SCH ×4 (08:39→21:31)
[2017-07-26 08:47] VITALS: BP 110/78
[2017-07-26] MEDS: INSULIN HUMAN NPH/R 70/30 1,000 UNITS/10 ML VIAL SQ SCH ×2 (08:47→21:31)
[2017-07-26] MEDS: SPIRONOLACTONE 25 MG TAB PO SCH (08:50)
[2017-07-26] MEDS: GABAPENTIN 100 MG CAP PO SCH ×3 (08:50→17:14)
[2017-07-26] MEDS: METOPROLOL TARTRATE 100 MG TAB PO SCH ×2 (08:50→21:23)
[2017-07-26] MEDS: ASPIRIN EC 81 MG TABEC PO SCH (08:50)
[2017-07-26] MEDS: SODIUM CHLORIDE 0.9% FLUSH 10 ML FLUSH IV FLUSH SCH ×2 (08:50→20:04)
[2017-07-26] MEDS: FENOFIBRATE 48 MG TAB PO SCH (08:50)
[2017-07-26] MEDS: RAMIPRIL 5 MG CAP PO SCH ×2 (08:50→21:23)
--- NOTE | 2017-07-26 10:10 | RADRPT ---
EXAM DATE: 07/26/2017 9:52 AM EDT AGE/SEX: 77 years / Male INDICATIONS: Follow up CVA. CLINICAL DATA: This is the patient's subsequent encounter. Patient reports that signs and symptoms h ave been present for 1 week and indicates a pain score of 4/10. MEDICAL/SURGICAL HISTORY: Hypertension. Diabetes. CABG. Fusion, cervical. RADIATION DOSE: 62.21 CTDI (mGy) COMPARISON: [facility], CT BRAIN W/O CONTRAST, 07/23/2017. . TECHNIQUE: CT of the head without contrast. Using automated exposure control and adjustment of the mA and/or kV according to patient size, radiation dose was kept as low as reasonably achievable to ob tain optimal diagnostic quality images. FINDINGS: Evolving hypodensity in the posterior left MCA territory is again noted. No evidence of hemorrhage. E ncephalomalacia in the right occipital region is unchanged. There are no new acute findings identifie d. No evidence of brain mass or shift. CONCLUSION: Evolving left parietal stroke. No hemorrhage. Electronically signed by: Carlos Alberto Gage MD 07/26/2017 10:09 AM EDT
[2017-07-26 13:26] VITALS: BP 111/57; PULSE 65; RESP 18; TEMP 98.8; O2SAT 98
[2017-07-26] MEDS ORDERED: ECASA81 PO (15:00)
--- NOTE | 2017-07-26 15:04 | HHI.DS ---
Discharge Summary Admission Date July 19, 2017 at 16:05 Discharge Date: Jul 26, 2017 Admitting Diagnosis AMS (1) CVA (cerebral vascular accident) ICD Code: I63.9 - Cerebral infarction, unspecified (2) DM2 (diabetes mellitus, type 2) ICD Code: E11.9 - Type 2 diabetes mellitus without complications (3) Atrial fibrillation ICD Code: I48.91 - Atrial fibrillation Status: Acute (4) Metabolic encephalopathy ICD Code: G93.41 - Metabolic encephalopathy (5) Infection of total right knee replacement ICD Code: T84.53XA - Infection and inflammatory reaction due to internal right knee prosthesis, initial encounter Status: Acute (6) Coagulopathy ICD Code: D68.9 - Coagulation defect, unspecified Procedures None Brief History - From Admission HPI from the admitting physician This is a 77-year-old male patient with a known medical history of atrial fibrillation on anticoagulation, hyperlipidemia, diabetes, CAD and hypertension who presented to the ED with altered mental status. He was recently admitted on July 10, 2017 to the hospital for septic knee, underwent right knee irrigation, debridement and removal of right total knee arthroplasty with placement of antibiotic prosthesis. He was discharged to SNF and placed on IV antibiotics Ceftin with projected end date for August 21, 2017. Supposedly patient became quite confused last evening which is abnormal from his baseline. At the time of assessment patient is unable to provide any history. Speech is garbled and expressive aphasia is noted, not making sense of his words. Patient is able to follow all commands with no unilateral weakness in upper or lower extremities. No facial droop noted on exam. A head CT was done and negative for any acute finding. A stat MRI/MRA was ordered, neuro checks, and neurology consulted to rule out CVA. Leukocytosis improved overnight. UA negative. Blood cultures pending. CBC/BMP: 07/22/17 0515 07/22/17 0515 Significant Findings Laboratory Tests Test 07/24/17 05:00 07/25/17 05:28 07/26/17 05:40 Prothrombin Time 15.6 SEC (9.8-11.6) 13.1 SEC (9.8-11.6) 12.7 SEC (9.8-11.6) Imaging Last Impressions Head CT 07/26/17 Signed Impressions: CONCLUSION: Evolving left parietal stroke. No hemorrhage. Shoulder X-Ray 07/19/17 Signed Impressions: CONCLUSION: Degenerative changes without fracture Head Magnetic Resonance Angiography 07/19/17 Signed Impressions: CONCLUSION: 1. The exam is limited due to motion artifact. 2. The patient has known cortical infarct. No large or central vessel occlusio n is evident. 3. 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 Carotid Artery Ultrasound 07/19/17 Signed Impressions: CONCLUSION: 1. Right Internal Carotid Artery: Approximate 40-50% stenosis. 2. Left Internal Carotid Artery: No hemodynamic significant stenosis. Brain MRI 07/19/17 Signed Impressions: CONCLUSION: 1. 8.5 cm acute infarct in the posterior aspect of the left hemisphere probabl y with associated minimal petechial hemorrhage as above. There is some localize d sulcal effacement. No midline shift. 2. Remote infarct right occipital lobe. Chest X-Ray 07/18/171838 Signed Impressions: CONCLUSION: 1. No acute abnormality or significant interval change. PE at Discharge GENERAL: Elderly male in no acute distress. CARDIOVASCULAR: Normal rate and regular rhythm without murmurs, gallops, or rubs. RESPIRATORY: Good respiratory efforts. Breath sounds equal and clear to auscultation bilaterally. GASTROINTESTINAL: Abdomen soft, non-tender, non-distended. Normal active bowel sounds MUSCULOSKELETAL: Right lower extremity is in a splint. NEURO: Awake and alert to self only. Can follow some commands. Can squeeze fingers bilateral upper extremities. Not moving lower extremities on command. Significant expressive aphasia. Difficult to understand speech. PSYCH: Appropriate mood and affect. Pt update on day of discharge Patient states he is feeling better. States he is trying to improve. Hospital Course 77-year-old male admitted and treated for the following: (1) CVA (cerebral vascular accident) ICD Code: I63.9 - Cerebral infarction, unspecified Plan: Neuro eval appreciated Repeat CT shows evolving infarct without hemorrhage We will continue aspirin and blood pressure medication Patient with severe receptive and expressive language abnormalities and diet has been modified, he has been improving slowly. Patient with A. fib, Coumadin was on hold per neurology. CT scan was repeated today and is stable. Per neurology can resume Coumadin. (2) DM2 (diabetes mellitus, type 2) ICD Code: E11.9 - Type 2 diabetes mellitus without complications (3) Atrial fibrillation ICD Code: I48.91 - Atrial fibrillation Status: Acute Plan: On metoprolol Patient's Coumadin was held. Hematology followed and patient is status post another dose of vitamin K. CT scan remained stable. This was resumed. encephalopathy Plan: Likely secondary to stroke, improved Infection of total right knee replacement ICD Code: T84.53XA - Infection and inflammatory reaction due to internal right knee prosthesis, initial encounter Status: Acute Plan: Status post right knee irrigation, debridement and removal of right total knee /arthroplasty and placement of antibiotic prosthesis secondary to right knee septic arthritis on 07/11/2017. MSSA treated with Ancef IV with projected end date for August 21, 2017. Remove sandra 5/5 Orthopedic follow as needed FOR RANGE OF MOTION RIGHT KNEE AND WEIGHT BEARING TOLERATED IN CANVAS KNEE SPLINT Pt Condition on Discharge: Good Discharge Disposition: Rehab Inpatient Discharge Time: > 30 minutes Discharge Instructions DIET: Follow Instructions for: Heart Healthy Diet, Coumadin (Warfarin) Diet Activities you can perform: Regular-No Restrictions New Medications: Aspirin DR (Aspirin DR) 81 Mg Tabdr 81 MG PO DAILY, #30 TAB Continued Medications: Cefazolin Inj (Cefazolin Inj) 1 Gm/50 Ml Bagp 1 GM IV Q8H for Infection, BAG 0 Refills Fenofibrate (Fenofibrate) 54 Mg Tab 54 MG PO DAILY, #30 TAB 0 Refills Gabapentin (Gabapentin) 100 Mg Cap 100 MG PO TID, #90 CAP 0 Refills Hydrocodone-Acetaminophen ([place]) 7.5-325 mg Tab 1 TAB PO Q6H PRN for PAIN, #12 TAB 0 Refills Insulin Human Isophane-Regular 70-30 Inj (Novolin 70-30 Inj) 1,000 Unit/10 Ml Vial 20 UNITS SQ BID for Blood Sugar Management, ML 0 Refills Metformin (Metformin) 500 Mg Tab 500 MG PO DAILY for Blood Sugar Management, #30 TAB 0 Refills With a meal Metoprolol Tartrate (Metoprolol Tartrate) 100 Mg Tab 100 MG PO BID, #60 TAB 0 Refills Ramipril (Ramipril) 10 Mg Cap 10 MG PO BID, #60 CAP 0 Refills Spironolactone (Spironolactone) 25 Mg Tab 25 MG PO DAILY, #30 TAB 0 Refills Warfarin (Warfarin) 2 Mg Tab 2 MG PO DAILY for Blood Clot Prevention, #30 TAB 0 Refills Lenny Marti MD Jul 26, 2017 15:04
[2017-07-26 16:00] VITALS: BP 111/61; PULSE 78; RESP 17; TEMP 97.6; O2SAT 97
[2017-07-26] MEDS ORDERED: ACETAMINOPHEN 325 MG TAB PO PRN (16:45)
[2017-07-26] MEDS: ACETAMINOPHEN/HYDROcodone 325 MG/5 MG TAB PO PRN (17:14)
[2017-07-26 20:00] VITALS: BP 93/65; PULSE 73; RESP 20; TEMP 97.8; O2SAT 100
[2017-07-26] MEDS: ATORVASTATIN 40 MG TAB PO SCH (21:23)
[2017-07-27] VITALS: BP 96/49; PULSE 50; RESP 20; TEMP 97.6; O2SAT 100
[2017-07-27] MEDS: ceFAZolin 2 GM PREMIX 50 ML IV SCH ×2 (05:54→12:32)
[2017-07-27] MEDS: SPIRONOLACTONE 25 MG TAB PO SCH (08:31)
[2017-07-27] MEDS: GABAPENTIN 100 MG CAP PO SCH ×2 (08:31→12:32)
[2017-07-27] MEDS: FENOFIBRATE 48 MG TAB PO SCH (08:32)
[2017-07-27] MEDS: METOPROLOL TARTRATE 100 MG TAB PO SCH (08:32)
[2017-07-27] MEDS: RAMIPRIL 5 MG CAP PO SCH (08:32)
[2017-07-27] MEDS: ASPIRIN EC 81 MG TABEC PO SCH (08:32)
[2017-07-27] MEDS: INSULIN HUMAN NPH/R 70/30 1,000 UNITS/10 ML VIAL SQ SCH (08:32)
[2017-07-27] MEDS: INSULIN ASPART SUPPLEMENTAL SCALE SQ SCH ×3 (08:33→16:35)
[2017-07-27] MEDS: SODIUM CHLORIDE 0.9% FLUSH 10 ML FLUSH IV FLUSH SCH (08:33)
[2017-07-27] MEDS: ACETAMINOPHEN/HYDROcodone 325 MG/5 MG TAB PO PRN (08:40)
[2017-07-27 08:48] VITALS: BP 109/55; PULSE 65; RESP 17; TEMP 97.6; O2SAT 95
[2017-07-27 12:03] VITALS: BP 118/62; PULSE 65; RESP 19; TEMP 97.6; O2SAT 98
--- NOTE | 2017-07-27 16:18 | HHI.PR ---
Subjective Remarks Pt seen and evaluated. Discharge order already in place. No acute events overnight. Pt tries to speak but doesn't make much sense. Appears comfortable. Grandson at bedside. Pt will be going to [facility] later today. Authorization from insurance received. Objective Vitals Vital Signs Date Time Temp Pulse Resp B/P (MAP) Pulse Ox O2 Delivery O2 Flow Rate FiO2 07/27/17 12:03 97.6 65 19 118/62 (80) 98 07/27/17 08:48 97.6 65 17 109/55 (73) 95 07/27/17 00:00 97.6 50 20 96/49 (65) 100 07/26/17 20:00 97.8 73 20 93/65 (74) 100 I/O 07/26/17 07/26/17 07/26/17 07/27/17 07/27/17 07/27/17 07:00 15:00 23:00 07:00 15:00 23:00 Intake Total 50 ml 50 ml 720 ml Balance 50 ml 50 ml 720 ml Intake Oral 720 ml IV Total 50 ml 50 ml # Voids 12 4 7 # Bowel Movements 0 2 0 Imaging Last Impressions Head CT 07/26/17 0000 Signed Impressions: CONCLUSION: Evolving left parietal stroke. No hemorrhage. Shoulder X-Ray 07/19/17 Signed Impressions: CONCLUSION: Degenerative changes without fracture Head Magnetic Resonance Angiography 07/19/17 Signed Impressions: CONCLUSION: 1. The exam is limited due to motion artifact. 2. The patient has known cortical infarct. No large or central vessel occlusio n is evident. 3. 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 Carotid Artery Ultrasound 07/19/17 Signed Impressions: CONCLUSION: 1. Right Internal Carotid Artery: Approximate 40-50% stenosis. 2. Left Internal Carotid Artery: No hemodynamic significant stenosis. Brain MRI 07/19/17 Signed Impressions: CONCLUSION: 1. 8.5 cm acute infarct in the posterior aspect of the left hemisphere probabl y with associated minimal petechial hemorrhage as above. There is some localize d sulcal effacement. No midline shift. 2. Remote infarct right occipital lobe. Chest X-Ray 07/18/17 1587 Signed Impressions: CONCLUSION: 1. No acute abnormality or significant interval change. Objective Remarks GENERAL: Elderly male laying in bed and appears comfortable. CARDIOVASCULAR: Normal rate and regular rhythm without murmurs RESPIRATORY: Good respiratory efforts. Breath sounds equal and clear to auscultation bilaterally. GASTROINTESTINAL: Abdomen soft, non-tender, non-distended. Normal active bowel sounds MUSCULOSKELETAL: Right lower extremity is in a splint. NEURO: Awake and alert to self only. Can follow some commands. Can squeeze fingers bilateral upper extremities. Not moving lower extremities on command. Significant expressive aphasia. Difficult to understand speech. Procedures None A/P Problem List: (1) CVA (cerebral vascular accident) ICD Code: I63.9 - Cerebral infarction, unspecified (2) DM2 (diabetes mellitus, type 2) ICD Code: E11.9 - Type 2 diabetes mellitus without complications (3) Atrial fibrillation ICD Code: I48.91 - Atrial fibrillation Status: Acute (4) Metabolic encephalopathy ICD Code: G93.41 - Metabolic encephalopathy (5) Infection of total right knee replacement ICD Code: T84.53XA - Infection and inflammatory reaction due to internal right knee prosthesis, initial encounter Status: Acute (6) Coagulopathy ICD Code: D68.9 - Coagulation defect, unspecified Assessment and Plan Update to medical management 07/27/17: no new changes to current management. Pt will be going to [facility] later today. Grandson was present at bedside and asked to speak w CM. No other concerns 77-year-old male admitted and treated for the following: CVA (cerebral vascular accident) Neuro eval appreciated Repeat CT shows evolving infarct without hemorrhage We will continue aspirin and blood pressure medication Patient with severe receptive and expressive language abnormalities and diet has been modified, he has been improving slowly. Patient with A. fib, Coumadin was on hold per neurology. CT scan was repeated today and is stable. Per neurology can resume Coumadin. DM2 (diabetes mellitus, type 2) Type 2 diabetes mellitus without complications Atrial fibrillation On metoprolol Patient's Coumadin was held. Hematology followed and patient is status post another dose of vitamin K. CT scan remained stable. This was resumed. encephalopathy Plan: Likely secondary to stroke, improved Infection of total right knee replacement Status post right knee irrigation, debridement and removal of right total knee / arthroplasty and placement of antibiotic prosthesis secondary to right knee septic arthritis on 07/11/2017. MSSA treated with Ancef IV with projected end date for August 21, 2017. Remove sandra 5/5 Orthopedic follow as needed FOR RANGE OF MOTION RIGHT KNEE AND WEIGHT BEARING TOLERATED IN CANVAS KNEE SPLINT Discharge Planning d/c to [facility] today Isabella Man MD Jul 27, 2017 16:18
== END 2017-07-27 17:23 | DRG 64 ==
LOC: PHEFT 18:32 → PHEDA 20:26 → PH3B 21:12 → OBSVTOIN 07-19 16:05
PROVIDERS: ADMIT Hospitalist; ATTEND Hospitalist
DX: I63.519 Cerebral infarction due to unspecified occlusion or stenosis of unspecified middle cerebral artery (principal); G93.41 Metabolic encephalopathy; N17.9 Acute kidney failure, unspecified; E11.22 Type 2 diabetes mellitus with diabetic chronic kidney disease; I48.91 Unspecified atrial fibrillation; T84.53XA Infection and inflammatory reaction due to internal right knee prosthesis, initial encounter; R47.01 Aphasia; I12.9 Hypertensive chronic kidney disease with stage 1 through stage 4 chronic kidney disease, or unspecified chronic kidney disease; E78.5 Hyperlipidemia, unspecified; I25.10 Atherosclerotic heart disease of native coronary artery without angina pectoris; N18.2 Chronic kidney disease, stage 2 (mild); I87.8 Other specified disorders of veins; I45.10 Unspecified right bundle-branch block; R33.9 Retention of urine, unspecified; I65.21 Occlusion and stenosis of right carotid artery; R00.0 Tachycardia, unspecified; Y83.1 Surgical operation with implant of artificial internal device as the cause of abnormal reaction of the patient, or of later complication, without mention of misadventure at the time of the procedure; Z72.0 Tobacco use; Z79.01 Long term (current) use of anticoagulants; Z79.4 Long term (current) use of insulin; Z86.73 Personal history of transient ischemic attack (TIA), and cerebral infarction without residual deficits; Z88.0 Allergy status to penicillin; Z95.1 Presence of aortocoronary bypass graft; Z98.1 Arthrodesis status
CPT/HCPCS: 70450; 70544; 70551; 71045; 73030; 80048; 80053; 80061; 81001; 82746; 82948; 83735; 84425; 84443; 85025; 85610; 85730; 87040; 93005; 93306; 93880; G8987-GO; G8987-GP; G8988-GO; G8988-GP; G8996-GN; G8997-GN; G8998-GN; G9162-GN; G9163-GN; G9164-GN; J0690; J1815; J7030

== ENCOUNTER 2017-08-02 21:21 | Inpatient (IN) | payer OTHER, MEDICARE ==
[~2017-08-02] VITALS: Ht 193 cm; Wt 109.9 kg
[~2017-08-02 21:21] MED LIST changes: +CEFA1SOL IV; +ECASA81 PO
[2017-08-02 21:56] VITALS: BP 104/72; PULSE 77; RESP 19; TEMP 98.5; O2SAT 99
--- NOTE | 2017-08-02 22:51 | RADRPT ---
EXAM DATE: 08/02/2017 10:48 PM EDT AGE/SEX: 77 years / Male INDICATIONS: Fever, possible infection. Patient has altered mental status. CLINICAL DATA: This is the patient's initial encounter. Patient reports that signs and symptoms have been present for 1 day and indicates a pain score of Nonresponsive. MEDICAL/SURGICAL HISTORY: . Hypertension. Diabetes. Stroke. . CABG. Fusion, cervical. COMPARISON: [facility], CHEST SINGLE AP, 07/18/2017. . FINDINGS: A single AP view of the chest demonstrates the lungs to be symmetrically aerated without evidence of mass, infiltrate or effusion. Status post CABG. Right-sided PICC line with tip in the SVC. The cardio mediastinal contours are unremarkable. Osseous structures are intact. CONCLUSION: No acute cardiopulmonary disease. Electronically signed by: Asif Suarez MD 08/02/2017 10:50 PM EDT
--- NOTE | 2017-08-02 23:11 | PD ---
HPI Chief Complaint: Skin Problem Time Seen by Provider: 22:17 Travel History International Travel<30 days: No Contact w/Intl Traveler<30days: No Traveled to known affect area: No History of Present Illness HPI 77-year-old male presents from assisted living facility. He was sent because of a gangrenous foot which is now spread to the other foot per detention. Patient is demented and provides no history. Per nursing records he is on antibiotics and his issue has been chronic. There was a concern that his feet have become pulseless. Patient denies chest pain abdominal pain or syncope however he also believes it is 1979 and the president is Mr. Orozco. PFSH Past Medical History Hx Anticoagulant Therapy: Yes Arthritis: Yes Blood Disorders: No Heart Rhythm Problems: Yes (AFIB) Cancer: No Cardiac Catheterization: Yes Cardiovascular Problems: Yes High Cholesterol: Yes Chemotherapy: No Chest Pain: No Congestive Heart Failure: No Coronary Artery Disease: Yes Diabetes: Yes Diminished Hearing: No Endocrine: Yes Genitourinary: Yes Hepatitis: No Hiatal Hernia: No Hypertension: Yes Immune Disorder: No Implanted Vascular Access Dvce: Yes Musculoskeletal: Yes Neurologic: No Psychiatric: No Reproductive: No Respiratory: No Radiation Therapy: No Thyroid Disease: No Past Surgical History AICD: No Arteriovenous Shunt: No Body Medical Devices: CERVICAL SPINE INSTRUMENTATION Cardiac Surgery: Yes (quad by-pass 2001) Eye Surgery: Yes (pauline cataracts) Insulin Pump: No Joint Replacement: Yes (RIGHT KNEE) Neurologic Surgery: Yes (CERVICAL SPINE FUSION 10/14/13, L3-L5 02/03/14) Pacemaker: No Other Surgery: Yes Social History Alcohol Use: No Tobacco Use: Yes (1/2 PPD) Substance Use: No Allergies-Medications (Allergen,Severity, Reaction): Coded Allergies: insulin detemir (Verified Allergy, Intermediate, LIPS AND THROAT SWELLS, ) insulin glargine (Verified Allergy, Intermediate, LIPS AND THROAT SWELLS, 07/08/17) *MDRO Multi-Drug Resistant Organism (Verified Allergy, Unknown, 07/08/17) C.diff 09/2013 penicillin G (Verified Allergy, Unknown, Rash, 07/16/17) PT STATES UNKNOWN REACTION Uncoded Allergies: CITRUS (Adverse Reaction, Intermediate, SEVERE UPSET STOMACH, 01/22/14) Reported Meds & Prescriptions Reported Meds & Active Scripts Active Aspirin DR (Aspirin) 81 Mg Tabdr 81 Mg PO DAILY [place] (Hydrocodone-Acetaminophen) 7.5-325 mg Tab 1 Tab PO Q6H PRN Reported Cefazolin Inj (Cefazolin Sodium/Dextrose) 1 Gm/50 Ml Bagp 1 Gm IV Q8H Gabapentin 100 Mg Cap 100 Mg PO TID Metformin (Metformin HCl) 500 Mg Tab 500 Mg PO DAILY With a meal Fenofibrate 54 Mg Tab 54 Mg PO DAILY Warfarin 2 Mg Tab 2 Mg PO DAILY Spironolactone 25 Mg Tab 25 Mg PO DAILY Metoprolol Tartrate 100 Mg Tab 100 Mg PO BID Ramipril 10 Mg Cap 10 Mg PO BID Novolin 70-30 Inj (Insulin Human Isoph/Insulin Regular) 1,000 Unit/10 Ml Vial 20 Units SQ BID Review of Systems ROS Limitations: Poor Historian, Other: (Patient is demented and confused at baseline) Except as stated in HPI: all other systems reviewed are Neg Physical Exam Narrative GENERAL: 77-year-old pleasantly confused male in no distress SKIN: Focused skin assessment warm/dry. HEAD: Atraumatic. Normocephalic. EYES: Pupils equal and round. No scleral icterus. No injection or drainage. ENT: No nasal bleeding or discharge. Mucous membranes pink and moist. NECK: Trachea midline. No JVD. CARDIOVASCULAR: Regular rate and rhythm. No murmur appreciated. RESPIRATORY: No accessory muscle use. Clear to auscultation. Breath sounds equal bilaterally. GASTROINTESTINAL: Abdomen soft, non-tender, nondistended. Hepatic and splenic margins not palpable. MUSCULOSKELETAL: Bilateral edematous lower extremities. His right foot is gangrenous. His left foot is selling some signs of erythema. Both feet are cool to the touch. Pulses are present bilaterally Data Data Last Documented VS Vital Signs Date Time Temp Pulse Resp B/P (MAP) Pulse Ox O2 Delivery O2 Flow Rate FiO2 08/02/17 21:56 98.5 77 19 104/72 (83) 99 Orders Orders Complete Blood Count With Diff (08/02/17 22:17) Comprehensive Metabolic Panel (08/02/17 22:17) Act Partial Throm Time (Ptt) (08/02/17 22:17) Prothrombin Time / Inr (Pt) (08/02/17 22:17) Lactic Acid (08/02/17 22:17) Arterial Blood Gas (Abg) (08/02/17 ) B-Type Natriuretic Peptide (08/02/17 22:17) Electrocardiogram (08/02/17 ) Chest, Single Ap (08/02/17 ) Us Leg Venous Doppler Bilat (08/03/17 22:25) Admit Order (Ed Use Only) (08/03/17 01:11) Labs Laboratory Tests Test 08/02/17 22:30 08/02/17 23:00 Blood Gas Puncture Site RT RADIAL Blood Gas Patient Temperature 98.6 Blood Gas HCO3 17 mmol/L Blood Gas Base Excess -6.3 mmol/L Blood Gas Oxygen Saturation 96 % Arterial Blood pH 7.45 Arterial Blood Partial Pressure CO2 25 mmHg Arterial Blood Partial Pressure O2 104 mmHG Arterial Blood Oxygen Content 11.1 Vol % Arterial Blood Carboxyhemoglobin 1.8 % Arterial Blood Methemoglobin 0.4 % Blood Gas Hemoglobin 8.1 G/DL Oxygen Delivery Device ROOM AIR Blood Gas Inspired Oxygen 21 % White Blood Count 10.5 TH/MM3 Red Blood Count 2.50 MIL/MM3 Hemoglobin 8.3 GM/DL Hematocrit 23.7 % Mean Corpuscular Volume 95.0 FL Mean Corpuscular Hemoglobin 33.4 PG Mean Corpuscular Hemoglobin Concent 35.1 % Red Cell Distribution Width 14.7 % Platelet Count 291 TH/MM3 Mean Platelet Volume 7.9 FL Neutrophils (%) (Auto) 74.9 % Lymphocytes (%) (Auto) 11.2 % Monocytes (%) (Auto) 10.2 % Eosinophils (%) (Auto) 3.2 % Basophils (%) (Auto) 0.5 % Neutrophils # (Auto) 7.8 TH/MM3 Lymphocytes # (Auto) 1.2 TH/MM3 Monocytes # (Auto) 1.1 TH/MM3 Eosinophils # (Auto) 0.3 TH/MM3 Basophils # (Auto) 0.1 TH/MM3 CBC Comment DIFF FINAL Differential Comment Prothrombin Time 72.7 SEC Prothromb Time International Ratio 7.3 RATIO Activated Partial Thromboplast Time 56.8 SEC Blood Urea Nitrogen 82 MG/DL Creatinine 3.74 MG/DL Random Glucose 116 MG/DL Total Protein 5.8 GM/DL Albumin 1.7 GM/DL Calcium Level 8.1 MG/DL Alkaline Phosphatase 98 U/L Aspartate Amino Transf (AST/SGOT) 28 U/L Alanine Aminotransferase (ALT/SGPT) LESS THAN 6 U/L Total Bilirubin 0.2 MG/DL Sodium Level 139 MEQ/L Potassium Level 5.5 MEQ/L Chloride Level 109 MEQ/L Carbon Dioxide Level 18.4 MEQ/L Anion Gap 12 MEQ/L Estimat Glomerular Filtration Rate 16 ML/MIN Lactic Acid Level 1.4 mmol/L B-Type Natriuretic Peptide 993 PG/ML MDM Medical Decision Making Medical Screen Exam Complete: Yes Emergency Medical Condition: Yes Differential Diagnosis CHF Narrative Course Patient seen and evaluated in the emergency department. He was found to be in acute renal failure with CHF. He has a coagulopathy with an INR greater than 7. He also has a nonocclusive deep vein thrombosis. Patient was admitted to for further evaluation and treatment Admitting Information Admitting Physician Requests: Admit Condition: Stable Catrachita Jimenes DO Aug 02, 2017 23:11
[2017-08-02 23:29] LABS: PROTHROMBIN TIME - PATIENT 72.7 SEC (9.8-11.6)
[2017-08-02 23:31] LABS: ALBUMIN 1.7 GM/DL (3.4-5.0); ALT (GPT) LESS THAN 6 U/L (12-78); AST (GOT) 28 U/L (15-37); BICARBONATE 18.4 MEQ/L (21.0-32.0); BLOOD UREA NITROGEN 82 MG/DL (7-18); CALCIUM 8.1 MG/DL (8.5-10.1); CHLORIDE 109 MEQ/L (98-107); CREATININE 3.74 MG/DL (0.60-1.30); GLOMERULAR FILTRATION RATE 16 ML/MIN (>89); GLUCOSE,RANDOM 116 MG/DL (74-106); SODIUM (NA) 139 MEQ/L (136-145)
[2017-08-02 23:33] LABS: ALKALINE PHOSPHATASE 98 U/L (45-117); TOTAL BILIRUBIN ADULT 0.2 MG/DL (0.2-1.0); TOTAL PROTEIN 5.8 GM/DL (6.4-8.2)
[2017-08-02 23:37] LABS: AUTOMATED NEUTROPHIL # 7.8 TH/MM3 (1.8-7.7); BASOPHIL # 0.1 TH/MM3 (0-0.2); BASOPHIL % 0.5 % (0.0-2.0); EOSINOPHIL # 0.3 TH/MM3 (0-0.4); EOSINOPHIL % 3.2 % (0.0-4.0); HEMATOCRIT 23.7 % (39.0-51.0); HEMOGLOBIN 8.3 GM/DL (13.0-17.0); LYMPH % 11.2 % (9.0-44.0); LYMPHOCYTE # 1.2 TH/MM3 (1.0-4.8); MEAN CORPUSCULAR HEMOGLOBIN 33.4 PG (27.0-34.0); MEAN CORPUSCULAR HGB CONC 35.1 % (32.0-36.0); MEAN PLATELET VOLUME 7.9 FL (7.0-11.0); MONO % 10.2 % (0.0-8.0); MONOCYTE # 1.1 TH/MM3 (0-0.9); NEUT % 74.9 % (16.0-70.0); PLATELET COUNT 291 TH/MM3 (150-450); RED CELL DISTRIBUTION WIDTH 14.7 % (11.6-17.2); WHITE BLOOD COUNT 10.5 TH/MM3 (4.0-11.0)
[2017-08-02 23:51] LABS: INTERNATIONAL NORMALIZED RATIO 7.3 RATIO
[2017-08-03] VITALS (13 sets, daily range): BP systolic 90–121; BP diastolic 49–65; PULSE 70–102; RESP 16–20; TEMP 97.4–98.6; O2SAT 20–100
--- NOTE | 2017-08-03 00:29 | RADRPT ---
EXAM DATE: 08/03/2017 12:16 AM EDT AGE/SEX: 77 years / Male INDICATIONS: Bilateral leg edema. CLINICAL DATA: This is the patient's initial encounter. Patient reports that signs and symptoms have been present for 4 - 6 days and indicates a pain score of 2/10. MEDICAL/SURGICAL HISTORY: Hypercholesterolemia. Hypertension. Arthritis. Coronary artery dis ease. Anticoagulant therapy. Irregular heartbeat. Low kidney function. Diabetes. Blood transfusions. . Cervical spine fusions. Quad bypass 2001. Cardiac catheterization. Right knee replaced 2012. COMPARISON: No prior exams available for comparison. TECHNIQUE: Venous ultrasound of both lower extremities was performed from the inguinal ligament to t he proximal calf. Real-time, color Doppler and spectral tracing, compression and augmentation techni ques were used. FINDINGS: Right Leg: There is nonocclusive thrombus seen at the external iliac artery down to the mid superfic ial femoral vein. The greater saphenous and popliteal veins are patent. Left Leg: There is nonocclusive thrombus extending from the external iliac vein through to the peron eal veins. Other: None. CONCLUSION: Bilateral DVTs. Electronically signed by: Carlos Alberto Kaminski MD 08/03/2017 12:27 AM EDT
[2017-08-03] MEDS ORDERED: SENNOSIDES 8.6 MG TAB PO PRN (01:30)
[2017-08-03] MEDS ORDERED: ceFAZolin INJ 1,000 MG VIAL IV SCH (01:30)
[2017-08-03] MEDS ORDERED: LACTULOSE SYRUP 20 GM/30 ML CUP PO PRN (01:30)
[2017-08-03] MEDS ORDERED: ACETAMINOPHEN 325 MG TAB PO PRN (01:30)
[2017-08-03] MEDS ORDERED: MAGNESIUM HYDROXIDE SUSP 30 ML CUP PO PRN (01:30)
[2017-08-03] MEDS ORDERED: METOCLOPRAMIDE HCL 10 MG/2 ML VIAL IV PUSH PRN (01:30)
[2017-08-03] MEDS ORDERED: SODIUM CHLORIDE 0.9% FLUSH 10 ML FLUSH IV FLUSH PRN (01:30)
[2017-08-03] MEDS ORDERED: ACETAMINOPHEN/HYDROcodone 325 MG/5 MG TAB PO PRN (01:30)
[2017-08-03] MEDS ORDERED: DEXTROSE 50% IN WATER 50 ML VIAL(D50) IV PUSH PRN (01:30)
[2017-08-03] MEDS ORDERED: BISACODYL 10 MG SUPP RECTAL PRN (01:30)
[2017-08-03] MEDS ORDERED: GLUCAGON 1 MG/ML VIAL OTHER PRN (01:30)
[2017-08-03] MEDS ORDERED: Vancomycin Consult Pharmacy 1 EA OTHER SCH (01:30)
[2017-08-03] MEDS ORDERED: DEXT 5%-NACL 0.45% 500 ML INJ 500 ML IV ONE (01:30)
--- NOTE | 2017-08-03 01:58 | HHI.HP ---
[facility] Primary Care Physician Non-Staff Admission Diagnosis CHF, DVT, Coagulaopathy, Acute Renal Failure Diagnoses: (1) CHF (congestive heart failure) Diagnosis: Principal (2) Infection of total right knee replacement Diagnosis: Principal (3) Foot infection Diagnosis: Principal (4) DVT (deep venous thrombosis) Diagnosis: Principal (5) Supratherapeutic INR Diagnosis: Principal (6) Anemia Diagnosis: Principal (7) DM (diabetes mellitus) Diagnosis: Principal (8) DNR (do not resuscitate) Diagnosis: Principal Travel History International Travel<30 Days: No Contact w/Intl Traveler <30 Da: No Traveled to Known Affected Are: No History of Present Illness This is a 77-year-old DNR male with PMH of A. emelina on Coumadin, HTN, DM, CHF ( Echo 07/20/17 w/ EF 55-60%), CAD, CVA, Severe Dementia and Right Knee Septic Joint who [facility]. Pt w/ recent admit 07/19-06/25/17 for AMS while being treated for septic knee joint, s/p Debridement/Removal of RKA and placement of antibiotic prosthesis on 07/11/17, cultures +MSSA, plan for Ancef IV until 08/21/17. Pt unable to provide any history due to severe dementia. On arrival, BP 104/72, HR 77, O2 sat 99% on RA , Afebrile. WBC 10.5. Hemoglobin 8.3, previously 9.1 on 07/22/2017. K+ 5.5. Creatinine 3.74, previously 1.30 on 07/22/2017. Lactic Acid 1.4. BNP 993. INR 7.3. CXR with no acute findings. LE Doppler with bilateral DVTs. On exam, pt noted to have gangrenous foot infection, cool extremities w/ +pulses. Review of Systems Except as stated in HPI: all other systems reviewed are Neg ROS: Unable to obtain secondary to severe dementia. Past Family Social History Past Medical History PMH: A. fib on Coumadin, HTN, DM, CAD, CHF (Echo 07/20/17 w/ EF 55-60%), CVA, Severe Dementia and Right Knee Septic Joint Past Surgical History PAST SURGICAL HISTORY: Cervical Spine Surgery, CABG, Bilateral Cataract Surgery , Right Knee Replacement, Lumbar Fusion Allergies: Coded Allergies: insulin detemir (Verified Allergy, Intermediate, LIPS AND THROAT SWELLS, ) insulin glargine (Verified Allergy, Intermediate, LIPS AND THROAT SWELLS, 07/08/17) *MDRO Multi-Drug Resistant Organism (Verified Allergy, Unknown, 07/08/17) C.diff 09/2013 penicillin G (Verified Allergy, Unknown, Rash, 07/16/17) PT STATES UNKNOWN REACTION Uncoded Allergies: CITRUS (Adverse Reaction, Intermediate, SEVERE UPSET STOMACH, 01/22/14) Family History PAST FAMILY HISTORY: Reviewed. No h/o DM or CAD Social History PAST SOCIAL HISTORY: Negative for alcohol or drugs. Positive for tobacco. Physical Exam Vital Signs Vital Signs Date Time Temp Pulse Resp B/P (MAP) Pulse Ox O2 Delivery O2 Flow Rate FiO2 08/02/17 21:56 98.5 77 19 104/72 (83) 99 Physical Exam PE: GENERAL: Elderly white male in no acute distress. Severely demented but pleasant. HEENT: PERRLA, EOMI. No scleral icterus or conjunctival pallor. No lid lag or facial droop. CARDIOVASCULAR: Regular rate and rhythm. No obvious murmurs to auscultation. No chest tenderness to palpation. RESPIRATORY: No obvious rhonchi or wheezing. Clear to auscultation. Breath sounds equal bilaterally. GASTROINTESTINAL: Abdomen soft, non-tender, nondistended. BS normal. MUSCULOSKELETAL: Extremities without clubbing, cyanosis, or edema. No obvious deformities. Bilateral lower extremities cool to touch, right foot w/ gangrene/ edema, left foot w/ erythema/edema. NEUROLOGICAL: Awake, alert, significant dementia, incomprehensible at times. No focal neurologic deficits. Moving both upper and lower extremities spontaneously. Laboratory Laboratory Tests Test 08/02/17 22:30 08/02/17 23:00 Blood Gas Puncture Site RT RADIAL Blood Gas Patient Temperature 98.6 Blood Gas HCO3 17 Blood Gas Base Excess -6.3 Blood Gas Oxygen Saturation 96 Arterial Blood pH 7.45 Arterial Blood Partial Pressure CO2 25 Arterial Blood Partial Pressure O2 104 Arterial Blood Oxygen Content 11.1 Arterial Blood Carboxyhemoglobin 1.8 Arterial Blood Methemoglobin 0.4 Blood Gas Hemoglobin 8.1 Oxygen Delivery Device ROOM AIR Blood Gas Inspired Oxygen 21 White Blood Count 10.5 Red Blood Count 2.50 Hemoglobin 8.3 Hematocrit 23.7 Mean Corpuscular Volume 95.0 Mean Corpuscular Hemoglobin 33.4 Mean Corpuscular Hemoglobin Concent 35.1 Red Cell Distribution Width 14.7 Platelet Count 291 Mean Platelet Volume 7.9 Neutrophils (%) (Auto) 74.9 Lymphocytes (%) (Auto) 11.2 Monocytes (%) (Auto) 10.2 Eosinophils (%) (Auto) 3.2 Basophils (%) (Auto) 0.5 Neutrophils # (Auto) 7.8 Lymphocytes # (Auto) 1.2 Monocytes # (Auto) 1.1 Eosinophils # (Auto) 0.3 Basophils # (Auto) 0.1 CBC Comment DIFF FINAL Differential Comment Prothrombin Time 72.7 Prothromb Time International Ratio 7.3 Activated Partial Thromboplast Time 56.8 Blood Urea Nitrogen 82 Creatinine 3.74 Random Glucose 116 Total Protein 5.8 Albumin 1.7 Calcium Level 8.1 Alkaline Phosphatase 98 Aspartate Amino Transf (AST/SGOT) 28 Alanine Aminotransferase (ALT/SGPT) LESS THAN 6 Total Bilirubin 0.2 Sodium Level 139 Potassium Level 5.5 Chloride Level 109 Carbon Dioxide Level 18.4 Anion Gap 12 Estimat Glomerular Filtration Rate 16 Lactic Acid Level 1.4 B-Type Natriuretic Peptide 993 Result Diagram: 08/02/17 2300 08/02/17 230 Caprini VTE Risk Assessment Caprini VTE Risk Assessment: Mod/High Risk (score >= 2) VTE Pharm Contraindication: Coagulopathy,INR elevated Caprini Risk Assessment Model Point Value = 1 Point Value = 2 Point Value = 3 Point Value = 5 Age 41-60 Minor surgery BMI > 25 kg/m2 Swollen legs Varicose veins or History of unexplained or recurrent spontaneous Oral contraceptives or hormone replacement Sepsis (< 1 month) Serious lung disease, including pneumonia (< 1 month) Abnormal pulmonary function Acute myocardial infarction Congestive heart failure (< 1 month) History of inflammatory bowel disease Medical patient at bed rest Age 61-74 Arthroscopic surgery Major open surgery (> 45 min) Laparoscopic surgery (> 45 min) Malignancy Confined to bed (> 72 hours) Immobilizing plaster cast Central venous access Age >= 75 History of VTE Family history of VTE Factor V Leiden Prothrombin [id number] Lupus anticoagulant Anticardiolipin antibodies Elevated serum homocysteine Heparin-induced thrombocytopenia Other congenital or acquired thrombophilia Stroke (< 1 month) Elective arthroplasty Hip, pelvis, or leg fracture Acute spinal cord injury (< 1 month) Prophylaxis Regimen Total Risk Factor Score Risk Level Prophylaxis Regimen 0-1 Low Early ambulation 2 Moderate Order ONE of the following: *Sequential Compression Device (SCD) *Heparin 5000 units SQ BID 3-4 Higher Order ONE of the following medications: *Heparin 5000 units SQ TID *Enoxaparin/Lovenox 40 mg SQ daily (WT < 150 kg, CrCl > 30 mL/min) *Enoxaparin/Lovenox 30 mg SQ daily (WT < 150 kg, CrCl > 10-29 mL/min) *Enoxaparin/Lovenox 30 mg SQ BID (WT < 150 kg, CrCl > 30 mL/min) AND/OR *Sequential Compression Device (SCD) 5 or more Highest Order ONE of the following medications: *Heparin 5000 units SQ TID (Preferred with Epidurals) *Enoxaparin/Lovenox 40 mg SQ daily (WT < 150 kg, CrCl > 30 mL/min) *Enoxaparin/Lovenox 30 mg SQ daily (WT < 150 kg, CrCl > 10-29 mL/min) *Enoxaparin/Lovenox 30 mg SQ BID (WT < 150 kg, CrCl > 30 mL/min) AND *Sequential Compression Device (SCD) Assessment and Plan Problem List: (1) Foot infection ICD Code: L08.9 - Local infection of the skin and subcutaneous tissue, unspecified (2) Infection of total right knee replacement ICD Code: T84.53XA - Infection and inflammatory reaction due to internal right knee prosthesis, initial encounter Status: Acute (3) CHF (congestive heart failure) ICD Code: I50.9 - Heart failure, unspecified (4) DVT (deep venous thrombosis) ICD Code: I82.409 - Acute embolism and thrombosis of unspecified deep veins of unspecified lower extremity (5) Supratherapeutic INR ICD Code: R79.1 - Abnormal coagulation profile (6) Anemia ICD Code: D64.9 - Anemia, unspecified (7) DM (diabetes mellitus) ICD Code: E11.9 - Type 2 diabetes mellitus without complications (8) DNR (do not resuscitate) ICD Code: Z66 - Do not resuscitate Assessment and Plan A/P: 1. Foot Infection: Bilateral. On Ancef for recent right knee infection, right foot w/ gangrene, left foot w/ erythema/edema, extremities cool however pulses intact. Continue Ancef, start Vanc, check Blood Cultures, consult ID for further evaluation/recommendations. No c/o pain, lactic acid normal, less likely ischemia, unable to obtain CTA due to KIRBY, consult Vascular Sx as needed for further intervention, INR 7.3 2. Right Knee Infection: recent admit for septic right knee joint following TKA, s/p removal, +MSSA Blood cultures, on Ancef until 08/21/17, will continue. 3. DVT: Doppler LE w/ bilateral DVT, on Coumadin for h/o A-fib, supratherapeutic INR, will hold anticoagulation at this time. 4. CHF: Acute on Chronic. Diastolic. Echo 07/20/17 w/ EF 55-60%, BNP 993, CXR w/ no acute findings, images reviewed by me. Monitor I/O, resume diuretics- caution w/ KIRBY. Repeat labs in am. 5. KIRBY: Creatinine 3.74, previously 1.30 on 07/22/17, IVF for hydration, caution w/ CHF/fluid overload. Repeat labs in am, Nephrology consult for further eval as needed. 6. Supratherapeutic INR: On Coumadin for h/o A-fib. INR 7.3, no active bleeding noted at this time, in light of acute DVT and possible PAD will avoid Vit K. Repeat INR in am. 7. Anemia: Acute on Chronic. Hgb 8.3, previously 9.1 on 07/22/17. Will monitor , repeat labs in am. 8. DM: Sliding scale w/ Accu-Cheks. Hold Metformin in light of KIRBY. 9. DVT Prophylaxis: Hold Coumadin due to INR 7.3 10. Social work for d/c planning as needed. 11. Case discussed w/ ER physician at length, labs/records/imaging reviewed by me. Physician Certification 2 Midnight Certification Type: Admission for Inpatient Services Order for Inpatient Services The services are ordered in accordance with Medicare regulations or non- Medicare payer requirements, as applicable. In the case of services not specified as inpatient-only, they are appropriately provided as inpatient services in accordance with the 2-midnight benchmark. Estimated LOS (days): 2 days is the estimated time the patient will need to remain in the hospital, assuming treatment plan goals are met and no additional complications. Post-Hospital Plan: Not yet determined Debbie Malave MD Aug 03, 2017 01:58
[2017-08-03] MEDS ORDERED: ceFAZolin 1,000 MG/NS 100 ML IV SCH ×4 (02:00→14:00)
[2017-08-03] MEDS ORDERED: VANCOMYCIN INJ 2,000 MG in SODIUM CHLORID 0.9% 500 ML INJ 500 ML IV ONE (02:30)
[2017-08-03] MEDS: MORPHINE SULFATE 4 MG/ML INJ IV PRN ×3 (02:57→14:04)
[2017-08-03] MEDS ORDERED: RESP: ALBUTEROL 2.5 MG/IPRATROPIUM 0.5 MG NEB (PRN) NEB (05:30)
[2017-08-03] MEDS ORDERED: METOPROLOL TARTRATE 100 MG TAB PO SCH (09:00)
[2017-08-03] MEDS ORDERED: INSULIN HUMAN NPH/R 70/30 1,000 UNITS/10 ML VIAL SQ SCH (09:00)
[2017-08-03] MEDS ORDERED: SPIRONOLACTONE 25 MG TAB PO SCH (09:00)
[2017-08-03] MEDS ORDERED: ASPIRIN EC 81 MG TABEC PO SCH (09:00)
[2017-08-03] MEDS ORDERED: DOCUSATE SODIUM 50 MG/SENNA 8.6 MG TAB PO SCH (09:00)
[2017-08-03] MEDS ORDERED: SODIUM CHLORIDE 0.9% FLUSH 10 ML FLUSH IV FLUSH SCH (09:00)
[2017-08-03] MEDS: GABAPENTIN 100 MG CAP PO SCH ×2 (10:33→14:03)
[2017-08-03] MEDS: INSULIN ASPART SUPPLEMENTAL SCALE SQ SCH ×2 (10:35→14:04)
--- NOTE | 2017-08-03 10:40 | EKG ---
Date Performed: 08/02/2017 Time Performed: 23:57:58 PTAGE: 77 years EKG: ATRIAL FIBRILLATION RIGHT BUNDLE BRANCH BLOCK ABNORMAL ECG PREVIOUS TRACING : 07/18/2017 19.45 No significant change from previous tracing noted. DOCTOR: Zhen Salguero Interpretating Date/Time 08/03/2017 10:38:33
--- NOTE | 2017-08-03 10:42 | PD.CONS ---
History of Present Illness Service Infectious disease Consult Requested By Dr Malave Reason for Consult Evaluate patient with right foot infection Primary Care Physician Non-Staff Diagnoses: History of Present Illness Patient seen and examined. Records reviewed. Patient is a 77-year-old male, brought into the hospital for further evaluation of his right foot. Patient known to me from his hospitalization the first week of June when he was admitted for swelling of his right knee. He was diagnosed to have infected right total knee arthroplasty, and he underwent removal of his prostheses. His culture grew methicillin sensitive staph aureus. He was discharged to a rehab facility with plans to complete 6 weeks of IV antibiotics , and he was on IV Ancef with end date August 21. On reviewing his records, it looks like he was readmitted to the hospital July 16 - July 27, and at that time he was diagnosed to have CVA. He had Wernicke's aphasia during that admission. [facility], and he was still getting IV Ancef. According to the ED notes, the jail noted that his foot was getting gangrenous, so the patient was brought to the hospital for further evaluation and treatment. Patient currently is awake, but not really making sense, which probably is from his Wernicke's aphasia. He has evidence of acute renal failure. He is afebrile. Bilateral lower extremity ultrasound showing evidence of bilateral DVT. Infectious disease consultation has been requested to evaluate the patient with foot infection. Review of Systems ROS Limitations: Clinical Condition, Altered Mental Status Past Family Social History Allergies: Coded Allergies: insulin detemir (Verified Allergy, Intermediate, LIPS AND THROAT SWELLS, ) insulin glargine (Verified Allergy, Intermediate, LIPS AND THROAT SWELLS, 07/08/17) *MDRO Multi-Drug Resistant Organism (Verified Allergy, Unknown, 07/08/17) C.diff 09/2013 penicillin G (Verified Allergy, Unknown, Rash, 07/16/17) PT STATES UNKNOWN REACTION Uncoded Allergies: CITRUS (Adverse Reaction, Intermediate, SEVERE UPSET STOMACH, 01/22/14) Past Medical History Diabetes mellitus Hypertension Chronic arthritis and degenerative joint disease A. 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 Past Surgical History Cervical spine surgery Lumbar spine surgery CABG Cataract surgery Surgery on RTKA with removal of hardware Active Ordered Medications Current Medications Medications (Trade) Dose Ordered Sig/Jake Route Start Time Stop Time Status Last Admin (D50w (Vial) Inj) 50 ml UNSCH PRN IV PUSH 08/03/17 01:30 (Glucagon Inj) 1 mg UNSCH PRN OTHER 08/03/17 01:30 (NovoLOG SUPPLEMENTAL SCALE) 1 ACHS SLIDING SCALE SQ 08/03/17 08:00 Pharmacy Profile Note 0 ml @ 0 mls/hr UNSCH OTHER 08/03/17 01:30 (NS Flush) 2 ml UNSCH PRN IV FLUSH 08/03/17 01:30 (NS Flush) 2 ml BID IV FLUSH 08/03/17 09:00 (Reglan Inj) 5 mg Q6H PRN IV PUSH 08/03/17 01:30 (Tylenol) 650 mg Q6H PRN PO 08/03/17 01:30 (Buchanan 5-325 Mg) 1 tab Q4H PRN PO 08/03/17 01:30 (Morphine Inj) 2 mg Q3H PRN IV 08/03/17 01:45 08/03/17 02:57 (Lulu-Colace) 1 tab BID PO 08/03/17 09:00 (Milk Of Magnesia Liq) 30 ml Q12H PRN PO 08/03/17 01:30 (Senokot) 17.2 mg Q12H PRN PO 08/03/17 01:30 (Dulcolax Supp) 10 mg DAILY PRN RECTAL 08/03/17 01:30 (Lactulose Liq) 30 ml DAILY PRN PO 08/03/17 01:30 (Ecotrin Ec) 81 mg DAILY PO 08/03/17 09:00 (Neurontin) 100 mg TID PO 08/03/17 09:00 (NovoLIN 70/30 INJ) 20 units BID SQ 08/03/17 09:00 (Lopressor) 100 mg BID PO 08/03/17 09:00 (Aldactone) 25 mg DAILY PO 08/03/17 09:00 (Duoneb Neb) 1 ampule Q2HR NEB PRN NEB 08/03/17 05:30 08/03/17 05:29 Cefazolin Sodium 1000 mg/Sodium Chloride 100 ml @ 200 mls/hr Q12H IV 08/03/17 14:00 Family History Noncontributory to current ID problem Social History Currently in the jail, prior to his hospitalization for his right knee infection, he was living independently at home Smoker Denies alcohol abuse No illicit drug use Physical Exam Vital Signs Vital Signs Date Time Temp Pulse Resp B/P (MAP) Pulse Ox O2 Delivery O2 Flow Rate FiO2 08/03/17 08:00 98.4 94 18 94/50 (65) 20 08/03/17 05:33 90 Nasal Cannula 3.00 08/03/17 05:30 Nasal Cannula 2.00 08/03/17 04:11 71 08/03/17 04:00 97.4 81 16 121/57 (78) 100 08/03/17 04:00 Room Air 08/03/17 02:38 82 08/03/17 02:05 97.9 78 18 115/55 (75) 100 08/02/17 21:56 98.5 77 19 104/72 (83) 99 Physical Exam GENERAL: Patient is a well-nourished, well-developed male, awake, speech not making sense, not in respiratory distress. SKIN: Warm and dry. No generalized rash. HEAD: Atraumatic. Normocephalic. No temporal wasting, or tenderness. EYES: [place] conjunctiva. No petechia or hemorrhage. Pupils equal, round and reactive to light. Extraocular movements full and intact. No scleral icterus. No injection or drainage. EARS, NOSE AND THROAT: Nose without bleeding or purulent nasal discharge. Has very dry oral mucosa. NECK: Trachea midline. Supple and not tender, no meningeal signs CARDIOVASCULAR: Irregular rate and rhythm. No murmurs, rubs or gallops heard RESPIRATORY: Clear to auscultation. Breath sounds equal bilaterally. No rales , wheezing or rhonchi. Decreased breath sounds at the bases ABDOMEN: Soft, non-tender, nondistended. Bowel sounds present and normoactive. No guarding. No rebound. No organomegaly. EXTREMITIES: No clubbing, cyanosis. LLE: Has superficial wounds L leg, no cellulitis noted. RLE: Knee incsion healing, no redness. Has superficial wounds, no cellulitis. Has ischemic R foot. NEUROLOGICAL: Awake, answering my questions but not making sense (Has Wernicke' s aphasia). No obvious facial asymmetry. PSYCHIATRIC: Unable to assess LINE: PICC with no evidence of infection Laboratory Laboratory Tests Test 08/02/17 22:30 6/14/18 23:00 Blood Gas Puncture Site RT RADIAL Blood Gas Patient Temperature 98.6 Blood Gas HCO3 17 Blood Gas Base Excess -6.3 Blood Gas Oxygen Saturation 96 Arterial Blood pH 7.45 Arterial Blood Partial Pressure CO2 25 Arterial Blood Partial Pressure O2 104 Arterial Blood Oxygen Content 11.1 Arterial Blood Carboxyhemoglobin 1.8 Arterial Blood Methemoglobin 0.4 Blood Gas Hemoglobin 8.1 Oxygen Delivery Device ROOM AIR Blood Gas Inspired Oxygen 21 White Blood Count 10.5 Red Blood Count 2.50 Hemoglobin 8.3 Hematocrit 23.7 Mean Corpuscular Volume 95.0 Mean Corpuscular Hemoglobin 33.4 Mean Corpuscular Hemoglobin Concent 35.1 Red Cell Distribution Width 14.7 Platelet Count 291 Mean Platelet Volume 7.9 Neutrophils (%) (Auto) 74.9 Lymphocytes (%) (Auto) 11.2 Monocytes (%) (Auto) 10.2 Eosinophils (%) (Auto) 3.2 Basophils (%) (Auto) 0.5 Neutrophils # (Auto) 7.8 Lymphocytes # (Auto) 1.2 Monocytes # (Auto) 1.1 Eosinophils # (Auto) 0.3 Basophils # (Auto) 0.1 CBC Comment DIFF FINAL Differential Comment Prothrombin Time 72.7 Prothromb Time International Ratio 7.3 Activated Partial Thromboplast Time 56.8 Blood Urea Nitrogen 82 Creatinine 3.74 Random Glucose 116 Total Protein 5.8 Albumin 1.7 Calcium Level 8.1 Alkaline Phosphatase 98 Aspartate Amino Transf (AST/SGOT) 28 Alanine Aminotransferase (ALT/SGPT) LESS THAN 6 Total Bilirubin 0.2 Sodium Level 139 Potassium Level 5.5 Chloride Level 109 Carbon Dioxide Level 18.4 Anion Gap 12 Estimat Glomerular Filtration Rate 16 Lactic Acid Level 1.4 B-Type Natriuretic Peptide 993 Date/Time Source Procedure Growth Status 08/03/17 03:15 Blood Peripheral Aerobic Blood Culture Pending Received 08/03/17 03:15 Blood Peripheral Anaerobic Blood Culture Pending Received Result Diagram: 08/02/17 2300 08/02/17 2300 Imaging RADIOLOGY STUDIES/FILMS REVIEWED Lower Extremity Ultrasound 08/03/175 Signed Impressions: CONCLUSION: Bilateral DVTs. Chest X-Ray 08/02/17 0000 Signed Impressions: CONCLUSION: No acute cardiopulmonary disease. Assessment and Plan Assessment and Plan IMPRESSION RTKA MSSA infection, S/P removal - to finish Rx August 21 ?Sepsis Ischemic R foot Recent episode of CVA with Wernicke's aphasia Acute renal failure Encephalopathy RECOMMENDATION Insert Govea Renal ultrasound Check UA and culture Urine for eosinophil Continue Ancef Patient got a dose of Vanco, and will check level Add Levaquin Vascular consult to evaluate ischemic right foot 2 blood culture Monitor progress I will follow along with you Thank you for this consultation Discussed Condition With Discussed with Piper Tamayo MD Aug 03, 2017 10:42
[2017-08-03] MEDS ORDERED: LEVOFLOXACIN 250 MG PREMIX INJ 50 ML IV SCH (11:00)
--- NOTE | 2017-08-03 12:48 | RADRPT ---
EXAM DATE: 08/03/2017 12:38 PM EDT AGE/SEX: 77 years / Male INDICATIONS: Renal failure. CLINICAL DATA: This is the patient's initial encounter. Patient reports that signs and symptoms have been present for 1 day and indicates a pain score of 1/10. MEDICAL/SURGICAL HISTORY: . Hypercholesterolemia. Hypertension. Arthritis. Coronary artery dise ase. Anticoagulant therapy. Irregular heartbeat. Low kidney function. Diabetes. . Blood transfusions . Cervical spine fusions. Quad bypass 2001. Cardiac catheterization. Right knee replaced 2012. COMPARISON: No prior exams available for comparison. MEASUREMENTS: Right Kidney:__12.6 x 6.2 x 6.9 cm cm Left Kidney:__9.9 x 4.7 x 6.7 cm cm FINDINGS: Right Kidney: Right kidney is slightly echogenic. There is prominence of the renal pelvis. No mass id entified. Left Kidney: Left kidney is slightly echogenic. No mass or hydronephrosis. Bladder: Within normal limits given the degree of distension. CONCLUSION: 1. Kidneys are slightly echogenic which can be seen with medical renal disease. 2. Prominence of the right renal pelvis suggests mild hydronephrosis. Electronically signed by: Asif Suarez MD 08/03/2017 12:47 PM EDT
[2017-08-03 13:29] LABS: BILIRUBIN, URINE NEG (NEG); BLOOD, URINE SMALL (NEG); GLUCOSE,URINE 50 mg/dL (NEG); KETONE, URINE TRACE mg/dL (NEG); NITRITE,URINE NEG (NEG); URINE COLOR YELLOW (YELLW/STRAW); URINE LEUKOCYTE ESTERASE MOD (NEG)
--- NOTE | 2017-08-03 17:54 | HHI.DS ---
Summary Note Date of : Aug 03, 2017 Admission Date Aug 03, 2017 at 1436 Admitting Diagnosis CHF, DVT, Coagulaopathy, Acute Renal Failure Diagnosis at Time of : (1) Foot infection ICD Code: L08.9 - Local infection of the skin and subcutaneous tissue, unspecified Diagnosis: Principal (2) Infection of total right knee replacement ICD Code: T84.53XA - Infection and inflammatory reaction due to internal right knee prosthesis, initial encounter Diagnosis: Principal (3) CHF (congestive heart failure) ICD Code: I50.9 - Heart failure, unspecified Diagnosis: Secondary (4) DVT (deep venous thrombosis) ICD Code: I82.409 - Acute embolism and thrombosis of unspecified deep veins of unspecified lower extremity Diagnosis: Secondary (5) Supratherapeutic INR ICD Code: R79.1 - Abnormal coagulation profile Diagnosis: Secondary (6) Anemia ICD Code: D64.9 - Anemia, unspecified Diagnosis: Secondary (7) DM (diabetes mellitus) ICD Code: E11.9 - Type 2 diabetes mellitus without complications Diagnosis: Secondary (8) DNR (do not resuscitate) ICD Code: Z66 - Do not resuscitate Diagnosis: Secondary Brief History This is a 77-year-old DNR male with PMH of A. fib on Coumadin, HTN, DM, CHF ( Echo 07/20/17 w/ EF 55-60%), CAD, CVA, Severe Dementia and Right Knee Septic Joint who was sent to the ER from [facility] for foot infection. Pt w/ recent admit 07/19-06/25/17 for AMS while being treated for septic knee joint, s/p Debridement/Removal of RKA and placement of antibiotic prosthesis on 07/11/17, cultures +MSSA, plan for Ancef IV until 08/21/17. Pt unable to provide any history due to severe dementia. On arrival, BP 104/72, HR 77, O2 sat 99% on RA , Afebrile. WBC 10.5. Hemoglobin 8.3, previously 9.1 on 07/22/2017. K+ 5.5. Creatinine 3.74, previously 1.30 on 07/22/2017. Lactic Acid 1.4. BNP 993. INR 7.3. CXR with no acute findings. LE Doppler with bilateral DVTs. On exam, pt noted to have gangrenous foot infection, cool extremities w/ +pulses. CBC/BMP: 08/02/17 2300 08/02/17 2300 Significant Findings Laboratory Tests Test 08/02/17 22:30 08/02/17 23:00 08/03/17 12:28 08/03/17 15:30 Blood Gas HCO3 17 mmol/L (22-26) Blood Gas Base Excess -6.3 mmol/L (-2-2) Arterial Blood pH 7.45 (7.380-7.420) Arterial Blood Partial Pressure CO2 25 mmHg (38-42) Arterial Blood Oxygen Content 11.1 Vol % (12.0-20.0) Blood Gas Hemoglobin 8.1 G/DL (12.0-16.0) Red Blood Count 2.50 MIL/MM3 (4.50-5.90) Hemoglobin 8.3 GM/DL (13.0-17.0) Hematocrit 23.7 % (39.0-51.0) Neutrophils (%) (Auto) 74.9 % (16.0-70.0) Monocytes (%) (Auto) 10.2 % (0.0-8.0) Neutrophils # (Auto) 7.8 TH/MM3 (1.8-7.7) Monocytes # (Auto) 1.1 TH/MM3 (0-0.9) Prothrombin Time 72.7 SEC (9.8-11.6) Prothromb Time International Ratio 7.3 RATIO Activated Partial Thromboplast Time 56.8 SEC (24.3-30.1) Blood Urea Nitrogen 82 MG/DL (7-18) Creatinine 3.74 MG/DL (0.60-1.30) Random Glucose 116 MG/DL (74-106) Total Protein 5.8 GM/DL (6.4-8.2) Albumin 1.7 GM/DL (3.4-5.0) Calcium Level 8.1 MG/DL (8.5-10.1) Alanine Aminotransferase (ALT/SGPT) LESS THAN 6 U/L (12-78) Potassium Level 5.5 MEQ/L (3.5-5.1) Chloride Level 109 MEQ/L (98-107) Carbon Dioxide Level 18.4 MEQ/L (21.0-32.0) Estimat Glomerular Filtration Rate 16 ML/MIN (>89) B-Type Natriuretic Peptide 993 PG/ML (0-100) Urine Ketones TRACE mg/dL (NEG) Urine Occult Blood SMALL (NEG) Urine Leukocyte Esterase MOD (NEG) Imaging Last Impressions Lower Extremity Ultrasound 08/03/17 2225 Signed Impressions: CONCLUSION: Bilateral DVTs. Renal Ultrasound 08/03/17 0000 Signed Impressions: CONCLUSION: 1. Kidneys are slightly echogenic which can be seen with medical renal disease . 2. Prominence of the right renal pelvis suggests mild hydronephrosis. Chest X-Ray 08/02/17 0000 Signed Impressions: CONCLUSION: No acute cardiopulmonary disease. Hospital Course Patient admitted with right foot infection, lethargic and encephalopathic. Was seen by dr. Dacosta and started on IV antibiotics. a mccauley catheter was placed and 600cc of urine drained. Hospice consulted. Per staff, patient's family was suppose to meet with Hospice today at the nursing facility. Hospice service consulted. Patient quietly at 1735. BP- 0 HR - 0 staff trying to get hold of family member to inform them called contact number listed [phone]- [facility]- no answer I finally got hold of Shari Prasad- estranged spouse- she is in [place] and informed her. she states that his wishes were to be cremated she is asking what next step I will consult case management to call her [phone] she also says that [facility] should not be involved in his care I informed her that [facility] is listed as the personnel coordinator Devika Macias MD Aug 03, 2017 17:54
== END 2017-08-03 19:19 | disposition expired | DRG 682 ==
LOC: NEPC 21:21 → NEDA 08-03 01:14 → N04A 08-03 01:59
PROVIDERS: ADMIT Internal Medicine; ATTEND Internal Medicine
DX: N17.9 Acute kidney failure, unspecified (principal); G93.40 Encephalopathy, unspecified; I50.33 Acute on chronic diastolic (congestive) heart failure; E11.52 Type 2 diabetes mellitus with diabetic peripheral angiopathy with gangrene; Z51.5 Encounter for palliative care; Z66 Do not resuscitate; F03.90 Unspecified dementia, unspecified severity, without behavioral disturbance, psychotic disturbance, mood disturbance, and anxiety; E11.9 Type 2 diabetes mellitus without complications; D64.9 Anemia, unspecified; I82.411 Acute embolism and thrombosis of right femoral vein; I82.423 Acute embolism and thrombosis of iliac vein, bilateral; I11.0 Hypertensive heart disease with heart failure; I48.91 Unspecified atrial fibrillation; I25.10 Atherosclerotic heart disease of native coronary artery without angina pectoris; E78.5 Hyperlipidemia, unspecified; I69.320 Aphasia following cerebral infarction; M19.90 Unspecified osteoarthritis, unspecified site; F17.200 Nicotine dependence, unspecified, uncomplicated; Z79.01 Long term (current) use of anticoagulants; Z79.4 Long term (current) use of insulin; Z88.0 Allergy status to penicillin; Z95.1 Presence of aortocoronary bypass graft; Z98.1 Arthrodesis status
CPT/HCPCS: 36600; 71045; 76775; 80053; 80202; 81001; 82805; 82948; 83605; 83880; 85025; 85610; 85730; 87040; 87205; 93005; 93970; 94664; J0690; J1815; J1956; J2270; J3370; J7040